=== PATIENT | female | born 1960 ===

== ENCOUNTER 2023-01-17 11:35 | Outpatient (OUT) | payer OTHER, SELFPAY ==
--- NOTE | 2023-01-17 15:07 | CONS_ITS ---
CONSULTATION DATE: ??01/17/2023 TO:? < > CHIEF COMPLAINT:? Includes pain occurring bilaterally in her lower back. HISTORY:? She describes it as 5-7/10 pain, sharp in character with deep aching component, increased with activities such as standing, walking and performing transitioning maneuvers. ?Patient feels most comfortable in the semi-recumbent position.? She denies any change in bowel and bladder habits or new sensorimotor changes in the lower extremities. EXAM:? Her examination is notable for patient having no clinical radiculopathy or myelopathy involving the lower extremities.? She did have severe pain with lumbar axial loading maneuvers and point tenderness overlying the L4-5 and L5-S1 interspace, with associated myofascial spasm of the lumbar paravertebral muscles occurring bilaterally. IMPRESSION:? Our impression is patient has chronic pain secondary to lumbago, secondary to unclear etiology.? She did have dysesthesia and hyperesthesia overlying the distribution of the superior gluteal nerve occurring bilaterally.? RECOMMENDATIONS:? At this point, I recommend no further intervention for this matter at this time.? I have asked her to discontinue [place] and Flexeril.? Will trial her on Baclofen 5 mg pills, 1-2 t.i.d. as tolerated, and we have ordered a lumbosacral MRI, and we will review her findings at her next visit in approximately one month?s time or sooner if needed.? As part of providing excellent, safe, comprehensive care, the following was completed at our patient's visit: 1. A medication reconciliation and review to ensure accurate knowledge of current/active medications, including asking our patients to inform us about any uyfu-jdi-tkrkimn medications or herbal remedies/nutritional supplements/alternative remedies. 2. A review to specifically ensure our patients have had annual screening for: elevated body mass index (BMI, see intake chart for exact total), tobacco use, screening for depression, and screening for unhealthy alcohol use.? When screening is concerning, patients are provided with education and the specific recommendation to discuss the concerning health issue and treatment options with their primary care provider. KALYN
== END 2023-01-17 11:36 | disposition home or self-care (01) ==
PROVIDERS: Visit Provider Anesthesiology Pain Medicine
DX: M54.50 Low back pain, unspecified (principal); G89.29 Other chronic pain
CPT/HCPCS: 94761; G0463

== ENCOUNTER 2023-03-27 11:35 | Outpatient (OUT) | payer OTHER, SELFPAY ==
--- NOTE | 2023-03-27 11:58 | PM.CN ---
Consult Note: HPI Data of Consult Patient: known to practice within the last 3 years Requesting Physician: Maira Park NP Primary Care Provider: Non-Staff Physician, Family Provider: JACEY Consult Narrative Reason for consult: low back pain and right thigh/buttock pain Narrative: Liset miller pleasant 63 year old female presents for follow up on chronic low back pain. Patient here today as MRI of lumbar spine was denied by insurance due to no recent PT for low back pain. cc:: CC: Maira Park NP Review of Systems ROS Status of ROS 10 or more systems reviewed and unremarkable except as noted in history and below Musculoskeletal Reports: back pain Meds Home Medications and Allergies Home Medications Medication Instructions Recorded Confirmed Type acetaminophen 325 mg tablet 650 mg PO Q6H PRN pain 01/18/23 01/18/23 History (Tylenol) albuterol 90 mcg/actuation aerosol 90 mcg inhalation .every 6 hours 01/18/23 01/18/23 History inhaler shortness of breath/wheezing aspirin 81 mg capsule 81 mg PO DAILY 01/18/23 01/18/23 History baclofen 5 mg tablet 5 mg PO TID 01/18/23 01/18/23 History bupropion HCl 150 mg 24 hr tablet, 150 mg PO DAILY 01/18/23 01/18/23 History extended release buspirone 15 mg tablet 15 mg PO BID 01/18/23 01/18/23 History calcium carbonate 500 mg calcium 500 mg PO DAILY 01/18/23 01/18/23 History (1,250 mg) tablet clonazepam 1 mg tablet 1 mg PO BID 01/18/23 01/18/23 History clotrimazole 1 % topical cream 1 applic topical BID 01/18/23 01/18/23 History gabapentin 300 mg capsule 900 mg PO TID 01/18/23 01/18/23 History lisinopril 10 1 tab PO DAILY 01/18/23 01/18/23 History mg-hydrochlorothiazide 12.5 mg tablet meloxicam 15 mg tablet 15 mg PO DAILY 01/18/23 01/18/23 History pantoprazole 40 mg tablet,delayed 40 mg PO BID 01/18/23 01/18/23 History release Allergies Allergy/AdvReac Type Severity Reaction Status Date / Time morphine Allergy Unknown Verified 01/18/23 07:51 Exam Constitutional Documenting provider has reviewed patient's vital signs: yes Common normals: no apparent distress, oriented x3, healthy appearing, alert and well nourished General appearance: cooperative HENMT Common normals: normocephalic, hearing grossly normal bilaterally and moist oral mucous membranes Head and scalp: normocephalic Eye Common normals: PERRL Pupil: PERRL Neck & C-Spine Common normals: full ROM General: normal visual inspection Chest Common normals: inspection of chest normal Respiratory Common normals: normal respiratory effort, no retractions and no use of accessory muscles Back & Pelvis Thoracic spine/upper back: normal to inspection and thoracic ROM normal Lumbar spine/lower back: ROM limited, pain with ROM and straight leg raise negative bilaterally Extremity Common normals: normal to inspection and full ROM Neuro Common normals: oriented x3, CN's II-XII intact bilaterally, moves all extremities, no focal motor deficits, no sensory deficits noted and deep tendon reflexes 2+ bilaterally Sensorium/orientation: alert Motor exam: strength 5/5 throughout and no movement abnormalities noted Psych Common normals: mental status grossly normal, thought process normal, cooperative, affect normal, speech normal and activity/motor behavior normal Speech: normal speech Thought process: normal thought process Results Additional Findings Additional findings: I have checked an [facility] report on this patient today and there are no aberrancies noted in the prescribing history.?? A drug screen was completed and reviewed within the last year, and if there has not been a drug screen completed we ordered one today to monitor higher risk, state monitored pain medication use. As part of providing excellent, safe, comprehensive care, the following was completed at our patient's visit: 1. A medication reconciliation and review to ensure accurate knowledge of current/active medications, including asking our patients to inform us about any oypl-nxe-dwzmexf medications or herbal remedies/nutritional supplements/alternative remedies. 2. A review to specifically ensure our patients have had annual screening for: elevated body mass index (BMI), tobacco use, screening for depression, and screening for unhealthy alcohol use. When screening is concerning, patients are provided with education and the specific recommendation to discuss the concerning health issue and treatment options with their primary care provider. Assessment and Plan Assessment and Plan (1) Hypertension: Assessment and Plan: Blood pressure is elevated today. No signs or symptoms of ID/CVA including chest pain, SOB, left sided acute neck, arm, or jaw pain (separate from chronic pain complaint), diaphoresis, facial drooping, new acute neuro changes in both upper and lower extremities (other than those mentioned in the note above). Recommend follow up with PCP for further evaluation and treatment.? (2) Lumbalgia: Plan PT for low back pain MRI after completion of PT continue medications as ordered f/u 6 weeks
== END 2023-03-27 11:36 | disposition home or self-care (01) ==
LOC: PM 11:36
PROVIDERS: Visit Provider Nurse Practitioner
DX: M54.50 Low back pain, unspecified (principal); I10 Essential (primary) hypertension
CPT/HCPCS: G0463

== ENCOUNTER 2023-06-11 10:42 | Outpatient (OUT) | payer OTHER, SELFPAY ==
--- NOTE | 2023-06-11 10:47 | MR_ITS ---
[address] [address] Patient Name: TIFFANY MCKEON MRN: [id number] date: 1960 Sex: F Assigned Patient Location: MRI Current Patient Location: MRI Accession/Order Number: [id number] Exam Date: 06/11/2023 10:57 Report Date: 06/11/2023 13:53 At the request of: RADHA LINDSEY Procedure: MR lumbar spine wo con MRI LUMBAR SPINE WITHOUT CONTRAST: 06/11/2023 10:57 AM EST History:Low Back Pain Comparison: Outside study 12/18/2021 . Sequences per routine unenhanced protocol. STUDY QUALITY: Good NUMBERING SCHEME: The lowest lumbar type vertebra is labeled L5 OSSEOUS: No marrow edema pattern or compression deformity. Focus of stippled signal alteration T11 vertebral body is partially hyperintense on IRT2. It measures 8 mm and is unchanged. SPINAL CANAL SIZE: Developmentally is greater than average in size LOWER THORACIC LEVELS: No central stenosis. T12-L1: Moderate disc degeneration is unchanged. No HNP or central stenosis. L1-2: No HNP or central stenosis. L2-3: Minimal disc bulge. No HNP or central stenosis. L3-4: Minimal disc bulge. No HNP or central stenosis. L4-5: Mild disc bulge. Posterior ligaments are not hypertrophied. Moderate facet DJD with some overgrowth. Sac is mildly trefoiled but no central stenosis is evident. L4 foramina are slightly narrowed by disc bulge. L5-S1: No HNP or central stenosis. Neither S1 root sleeve is effaced and displaced. Mild facet overgrowths. SPINAL CORD: No evidence of myelomalacia. No syrinx. CONAL TIP: At L1-L2. EXTRASPINAL SOFT TISSUES: No acute findings. OTHER: None MR/MR lumbar spine wo con IMPRESSION: 1. Developmentally the lumbar spinal canal is greater than average in size. 2. No HNP or acquired central stenosis. 3. Area of signal alteration T11 vertebral body is unchanged. Lack of interval change favors benignity. It may simply represent a small hemangioma Electronically authenticated by: POONAM GUILLEN Date: 06/11/2023 13:53
== END 2023-06-11 10:43 | disposition home or self-care (01) ==
LOC: MRI 10:42
PROVIDERS: Visit Provider Anesthesiology Pain Medicine
DX: M54.50 Low back pain, unspecified (principal)
CPT/HCPCS: 72148

== ENCOUNTER 2023-06-19 08:25 | Outpatient (OUT) | payer OTHER, SELFPAY ==
--- NOTE | 2023-06-19 08:57 | P.CN_ITS ---
Consult Note: HPI Data of Consult Patient: known to practice within the last 3 years Requesting Physician: Maira Park NP Primary Care Provider: Non-Staff Physician, Family Provider: JACEY Consult Narrative Reason for consult: f/u Narrative: Liset miller pleasant 63 year old female presents for evaluation and management of chronic back pain. Today rating pain 8/10 in low back pain, throbbing, worse with activity. Completed PT without benefit, MRI obtained and reviewed today. cc:: CC: Maira Park NP Review of Systems ROS Status of ROS 10 or more systems reviewed and unremarkable except as noted in history and below Musculoskeletal Reports: back pain Meds Home Medications and Allergies Home Medications Medication Instructions Recorded Confirmed Type acetaminophen 325 mg tablet 650 mg PO Q6H PRN pain 01/18/23 01/18/23 History (Tylenol) albuterol 90 mcg/actuation aerosol 90 mcg inhalation .every 6 hours 01/18/23 01/18/23 History inhaler shortness of breath/wheezing aspirin 81 mg capsule 81 mg PO DAILY 01/18/23 01/18/23 History baclofen 5 mg tablet 5 mg PO TID 01/18/23 01/18/23 History bupropion HCl 150 mg 24 hr tablet, 150 mg PO DAILY 01/18/23 01/18/23 History extended release buspirone 15 mg tablet 15 mg PO BID 01/18/23 01/18/23 History calcium carbonate 500 mg calcium 500 mg PO DAILY 01/18/23 01/18/23 History (1,250 mg) tablet clonazepam 1 mg tablet 1 mg PO BID 01/18/23 01/18/23 History clotrimazole 1 % topical cream 1 applic topical BID 01/18/23 01/18/23 History gabapentin 300 mg capsule 900 mg PO TID 01/18/23 01/18/23 History lisinopril 10 1 tab PO DAILY 01/18/23 01/18/23 History mg-hydrochlorothiazide 12.5 mg tablet meloxicam 15 mg tablet 15 mg PO DAILY 01/18/23 01/18/23 History pantoprazole 40 mg tablet,delayed 40 mg PO BID 01/18/23 01/18/23 History release Allergies Allergy/AdvReac Type Severity Reaction Status Date / Time morphine Allergy Unknown Verified 01/18/23 07:51 Exam Constitutional Documenting provider has reviewed patient's vital signs: yes Common normals: no apparent distress, oriented x3, healthy appearing, alert and well nourished General appearance: cooperative HENMT Common normals: normocephalic, hearing grossly normal bilaterally and moist oral mucous membranes Head and scalp: normocephalic Eye Common normals: PERRL Pupil: PERRL Neck & C-Spine Common normals: full ROM General: normal visual inspection Chest Common normals: inspection of chest normal Respiratory Common normals: normal respiratory effort, no retractions and no use of accessory muscles Back & Pelvis Thoracic spine/upper back: normal to inspection and thoracic ROM normal Lumbar spine/lower back: ROM limited, pain with ROM and straight leg raise negative bilaterally Other: radiculapthy and weakness to right leg Extremity Common normals: normal to inspection and full ROM Neuro Common normals: oriented x3, CN's II-XII intact bilaterally, moves all extremities, no focal motor deficits, no sensory deficits noted and deep tendon reflexes 2+ bilaterally Sensorium/orientation: alert Motor exam: strength 5/5 throughout and no movement abnormalities noted Psych Common normals: mental status grossly normal, thought process normal, cooperative, affect normal, speech normal and activity/motor behavior normal Speech: normal speech Thought process: normal thought process Assessment and Plan Assessment and Plan (1) Lumbar degenerative disc disease: Assessment and Plan: The patient has had over 3 months of moderate to severe low back pain with functional impairment and inadequate response to conservative care including NSAIDS (unless there are contraindication such as concurrent blood thinners), multiple oral or topical pain medications, and home exercise program/physical therapy.? Patient has completed >6 weeks of guided home exercise program and/or formal ph ysical therapy program without relief of their symptoms.? I have reviewed the imaging of the lumbar spine and no red flags were identified.? The Oswestry Disability Index was completed, and the patient scored a 48%.? The patient noted the following:?? moderate to severe pain, pain with ADLs, pain with lifting, walking, standing, impacting sleep We discussed the risks and benefits of the procedure with the patient, and we are NOT planning on using sedation as outlined in the guidelines from Medicare unless there is a documented reason that sedation would be strongly recommended.???The procedure will be completed with fluoroscopic guidance.? (2) Lumbalgia: (3) Lumbar radiculopathy: Plan stop mobic, start diclofenac 100mg BID with food L4-[address] Jenkins continue other medications continue HEP f/u 2 weeks after SUZANNA
== END 2023-06-19 08:26 | disposition home or self-care (01) ==
LOC: PM 08:26
PROVIDERS: Visit Provider Nurse Practitioner
DX: M51.36 Other intervertebral disc degeneration, lumbar region (principal); M54.50 Low back pain, unspecified; M54.16 Radiculopathy, lumbar region
CPT/HCPCS: G0463

== ENCOUNTER 2023-07-18 07:44 | Day surgery (SDC) | payer OTHER, SELFPAY ==
[2023-07-18 08:00] VITALS: BP 134/95; PULSE 82; RESP 16; TEMP 36.1; O2SAT 98
[2023-07-18 08:52] VITALS: BP 150/72; PULSE 65; RESP 18; O2SAT 94
[2023-07-18 08:54] VITALS: BP 142/75; PULSE 57; RESP 18; O2SAT 94
[2023-07-18] MEDS: 0.9 % SODIUM CHLORIDE 10 ML SYRINGE - SALINE FLUSH 2 ML INJ (08:58)
[2023-07-18] MEDS: BUPIVACAINE HCL 0.25% PF 25 MG/10 ML VIAL 2 ML INJ (08:59)
[2023-07-18] MEDS: LIDOCAINE HCL 2% PF 100 MG/5 ML VIAL 3 ML INJ (08:59)
[2023-07-18] MEDS: IOHEXOL 240 MG/ML - 10 ML VIAL 18 MG INJ (08:59)
[2023-07-18] MEDS: METHYLPREDNISOLONE ACETATE 80 MG/ML VIAL INJ (08:59)
--- NOTE | 2023-07-18 09:12 | P.ON_ITS ---
Date of procedure: 07/18/23 Pre-op diagnosis: lumbar radiculopathy Post-op diagnosis: same as pre-op Procedure: Lumbar 4-5 Epidural Steroid Injection Under fluoroscopic guidance Immediate complications none Solution used for injection: Marcaine 0.25% 2mL, 2cc Normal saline, Depo-Medrol 80mg Omnipaque 3 mL Anesthesia local 2% lidocaine up to 4ml Timeout process compliant After informed consent obtained. Patient brought to the procedure room placed in the prone position. Skin overlying the area was prepped and draped in a sterile fashion using betadine. 25 gauge needle used to raise a skin wheel with local anesthetic over the target area identified under fluoroscopy. A 17 gauge Touhy needle Was inserted over the anesthetized area and directed towards the inter- space under fluoroscopic guidance. Epidural space was identified with loss of resistance technique to air. Needle Tip placement confirmed with injection of contrast solution. Steroid solution was then injected. Anesthesia: Local Surgeon: Matt Jenkins Condition: stable
--- OUTSIDE RECORDS SUMMARY | 2023-07-18 10:30 | XMS_ITS | CCD ---
Author Name Unknown Address [address] [facility] [address] [place] [address] Organization [facility] Care Team Providers Care Neonatal Intensive Care Nurse Name Role Phone DeaBerhane carpenter Primary Care Provider Case Paul Primary Care Provider DeaBerhane carpenter Primary Care Provider [phone] DeaBerhane carpenter Primary Care Provider Deats TEST BORER - PHP PROGRAMMERBerhane Primary Care Provider Deats TEST BORER - PHP PROGRAMMERBerhane Primary Care Provider Saud TEST BORER - PHP PROGRAMMER, Jazmín White Primary Care Provid er Saud TEST BORER - PHP PROGRAMMER, Jazmín L Primary Care Provid er Saud TEST BORER - PHP PROGRAMMER, Jazmín L Primary Care Provid er MISC, DR ERICKSON Primary Care Unavailable GONZALEZ ., DR JUNIOR Good Attending Unavailable GONZALEZ ., DR JUNIOR Good Admitting Unavailable MISC, DR ERICKSON Consulting Unavailable GONZALEZ ., DR JUNIOR Good Consulting Unavailable SHARP, CAMRYN Consulting Unavailable GEMBUS, MATIAS Consulting Unavailable MISC, DR ERICKSON Primary Care Unavailable GONZALEZ ., DR JUNIOR Good Attending Unavailable GONZALEZ ., DR JUNIOR Good Admitting Unavailable MISC, DR ERICKSON Consulting Unavailable PERRY .GARY Consulting Unavailable PERRY .GARY Consulting Unavailable MISC, DR ERICKSON Primary Care Unavailable GONZALEZ ., DR JUNIOR Good Attending Unavailable GONZALEZ ., DR JUNIOR Good Admitting Unavailable MISC, DR ERICKSON Consulting Unavailable MISC, DR ERICKSON Primary Care Unavailable GONZALEZ ., DR JUNIOR Good Attending Unavailable GONZALEZ ., DR JUNIOR Good Admitting Unavailable GONZALEZ ., DR JUNIOR Good Consulting Unavailable MISC, DR ERICKSON Consulting Unavailable MISC, DR ERICKSON Primary Care Unavailable GONZALEZ ., DR JUNIOR Good Attending Unavailable GONZALEZ ., DR JUNIOR Good Admitting Unavailable GONZALEZ ., DR JUNIOR Good Consulting Unavailable PERRY ., GARY Consulting Unavailable PERRY ., GARY Consulting Unavailable MISC, DR ERICKSON Primary Care Unavailable GONZALEZ ., DR JUNIOR Good Attending Unavailable GONZALEZ ., DR JUNIOR Good Admitting Unavailable LAKSHMIPATHY ., NARENDRANATH Attending Annabel vailable MISC, DR DOCTOR Mcclain Unavailable MISC, DR ERICKSON Primary Care Unavailable LAKSHMIPATHY ., NARENDRANATH Admitting Annabel vailable LAKSHMIPATHY ., NARLIBERTYATH Consulting Annabel vailable PERRY ., GARY Consulting Unavailable GONZALEZ ., DR JUNIOR Good Attending Unavailable MISC, DR ERICKSON Primary Care Unavailable GONZALEZ ., DR JUNIOR Good Admitting Unavailable MISC, DR DOCTOR Mcclain Unavailable GONZALEZ ., DR JUNIOR Good Attending Unavailable GONZALEZ ., DR JUNIOR Good Admitting Unavailable MISC, DR ERICKSON Primary Care Unavailable GONZALEZ ., DR JUNIOR Good Consulting Unavailable HIGHLANDER, ESTUARDO Tobin Attending Unavailable ZIEBER, DR MARIO Cotton Consulting Unavailable HIGHLANDER, ESTUARDO Tobin Admitting Unavailable HIGHLANDER, ESTUARDO Tobin Consulting Unavailable PARADISE, BROOKE Consulting Unavailable PARADISE, BROOKE Attending Unavailable PARADISE, BROOKE Admitting Unavailable MISC, DR ERICKSON Primary Care Unavailable BROOKLYNN CAMPBELL Consulting Unavailable MISC, DR ERICKSON Primary Care Unavailable GONZALEZ ., DR JUNIOR Good Attending Unavailable GONZALEZ ., DR JUNIOR Good Admitting Unavailable MISC, DR DOCTOR Mcclain Unavailable GONZALEZ ., DR JUNIOR Good Consulting Unavailable GONZALEZ ., DR JUNIOR Good Attending Unavailable GONZALEZ ., DR JUNIOR Good Admitting Unavailable MISC, DR ERICKSON Primary Care Unavailable MISC, DR DOCTOR Mcclain Unavailable PERRY ., GARY Consulting Unavailable Saud TEST BORER-PHP PROGRAMMER, [facility] Primary Care Unava ilable Saud TEST BORER-PHP PROGRAMMER, Jazmín L Consulting Unava ilable Bogdan DPM, Ariel Morillo Attending Unavailab le Saud TEST BORER-PHP PROGRAMMER, [facility] Primary Care Unava ilable Bogdan DPM, Ariel Morillo Attending Unavailab le Saud TEST BORER-PHP PROGRAMMER, [facility] Primary Care Unava ilable Bogdan DPM, Ariel Morillo Attending Unavailab le Saud TEST BORER-PHP PROGRAMMER, [facility] Primary Care Unava ilable Bogdan DPM, Ariel Morillo Attending Unavailab le Bogdan DPM, Ariel Morillo Attending Unavailab le Saud TEST BORER-PHP PROGRAMMER, Jazmín White Primary Care Unava ilable Saud TEST BORER-PHP PROGRAMMER, Jazmín White Primary Care Unava ilable Bogdan MCCARTHYM, Ariel Morillo Referring Unavailab Josh QUEZADA, Adriana Attending Unavailable Saud TEST BORER-PHP PROGRAMMER, Jazmín White Primary Care Unava ilable Bogdan DPM, Ariel Morillo Attending Unavailab le Saud TEST BORER-PHP PROGRAMMER, Jazmín White Primary Care Unava ilable Bogdan DPM, Ariel Morillo Attending Unavailab le Saud TEST BORER - PHP PROGRAMMER, Jazmín White Primary Care Provid er SAUD, JAZMÍN White Primary Care Unavailable DAT RUDOLPH Admitting Unavailable DAT RUDOLPH Attending Unavailable DAVI DUKE Referring Unavailable REJI, LUCINA Consulting Unavaila ble SAUD, JAZMÍN L Referring Unavailable SAUD, JAZMÍN L Primary Care Unavailable SAUD, JAZMÍN L Referring Unavailable SAUD, JAZMÍN L Primary Care Unavailable SOPHIA MULLIGAN Referring Unavailable SAUD, JAZMÍN L Primary Care Unavailable SAUD, JAZMÍN L Referring Unavailable SAUD, JAZMÍN L Primary Care Unavailable SAUD, JAZMÍN L Referring Unavailable SAUD, JAZMÍN L Primary Care Unavailable SAUD, JAZMÍN L Referring Unavailable SAUD, JAZMÍN L Primary Care Unavailable SAUD, JAZMÍN L Referring Unavailable SAUD, JAZMÍN L Primary Care Unavailable SAUD, JAZMÍN L Referring Unavailable SAUD, JAZMÍN L Primary Care Unavailable SAUD, JAZMÍN L Referring Unavailable SAUD, JAZMÍN L Primary Care Unavailable SAUD, JAZMÍN L Referring Unavailable SAUD, JAZMÍN L Primary Care Unavailable SAUD, JAZMÍN L Referring Unavailable SAUD, JAZMÍN L Primary Care Unavailable SAUD, JAZMÍN L Referring Unavailable SAUD, JAZMÍN L Primary Care Unavailable SAUD, JAZMÍN L Referring Unavailable SAUD, JAZMÍN L Primary Care Unavailable SAUD, JAZMÍN L Referring Unavailable SAUD, JAZMÍN L Primary Care Unavailable SAUD, JAZMÍN L Referring Unavailable SAUD, JAZMÍN L Primary Care Unavailable SAUD, JAZMÍN L Referring Unavailable SAUD, JAZMÍN L Primary Care Unavailable SAUD, JAZMÍN L Referring Unavailable SAUD, JAZMÍN L Primary Care Unavailable SAUD, JAZMÍN L Referring Unavailable SAUD, JAZMÍN L Primary Care Unavailable SAUD, JAZMÍN L Referring Unavailable SAUD, JAZMÍN L Primary Care Unavailable SAUD, JAZMÍN L Referring Unavailable SAUD, JAZMÍN L Primary Care Unavailable SAUD, JAZMÍN L Referring Unavailable SAUD, JAZMÍN L Primary Care Unavailable SAUD, JAZMÍN L Referring Unavailable SUAD, JAZMÍN L Primary Care Unavailable MULLIGAN, SOPHIA S Referring Unavailable SAUD, JAZMÍN L Primary Care Unavailable SAUD, JAZMÍN L Referring Unavailable SAUD, JAZMÍN L Primary Care Unavailable EVITA LEON R Referring Unavailable SAUD, JAZMÍN L Primary Care Unavailable SAUD, JAZMÍN L Referring Unavailable SAUD, JAZMÍN L Primary Care Unavailable SAUD, JAZMÍN L Referring Unavailable SAUD, JAZMÍN L Primary Care Unavailable SAUD, JAZMÍN L Referring Unavailable SAUD, JAZMÍN L Primary Care Unavailable SAUD, JAZMÍN L Referring Unavailable SAUD, JAZMÍN L Primary Care Unavailable SAUD, JAZMÍN L Referring Unavailable SAUD, JAZMÍN L Primary Care Unavailable SAUD, JAZMÍN L Referring Unavailable SAUD, JAZMÍN L Primary Care Unavailable SAUD, JAZMÍN L Referring Unavailable SAUD, JAZMÍN L Primary Care Unavailable SAUD, JAZMÍN L Referring Unavailable SAUD, JAZMÍN L Primary Care Unavailable SAUD, JAZMÍN L Referring Unavailable SAUD, JAZMÍN L Primary Care Unavailable SAUD, JAZMÍN L Referring Unavailable SAUD, JAZMÍN L Primary Care Unavailable SAUD, JAZMÍN L Referring Unavailable SAUD, JAZMÍN L Primary Care Unavailable SAUD, JAZMÍN L Referring Unavailable SAUD, JAZMÍN L Primary Care Unavailable SAUD, JAZMÍN L Referring Unavailable SAUD, JAZMÍN L Primary Care Unavailable SAUD, JAZMÍN L Referring Unavailable SAUD, JAZMÍN L Primary Care Unavailable SAUD, JAZMÍN L Referring Unavailable SAUD, JAZMÍN L Primary Care Unavailable SAUD, JAZMÍN L Referring Unavailable SAUD, JAZMÍN L Primary Care Unavailable SAUD, JAZMÍN L Referring Unavailable SAUD, JAZMÍN L Primary Care Unavailable SAUD, JAZMÍN L Referring Unavailable SAUD, JAZMÍN L Primary Care Unavailable SAUD, JAZMÍN L Referring Unavailable SAUD, JAZMÍN L Primary Care Unavailable SAUD, JAZMÍN L Referring Unavailable SAUD, JAZMÍN L Primary Care Unavailable SERA, BRIANDA N Admitting Unavailable SERA, BRIANDA N Attending Unavailable SAUD, JAZMÍN L Primary Care Unavailable SAUD, JAZMÍN L Primary Care Unavailable CRISMARU, DAVI Attending Unavailable SAUD, JAZMÍN L Referring Unavailable SAUD, JAZMÍN L Primary Care Unavailable SAUD, JAZMÍN L Primary Care Unavailable SAUD, JAZMÍN L Referring Unavailable SAUD, JAZMÍN L Primary Care Unavailable SAUD, JAZMÍN L Referring Unavailable SAUD, JAZMÍN L Primary Care Unavailable Allergies Allergy Classification Reported Allergen(s) Allergy Type Date of Onset Reaction(s) Facility NSAIDs (6 sources) Ibuprofen Drug Allergy 3 Other (See Comments) [facility] Opioid Agonists (6 sources) Morphine Drug Allergy 2 [facility] (20 sources) Ibuprofen; Translations: [ibuprofen] Drug Allergy 3 Other (See Comments) [place] (20 sources) Morphine; Translations: [morphine] Drug Allergy 2 [place], [place] (1 source) Morphine Drug Allergy [facility] Repository Medications Current Medications Medication Drug Class(es) Dates Sig (Normalized) Sig (Original) Acetaminophen (20 sources) Start: 09-12-2022 acetaminophen (TYLENOL) tablet 650 mg Start: 08-19-2020 acetaminophen (TYLENOL) tablet 650 mg Start: 08-20-2019 take 2 tablets by mo uth every eight hours as needed for pain acetaminophen (TYLENOL) 325 MG tablet Take 2 tablets by mouth every 8 hours as needed for Pain 30 tablet 0 08/20/2019 Active Start: 08-20-2019 acetaminophen (TYLENOL) tablet 1,000 mg take 2 tablets by mo uth every six hours as needed for pain acetaminophen (TYLENOL) 325 MG tablet Take 2 tablets by mouth every 6 hours as needed for Pain 0 Active acetaminophen 325 mg / HYDROcodone bitartrate 5 mg oral tablet (12 sources) Opioid Agonist Start: 11-21-2021 End: 11-26-2021 take 1 tablet by mouth every six hours as needed for pain HYDROcodone-acetaminophen (NORCO) 5-325 MG per tablet Indications: Chronic bilateral low back pain, unspecified whether sciatica present Take 1 tablet by mouth every 6 hours as needed for Pain for up to 5 days. Take lowest dose possible to manage pain 18 tablet 0 11/21/2021 11/26/2021 Active Start: 08-19-2020 End: 08-19-2020 HYDROcodone-acetaminophen (N ORCO) 5-325 MG per tablet 1 tablet [id number] 200 actuat albuterol 0.09 mg/actuat metered dose inhaler (20 sources) beta2-Adrenergic Agonist Start: 09-12-2022 albuterol sulfate HFA (PROVENTIL;VENTOLIN;PROAIR) 108 (90 Base) MCG/ACT inhaler 2 puff Start: 11-30-2021 take 2 puff(s) by in halation every six hours as needed for wheezing albuterol sulfate HFA (PROVENTIL HFA) 108 (90 Base) MCG/ACT inhaler Inhale 2 puffs into the lungs every 6 hours as needed for Wheezing 1 each 5 11/30/2021 Active Start: 09-07-2021 take 2 puff(s) by in halation every six hours as needed for wheezing albuterol sulfate HFA (PROVENTIL HFA) 108 (90 Base) MCG/ACT inhaler Inhale 2 puffs into the lungs every 6 hours as needed for Wheezing 1 each 5 09/07/2021 Active Start: 02-01-2021 take 2 puff(s) by in halation every six hours as needed for wheezing albuterol sulfate HFA (PROVENTIL HFA) 108 (90 Base) MCG/ACT inhaler Inhale 2 puffs into the lungs every 6 hours as needed for Wheezing 1 Inhaler 3 02/01/2021 Active Start: 04-09-2019 take 2 puff(s) by in halation every six hours as needed for wheezing albuterol sulfate HFA (PROVENTIL HFA) 108 (90 Base) MCG/ACT inhaler Inhale 2 puffs into the lungs every 6 hours as needed for Wheezing 1 Inhaler 3 04/09/2019 Active Start: 04-09-2019 take 2 puff(s) by in halation every six hours as needed for wheezing albuterol sulfate HFA (PROVENTIL HFA) 108 (90 Base) MCG/ACT inhaler Inhale 2 puffs into the lungs every 6 hours as needed for Wheezing 1 Inhaler 3 04/09/2019 Active Start: 01-28-2017 take 2 puff(s) by in halation every six hours as needed for wheezing albuterol sulfate HFA (PROVENTIL HFA) 108 (90 Base) MCG/ACT inhaler Inhale 2 puffs into the lungs every 6 hours as needed for Wheezing 1 Inhaler 3 01/28/2017 Active alginic acid 200 mg / calcium carbonate 80 mg / magnesium trisilicate 20 mg / sodium bicarbonate 70 mg oral tablet (8 sources) take 1 tablet by mouth once daily calcium carbonate (TUMS) 500 MG chewable tablet Take 1 tablet by mouth daily 0 Active ALPRAZolam 0.5 mg oral tablet (4 sources) Benzodiazepine Start: 09-10-19 23 End: 11-10-19 23 take 1 tablet by mouth three times daily as needed for anxiety ALPRAZolam (XANAX) 0.5 MG tablet Indications: Anxiety and depression Take 1 tablet by mouth 3 times daily as needed for Anxiety for up to 60 days. Max Daily Amount: 1.5 mg 60 tablet 0 09/10/2022 11/09/2022 Active aspirin 81 mg chewable tablet (20 sources) Platelet Aggregation Inhibitor, Nonsteroidal Anti-inflammatory Drug take 1 tablet by mouth once daily aspirin 81 MG chewable tablet Take 1 tablet by mouth daily 0 Active atorvastatin 20 mg oral tablet (20 sources) HMG-CoA Reductase Inhibitor Start: 10-09-19 take 1 tablet by mouth once daily atorvastatin (LIPITOR) 20 MG tablet Indications: Dyslipidemia Take 1 tablet by mouth daily 90 tablet 1 10/08/2022 Active Start: 06-07-2022 take 1 tablet by marj th once daily atorvastatin (LIPITOR) 20 MG tablet Indications: Dyslipidemia Take 1 tablet by mouth daily 90 tablet 1 06/07/2022 Active Start: 11-30-2021 take 1 tablet by marj th once daily atorvastatin (LIPITOR) 20 MG tablet Take 1 tablet by mouth daily 30 tablet 5 11/30/2021 Active Start: 09-07-2021 take 1 tablet by marj th once daily atorvastatin (LIPITOR) 20 MG tablet Take 1 tablet by mouth daily 30 tablet 5 09/07/2021 Active Start: 02-01-2021 take 1 tablet by marj th once daily atorvastatin (LIPITOR) 20 MG tablet Take 1 tablet by mouth daily 30 tablet 5 02/01/2021 Active Start: 10-21-2020 take 1 tablet by marj th once daily atorvastatin (LIPITOR) 20 MG tablet Take 1 tablet by mouth daily 30 tablet 5 10/21/2020 Active Start: 10-19-2019 End: 04-05-2020 take 1 tablet by mouth once daily atorvastatin (LIPITOR) 10 MG tablet Take 1 tablet by mouth daily 90 tablet 1 10/19/2019 04/05/2020 Discontinued (Therapy completed) B-Complex, Folic Acid, TABS (3 sources) Start: 10-04-2022 B-Complex, Fol ic Acid, TABS baclofen 5 mg oral tablet (10 sources) gamma-Aminobutyric Acid-ergic Agonist Start: 01-18-2023 Baclofen (LIORESAL) 5 MG tablet betamethasone 0.5 mg/ml / clotrimazole 10 mg/ml topical cream (20 sources) Azole Antifungal, Corticosteroid Start: 02-26-2022 clotrimazole-betame thasone (LOTRISONE) 1-0.05 % cream APPLY TO AFFECTED AREAS 2 TIMES A DAY NEEDED 45 g 0 02/26/2022 Active Start: 09-07-2021 clotrimazole-b etamethasone (LOTRISONE) 1-0.05 % cream Apply topically 2 times daily if needed 45 g 0 09/07/2021 Active 24 hr buPROPion hydrochloride 450 mg extended release oral tablet (20 sources) Aminoketone Start: 10-08-2022 End: 05-08-2023 take 1 tablet by mouth once daily in the morning buPROPion HCl ER, XL, 450 MG TB24 Indications: Anxiety and depression Take 450 mg by mouth every morning 90 tablet 0 02/07/2023 05/08/2023 Active Start: 06-07-2022 take 1 tablet by marj th once daily in the morning buPROPion (WELLBUTRIN XL) 300 MG extended release tablet Indications: Anxiety and depression Take 1 tablet by mouth every morning 30 tablet 3 06/07/2022 Active Start: 11-30-2021 take 1 tablet by marj th once daily in the morning buPROPion (WELLBUTRIN XL) 150 MG extended release tablet Indications: Anxiety and depression Take 1 tablet by mouth every morning 90 tablet 1 11/30/2021 Active Start: 09-07-2021 take 1 tablet by marj th once daily in the morning buPROPion (WELLBUTRIN XL) 150 MG extended release tablet Indications: Anxiety and depression Take 1 tablet by mouth every morning 90 tablet 1 09/07/2021 Active Start: 02-01-2021 take 1 tablet by marj th once daily in the morning buPROPion (WELLBUTRIN XL) 150 MG extended release tablet Indications: Anxiety and depression Take 1 tablet by mouth every morning 90 tablet 1 02/01/2021 Active Start: 08-04-2020 take 1 tablet by marj th once daily in the morning buPROPion (WELLBUTRIN XL) 150 MG extended release tablet Indications: Anxiety and depression Take 1 tablet by mouth every morning 90 tablet 1 08/04/2020 Active Start: 10-13-2019 take 1 tablet by marj th once daily in the morning buPROPion (WELLBUTRIN XL) 150 MG extended release tablet Indications: Anxiety and depression Take 1 tablet by mouth every morning 90 tablet 1 10/13/2019 Active Start: 01-06-2019 take 1 tablet by marj th once daily in the morning buPROPion (WELLBUTRIN XL) 150 MG extended release tablet Indications: Dysthymia Take 1 tablet by mouth every morning 90 tablet 0 01/06/2019 Active busPIRone hydrochloride 15 mg oral tablet (20 sources) Start: 10-08-2022 take 1 tablet by mouth twice daily busPIRone (BUSPAR) 15 MG tablet Indications: Anxiety and depression Take 15 mg by mouth 2 times daily 180 tablet 3 10/08/2022 Active Start: 06-07-2022 take 1 tablet by marj th twice daily busPIRone (BUSPAR) 15 MG tablet Indications: Anxiety and depression Take 15 mg by mouth 2 times daily 180 tablet 3 06/07/2022 Active Start: 11-30-2021 take 1 tablet by marj th twice daily busPIRone (BUSPAR) 15 MG tablet Indications: Anxiety and depression Take 15 mg by mouth 2 times daily 180 tablet 3 11/30/2021 Active Start: 09-07-2021 take 1 tablet by marj th twice daily busPIRone (BUSPAR) 15 MG tablet Indications: Anxiety and depression Take 15 mg by mouth 2 times daily 180 tablet 3 09/07/2021 Active Start: 02-01-2021 take 1 tablet by marj th twice daily busPIRone (BUSPAR) 15 MG tablet Indications: Anxiety and depression Take 15 mg by mouth 2 times daily 180 tablet 3 02/01/2021 Active Start: 08-04-2020 take 1 tablet by marj th twice daily busPIRone (BUSPAR) 15 MG tablet Indications: Anxiety and depression Take 15 mg by mouth 2 times daily 180 tablet 3 08/04/2020 Active Start: 10-13-2019 take 1 tablet by marj th twice daily busPIRone (BUSPAR) 15 MG tablet Indications: Anxiety and depression Take 15 mg by mouth 2 times daily 180 tablet 3 10/13/2019 Active Start: 09-17-2018 take 1 tablet by marj th twice daily busPIRone (BUSPAR) 15 MG tablet Indications: Dysthymia Take 15 mg by mouth 2 times daily 180 tablet 3 09/17/2018 Active calcium carbonate 500 mg chewable tablet (20 sources) take 1 tablet by mouth once daily calcium carbonate (TUMS) 500 MG chewable tablet Take 1 tablet by mouth daily 0 Active calcium chloride 0.0014 meq/ml / potassium chloride 0.004 meq/ml / sodium chloride 0.103 meq/ml / sodium lactate 0.028 meq/ml injectable solution (2 sources) Start: 08-19-2020 lactated ringers infusion Start: 04-19-2020 lactated ringe rs infusion clonazePAM 1 mg oral tablet (9 sources) Benzodiazepine Start: 04-04-2023 End: 07-03-2023 take 1 tablet by mouth three times daily as needed for anxiety clonazePAM (KLONOPIN) 1 MG tablet Indications: Anxiety and depression Take 1 tablet by mouth 3 times daily as needed for Anxiety for up to 90 days. Max Daily Amount: 3 mg 60 tablet 0 04/04/2023 07/03/2023 Active Start: 02-07-2023 End: 03-09-2023 take 1 tablet by mouth once daily at bedtime clonazePAM (KLONOPIN) 1 MG tablet Indications: Anxiety and depression Take 1 tablet by mouth in the morning and at bedtime for 30 days. Max Daily Amount: 2 mg 60 tablet 0 02/07/2023 03/09/2023 Active Start: 01-01-2023 End: 01-31-2023 take 1 tablet by mouth once daily at bedtime clonazePAM (KLONOPIN) 1 MG tablet Indications: Anxiety and depression Take 1 tablet by mouth in the morning and at bedtime for 30 days. Max Daily Amount: 2 mg 60 tablet 0 01/01/2023 01/31/2023 Active Start: 10-08-2022 End: 11-07-2022 take 1 tablet by mouth once daily at bedtime clonazePAM (KLONOPIN) 1 MG tablet Take 1 tablet by mouth in the morning and at bedtime for 30 days. Max Daily Amount: 2 mg 60 tablet 0 10/08/2022 11/07/2022 Active clotrimazole 10 mg/ml topical cream (2 sources) Azole Antifungal Start: 03-03-2020 End: 03-10-2020 clotrimazole (LOTRIMIN AF) 1 % cream Apply topically 2 times daily. 113 g 1 03/03/2020 03/10/2020 Active cyclobenzaprine hydrochloride 5 mg oral tablet (2 sources) Muscle Relaxant Start: 08-20-2019 End: 08-30-2019 take 1 tablet by mouth twice daily as needed for muscle spasms cyclobenzaprine (FLEXERIL) 5 MG tablet Take 1 tablet by mouth 2 times daily as needed for Muscle spasms 20 tablet 0 08/20/2019 08/30/2019 Active Start: 08-20-2019 End: 08-20-2019 cyclobenzaprine (FLEXERIL) t ablet 10 mg docosahexaenoic acid 120 mg / eicosapentaenoic acid 180 mg oral capsule (3 sources) Start: 10-04-2022 Eagle-3 Fatty Acids (FISH OIL) 1000 MG capsule DULoxetine 60 mg delayed release oral capsule (20 sources) Serotonin and Norepinephrine Reuptake Inhibitor Start: 11-30-2021 take 1 capsule by mouth once daily DULoxetine (CYMBALTA) 60 MG extended release capsule Indications: Anxiety and depression Take 1 capsule by mouth daily 90 capsule 1 11/30/2021 Active Start: 09-07-2021 take 1 capsule by mo ut once daily DULoxetine (CYMBALTA) 60 MG extended release capsule Indications: Anxiety and depression Take 1 capsule by mouth daily 90 capsule 1 09/07/2021 Active Start: 02-01-2021 take 1 capsule by mo ut once daily DULoxetine (CYMBALTA) 60 MG extended release capsule Indications: Anxiety and depression Take 1 capsule by mouth daily 90 capsule 1 02/01/2021 Active Start: 02-01-2021 End: 02-16-2021 take 1 capsule by mouth once daily DULoxetine (CYMBALTA) 30 MG extended release capsule Take 1 capsule by mouth daily 90 capsule 1 02/01/2021 02/16/2021 Discontinued (LIST CLEANUP) Start: 08-04-2020 take 1 capsule by mo uth once daily DULoxetine (CYMBALTA) 60 MG extended release capsule Indications: Anxiety and depression Take 1 capsule by mouth daily 90 capsule 1 08/04/2020 Active Start: 10-13-2019 take 1 capsule by mo uth once daily DULoxetine (CYMBALTA) 60 MG extended release capsule Indications: Anxiety and depression Take 1 capsule by mouth daily 90 capsule 1 10/13/2019 Active Start: 04-09-2019 take 1 capsule by mo uth once daily DULoxetine (CYMBALTA) 60 MG extended release capsule Indications: Anxiety and depression Take 1 capsule by mouth daily 90 capsule 1 04/09/2019 Active Start: 01-06-2019 take 1 capsule by [facility] once daily DULoxetine (CYMBALTA) 30 MG extended release capsule Indications: Primary osteoarthritis of both knees , Dysthymia Take 1 capsule by mouth daily 90 capsule 0 01/06/2019 Active 0.4 ml enoxaparin sodium 100 mg/ml prefilled syringe (1 source) Low Molecular Weight Heparin Start: 09-12-2022 enoxaparin (LOVENOX) injection 40 mg fluconazole 200 mg oral tablet (4 sources) Azole Antifungal Start: 01-21-2019 take 1 tablet by mouth every week fluconazole (DIFLUCAN) 200 MG tablet Indications: Tinea corporis Take 1 tablet by mouth once a week 4 tablet 0 01/21/2019 Active fluticasone propionate 0.05 mg/actuat metered dose nasal spray (12 sources) Corticosteroid Start: 11-08-2022 take 2 spray(s) nasal route once daily fluticasone (FLONASE) 50 MCG/ACT nasal spray Indications: Upper respiratory tract infection, unspecified type 2 sprays by Each Nostril route daily 48 g 1 11/08/2022 Active furosemide 20 mg oral tablet (5 sources) Loop Diuretic Start: 02-07-2023 End: 02-22-2023 take 1 tablet by mouth once daily as needed furosemide (LASIX) 20 MG tablet Indications: Bilateral swelling of feet and ankles Take 1 tablet by mouth daily as needed (swelling) 15 tablet 0 02/07/2023 Active gabapentin 600 mg oral tablet (20 sources) Anti-epileptic Agent Start: 04-10-2023 End: 07-09-2023 take 1 tablet by mouth three times daily gabapentin (NEURONTIN) 600 MG tablet Indications: Anxiety and depression TAKE 1 & 1/2 TABLETS BY MOUTH THREE TIMES DAILY FOR 30 DAYS 135 tablet 0 04/10/2023 07/09/2023 Active Start: 10-08-2022 End: 12-07-2022 take 1.5 tablets by mouth three times daily gabapentin (NEURONTIN) 600 MG tablet Indications: Anxiety and depression Take 1.5 tablets by mouth 3 times daily for 60 days. 270 tablet 0 10/08/2022 12/07/2022 Active Start: 08-03-2022 gabapentin (NE URONTIN) 600 MG tablet Indications: Anxiety and depression TAKE 1 AND 1/2 TABLETS BY MOUTH 3 TIMES DAILY FOR 30 DAYS 135 tablet 0 08/03/2022 Active Start: 02-26-2022 End: 05-27-2022 gabapentin (NEURONTIN) 600 M G tablet TAKE 1 AND 1/2 TABLETS BY MOUTH 3 TIMES DAILY FOR 30 DAYS 135 tablet 0 02/26/2022 05/27/2022 Active Start: 11-30-2021 End: 12-30-2021 take 1.5 tablets by mouth three times daily gabapentin (NEURONTIN) 600 MG tablet Take 1.5 tablets by mouth 3 times daily for 30 days. 135 tablet 0 11/30/2021 Active Start: 09-07-2021 take 1.5 tablets by mouth three times daily gabapentin (NEURONTIN) 600 MG tablet Take 1.5 tablets by mouth 3 times daily for 30 days. 135 tablet 0 09/07/2021 Active Start: 02-01-2021 End: 05-02-2021 take 1 tablet by mouth three times daily gabapentin (NEURONTIN) 600 MG tablet Take 1 tablet by mouth 3 times daily for 90 days. 90 tablet 2 02/01/2021 05/02/2021 Active Start: 08-04-2020 End: 11-02-2020 take 1 tablet by mouth three times daily gabapentin (NEURONTIN) 600 MG tablet Take 1 tablet by mouth 3 times daily for 90 days. 90 tablet 2 08/04/2020 11/02/2020 Active Start: 02-15-2020 End: 05-15-2020 take 1 tablet by mouth three times daily gabapentin (NEURONTIN) 600 MG tablet Indications: Left sided sciatica Take 1 tablet by mouth 3 times daily for 90 days. 90 tablet 2 02/15/2020 Active Start: 01-21-2020 End: 02-20-2020 gabapentin (NEURONTIN) 300 M G capsule Indications: Left sided sciatica Take 1 capsule by mouth 3 times daily for 30 days. Intended supply: 30 days 90 capsule 0 01/21/2020 02/20/2020 Active hydroCHLOROthiazide 12.5 mg / lisinopril 10 mg oral tablet (20 sources) Thiazide Diuretic, Angiotensin Converting Enzyme Inhibitor Start: 10-08-2022 take 1 tablet by mouth once daily lisinopril-hydroCHLOROthiazide (PRINZIDE;ZESTORETIC) 10-12.5 MG per tablet Indications: Essential hypertension Take 1 tablet by mouth daily 90 tablet 0 10/08/2022 Active Start: 06-04-2022 take 1 tablet by marj th once daily lisinopril-hydroCHLOROthiazide (PRINZIDE;ZESTORETIC) 10-12.5 MG per tablet Indications: Essential hypertension TAKE 1 TABLET BY MOUTH DAILY 90 tablet 0 06/04/2022 Active Start: 11-30-2021 take 1 tablet by marj th once daily lisinopril-hydroCHLOROthiazide (PRINZIDE;ZESTORETIC) 10-12.5 MG per tablet Indications: Essential hypertension Take 1 tablet by mouth daily 90 tablet 1 11/30/2021 Active Start: 09-07-2021 take 1 tablet by marj th once daily lisinopril-hydroCHLOROthiazide (PRINZIDE;ZESTORETIC) 10-12.5 MG per tablet Indications: Essential hypertension Take 1 tablet by mouth daily 90 tablet 1 09/07/2021 Active Start: 02-01-2021 take 1 tablet by marj th once daily lisinopril-hydroCHLOROthiazide (PRINZIDE;ZESTORETIC) 10-12.5 MG per tablet Indications: Essential hypertension Take 1 tablet by mouth daily 90 tablet 1 02/01/2021 Active Start: 08-04-2020 take 1 tablet by marj th once daily lisinopril-hydroCHLOROthiazide (PRINZIDE;ZESTORETIC) 10-12.5 MG per tablet Indications: Essential hypertension Take 1 tablet by mouth daily 90 tablet 1 08/04/2020 Active Start: 10-13-2019 take 1 tablet by marj th once daily lisinopril-hydroCHLOROthiazide (PRINZIDE;ZESTORETIC) 10-12.5 MG per tablet Indications: Essential hypertension Take 1 tablet by mouth daily 90 tablet 1 10/13/2019 Active Start: 04-24-2019 take 1 tablet by marj th once daily lisinopril-hydrochlorothiazide (PRINZIDE;ZESTORETIC) 10-12.5 MG per tablet Indications: Essential hypertension Take 1 tablet by mouth daily 90 tablet 0 04/24/2019 Active Start: 09-17-2018 take 1 tablet by marj th once daily lisinopril-hydrochlorothiazide (PRINZIDE;ZESTORETIC) 10-12.5 MG per tablet Indications: Essential hypertension Take 1 tablet by mouth daily 90 tablet 3 09/17/2018 Active hydrOXYzine pamoate 50 mg oral capsule (18 sources) Antihistamine Start: 02-07-2023 take 1 capsule by mouth three times daily as needed for anxiety hydrOXYzine pamoate (VISTARIL) 50 MG capsule Indications: Anxiety and depression Take 1 capsule by mouth 3 times daily as needed for Anxiety 30 capsule 0 02/07/2023 Active Start: 08-03-2022 take 1 capsule by mo [facility] three times daily as needed for anxiety hydrOXYzine pamoate (VISTARIL) 50 MG capsule Indications: Anxiety and depression TAKE 1 CAPSULE BY MOUTH 3 TIMES DAILY NEEDED FOR ANXIETY 30 capsule 0 08/03/2022 Active 100 ml levETIRAcetam 5 mg/ml injection (1 source) Start: 09-12-2022 levETIRAcetam (KEPPRA) 500 mg/100 mL IVPB lidocaine hydrochloride 20 mg/ml mucous membrane topical solution (2 sources) Antiarrhythmic, Amide Local Anesthetic Start: 04-28-2020 lidocaine viscous hcl (XYLOCAINE) 2 % SOLN solution Indications: Sore throat Take 15 mLs by mouth as needed for Irritation 100 mL 0 04/28/2020 Active magnesium oxide 400 mg oral tablet (3 sources) Start: 10-04-2022 magnesium oxide (MAG-OX) 400 (240 Mg) MG tablet meloxicam 15 mg oral tablet (20 sources) Nonsteroidal Anti-inflammatory Drug Start: 11-30-2021 End: 01-29-2022 take 0.5 tablet by mouth once daily meloxicam (MOBIC) 15 MG tablet Take 0.5 tablets by mouth daily 30 tablet 3 11/30/2021 Active Start: 03-21-2021 meloxicam (MOB IC) 15 MG tablet Start: 02-01-2021 End: 02-02-2021 take 1 tablet by mouth once daily meloxicam (MOBIC) 15 MG tablet Take 1 tablet by mouth daily 30 tablet 1 02/01/2021 02/02/2021 Discontinued (Therapy completed) Start: 08-04-2020 take 1 tablet by marj once daily meloxicam (MOBIC) 15 MG tablet Take 1 tablet by mouth daily 30 tablet 1 08/04/2020 Active take 1 tablet by marj th once daily meloxicam (MOBIC) 15 MG tablet Take 15 mg by mouth daily 0 Active naproxen 500 mg oral tablet (20 sources) Nonsteroidal Anti-inflammatory Drug Start: 09-07-2021 take 1 tablet by mouth twice daily at mealtime naproxen (NAPROSYN) 500 MG tablet Take 1 tablet by mouth 2 times daily (with meals) 180 tablet 1 09/07/2021 Active nystatin 333558 unt/ml oral suspension (2 sources) Polyene Antifungal Start: 10-20-2022 End: 10-30-2022 take 5 mL by mouth four times daily nystatin (MYCOSTATIN) 098964 UNIT/ML suspension Take 5 mLs by mouth 4 times daily for 10 days Retain in mouth as long as possible 200 mL 0 10/20/2022 10/20/2022 Discontinued (LIST CLEANUP) omeprazole 20 mg delayed release oral capsule (20 sources) Proton Pump Inhibitor Start: 04-12-2023 take 1 capsule by mouth once daily before breakfast omeprazole (PRILOSEC) 20 MG delayed release capsule Take 1 capsule by mouth every morning (before breakfast) 30 capsule 3 04/12/2023 Active Start: 02-01-2021 take 1 capsule by mo [facility] twice daily omeprazole (PRILOSEC) 40 MG delayed release capsule Indications: Gastroesophageal reflux disease, unspecified whether esophagitis present Take 1 capsule by mouth 2 times daily 180 capsule 3 02/01/2021 Active Start: 08-04-2020 take 1 capsule by mo [facility] twice daily omeprazole (PRILOSEC) 40 MG delayed release capsule Indications: Gastroesophageal reflux disease, unspecified whether esophagitis present Take 1 capsule by mouth 2 times daily 180 capsule 3 08/04/2020 Active Start: 04-28-2020 take 1 capsule by mo [facility] twice daily omeprazole (PRILOSEC) 40 MG delayed release capsule Indications: Gastroesophageal reflux disease, unspecified whether esophagitis present Take 1 capsule by mouth 2 times daily 180 capsule 3 04/28/2020 Active Start: 01-21-2020 take 1 capsule by mo [facility] once daily before breakfast omeprazole (PRILOSEC) 40 MG delayed release capsule Indications: Gastroesophageal reflux disease, esophagitis presence not specified Take 1 capsule by mouth every morning (before breakfast) 30 capsule 5 01/21/2020 Active Start: 10-13-2019 take 1 capsule by mo [facility] once daily before breakfast omeprazole (PRILOSEC) 40 MG delayed release capsule Indications: Gastroesophageal reflux disease, esophagitis presence not specified Take 1 capsule by mouth every morning (before breakfast) 30 capsule 2 10/13/2019 Active Start: 09-17-2018 take 1 capsule by mo [facility] once daily omeprazole (PRILOSEC) 20 MG delayed release capsule Indications: Gastroesophageal reflux disease, esophagitis presence not specified Take 1 capsule by mouth daily 90 capsule 3 09/17/2018 Active ondansetron (ZOFRAN-ODT) disintegrating tablet 4 mg (1 source) Start: 09-12-2022 ondansetron (ZOFRAN-ODT) disintegrating tablet 4 mg pantoprazole 40 mg delayed release oral tablet (20 sources) Proton Pump Inhibitor Start: 02-07-2023 take 1 tablet by mouth twice daily before mealtime pantoprazole (PROTONIX) 40 MG tablet Indications: Gastroesophageal reflux disease, unspecified whether esophagitis present Take 1 tablet by mouth 2 times daily (before meals) 180 tablet 1 02/07/2023 Active Start: 10-08-2022 take 1 tablet by marj th twice daily before mealtime pantoprazole (PROTONIX) 40 MG tablet Indications: Gastroesophageal reflux disease, unspecified whether esophagitis present Take 1 tablet by mouth 2 times daily (before meals) 180 tablet 1 10/08/2022 Active Start: 06-07-2022 take 1 tablet by marj th twice daily before mealtime pantoprazole (PROTONIX) 40 MG tablet Indications: Gastroesophageal reflux disease, unspecified whether esophagitis present Take 1 tablet by mouth 2 times daily (before meals) 180 tablet 1 06/07/2022 Active Start: 11-30-2021 take 1 tablet by marj th twice daily before mealtime pantoprazole (PROTONIX) 40 MG tablet Take 1 tablet by mouth 2 times daily (before meals) 180 tablet 1 11/30/2021 Active Start: 09-07-2021 take 1 tablet by marj th twice daily before mealtime pantoprazole (PROTONIX) 40 MG tablet Take 1 tablet by mouth 2 times daily (before meals) 180 tablet 1 09/07/2021 Active polyethylene glycol 3350 00652 mg powder for oral solution (1 source) Osmotic Laxative Start: 09-12-2022 polyethylene glycol (GLYCOLAX) packet 17 g predniSONE 20 mg oral tablet (14 sources) Start: 02-12-2023 take 1 tablet by mouth once daily predniSONE (DELTASONE) 20 MG tablet Indications: Dermatitis 60 mg. Day 1-3 take 3 tablets daily by mouth. 40 mg. Day 4-5 take 2 tablets daily by mouth. 20 mg. Day 6-7 take 1 tablet daily by mouth. 15 tablet 0 02/12/2023 Active Start: 11-09-2021 predniSONE (DE LTASONE) 10 MG tablet Day 1-4: Take 6 tablets once a day. Day 5-6: Take 5 tablets once a day.Day 7-8: Take 4 tablets once a day.Day 9-10: Take 3 tablets once a day.Day 11-12: Take 2 tablets once a day.Day 13-14: Take 1 tablet once a day. 54 tablet 0 11/09/2021 Active Start: 10-19-2020 End: 10-26-2020 take 1 tablet by mouth twice daily predniSONE (DELTASONE) 20 MG tablet Take 1 tablet by mouth 2 times daily for 7 days 14 tablet 0 10/19/2020 10/26/2020 Active take 2 tablets by mo [facility] once daily predniSONE (DELTASONE) 20 MG tablet Take 2 tablets by mouth daily 0 Active promethazine hydrochloride 25 mg oral tablet (2 sources) Phenothiazine Start: 12-03-2019 End: 12-10-2019 take 1 tablet by mouth every eight hours as needed for nausea promethazine (PHENERGAN) 25 MG tablet Take 1 tablet by mouth every 8 hours as needed for Nausea 12 tablet 0 12/03/2019 12/10/2019 Active sertraline 50 mg oral tablet (17 sources) Serotonin Reuptake Inhibitor Start: 10-08-2022 End: 05-08-2023 take 1 tablet by mouth once daily sertraline (ZOLOFT) 50 MG tablet Indications: Anxiety and depression Take 1 tablet by mouth daily 90 tablet 0 02/07/2023 05/08/2023 Active Start: 09-10-2022 End: 10-10-2022 take 1 tablet by mouth once daily sertraline (ZOLOFT) 25 MG tablet Indications: Anxiety and depression Take 1 tablet by mouth daily 30 tablet 0 09/10/2022 10/10/2022 Active 5 ml sodium chloride 9 mg/ml injection (4 sources) Start: 09-12-2022 0.9 % sodium c hloride infusion Start: 09-12-2022 sodium chlorid e flush 0.9 % injection 5-40 mL Start: 08-19-2020 End: 08-19-2020 500 mL (6.2 mL/kg), Intraven ous, at 250 mL/hr, Administer over 2 Hours, ONCE PRN, Nausea, Starting Sat08/19/20 at 0710, For 1 dose, PACU only Tens Unit MISC (20 sources) Start: 08-22-2015 Tens Unit MISC Indications: Right-sided low back pain with right-sided sciatica Use as directed 1 each 0 08/22/2015 Active terbinafine hydrochloride 10 mg/ml topical cream (20 sources) Allylamine Antifungal Start: 08-03-2022 terbinafine (ATHLETE S FOOT, TERBINAFINE,) 1 % cream APPLY TO AFFECTED AREAS 2 TIMES A DAY FOR 1 WEEK 15 g 0 08/03/2022 Active Start: 04-10-2021 terbinafine (L AMISIL) 1 % cream Apply topically 2 times daily for one week. 24 g 0 04/10/2021 Active Start: 04-09-2019 terbinafine (L AMISIL) 1 % cream Indications: Tinea corporis Apply topically 2 times daily. 1 Tube 0 04/09/2019 Active take 1 tablet by marj th once daily terbinafine (LAMISIL) 250 MG tablet Take 250 mg by mouth daily 0 Active 10 actuat tiotropium 0.0025 mg/actuat inhalation spray (19 sources) Anticholinergic Start: 09-12-2022 tiotropium (SP IRIVA RESPIMAT) 2.5 MCG/ACT inhaler 2 puff Start: 07-09-2022 take 1 capsule by in halation once daily tiotropium (SPIRIVA HANDIHALER) 18 MCG inhalation capsule Indications: COPD with exacerbation (HCC) Inhale 1 capsule into the lungs daily 90 capsule 1 07/09/2022 Active triamcinolone acetonide 0.25 mg/ml topical cream (20 sources) Corticosteroid Start: 03-29-2022 triamcinolone (KENALOG) 0.025 % cream Indications: Dermatitis Apply Topically twice a day 15 g 1 03/29/2022 Active Start: 01-04-2020 triamcinolone (KENALOG) 0.1 % cream Indications: Psoriasis Apply topically 2 times daily. 1 Tube 0 01/04/2020 Active Start: 10-13-2019 triamcinolone (KENALOG) 0.1 % cream Indications: Psoriasis Apply topically 2 times daily. 1 Tube 0 10/13/2019 Active Start: 01-06-2019 triamcinolone (KENALOG) 0.1 % cream Indications: Intrinsic atopic dermatitis Apply topically 2 times daily. 1 Tube 0 01/06/2019 Active varenicline 0.5 mg oral tablet (20 sources) Partial Cholinergic Nicotinic Agonist Start: 11-30-2021 take 2 tablets by mouth twice daily varenicline (CHANTIX) 0.5 MG tablet Indications: Smoking trying to quit Take 1-2 tablets by mouth See Admin Instructions 0.5mg DAILY for 3 days followed by 0.5mg TWICE DAILY for 4 days followed by 1mg TWICE DAILY 57 tablet 0 11/30/2021 Active Start: 04-28-2020 End: 07-20-2020 take 1 tablet by mouth once, then take 2 tablets by mouth varenicline (CHANTIX STARTING MONTH ) 0.5 MG X 11 & 1 MG X 42 tablet Indications: Cigarette nicotine dependence without complication Take by mouth. 1 box 0 04/28/2020 07/20/2020 Discontinued (Therapy completed) Completed/Discontinued Medications Medication Drug Class(es) Dates Sig (Normalized) Sig (Original) ceFAZolin 2000 mg injection (1 source) Cephalosporin Antibacterial Start: 08-19-2020 End: 08-19-2020 ceFAZolin (ANCEF) 2000 mg in dextrose 3 % 50 mL IVPB (duplex) dimenhyDRINATE 50 mg oral tablet (1 source) Start: 08-19-2020 End: 08-19-2020 dimenhyDRINATE (DRAMAMINE) tablet 50 mg Start: 08-19-2020 End: 08-19-2020 dimenhyDRINATE (DRAMAMINE) t ablet 50 mg etodolac 500 mg oral tablet (1 source) Nonsteroidal Anti-inflammatory Drug End: 10-19-2020 take 1 tablet by mouth twice daily etodolac (LODINE) 500 MG tablet Take 500 mg by mouth 2 times daily 0 10/19/2020 Discontinued 2 ml fentaNYL 0.05 mg/ml injection (3 sources) Opioid Agonist Start: 10-19-2020 End: 10-19-2020 fentaNYL (SUBLIMAZE) injection 50 mcg Start: 08-19-2020 25 mcg, Intrav enous, EVERY 5 MIN PRN, Pain Moderate (4-6), Starting Sat08/19/20 at 0710, For 4 doses Phase I - Secondary therapy to be used after all initial moderate pain medication doses have been administered. PACU only Start: 08-19-2020 50 mcg, Intrav enous, EVERY 5 MIN PRN, Pain Severe (7-10), Starting Sat08/19/20 at 0710, For 4 doses Phase I - Initial therapy for severe pain. PACU only gadoteridol (PROHANCE) injection 15 mL (1 source) Start: 02-15-2021 End: 02-15-2021 gadoteridol (PROHANCE) injection 15 mL gadoteridol (PROHANCE) injection 16 mL (1 source) Start: 09-10-2022 End: 09-10-2022 gadoteridol (PROHANCE) injection 16 mL levETIRAcetam (KEPPRA) 1,500 mg in sodium chloride 0.9 % 100 mL IVPB (1 source) Start: 09-11-2022 End: 09-11-2022 1,500 mg, IntraVENous, ONCE, 1 dose, On Sat09/11/22 at 2115 1 ml LORazepam 2 mg/ml injection (3 sources) Benzodiazepine Start: 09-12-2022 End: 09-12-2022 LORazepam (ATIVAN) injection 0.5 mg Start: 09-11-2022 End: 09-11-2022 LORazepam (ATIVAN) injection 1 mg 100 ml magnesium sulfate 10 mg/ml injection (1 source) Start: 09-12-2022 End: 09-12-2022 magnesium sulfate 1000 mg in dextrose 5% 100 mL IVPB magnesium sulfate 0.0277 meq/ml / potassium sulfate 0.0374 meq/ml / sodium sulfate 0.257 meq/ml oral solution (5 sources) Start: 02-02-2020 End: 04-19-2020 Na Sulfate-K Sulfate-Mg Sulf (SUPREP BOWEL PREP KIT) 17.5-3.13-1.6 GM/177ML SOLN Take as directed 2 Bottle 0 02/02/2020 04/19/2020 Discontinued (Stop Taking at Discharge) 2 ml ondansetron 2 mg/ml injection (2 sources) Serotonin-3 Receptor Antagonist Start: 09-11-2022 End: 09-11-2022 ondansetron (ZOFRAN) injection 4 mg Start: 08-19-2020 End: 08-19-2020 4 mg, Intravenous, ONCE PRN, Nausea, Starting 08/19/20 at 0710, For 1 dose Initial antiemetic therapy. PACU only Problems Active Problems Problem Classification Problem Date Documented Date Episodic/Chronic Abdominal pain (20 sources) Right lower quadrant pain; Translations: [Right lower quadrant pain] Onset: 03-04-2012 Resolved: 10-13-2019 03-04-2012 Episodic Alcohol-related disorders (20 sources) H/O: alcoholism; Translations: [Alcohol dependence, in remission] Onset: 03-03-2012 09-11-2012 Chronic Anal and rectal conditions (20 sources) Rectal polyp; Translations: [Rectal polyp] 04-19-2020 Episodic Anxiety disorders (20 sources) Mixed anxiety and depressive disorder; Translations: [Anxiety] Onset: 04-15-2019 04-15-2019 Chronic Cataract (20 sources) Posterior subcapsular polar senile cataract; Translations: [Nuclear sclerotic cataract] Onset: 02-01-2016 Resolved: 02-27-2016 02-27-2016 Chronic Conditions associated with dizziness or vertigo (2 sources) Dizziness; Translations: [Dizziness and giddiness] Episodic Developmental disorders (19 sources) Stuttering; 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] Onset: 09-10-2022 Chronic Diseases of mouth; excluding dental (1 source) Dribbling from mouth; Translations: [Disturbances of salivary secretion] Episodic Disorders of lipid metabolism (20 sources) Dyslipidemia; Translations: [Hyperlipidemia, unspecified] Onset: 10-13-2019 10-13-2019 Chronic Esophageal disorders (20 sources) Gastroesophageal reflux disease; Translations: [Castanon's esophagus] Onset: 03-03-2012 10-21-2018 Chronic Essential hypertension (20 sources) Hypertensive disorder; Translations: [Essential hypertension] Onset: 04-15-2019 04-15-2019 Chronic Immunizations and screening for infectious disease (2 sources) Contact with and (suspected) exposure to other viral communicable diseases; Translations: [Suspected COVID-19 virus infection] Episodic Intestinal infection (1 source) Viral gastroenteritis; Translations: [Viral gastroenteritis] Episodic Joint disorders and dislocations; trauma-related (1 source) Other internal derangements of left knee; Translations: [Other internal derangements of left knee] Onset: 01-28-2023 Chronic Mood disorders (1 source) Mood disorders; Translations: [Depression, unspecified] Onset: 04-15-2019 Osteoarthritis (2 sources) Osteoarthritis of right knee joint; Translations: [Primary osteoarthritis of right knee] Onset: 10-19-2020 10-19-2020 Other connective tissue disease (1 source) Other muscle spasm; Translations: [OTHER MUSCLE SPASM] Onset: 10-09-2022 Episodic Other inflammatory condition of skin (20 sources) Psoriasis; Translations: [Psoriasis, unspecified] Onset: 03-03-2012 03-03-2012 Chronic Other nervous system disorders (2 sources) Aphasia; Translations: [Aphasia] Chronic Other nervous system disorders (1 source) Other chronic pain; Translations: [OTHER CHRONIC PAIN] Onset: 04-26-2022 Chronic Other nervous system disorders (20 sources) Dysphasia; Translations: [Dysphasia] 10-21-2018 Episodic Other non-traumatic joint disorders (20 sources) Bilateral arthritis of knees; Translations: [Bilateral primary osteoarthritis of knee] Onset: 04-15-2019 04-15-2019 Chronic Other non-traumatic joint disorders (17 sources) Bilateral arthritis of knees; Translations: [Arthritis of both knees] Onset: 04-15-2019 04-15-2019 Other nutritional; endocrine; and metabolic disorders (20 sources) Body mass index 30+ - obesity; Translations: [Obesity, unspecified] Onset: 09-17-2018 09-17-2018 Chronic Other screening for suspected conditions (not mental disorders or infectious disease) (20 sources) Patient encounter status; Translations: [Encounter for screening, unspecified] Onset: 04-18-2012 Resolved: 11-20-2018 04-23-2018 Episodic Other upper respiratory disease (20 sources) Rhinitis; Translations: [Acute rhinitis] Onset: 04-18-2012 09-11-2012 Chronic Residual codes; unclassified (20 sources) Tobacco user; Translations: [Tobacco abuse] Onset: 03-03-2012 01-12-2017 Chronic Residual codes; unclassified (1 source) Hypersomnia; Translations: [Hypersomnia] Episodic Residual codes; unclassified (1 source) Pain; Translations: [Pain] Episodic Substance-related disorders (1 source) Nicotine dependence, unspecified, uncomplicated; Translations: [Nicotine dependence, unspecified, uncomplicated] Onset: 05-23-2023 Chronic Unclassified (1 source) LOW BACK PAIN, UNSPECIFIED; Translations: [LOW BACK PAIN, UNSPECIFIED] Onset: 04-26-2022 Past or Other Problems Problem Classification Problem Date Documented Da te Episodic/Chronic Administrative/social admission (20 sources) Counseling procedure with explicit context; Translations: [Tobacco abuse counseling] Onset: 03-03-2012 Resolved: 10-13-2019 09-11-2012 Episodic Alcohol-related disorders (20 sources) H/O: alcoholism; Translations: [History of alcoholism] Onset: 03-03-2012 09-11-2012 Episodic Chronic obstructive pulmonary disease and bronchiectasis (20 sources) Bronchitis; Translations: [Bronchitis, not specified as acute or chronic] Onset: 04-18-2012 04-18-2012 Episodic Epilepsy; convulsions (20 sources) Partial seizure; Translations: [Unspecified convulsions] Onset: 09-11-2022 Episodic Mycoses (2 sources) Candidiasis of mouth; Translations: [Candidal stomatitis] Onset: 10-20-2022 Episodic Other and unspecified benign neoplasm (20 sources) History of polyp of colon; Translations: [Personal history of colonic polyps] Onset: 12-11-2012 04-15-2020 Episodic Other and unspecified benign neoplasm (4 sources) Benign neoplasm of other specified sites; Translations: [BENIGN NEOPLASM OF OTHER SPEC SITES] Onset: 03-12-2022 Episodic Other connective tissue disease (1 source) Muscle wasting and atrophy, not elsewhere classified, unspecified site; Translations: [MUSCLE WASTING ATROPHY NEC UNS SITE] Onset: 04-11-2022 Episodic Other connective tissue disease (4 sources) Pain in right foot; Translations: [PAIN IN RIGHT FOOT] Onset: 10-26-2021 Episodic Other connective tissue disease (1 source) Pain in left foot; Translations: [PAIN IN LEFT FOOT] Onset: 11-01-2021 Episodic Other connective tissue disease (3 sources) Pain in right hand; Translations: [Pain in right hand] Onset: 01-03-2023 Episodic Other connective tissue disease (3 sources) Pain in left hand; Translations: [Pain in left hand] Onset: 01-03-2023 Episodic Other gastrointestinal disorders (20 sources) Dysphagia; Translations: [Dysphagia, unspecified] Onset: 03-03-2012 03-04-2012 Episodic Other gastrointestinal disorders (20 sources) Constipation; Translations: [Constipation, unspecified] Onset: 03-04-2012 Resolved: 10-13-2019 09-11-2012 Episodic Other gastrointestinal disorders (1 source) Dysphagia, unspecified; Translations: [Dysphagia, unspecified] Onset: 02-17-2023 Episodic Other injuries and conditions due to external causes (1 source) Injury of groin Episodic Other nervous system disorders (20 sources) Slurred speech; Translations: [Slurred speech] Onset: 01-12-2017 01-12-2017 Episodic Other nervous system disorders (16 sources) Tremor; Translations: [Tremor, unspecified] Onset: 09-12-2022 Episodic Other nutritional; endocrine; and metabolic disorders (20 sources) Obesity; Translations: [Obesity, unspecified] Onset: 04-15-2019 Resolved: 10-13-2019 10-13-2019 Chronic Other upper respiratory infections (20 sources) Rhinitis; Translations: [Acute nasopharyngitis [common cold]] Onset: 04-18-2012 09-11-2012 Episodic Residual codes; unclassified (20 sources) Tobacco user; Translations: [Tobacco use] Onset: 03-03-2012 01-12-2017 Episodic Spondylosis; intervertebral disc disorders; other back problems (20 sources) Lumbosacral spondylosis without myelopathy; Translations: [Lumbar spondylosis] Onset: 10-11-2015 Resolved: 10-13-2019 10-11-2015 Chronic Spondylosis; intervertebral disc disorders; other back problems (20 sources) Chronic low back pain; Translations: [Low back pain] Onset: 04-15-2019 04-15-2019 Episodic Unclassified (20 sources) Patient encounter status; Translations: [Screening for colorectal cancer] Onset: 04-18-2012 Resolved: 11-20-2018 11-20-2018 Results Test Name Value Interpretation Reference Range Facility CT LUNG SCREENING (INITIAL/A NNUAL)on 05-24-2023 CT LUNG SCREENING (INITIAL/ANNUAL) EXAMINATION: LOW DOSE SCREENING CT OF THE CHEST WITHOUT CONTRAST 05/23/2023 3:53 pm TECHNIQUE: Low dose lung cancer screening CT of the chest was performed without the administration of intravenous contrast. Multiplanar reformatted images are provided for review. Automated exposure control, iterative reconstruction, and/or weight based adjustment of the mA/kV was utilized to reduce the radiation dose to as low as reasonably achievable. Dyzkr-lm-djhx: 32 cm Dose Length Product: 87.07 mGy CTDlvol: 2.93 mGy COMPARISON: PA and lateral chest from 08/15/2017 HISTORY: Screening. History: ORDERING SYSTEM PROVIDED HISTORY: Encounter for screening for malignant neoplasm of lung in current smoker with 30 pack year history or greater TECHNOLOGIST PROVIDED HISTORY: Age: 63 y.o. Smoking History: Social History Tobacco Use Smoking status: Every Day Packs/day: 0.50 Years: 3.00 Additional pack years: 0.00 Total pack years: 1.50 Types: Cigarettes Smokeless tobacco: Never Vaping Use Vaping Use: Never used Alcohol use: Yes Alcohol/week: 0.0 standard drinks of alcohol Types: 6 - 8 Cans of beer per week Comment: a 6 pack a week Drug use: No Pack years: 1.[address] lung screen: No previous lung cancer screening exam Is there documentation of shared decision making?->Yes Does the patient show any signs or symptoms of lung cancer?->No Is this the first (baseline) CT or an annual exam?->Baseline Is this a low dose CT or a routine CT?->Low Dose CT Smoking Status?->Every Day Smoking packs per day?->0.5 Years smoking?->46 FINDINGS: Mediastinum: Atherosclerotic calcification of the aorta and branch vasculature. Atrophic thyroid gland. Coronary artery disease. Small amount of anterior pericardial fluid. No periaortic or mediastinal hemorrhage. No axillary, mediastinal, or hilar lymphadenopathy. No pleural effusions. Lungs/Pleura: Trachea and proximal central airways appear patent. Mild dependent atelectasis and respiratory motion. Mild emphysema. No pneumothorax. No suspicious pulmonary nodule or mass. Upper Abdomen: Oekymyon-ti-zdzvs hiatal hernia. Atherosclerotic calcification of the upper abdominal aorta and branch vasculature. Prior cholecystectomy. Soft Tissues/Bones: Mild diffuse degenerative changes throughout the spine. IMPRESSION: 1. Mild dependent atelectasis and respiratory motion. Mild emphysema. No suspicious pulmonary nodule or mass. 2. Atherosclerotic calcification of the aorta and branch vasculature. Coronary artery disease. 3. Small amount of anterior pericardial fluid. 4. Atrophic thyroid gland. 5. Nbilhjgo-ll-tblgk hiatal hernia. 6. Prior cholecystectomy. LUNG RADS: Lung-RADS 1 - Negative (v2022) Management: 12 month screening LDCT RECOMMENDATIONS: If you would like to register your patient with the [facility] Lung Nodule/Lung Cancer Screening Program, please contact the Nurse Navigator at [phone]). Interpreted by: Abdiel Craft MD Signed by: Abdiel Craft MD 05/24/23 Final result Normal [facility] US PELVIS COMPLETEon 023 US PELVIS COMPLETE EXAMINATION: PELVIC ULTRASOUND 04/11/2023 TECHNIQUE: Transabdominal pelvic ultrasound was performed. COMPARISON: None HISTORY: ORDERING SYSTEM PROVIDED HISTORY: Right sided abdominal pain TECHNOLOGIST PROVIDED HISTORY: This procedure can be scheduled via [employer]. Access your [employer] account by visiting [employer]. FINDINGS: Measurements: The uterus and ovaries are surgically absent. Ultrasound Findings: No abnormal masses or abnormal fluid collections in the imaged pelvis and bilateral adnexa. IMPRESSION: 1. Uterus and ovaries are surgically absent. 2. No abnormalities in the imaged pelvis and bilateral adnexa. Interpreted by: Sergey Gonzalez DO Signed by: Sergey Gonzalez DO 04/12/23 Final result Normal [facility] 1. Uterus and ovarie s are surgically absent. 2. No abnormalities in the imaged pelvis and bilateral adnexa. [facility] EXAMINATION: PELVIC ULTRASOUND 04/11/2023 TECHNIQUE: Transabdominal pelvic ultrasound was performed. COMPARISON: None HISTORY: ORDERING SYSTEM PROVIDED HISTORY: Right sided abdominal pain TECHNOLOGIST PROVIDED HISTORY: This procedure can be scheduled via [employer]Me. Access your NCLChart account by visiting [employer]. FINDINGS: Measurements: The uterus and ovaries are surgically absent. Ultrasound Findings: No abnormal masses or abnormal fluid collections in the imaged pelvis and bilateral adnexa. [facility] Sergey Gonzalez DO - 04/12/2023 EXAMINATION: PELVIC ULTRASOUND 04/11/2023 TECHNIQUE: Transabdominal pelvic ultrasound was performed. COMPARISON: None HISTORY: ORDERING SYSTEM PROVIDED HISTORY: Right sided abdominal pain TECHNOLOGIST PROVIDED HISTORY: This procedure can be scheduled via [employer]. Access your [employer] account by visiting [employer]. FINDINGS: Measurements: The uterus and ovaries are surgically absent. Ultrasound Findings: No abnormal masses or abnormal fluid collections in the imaged pelvis and bilateral adnexa. IMPRESSION: 1. Uterus and ovaries are surgically absent. 2. No abnormalities in the imaged pelvis and bilateral adnexa. [facility] US PELVIS COMPLETEOrdered By : Sergey Gonzalez on 04-12-2023 [facility] Work Phone: US PELVIS COMPLETEon 023 Radiology Study observation (narrative) [facility] Surgical Pathology Reporton 04-09-2023 Surgical Pathology Report (NOTE) Path Number: [id number] -- Diagnosis -- A. STOMACH, BIOPSY: -MINIMAL TO MILD CHRONIC INACTIVE GASTRITIS -BY SAMANTHA STAINING, HELICOBACTER PYLORI MICROORGANISMS ARE NOT IDENTIFIED B. 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 MID ESOPHAGUS, BIOPSY: -SQUAMOUS EPITHELIUM WITH NO PATHOLOGIC DIAGNOSIS Ye García D.O. Electronically Signed Out /04/12/2023 Clinical Information Pre-op Diagnosis: DYSPHAGIA, UNSPECIFIED TYPE Operative Findings: GASTRIC ANTRUM BIOPSIES; GE JUNCTION BIOPSIES; MID ESOPHAGUS BIOPSIES Operation Performed: EGD WITH BIOPSIES, EGD DILATION BALLOON tm Source of Specimen A: GASTRIC ANTRUM BIOPSY B: GE JUNCTION BX C: MID ESOPHAGEAL BX Gross Description A. TIFFANY GONZALEZ, GASTRIC ANTRUM BIOPSIES Received in formalin are two isaacs-white tissue fragments each 0.1 cm and are 0.2 x 0.1 x 0.1 cm in aggregate. Entirely 1cs. B. TIFFANY GONZALEZ, GE JUNCTION BIOPSIES Received in formalin are five isaacs-white tissue fragments from 0.1 to 0.4 cm and are 0.5 x 0.4 x 0.1 cm in aggregate. Entirely 1cs. C. TIFFANY GONZALEZ, MID ESOPHAGUS BIOPSIES Received in formalin are three isaacs-white tissue fragments from 0.1 to 0.4 cm and are 0.6 x 0.1 x 0.1 cm in aggregate. Entirely 1cs. byron tm LJF/tb1:04/10/2023 Microscopic Description A-C. Microscopic examination performed. Processing Lab: [facility] [address] [place] [address] Interpretation Performed at [facility] [address] [place] [address] SURGICAL PATHOLOGY CONSULTATION Patient Name: TIFFANY GONZALEZ [facility] Rec: [id number] [facility] ANATOMIC PATHOLOGY [address] [facility]. [place], [place] [address] Normal [facility] FL MODIFIED BARIUM SWALLOW W VIDEOon 02-04-2023 [place] MODIFIED BARIUM SWALLOW W VIDEO EXAMINATION: MODIFIED BARIUM SWALLOW WAS PERFORMED IN CONJUNCTION WITH [facility]ECH PATHOLOGY SERVICES TECHNIQUE: Under fluoroscopic evaluation cineradiography/video radiography recordings were performed in conjunction with the speech-language pathologist (MEDICAL STAFF SERVICES MANAGER). Various liquid, solid and/or semi-solid barium preparations were used to assess swallowing function. FLUOROSCOPY DOSE AND TYPE: Radiation Exposure Index: Kerma mGy, 4.26 COMPARISON: None HISTORY: ORDERING SYSTEM PROVIDED HISTORY: Dysphagia, unspecified type FINDINGS: Oral phase of swallowing was grossly within normal limits. No evidence of laryngeal penetration or aspiration. IMPRESSION: Swallowing mechanism grossly within normal limits without evidence of aspiration. Please see separate speech pathology report for full discussion of findings and recommendations. Interpreted by: Yusuf Joseph DO Signed by: Yusuf Joseph DO 02/04/23 Final result Normal [facility] MRI KNEE LEFT WO CONTRASTon 01-30-2023 MRI KNEE LEFT WO CONTRAST EXAMINATION: MRI OF THE LEFT KNEE WITHOUT CONTRAST, 01/28/2023 1:49 pm TECHNIQUE: Multiplanar multisequence MRI of the left knee was performed without the administration of intravenous contrast. COMPARISON: Left knee plain radiographs from 09/06/2011 HISTORY: ORDERING SYSTEM PROVIDED HISTORY: Other internal derangements of left knee 63-year-old female with possible left knee internal derangement FINDINGS: MENISCI: Degeneration of both the medial and lateral menisci. No medial or lateral meniscus tear. CRUCIATE LIGAMENTS: Anterior and posterior cruciate ligaments appear intact. EXTENSOR MECHANISM: Distal quadriceps tendon, patellar tendon, and patellar retinacula appear intact. LATERAL COLLATERAL LIGAMENT COMPLEX: Iliotibial band, lateral collateral ligament, and biceps femoris appear intact. Moderate tendinosis of the proximal popliteus tendon. MEDIAL COLLATERAL LIGAMENT COMPLEX: Medial collateral ligament complex appears intact. KNEE JOINT: Small joint effusion. Hpeo-wv-ukdobvhx tricompartmental osteophyte spurring. Osseous alignment is normal. No acute fracture or dislocation. Grade 2 lateral compartment chondromalacia with partial and full-thickness fissuring on image 18, series 4. Grade 2-3 medial compartment chondromalacia. Grade 3-4 patellofemoral chondromalacia with underlying subcortical cystic and subchondral reactive marrow changes. BONE MARROW: Red marrow reconversion. SOFT TISSUES: Tiny Arana's cyst. Visualized popliteal neurovascular bundle grossly unremarkable. Mild edema in the subcutaneous fat about the knee. IMPRESSION: 1. Degeneration of both the medial and lateral menisci. No medial or lateral meniscus tear. No acute ligamentous injury. 2. Small joint effusion. 3. Ukel-no-fampsjpx tricompartmental osteoarthrosis. 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 Izsl-pk-nqlfhtua medial compartment chondromalacia. Mild lateral compartment chondromalacia with partial and full-thickness fissuring. 4. Tiny Arana's cyst. 5. Moderate tendinosis of the proximal popliteus tendon. Interpreted by: Abdiel Craft MD Signed by: Abdiel Craft MD 01/30/23 Final result Normal [facility] XR HAND LEFT (2 VIEWS)on XR HAND LEFT (2 VIEWS) EXAMINATION: TWO XRAY VIEWS OF THE RIGHT HAND; TWO XRAY VIEWS OF THE LEFT HAND 01/03/2023 1:58 pm COMPARISON: None. HISTORY: ORDERING SYSTEM PROVIDED HISTORY: Pain in both hands TECHNOLOGIST PROVIDED HISTORY: hand pain and swelling 8-year-old female with bilateral hand pain and swelling FINDINGS: Right hand: Osseous alignment is normal. Mild degenerative changes/impingement of the distal radioulnar joint. Remaining joint spaces relatively well maintained. No marginal erosions are identified. No acute fracture or gross dislocation is seen. No focal soft tissue swelling is evident. Left hand: Osseous alignment is normal. Joint spaces well maintained. No marginal erosions are identified. No acute fracture or gross dislocation is seen. No focal soft tissue swelling is evident. IMPRESSION: Right hand: 1. Mild degenerative change/impingement of the distal radioulnar joint. 2. No acute osseous abnormality. Left hand: No acute osseous abnormality. Interpreted by: Abdiel Craft MD Signed by: Abdiel Craft MD 01/07/23 Final result Normal [facility] XR HAND RIGHT (2 VIEWS)on XR HAND RIGHT (2 VIEWS) EXAMINATION: TWO XRAY VIEWS OF THE RIGHT HAND; TWO XRAY VIEWS OF THE LEFT HAND 01/03/2023 1:58 pm COMPARISON: None. HISTORY: ORDERING SYSTEM PROVIDED HISTORY: Pain in both hands TECHNOLOGIST PROVIDED HISTORY: hand pain and swelling 8-year-old female with bilateral hand pain and swelling FINDINGS: Right hand: Osseous alignment is normal. Mild degenerative changes/impingement of the distal radioulnar joint. Remaining joint spaces relatively well maintained. No marginal erosions are identified. No acute fracture or gross dislocation is seen. No focal soft tissue swelling is evident. Left hand: Osseous alignment is normal. Joint spaces well maintained. No marginal erosions are identified. No acute fracture or gross dislocation is seen. No focal soft tissue swelling is evident. IMPRESSION: Right hand: 1. Mild degenerative change/impingement of the distal radioulnar joint. 2. No acute osseous abnormality. Left hand: No acute osseous abnormality. Interpreted by: Abdiel Craft MD Signed by: Abdiel Craft MD 01/07/23 Final result Normal [facility] RA Screenon 01-04-2023 RA Screen <10 Normal <14 [facility] Comment on above: Performed By: #### S ED, CMPF, CRP, CDP #### [facility] [address] [place] [address] Doctor Osteopathic: Waldo Bruce MD #### RA #### [address] [address] Doctor Osteopathic: Robert Lopez MD C-Reactive Proteinon 023 CRP [Mass/Vol] 6.1 mg/L High 0.0-5.0 [facility] Comment on above: Performed By: #### S ED, CMPF, CRP, CDP #### [facility] [address] [place] [address] Doctor Osteopathic: Waldo Bruce MD #### RA #### [address] [address] Doctor Osteopathic: Robert Lopez MD CBC with Diffon 01-03-2023 Abs. Basophil 0.04 k/uL Normal 0.00-0.20 [facility] Comment on above: Performed By: #### S ED, CMPF, CRP, CDP #### [facility] [address] [place], [place] [id number] Doctor Osteopathic: Waldo Bruce MD #### RA #### [address] [id number] Doctor Osteopathic: Robert Lopez MD Abs.Imm.Granulocyte <0.03 Normal 0.00-0.30 [facility] Comment on above: Performed By: #### S ED, CMPF, CRP, CDP #### [facility] [address] [place] [address] [place] [phone] Doctor Osteopathic: Waldo Bruce MD #### RA #### [address] [address] Doctor Osteopathic: Robert Lopez MD Abs.Neutrophil (Seg) 2.69 k/uL Normal 1.50-8.10 [facility] Comment on above: Performed By: #### S ED, CMPF, CRP, CDP #### [facility] [address] [place] [address] [place] [phone] Doctor Osteopathic: Waldo Bruce MD #### RA #### [address] [address] Doctor Osteopathic: Robert Lopez MD Basophils/100 WBC (Bld) 1 % Normal 0-2 M [facility] Comment on above: Performed By: #### S ED, CMPF, CRP, CDP #### [facility] [address] [place] [address] [place], [place] [phone] Doctor Osteopathic: Waldo Bruce MD #### RA #### [address] [address] Doctor Osteopathic: Robert Lopez MD Eosinophils (Bld) [#/Vol] 0.41 10*3/uL Normal 0.00-0.44 [facility] Comment on above: Performed By: #### S ED, CMPF, CRP, CDP #### [facility] [address] [place], [place] [id number] Doctor Osteopathic: Waldo Bruce MD #### RA #### [address] [id number] Doctor Osteopathic: Robert Lopez MD Eosinophils/100 WBC (Bld) 8 % High 1-4 [facility] Comment on above: Performed By: #### S ED, CMPF, CRP, CDP #### [facility] [address] [place] [address] Dr. [place], [place] [phone] Doctor Osteopathic: Waldo Bruce MD #### RA #### [address] [address] Doctor Osteopathic: Robert Lopez MD Erythrocyte distribution width (RBC) [Ratio] 12.5 % Normal 11.8-14.4 [facility] Comment on above: Performed By: #### S ED, CMPF, CRP, CDP #### [facility] [address] [place] [address] Dr. [place], [place] [id number] Doctor Osteopathic: Waldo Bruce MD #### RA #### [address] [address] Doctor Osteopathic: Robert Lopez MD Hematocrit (Bld) [Volume fraction] 41.6 % Normal 36.3-47.1 [facility] Comment on above: Performed By: #### S ED, CMPF, CRP, CDP #### [facility] [address] [place] [address] Dr[address] [place], [place] [phone] Doctor Osteopathic: Waldo Bruce MD #### RA #### [address] [address] Doctor Osteopathic: Robert Lopez MD Hemoglobin (Bld) [Mass/Vol] 14.0 g/dL Normal 11.9-15.1 [facility] Comment on above: Performed By: #### S ED, CMPF, CRP, CDP #### [facility] [address] [place], [place] [phone] Doctor Osteopathic: Waldo Bruce MD #### RA #### [address] [address] Doctor Osteopathic: Robert Lopez MD Immature granulocytes/100 WBC (Bld) 0 % Normal 0 [facility] Comment on above: Performed By: #### S ED, CMPF, CRP, CDP #### [facility] [address] [place], [place] [id number] Doctor Osteopathic: Waldo Bruce MD #### RA #### [address] [address] Doctor Osteopathic: Robert Lopez MD Lymphocytes (Bld) [#/Vol] 1.89 10*3/uL Normal 1.10-3.70 [facility] Comment on above: Performed By: #### S ED, CMPF, CRP, CDP #### [facility] [address] [place], [place] [phone] Doctor Osteopathic: Waldo Bruce MD #### RA #### [address] [address] Doctor Osteopathic: Robert Lopez MD Lymphocytes/100 WBC (Bld) 34 % Normal 24-43 [facility] Comment on above: Performed By: #### S ED, CMPF, CRP, CDP #### [facility] [address] [place], [place] [id number] Doctor Osteopathic: Waldo Bruce MD #### RA #### [address] [address] Doctor Osteopathic: Robert Lopez MD MCH (RBC) [Entitic mass] 32.5 pg Normal 25.2-33.5 [facility] Comment on above: Performed By: #### S ED, CMPF, CRP, CDP #### [facility] [address] [place] [address] Dr. [place], [place] [phone] Doctor Osteopathic: Waldo Bruce MD #### RA #### [address] [id number] Doctor Osteopathic: Robert Lopez MD MCHC (RBC) [Mass/Vol] 33.7 g/dL Normal 28.4-34.8 [facility] Comment on above: Performed By: #### S ED, CMPF, CRP, CDP #### [address] [place] [phone] Doctor Osteopathic: Waldo Bruce MD #### RA #### [place] [address] Doctor Osteopathic: Robert Lopez MD MCV (RBC) [Entitic vol] 96.5 fL Normal 82.6-102.9 M [facility] Comment on above: Performed By: #### S ED, CMPF, CRP, CDP #### [address] [place] [phone] Doctor Osteopathic: Waldo Bruce MD #### RA #### [place] [address] Doctor Osteopathic: Robert Lopez MD Monocytes (Bld) [#/Vol] 0.45 10*3/uL Normal 0.10-1.20 [facility] Comment on above: Performed By: #### S ED, CMPF, CRP, CDP #### [facility] [address] [place] [address] Dr[place] [phone] Doctor Osteopathic: Waldo Bruce MD #### RA #### [address] [place] [address] Doctor Osteopathic: Robert Lopez MD Monocytes/100 WBC (Bld) 8 % Normal 3-12 M [facility] Comment on above: Performed By: #### S ED, CMPF, CRP, CDP #### [facility] [address] [place], [place] [phone] Doctor Osteopathic: Waldo Bruce MD #### RA #### [address] [address] Doctor Osteopathic: Robert Lopez MD Neutrophil (Seg) 49 % Normal 36-65 [facility] Comment on above: Performed By: #### S ED, CMPF, CRP, CDP #### [address] [place], [place] [phone] Doctor Osteopathic: Waldo Bruce MD #### RA #### [address] [address] Doctor Osteopathic: Robert Lopez MD NRBC Automated 0.0 per 100 WBC Normal 0.0 [facility] Comment on above: Performed By: #### S ED, CMPF, CRP, CDP #### [address] [place], [place] [phone] Doctor Osteopathic: Waldo Bruce MD #### RA #### [address] [address] Doctor Osteopathic: Robert Lopez MD Platelet mean volume (Bld) [Entitic vol] 9.9 fL Normal 8.1-13.5 [facility] Comment on above: Performed By: #### S ED, CMPF, CRP, CDP #### [address] [place], [place] [id number] Doctor Osteopathic: Waldo Bruce MD #### RA #### [address] [address] Doctor Osteopathic: Robert Lopez MD Platelets (Bld) [#/Vol] 229 10*3/uL Normal 138-453 [facility] Comment on above: Performed By: #### S ED, CMPF, CRP, CDP #### [facility] [address] [place] [address] Dr. [place], [place] [phone] Doctor Osteopathic: Waldo Bruce MD #### RA #### [address] [id number] Doctor Osteopathic: Robert Lopez MD RBC (Bld) [#/Vol] 4.31 10*6/uL Normal 3.95-5.11 [facility] Comment on above: Performed By: #### S ED, CMPF, CRP, CDP #### [facility] [address] [place] [address] Dr[place] [phone] Doctor Osteopathic: Waldo Bruce MD #### RA #### [place] [address] Doctor Osteopathic: Robert Lopez MD WBC (Bld) [#/Vol] 5.5 10*3/uL Normal 3.5-11.3 [facility] Comment on above: Performed By: #### S ED, CMPF, CRP, CDP #### [facility] [address] [place] [address] Dr[place] [phone] Doctor Osteopathic: Waldo Bruce MD #### RA #### [address] [address] Doctor Osteopathic: Robert Lopez MD Comp Metabol,Fastingon 01-03 Albumin [Mass/Vol] 4.2 g/dL Normal 3.5-5.2 [facility] Comment on above: Performed By: #### S ED, CMPF, CRP, CDP #### [facility] [address] [place] [address] Dr[place] [phone] Doctor Osteopathic: Waldo Bruce MD #### RA #### [address] [address] Doctor Osteopathic: Robert Lopez MD Albumin/Glob Ratio 1.7 Normal 1.0-2.5 [facility] Comment on above: Performed By: #### S ED, CMPF, CRP, CDP #### [facility] [address] [place] [address] Dr. [place], [place] [id number] Doctor Osteopathic: Waldo Bruce MD #### RA #### [address] [address] Doctor Osteopathic: Robert Lopez MD Alkaline Phos 88 U/L Normal 35-104 [facility] Comment on above: Performed By: #### S ED, CMPF, CRP, CDP #### [facility] [address] [place] [address] [place], [place] [phone] Doctor Osteopathic: Waldo Bruce MD #### RA #### [address] [address] Doctor Osteopathic: Robert Lopez MD ALT [Catalytic activity/Vol] 13 U/L Normal 5-33 [facility] Comment on above: Performed By: #### S ED, CMPF, CRP, CDP #### [address] [place], [place] [phone] Doctor Osteopathic: Waldo Bruce MD #### RA #### [address] [address] Doctor Osteopathic: Robert Lopez MD Anion gap [Moles/Vol] 9 mmol/L Normal 9-17 [facility] Comment on above: Performed By: #### S ED, CMPF, CRP, CDP #### [address] [place], [place] [id number] Doctor Osteopathic: Waldo Bruce MD #### RA #### [address] [address] Doctor Osteopathic: Robert Lopez MD AST [Catalytic activity/Vol] 20 U/L Normal <32 [facility] Comment on above: Performed By: #### S ED, CMPF, CRP, CDP #### [facility] [address] [place], [place] 1737883 Doctor Osteopathic: Waldo Bruce MD #### RA #### [address] [address] Doctor Osteopathic: Robert Lopez MD Bilirubin [Mass/Vol] 0.8 mg/dL Normal 0.3-1.2 [facility] Comment on above: Performed By: #### S ED, CMPF, CRP, CDP #### [facility] [address] [place] [address] Dr[address] [place], [place] 1397583 Doctor Osteopathic: Waldo Bruce MD #### RA #### [address] [address] Doctor Osteopathic: Robert Lopez MD BUN/CRE Ratio 17 Normal 9-20 [facility] Comment on above: Performed By: #### S ED, CMPF, CRP, CDP #### [facility] [address] [place] [address] [place], [place] [id number] Doctor Osteopathic: Waldo Bruce MD #### RA #### [address] [address] Doctor Osteopathic: Robert Lopez MD Calcium [Mass/Vol] 9.1 mg/dL Normal 8.6-10.4 [facility] Comment on above: Performed By: #### S ED, CMPF, CRP, CDP #### [facility] [address] [place] [address] Dr[place], [place] [id number] Doctor Osteopathic: Waldo Bruce MD #### RA #### [address] [address] Doctor Osteopathic: Robert Lopez MD Chloride [Moles/Vol] 108 mmol/L High 98-107 [facility] Comment on above: Performed By: #### S ED, CMPF, CRP, CDP #### [facility] [address] [place] [address] Doctor Osteopathic: Waldo Bruce MD #### RA #### [id number] [place], [place] 0689108 Doctor Osteopathic: Roebrt Lopez MD CO2 [Moles/Vol] 26 mmol/L Normal 20-31 [facility] Comment on above: Performed By: #### S ED, CMPF, CRP, CDP #### [facility] [address] [place] [address] Doctor Osteopathic: Waldo Bruce MD #### RA #### [address] [id number] Doctor Osteopathic: Robert Lopez MD Creatinine [Mass/Vol] 0.76 mg/dL Normal 0.50-0.90 [facility] Comment on above: Performed By: #### S ED, CMPF, CRP, CDP #### [facility] [address] [place] [address] Doctor Osteopathic: Waldo Bruce MD #### RA #### [address] [id number] Doctor Osteopathic: Robert Lopez MD GFR/1.73 sq M.predicted among non-blacks MDRD (S/P/Bld) [Vol rate/Area] mL/min/{1.73_m2} Normal >60 [facility] Comment on above: Result Comment: These results are not intended for use in patients <18 years of age. eGFR results are calculated without a race factor using the 2020 CKD-EPI equation. Careful clinical correlation is recommended, particularly when comparing to results calculated using previous equations. The CKD-EPI equation is less accurate in patients with extremes of muscle mass, extra-renal metabolism of creatine, excessive creatine ingestion, or following therapy that affects renal tubular secretion. Performed By: #### S ED, CMPF, CRP, CDP #### [facility] [address] [place], [place] 5073883 Doctor Osteopathic: Waldo Bruce MD #### RA #### [address] [address] Doctor Osteopathic: Robert Lopez MD Glucose [Mass/Vol] 104 mg/dL High 70-99 [facility] Comment on above: Performed By: #### S ED, CMPF, CRP, CDP #### [facility] [address] [place], [place] 5578683 Doctor Osteopathic: Waldo Bruce MD #### RA #### [address] [address] Doctor Osteopathic: Robert Lopez MD Potassium [Moles/Vol] 4.9 mmol/L Normal 3.7-5.3 [facility] Comment on above: Performed By: #### S ED, CMPF, CRP, CDP #### [facility] [address] [place], [place] 5290683 Doctor Osteopathic: Waldo Bruce MD #### RA #### [address] [address] Doctor Osteopathic: Robert Lopez MD Protein [Mass/Vol] 6.7 g/dL Normal 6.4-8.3 [facility] Comment on above: Performed By: #### S ED, CMPF, CRP, CDP #### [facility] [address] [place] [address] Doctor Osteopathic: Waldo Bruce MD #### RA #### [address] [address] Doctor Osteopathic: Robert Lopez MD Sodium [Moles/Vol] 143 mmol/L Normal 135-144 [facility] Comment on above: Performed By: #### S ED, CMPF, CRP, CDP #### [facility] [address] [place], [place] 8980883 Doctor Osteopathic: Waldo Bruce MD #### RA #### [address] [id number] Doctor Osteopathic: Robert Lopez MD Urea nitrogen [Mass/Vol] 13 mg/dL Normal 8-23 [facility] Comment on above: Performed By: #### S ED, CMPF, CRP, CDP #### [facility] [address] [place], [place] 2701083 Doctor Osteopathic: Waldo Bruce MD #### RA #### [address] [id number] Doctor Osteopathic: Robert Lopez MD Sedimentation Rateon 023 Sedimentation Rate 4 mm/Hr Normal 0-30 [facility] Comment on above: Performed By: #### S ED, CMPF, CRP, CDP #### [facility] [address] [place], [place] 6787283 Doctor Osteopathic: Waldo Bruce MD #### RA #### [address] [id number] Doctor Osteopathic: Robert Lopez MD ELECTROENCEPHALOGRAMon 09-[address] [id number] ELECTROENCEPHALOGRAM REPORT PATIENT NAME: TIFFANY GONZALEZ : 1960 MED REC NO: [id number] ROOM: 0140 ACCOUNT NO: [id number] ADMIT DATE: 09/12/2022 PROVIDER: Dat Rudolph MD DATE OF EE09/12/2022 REASON FOR STUDY: This is a 62-year-old lady who presented with tremor, rule out seizures. MEDICATIONS: Include Zoloft, Xanax, Neurontin, Vistaril, Protonix, Lipitor, Wellbutrin, BuSpar. EEG FINDINGS: This is an 18-channel EEG with one EKG channel recording performed on a patient described to be awake, drowsy and asleep. The patient shows normal waking rhythms. Background activity consists of well-regulated 11 Hz activity in the 40 to 60 microvolt range, more prominent in the posterior head area showing good reactivity to eye opening and closing. Over the anterior head regions, there are 15 to 20 Hz activity in 20 to 30 microvolt range. With drowsiness and sleep, the patient shows further intrusion of slower frequencies in a theta and delta band accompanied by vertex wave activity and sleep spindles. There is one isolated left frontal sharp wave over F7. No seizure activity is seen in this recording. Hyperventilation is not performed. Photic stimulation shows no change of the record. IMPRESSION: This EEG shows normal waking rhythms for an awake and sleepy patient. There is one isolated left frontal sharp wave over F7 of unclear significance, but may potentially be seen with underlying epileptiform disturbance. Clinical correlation is warranted. DAT RUDOLPH MD [id number] Doc#: [id number] CC: Normal [facility] Urinalysis w/ Microon 2022 Bacteria 2+ Abnormal NONE [facility] Comment on above: Performed By: #### U AMIC ####[facility] [place] [address] Lab Director: Waldo Bruce MD Bilirubin, SemiQt,Ur Negative Normal NEG [facility] Comment on above: Performed By: #### U AMIC ####[facility] [place] [address] lab Director: Waldo Bruce MD Blood, Urine Negative Normal NEG [facility] Comment on above: Performed By: #### U AMIC ####[facility] [place] [address] Lab Director: Waldo Bruce MD Clarity (U) Clear Normal CLEAR [facility] Comment on above: Performed By: #### U AMIC ####[address] [place] [address] Lab Director: Waldo Bruce MD Color (U) Yellow Normal YEL [facility] Comment on above: Performed By: #### U AMIC ####[address] [place] [address] Lab Director: Waldo Bruce MD Epithelial cells LM Ql (Urine sed) 2 TO 5 Normal 0-25 [facility] Comment on above: Performed By: #### U AMIC ####[address] [place] [address] Lab Director: Waldo Bruce MD Glucose Ql (U) Negative Normal NEG [facility] Comment on above: Performed By: #### U AMIC ####[address] [place] [address] Lab Director: Waldo Bruce MD Ketones Ql (U) Negative Normal NEG [facility] Comment on above: Performed By: #### U AMIC ####[address] [place] [address] Lab Director: Waldo Bruce MD Leukocyte esterase Test strip Ql (U) Negative Normal NEG [facility] Comment on above: Performed By: #### U AMIC ####[address] [place] [address] Lab Director: Waldo Bruce MD Mucus Strands TRACE Abnormal NONE [facility] Comment on above: Performed By: #### U AMIC ####[address] [place] [address] Lab Director: Waldo Bruce MD Nitrite,Ur Negative Normal NEG [facility] Comment on above: Performed By: #### U AMIC ####[address] , [place] 6704883 Lab Director: Waldo Bruce MD PH,Ur 6.0 Normal 5.0-9.0 [facility] Comment on above: Performed By: #### U AMIC ####[address] , [place] 2014383 lab Director: Waldo Bruce MD Protein Ql (U) Negative Normal NEG [facility] Comment on above: Performed By: #### U AMIC ####[address] [place] [address] lab Director: Waldo Bruce MD Spec. [place],Ur 1.020 Normal 1.010-1.020 [facility] Comment on above: Performed By: #### U AMIC ####[address] [place] [address] Lab Director: Waldo Bruce MD Urine RBC's 0 TO 2 Normal 0-2 [facility] Comment on above: Performed By: #### U AMIC ####[address] [place] [address] lab Director: Waldo Bruce MD Urine WBC's 0 TO 2 Normal 0-5 [facility] Comment on above: Performed By: #### U AMIC ####[address] , [place] [address])[id number] Director: Waldo Bruce MD Urobilinogen,Ur Normal Normal NORM [facility] Comment on above: Performed By: #### U AMIC ####[address] [place] [address] Lab Director: Waldo Bruce MD CBC with Auto Differentialon 09-11-2022 Absolute Eos # 0.43 [facility] Absolute Immature Granulocyte 0.03 [facility] Absolute Lymph # 3.88 High [facility] Absolute [place] # 0.61 [facility] Basophils (Bld) [#/Vol] 0.07 10*3/uL [facility] Basophils/100 WBC (Bld) 1 % 0 - 2 % [facility] Eosinophils/100 WBC (Bld) 4 % 1 - 4 % [facility] Hematocrit (Bld) [Volume fraction] 43.0 % 36.3 - 47.1 % [facility] Hemoglobin (Bld) [Mass/Vol] 14.9 g/dL 11.9 - 15.1 g/dL [facility] Immature granulocytes/100 WBC (Bld) 0 % 0 [facility] Interpretation and review of laboratory results Abnormal [facility] Lymphocytes/100 WBC (Bld) 40 % 24 - 43 % [facility] MCH (RBC) [Entitic mass] 33.8 pg High 25. 2 - 33.5 pg [facility] MCHC (RBC) [Mass/Vol] 34.7 g/dL 28.4 - 34.8 g/dL [facility] MCV (RBC) [Entitic vol] 97.5 fL 82.6 - 102.9 fL [facility] Monocytes/100 WBC (Bld) 6 % 3 - 12 % [facility] NRBC Automated 0.0 0.0 per 100 WBC [facility] Platelet distribution width (Bld) [Ratio] 11.7 % Low 11.8 - 14.4 % [facility] Platelet mean volume (Bld) [Entitic vol] 10.2 fL 8.1 - 13.5 fL [facility] Platelets (Bld) [#/Vol] 253 10*3/uL [facility] RBC (Bld) [#/Vol] 4.41 10*6/uL 3.95 - 5.1 1 m/uL [facility] Segmented neutrophils/100 WBC (Bld) 49 % 36 - 65 % [facility] Segs Absolute 4.78 [facility] WBC (Bld) [#/Vol] 9.8 10*3/uL [facility] CBC with Diffon 09-11-2022 Abs. Basophil 0.07 k/uL Normal 0.00-0.20 [facility] Comment on above: Performed By: #### AARTI Marie, CP #### [facility] [address] [place] [address] Dr. [place], [place] [address] Doctor Osteopathic: Waldo Bruce MD Abs.Imm.Granulocyte 0.03 k/uL Normal 0.00-0.30 [facility] Comment on above: Performed By: #### AARTI Marie, CP #### [address] [place] [address] Doctor Osteopathic: Waldo Bruce MD Abs.Neutrophil (Seg) 4.78 k/uL Normal 1.50-8.10 [facility] Comment on above: Performed By: #### AARTI Marie, CP #### [address] [place] [address] Doctor Osteopathic: Waldo Bruce MD Basophils/100 WBC (Bld) 1 % Normal 0-2 [facility] Comment on above: Performed By: #### AARTI Marie, CP #### [address] [place] [address] Doctor Osteopathic: Waldo Bruce MD Eosinophils (Bld) [#/Vol] 0.43 10*3/uL Normal 0.00-0.44 [facility] Comment on above: Performed By: #### AARTI Marie, CP #### [address] [place], [place] [address] Doctor Osteopathic: Waldo Bruce MD Eosinophils/100 WBC (Bld) 4 % Normal 1-4 [facility] Comment on above: Performed By: #### AARTI Marie, CP #### [address] [place] [address] Doctor Osteopathic: Waldo Bruce MD Erythrocyte distribution width (RBC) [Ratio] 11.7 % Low 11.8-14.4 [facility] Comment on above: Performed By: #### AARTI Marie, CP #### [facility] [address] [place], [place] [id number] Doctor Osteopathic: Waldo Bruce MD Hematocrit (Bld) [Volume fraction] 43.0 % Normal 36.3-47.1 [facility] Comment on above: Performed By: #### AARTI Marie, CP #### [address] [place], [place] 9252583 Doctor Osteopathic: Waldo Bruce MD Hemoglobin (Bld) [Mass/Vol] 14.9 g/dL Normal 11.9-15.1 [facility] Comment on above: Performed By: #### AARTI Marie, CP #### [address] [place], [place] [phone] Doctor Osteopathic: Waldo Bruce MD Immature granulocytes/100 WBC (Bld) 0 % Normal 0 [facility] Comment on above: Performed By: #### AARTI Marie, CP #### [address] [place], [place] 7357083 Doctor Osteopathic: Waldo Bruce MD Lymphocytes (Bld) [#/Vol] 3.88 10*3/uL High 1.10-3.70 [facility] Comment on above: Performed By: #### AARTI Marie, CP #### [address] [place], [place] 5346883 Doctor Osteopathic: Waldo Bruce MD Lymphocytes/100 WBC (Bld) 40 % Normal 24-43 [facility] Comment on above: Performed By: #### AARTI Marie, CP #### [address] [place], [place] 7700083 Doctor Osteopathic: Waldo Bruce MD MCH (RBC) [Entitic mass] 33.8 pg High 25.2-33.5 [facility] Comment on above: Performed By: #### AARTI Marie, CP #### [address] [place], [place] 7773183 Doctor Osteopathic: Waldo Bruce MD MCHC (RBC) [Mass/Vol] 34.7 g/dL Normal 28.4-34.8 [facility] Comment on above: Performed By: #### M Joshua, CDP, CP #### [address] [place], [facility]83 Doctor Osteopathic: Waldo Bruce MD MCV (RBC) [Entitic vol] 97.5 fL Normal 82.6-102.9 [facility] Comment on above: Performed By: #### AARTI Marie, CP #### [address] [place], [facility]83 Doctor Osteopathic: Waldo Bruce MD Monocytes (Bld) [#/Vol] 0.61 10*3/uL Normal 0.10-1.20 [facility] Comment on above: Performed By: #### AARTI Marie, CP #### [address] [place], [facility]83 Doctor Osteopathic: Waldo Bruce MD Monocytes/100 WBC (Bld) 6 % Normal 3-12 [facility] Comment on above: Performed By: #### AARTI Marie, CP #### [address] [place], [facility]83 Doctor Osteopathic: Waldo Bruce MD Neutrophil (Seg) 49 % Normal 36-65 [facility] Comment on above: Performed By: #### AARTI Marie, CP #### [address] [place], [place] 5552983 Doctor Osteopathic: Waldo Bruce MD NRBC Automated 0.0 per 100 WBC Normal 0.0 [facility] Comment on above: Performed By: #### Neeru Lewis, CDP, CP #### [address] [place], [facility]83 Doctor Osteopathic: Waldo Bruce MD Platelet mean volume (Bld) [Entitic vol] 10.2 fL Normal 8.1-13.5 [facility] Comment on above: Performed By: #### AARTI Marie, CP #### [facility] [address] [place], [place] [id number] Doctor Osteopathic: Waldo Bruce MD Platelets (Bld) [#/Vol] 253 10*3/uL Normal 138-453 [facility] Comment on above: Performed By: #### AARTI Marie, CP #### [facility] [address] [place] [address] Doctor Osteopathic: Waldo Bruce MD RBC (Bld) [#/Vol] 4.41 10*6/uL Normal 3.95-5.11 [facility] Comment on above: Performed By: #### AARTI Marie, CP #### [facility] [address] [place], [place] 0742883 Doctor Osteopathic: Waldo Bruce MD WBC (Bld) [#/Vol] 9.8 10*3/uL Normal 3.5-11.3 [facility] Comment on above: Performed By: #### AARTI Marie, CP #### [address] [place], [place] [phone] Doctor Osteopathic: Waldo Bruce MD CT HEAD WO CONTRASTon 2022 CT HEAD WO CONTRAST EXAMINATION: CT OF THE HEAD WITHOUT CONTRAST 09/11/2022 9:38 pm TECHNIQUE: CT of the head was performed without the administration of intravenous contrast. Automated exposure control, iterative reconstruction, and/or weight based adjustment of the mA/kV was utilized to reduce the radiation dose to as low as reasonably achievable. COMPARISON: MR brain from September 10, 2022. CT head January 11, 2017. HISTORY: ORDERING SYSTEM PROVIDED HISTORY: shaking of the rue TECHNOLOGIST PROVIDED HISTORY: shaking of the rue Decision Support Exception - unselect if not a suspected or confirmed emergency medical condition->Emergency Medical Condition ([place]) FINDINGS: BRAIN/VENTRICLES: There is no acute intracranial hemorrhage, mass effect or midline shift. No abnormal extra-axial fluid collection. The barnes-white differentiation is maintained without evidence of an acute infarct. There is prominence of the ventricles and sulci due to global parenchymal volume loss. There are nonspecific areas of hypoattenuation within the periventricular and subcortical white matter, which likely represent chronic microvascular ischemic change. Prominent bilateral choroid plexus nodularity which appears fatty centrally and peripherally calcified. This appears unchanged. ORBITS: The visualized portion of the orbits demonstrate no acute abnormality. SINUSES: The visualized paranasal sinuses and mastoid air cells demonstrate no acute abnormality. SOFT TISSUES/SKULL: No acute abnormality of the visualized skull or soft tissues. IMPRESSION: No acute intracranial abnormality. 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 Interpreted by: Manish Mathews MD Signed by: Manish Mathews MD 09/11/22 Final result Normal [facility] CT Head WO Contraston 2022 No acute intracrania l abnormality. 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 [facility] RIS CONSOLIDATED EXAMINATION: CT OF THE HEAD WITHOUT CONTRAST 09/11/2022 9:38 pm TECHNIQUE: CT of the head was performed without the administration of intravenous contrast. Automated exposure control, iterative reconstruction, and/or weight based adjustment of the mA/kV was utilized to reduce the radiation dose to as low as reasonably achievable. COMPARISON: MR brain from September 10, 2022. CT head January 11, 2017. HISTORY: ORDERING SYSTEM PROVIDED HISTORY: shaking of the rue TECHNOLOGIST PROVIDED HISTORY: shaking of the rue Decision Support Exception - unselect if not a suspected or confirmed emergency medical condition->Emergency Medical Condition ([place]) FINDINGS: BRAIN/VENTRICLES: There is no acute intracranial hemorrhage, mass effect or midline shift. No abnormal extra-axial fluid collection. The barnes-white differentiation is maintained without evidence of an acute infarct. There is prominence of the ventricles and sulci due to global parenchymal volume loss. There are nonspecific areas of hypoattenuation within the periventricular and subcortical white matter, which likely represent chronic microvascular ischemic change. Prominent bilateral choroid plexus nodularity which appears fatty centrally and peripherally calcified. This appears unchanged. ORBITS: The visualized portion of the orbits demonstrate no acute abnormality. SINUSES: The visualized paranasal sinuses and mastoid air cells demonstrate no acute abnormality. SOFT TISSUES/SKULL: No acute abnormality of the visualized skull or soft tissues. [facility] Manish Kraft MD - 09/11/2022 EXAMINATION: CT OF THE HEAD WITHOUT CONTRAST 09/11/2022 9:38 pm TECHNIQUE: CT of the head was performed without the administration of intravenous contrast. Automated exposure control, iterative reconstruction, and/or weight based adjustment of the mA/kV was utilized to reduce the radiation dose to as low as reasonably achievable. COMPARISON: MR brain from September 10, 2022. CT head January 11, 2017. HISTORY: ORDERING SYSTEM PROVIDED HISTORY: shaking of the rue TECHNOLOGIST PROVIDED HISTORY: shaking of the rue Decision Support Exception - unselect if not a suspected or confirmed emergency medical condition->Emergency Medical Condition ([place]) FINDINGS: BRAIN/VENTRICLES: There is no acute intracranial hemorrhage, mass effect or midline shift. No abnormal extra-axial fluid collection. The barnes-white differentiation is maintained without evidence of an acute infarct. There is prominence of the ventricles and sulci due to global parenchymal volume loss. There are nonspecific areas of hypoattenuation within the periventricular and subcortical white matter, which likely represent chronic microvascular ischemic change. Prominent bilateral choroid plexus nodularity which appears fatty centrally and peripherally calcified. This appears unchanged. ORBITS: The visualized portion of the orbits demonstrate no acute abnormality. SINUSES: The visualized paranasal sinuses and mastoid air cells demonstrate no acute abnormality. SOFT TISSUES/SKULL: No acute abnormality of the visualized skull or soft tissues. IMPRESSION: No acute intracranial abnormality. 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 [employer] Phone: Radiology Study observation (narrative) [facility] [email or web address] Phone: CT Head WO ContrastOrdered B y: Manish Mathews on 09-11-2022 [facility] [employer] Phone: Comp Metabolic Profon 2022 Albumin [Mass/Vol] 4.1 g/dL Normal 3.5-5.2 [facility] Comment on above: Performed By: #### M G, CDP, CP ####[facility] , [place] 950[address]83 Lab Director: Waldo Bruce MD Albumin/Glob Ratio 1.4 Normal 1.0-2.5 [facility] Comment on above: Performed By: #### AARTI Marie, CP ####[address] , [place] [id number] lab Director: Waldo Bruce MD Alkaline Phos 107 U/L High 35-104 [facility] Comment on above: Performed By: #### AARTI Marie, CP ####[address] [place] [address] lab Director: Waldo Bruce MD ALT [Catalytic activity/Vol] 16 U/L Normal 5-33 [facility] Comment on above: Performed By: #### AARTI Marie, CP ####[address] , [place] [id number] Lab Director: Waldo Bruce MD Anion gap [Moles/Vol] 12 mmol/L Normal 9-17 [facility] Comment on above: Performed By: #### AARTI Marie, CP ####[address] , [place] [id number] Lab Director: Waldo Bruce MD AST [Catalytic activity/Vol] 15 U/L Normal <32 [facility] [facility] Comment on above: Performed By: #### AARIT Marie, CP ####[address] , [place] [id number] Lab Director: Waldo Bruce MD Bilirubin [Mass/Vol] 0.4 mg/dL Normal 0.3-1.2 [facility] Comment on above: Performed By: #### AARTI Marie, CP ####[address] , [place] [id number] Lab Director: Waldo Bruce MD BUN/CRE Ratio 20 Normal 9-20 [facility] Comment on above: Performed By: #### AARTI Marie, CP ####[address] , [place] [id number] Lab Director: Waldo Bruce MD Calcium [Mass/Vol] 9.6 mg/dL Normal 8.6-10.4 [facility] Comment on above: Performed By: #### M AARTI Lewis, CP ####[address] [place] [address] Lab Director: Waldo Bruce MD Chloride [Moles/Vol] 103 mmol/L Normal 98-107 [facility] Comment on above: Performed By: #### M AARTI Lewis, CP ####[address] , [place] [id number] Lab Director: Waldo Bruce MD CO2 [Moles/Vol] 26 mmol/L Normal 20-31 [facility] Comment on above: Performed By: #### AARTI Marie, CP ####[address] , [place] [id number] Lab Director: Waldo Bruce MD Creatinine [Mass/Vol] 0.87 mg/dL Normal 0.50-0.90 [facility] Comment on above: Performed By: #### AARTI Marie, CP ####[address] , [place] [id number] Lab Director: Waldo Bruce MD GFR/1.73 sq M.predicted among non-blacks MDRD (S/P/Bld) [Vol rate/Area] mL/min/{1.73_m2} Normal >60 [facility] Comment on above: Result Comment: These results are not intended for use in patients <18 years of age. eGFR results are calculated without a race factor using the 2020 CKD-EPI equation. Careful clinical correlation is recommended, particularly when comparing to results calculated using previous equations. The CKD-EPI equation is less accurate in patients with extremes of muscle mass, extra-renal metabolism of creatine, excessive creatine ingestion, or following therapy that affects renal tubular secretion. Performed By: #### AARTI Marie, CP ####[address] , [place] [id number] Lab Director: Waldo Bruce MD Glucose [Mass/Vol] 118 mg/dL High 70-99 [facility] Comment on above: Performed By: #### M Joshua, CDP, CP ####[address] [place] [address] Lab Director: Waldo Bruce MD Potassium [Moles/Vol] 3.9 mmol/L Normal 3.7-5.3 [facility] Comment on above: Performed By: #### AARTI Marie, CP ####[address] , [place] [id number] Lab Director: Waldo Bruce MD Protein [Mass/Vol] 7.0 g/dL Normal 6.4-8.3 [facility] Comment on above: Performed By: #### Neeru Lweis, AARTI, CP ####[address] [place] [address] Lab Director: Waldo Bruce MD Sodium [Moles/Vol] 141 mmol/L Normal 135-144 [facility] Comment on above: Performed By: #### AARTI Marie, CP ####[address] [place] [address] Lab Director: Waldo Bruce MD Urea nitrogen [Mass/Vol] 17 mg/dL Normal 8-23 [facility] Comment on above: Performed By: #### M Joshua, AARTI, CP ####[address] , [place] [id number] Lab Director: Waldo Bruce MD Comprehensive Metabolic Pane [facility] 09-11-2022 Albumin [Mass/Vol] 4.1 g/dL 3.5 - 5.2 g/dL [facility] Albumin/Globulin [Mass ratio] 1.4 {ratio} 1.0 - 2.5 [facility] ALP [Catalytic activity/Vol] 107 U/L High 35 - 104 U/L [facility] ALT [Catalytic activity/Vol] 16 U/L 5 - 33 U/L [facility] Anion gap [Moles/Vol] 12 mmol/L 9 - 17 mmol/L [facility] AST [Catalytic activity/Vol] 15 U/L NINF - 32 U/L [facility] Bilirubin [Mass/Vol] 0.4 mg/dL 0.3 - 1 .2 mg/dL [facility] Calcium [Mass/Vol] 9.6 mg/dL 8.6 - 10. 4 mg/dL [facility] Chloride [Moles/Vol] 103 mmol/L 98 - 10 7 mmol/L [facility] CO2 [Moles/Vol] 26 mmol/L 20 - 31 mmol/L [facility] Creatinine [Mass/Vol] 0.87 mg/dL 0.50 - 0.90 mg/dL [facility] GFR/1.73 sq M.predicted MDRD (S/P/Bld) [Vol rate/Area] - PINF [facility] Comment on above: These results are not intended for use in patients <18 years of age. eGFR results are calculated without a race factor using the 2020 CKD-EPI equation. Careful clinical correlation is recommended, particularly when comparing to results calculated using previous equations. The CKD-EPI equation is less accurate in patients with extremes of muscle mass, extra-renal metabolism of creatine, excessive creatine ingestion, or following therapy that affects renal tubular secretion. Glucose [Mass/Vol] 118 mg/dL High 70 - 99 mg/dL [facility] Interpretation and review of laboratory results Abnormal [facility] Potassium [Moles/Vol] 3.9 mmol/L 3.7 - 5.3 mmol/L [facility] Protein [Mass/Vol] 7.0 g/dL 6.4 - 8.3 g/dL [facility] Sodium [Moles/Vol] 141 mmol/L 135 - 144 mmol/L [facility] Urea nitrogen [Mass/Vol] 17 mg/dL 8 - 23 mg/dL [facility] Urea nitrogen/Creatinine (Bld) [Mass ratio] 20 9 - 20 [facility] Glucose, Whole Bloodon 09-11 Glucose [Mass/Vol] 124 mg/dL High 74 - 100 mg/dL [facility] Interpretation and review of laboratory results Abnormal [facility] Magnesiumon 09-11-2022 Magnesium [Mass/Vol] 1.8 mg/dL Normal 1.6-2.6 [facility] Comment on above: Performed By: #### M G, CDP, CP ####[facility] [place] [address] Lab Director: Waldo Bruce MD Magnesium [Mass/Vol] 1.8 mg/dL 1.6 - 2 .6 mg/dL [facility] No Panel Informationon 09-11 [facility] POCT GlucoseOrdered By: Angela Morgan on 09-11-2022 Glucose [Mass/Vol] 124 mg/dL [facility] Interpretation and review of laboratory results Normal [facility] QC OK? yes [facility] TSHon 09-11-2022 TSH Qn 2.92 m[IU]/L [facility] Thyroid Stim. Horm.on 2022 Thyroid Stim. Horm. 2.92 uIU/mL Normal 0.30-5.00 [facility] Comment on above: Performed By: #### T SH ####[facility] [place] [address] lab Director: Waldo Bruce MD Urinalysis with Microscopico n 09-11-2022 Bacteria, UA 2+ Abnormal None [facility] Bilirubin Urine Negative NEGATIVE [facility] Color, UA Yellow Yellow [facility] Epithelial Cells UA 2 TO 5 [facility] S [facility] Glucose Auto test strip (U) [Mass/Vol] Negative NEGATIVE [facility] Interpretation and review of laboratory results Abnormal [facility] Ketones (U) [Mass/Vol] Negative NEGATIVE [facility] Leukocyte esterase Auto test strip Ql (U) Negative NEGATIVE [facility] Mucus, UA TRACE Abnormal None [facility] Nitrite Auto test strip Ql (U) Negative NEGATIVE [facility] Protein (U) [Mass/Vol] 6.0 mg/dL 5.0 - 9.0 [facility] Protein (U) [Mass/Vol] Negative NEGATIVE [facility] RBC clumps Auto (Urine sed) [#/Area] 0 TO 2 [facility] Specific [place], UA 1.020 1.010 - 1.020 [facility] Turbidity UA Clear Clear [facility] Urine Hgb Negative NEGATIVE [facility] Urobilinogen, Urine Normal Normal [facility] WBC, UA 0 TO 2 [facility] BUN & Creatinineon 3 Creatinine [Mass/Vol] 0.66 mg/dL 0.50 - 0.90 mg/dL [facility] GFR/1.73 sq M.predicted MDRD (S/P/Bld) [Vol rate/Area] - PINF [facility] Comment on above: These results are not intended for use in patients <18 years of age. eGFR results are calculated without a race factor using the 2020 CKD-EPI equation. Careful clinical correlation is recommended, particularly when comparing to results calculated using previous equations. The CKD-EPI equation is less accurate in patients with extremes of muscle mass, extra-renal metabolism of creatine, excessive creatine ingestion, or following therapy that affects renal tubular secretion. Urea nitrogen [Mass/Vol] 9 mg/dL 8 - 23 mg/dL [facility] BUN + Creatinineon 3 Creatinine [Mass/Vol] 0.66 mg/dL Normal 0.50-0.90 [facility] Comment on above: Performed By: #### B [facility] #### [facility] [address] [place] [address] Doctor Osteopathic: Waldo Bruce MD GFR/1.73 sq M.predicted among non-blacks MDRD (S/P/Bld) [Vol rate/Area] mL/min/{1.73_m2} Normal >60 [facility] Comment on above: Result Comment: These results are not intended for use in patients <18 years of age. eGFR results are calculated without a race factor using the 2020 CKD-EPI equation. Careful clinical correlation is recommended, particularly when comparing to results calculated using previous equations. The CKD-EPI equation is less accurate in patients with extremes of muscle mass, extra-renal metabolism of creatine, excessive creatine ingestion, or following therapy that affects renal tubular secretion. Performed By: #### B [facility] #### [facility] [address] [place], [place] [id number] Doctor Osteopathic: Waldo Bruce MD Urea nitrogen [Mass/Vol] 9 mg/dL Normal 8-23 [facility] Comment on above: Performed By: #### B [facility] #### [facility] [address] [place] [id number] Doctor Osteopathic: Waldo Bruce MD MRI BRAIN W WO CONTRASTon MRI BRAIN W WO CONTRAST EXAMINATION: MRI OF THE BRAIN WITHOUT AND WITH CONTRAST, 09/10/2022 11:40 am TECHNIQUE: Multiplanar multisequence MRI of the head/brain was performed without and with the administration of intravenous contrast. COMPARISON: 02/15/2021 HISTORY: ORDERING SYSTEM PROVIDED HISTORY: Anxiety and depression TECHNOLOGIST PROVIDED HISTORY: STAT Creatinine as needed: Yes New onset stuttering, past history of TIA's. FINDINGS: INTRACRANIAL STRUCTURES/VENTRICLES : There are no areas of restricted diffusion identified to suggest an acute infarct. There is no acute intracranial hemorrhage. No mass effect or midline shift is present. Mild to moderate ventriculomegaly is unchanged. There is no abnormal extra-axial fluid collection. There are multiple foci of abnormal increased T2/FLAIR signal intensity within the periventricular and deep white matter, unchanged. There is no abnormal enhancement. There is no sellar or suprasellar mass present. The proximal portions of the [place] demonstrate normal flow voids. ORBITS: Limited evaluation of the orbits is unremarkable. SINUSES: The paranasal sinuses and mastoid air cells are clear. BONES/SOFT TISSUES: Bone marrow signal intensity is normal. IMPRESSION: 1. Stable appearance of the brain without acute intracranial process identified. 2. Mild chronic small vessel ischemic changes. Interpreted by: Jevon Benitez MD Signed by: Jevon Benitez MD 09/10/22 Final result Normal [facility] 1. Stable appearance of the brain without acute intracranial process identified. 2. Mild chronic small vessel ischemic changes. [facility] EXAMINATION: MRI OF THE BRAIN WITHOUT AND WITH CONTRAST, 09/10/2022 11:40 am TECHNIQUE: Multiplanar multisequence MRI of the head/brain was performed without and with the administration of intravenous contrast. COMPARISON: 02/15/2021 HISTORY: ORDERING SYSTEM PROVIDED HISTORY: Anxiety and depression TECHNOLOGIST PROVIDED HISTORY: STAT Creatinine as needed: Yes New onset stuttering, past history of TIA's. FINDINGS: INTRACRANIAL STRUCTURES/VENTRICLES : There are no areas of restricted diffusion identified to suggest an acute infarct. There is no acute intracranial hemorrhage. No mass effect or midline shift is present. Mild to moderate ventriculomegaly is unchanged. There is no abnormal extra-axial fluid collection. There are multiple foci of abnormal increased T2/FLAIR signal intensity within the periventricular and deep white matter, unchanged. There is no abnormal enhancement. There is no sellar or suprasellar mass present. The proximal portions of the [place] demonstrate normal flow voids. ORBITS: Limited evaluation of the orbits is unremarkable. SINUSES: The paranasal sinuses and mastoid air cells are clear. BONES/SOFT TISSUES: Bone marrow signal intensity is normal. [facility] Jevon Benitez MD - 09/10/2022 EXAMINATION: MRI OF THE BRAIN WITHOUT AND WITH CONTRAST, 09/10/2022 11:40 am TECHNIQUE: Multiplanar multisequence MRI of the head/brain was performed without and with the administration of intravenous contrast. COMPARISON: 02/15/2021 HISTORY: ORDERING SYSTEM PROVIDED HISTORY: Anxiety and depression TECHNOLOGIST PROVIDED HISTORY: STAT Creatinine as needed: Yes New onset stuttering, past history of TIA's. FINDINGS: INTRACRANIAL STRUCTURES/VENTRICLES : There are no areas of restricted diffusion identified to suggest an acute infarct. There is no acute intracranial hemorrhage. No mass effect or midline shift is present. Mild to moderate ventriculomegaly is unchanged. There is no abnormal extra-axial fluid collection. There are multiple foci of abnormal increased T2/FLAIR signal intensity within the periventricular and deep white matter, unchanged. There is no abnormal enhancement. There is no sellar or suprasellar mass present. The proximal portions of the [place] demonstrate normal flow voids. ORBITS: Limited evaluation of the orbits is unremarkable. SINUSES: The paranasal sinuses and mastoid air cells are clear. BONES/SOFT TISSUES: Bone marrow signal intensity is normal. IMPRESSION: 1. Stable appearance of the brain without acute intracranial process identified. 2. Mild chronic small vessel ischemic changes. [facility] Phone: Radiology Study observation (narrative) CHARU MARKS [employer] Phone: MRI BRAIN W WO CONTRASTOrder ed By: Jevon Benitez on 09-10-2022 [facility]U [facility] Phone: Podiatry Office/Clinic Noteo n 05-31-2022 Podiatry Office/Clinic Note Chief Complaint F/U left tarsal tunnel injection History of Present Illness Patient presents for follow-up of left foot plantar fascial fibromatosis/tarsal tunnel/contracture left Achilles. Also has a history of lumbar radiculopathy, since last visit her left foot pain is unchanged. She still gets pain in the arch and the bottom of her left heel. She is also having ablations done on her back. She has not noticed much of a difference in pain for her back or her lower extremities since having this done yet. Presents for tarsal tunnel injection today. No other complaints at this time. Denies new claudication or cramping type symptoms. Denies calf pain. Review of Systems Constitutional Head Nose Mouth Throat Cardio/Respiratory Hematologic Chills: No Headache: No Shortness of Breath: No History of DVT: No Fever: No Sore Throat: No Chest Pain: No History of Claudication: No Ear Pain: No Palpitation: No History of Aneurysm: No History of Gangrene: No Genitourinary Musculoskeletal Psychiatric Vascular Burning: No Muscle Weakness: No Anxiety: Yes Blood Disorder: No Pain: No Joint Pain: No Depression: Yes Numbness: No Gastrointestinal Dermatology Rheumatologic Problems: No Rash: No History of Rheumatic Arthritis: No Pain: No Pruritus: No History of Gout: No History of Lupus: No Physical Exam Vitals & Measurements HR: 62 (Peripheral) BP: 145/94 HT: 155 cm WT: 83.3 kg WT: 83.3 kg (Dosing) BMI: 34.67 Orthopedic: Bony foot structure appears grossly planus with decreased medial longitudinal arch noted on weightbearing and nonweightbearing Decreased left ankle joint range of motion, patient gets to neutral but not past, this improves with knee flexion. No pain with range of motion of the left ankle. Extrinsic and intrinsic musculature of the foot are grossly normal with strengths of 5/5 all movers of the foot and ankle. Minimal pain to passive or active range of motion bilateral and free of overt joint crepitation. Negative pain to palpation of the plantar aspect of MPJ's. Pain to palpation of the cicatrix at the left plantar arch with palpable scar tissue. No pain to palpation along the posterior tibial tendon and no pain with resisted inversion on the left. Dermatologic: Skin is within normal limits Negative for overt rashes or irregular pigmented lesions. Skin turgor normal. Well-healed cicatrix with palpable fibroma/scar tissue/soft tissue mass at the left plantar medial arch; no fluctuance no crepitus. No erythema noted Neurologic: Gross and epicritic sensation intact bilateral. Protective sensation intact as measured with [place] Radha monofilament. Gross motor intact bilateral. Negative Tinel's of the left common peroneal nerve, left superficial peroneal nerve, left sural nerve, left deep peroneal nerve. Positive Tinel's of the left tibial nerve at the tarsal tunnel. Also positive Tinel overlying the cicatrix at the left plantar medial arch Vascular: Pedal Pulses palpable at Dorsalis Pedis and weakly palpable posterior Tibial Bilateral. Capillary fill time approximately 3 seconds bilateral at toes when leg elevated. Negative for significant edema in either lower extremity Skin temp warm to cool proximal to distal bilateral. Additional Vitals BP Position/Location: Sitting, Right arm Assessment/Plan 1. Tarsal tunnel syndrome 2. Lumbar radiculopathy 3. Plantar fascial fibromatosis 4. Tobacco use 5. Contracture of left Achilles tendon -Evaluation and management discussion was extensive with time spent with patient dedicated to discussion of pathogenesis and treatment options for patient's plantar fascial symptoms including doing nothing, orthotics, stretching, injection therapy, NSAIDS, RICE, immobilization, and surgical options such as repeat removal of plantar fibroma, plantar fasciotomy, complete versus partial plantar fasciectomy, gastrocnemius recession, or Achilles Tendon lengthening. Also discussed that her symptoms at this time are more consistent with potential tarsal tunnel syndrome given her positive Tinel sign and reproduction of symptoms with the positive Tinel sign. I discussed conservative versus surgical treatment for her tarsal tunnel symptoms as well. Discussed potential surgical release of the tarsal tunnel syndrome as well. Potential gastrocnemius recession. Prior EMG, noted findings of lumbar radiculopathy and no findings of tarsal tunnel or peripheral neuropathy. Discussed this with patient. Prior MRI with thickening of the plantar fascia at the medial arch. No space-occupying lesion noted within the tarsal tunnel. Discussed she could have findings consistent with double crush. I recommended a diagnostic injection of the left tarsal tunnel to determine if she receives any pain relief from this. Patient amenable to injection today. The risks, benefits, and alternatives of the planned injection/aspiration procedure were discussed with the (more content not included)... Normal [facility] US Lower Extr. Non-Vasc. [place] ited Lefton 05-31-2022 US Lower Extr. Non-Vasc. Limited Left EXAM: Limited Diagnostic Musculoskeletal Ultrasound [with Ultrasound-Guided Injection of left tibial nerve at tarsal tunnel] CLINICAL HISTORY: Patient with chronic left foot pain and plantar fascial fibromatosis, presenting with clinical signs and symptoms of tarsal tunnel syndrome. Patient wishes to undergo diagnostic injection for tarsal tunnel. TECHNIQUE: Musculoskeletal Ultrasound with [employer] unit with [12 MHz][C1-5] transducer FINDINGS: No thickening noted of the tibial nerve or its branches. Medial and lateral plantar nerves noted to branch within the tarsal tunnel. IMPRESSION: Tarsal tunnel syndrome left PROCEDURE: The tarsal tunnel was identified and the position of the transducer was marked on the skin. [Color Doppler was used to identify the location of any vasculature to ensure that no blood vessels were in the pathway of the needle. ] The area of the injection and the transducer were both prepared sterilely. The transducer was then placed at the marked spot on the skin and the tibial nerve was again localized with the ultrasound. The tibial nerve was identified in the transverse plane and the medial and lateral plantar nerve branches were also identified within the tarsal tunnel. Medial malleolus, posterior tibial tendon, posterior tibial artery were also identified in a transverse plane under ultrasound guidance. The tibial nerve was then identified in the longitudinal plane just posterior to the posterior tibial artery. Again the tibial nerve was visualized and identified proximal to its branching in the tarsal tunnel and 5 mL of 0.5% Marcaine plain were injected into the tibial nerve at the tarsal tunnel. The patient tolerated the procedure without difficulty. Patient return to clinic in 1 to 2 weeks for reevaluation and to discuss results of injection. Final Signed by: Ariel Mcfadden DPM Signed (Electronic Signature): 05/31/2022 8:22 am Transcribed DT/TM: 05/31/2022 8:22 (If Report Is Signed, Electronically Signed in Other Vendor System) Normal [facility] Podiatry Office/Clinic Noteo n 05-08-2022 Podiatry Office/Clinic Note Chief Complaint F/U left foot plant. fasci./tarsal tunnel. Review ABIs History of Present Illness Patient presents for follow-up of left foot plantar fascial fibromatosis/tarsal tunnel. She also presents for follow-up of vascular arterial segmental studies and EMG. Since last visit her pain is unchanged. She still gets pain in the arch and the bottom of her left heel. She is also having ablations done on her back. She has not noticed much of a difference in pain for her back or her lower extremities since having this done yet. No other complaints at this time. Denies new claudication or cramping type symptoms. Denies calf pain. Review of Systems Constitutional Head Nose Mouth Throat Cardio/Respiratory Hematologic Chills: No Headache: No Shortness of Breath: No History of DVT: No Fever: No Sore Throat: No Chest Pain: No History of Claudication: No Ear Pain: No Palpitation: No History of Aneurysm: No History of Gangrene: No Genitourinary Musculoskeletal Psychiatric Vascular Burning: No Muscle Weakness: No Anxiety: Yes Blood Disorder: No Pain: No Joint Pain: No Depression: Yes Numbness: No Gastrointestinal Dermatology Rheumatologic Problems: No Rash: No History of Rheumatic Arthritis: No Pain: No Pruritus: No History of Gout: No History of Lupus: No Physical Exam Vitals & Measurements HR: 105 (Peripheral) BP: 132/86 HT: 154.94 cm WT: 81.4 kg WT: 81.4 kg (Dosing) BMI: 33.91 Orthopedic: Bony foot structure appears grossly planus with decreased medial longitudinal arch noted on weightbearing and nonweightbearing Decreased left ankle joint range of motion, patient gets to neutral but not past, this improves with knee flexion. No pain with range of motion of the left ankle. Extrinsic and intrinsic musculature of the foot are grossly normal with strengths of 5/5 all movers of the foot and ankle. Minimal pain to passive or active range of motion bilateral and free of overt joint crepitation. Negative pain to palpation of the plantar aspect of MPJ's. Pain to palpation of the cicatrix at the left plantar arch with palpable scar tissue. No pain to palpation along the posterior tibial tendon and no pain with resisted inversion on the left. Dermatologic: Skin is within normal limits Negative for overt rashes or irregular pigmented lesions. Skin turgor normal. Well-healed cicatrix with palpable fibroma/scar tissue/soft tissue mass at the left plantar medial arch; no fluctuance no crepitus. No erythema noted Neurologic: Gross and epicritic sensation intact bilateral. Protective sensation intact as measured with [place] Radha monofilament. Gross motor intact bilateral. Negative Tinel's of the left common peroneal nerve, left superficial peroneal nerve, left sural nerve, left deep peroneal nerve. Positive Tinel's of the left tibial nerve at the tarsal tunnel. Vascular: Pedal Pulses palpable at Dorsalis Pedis and weakly palpable posterior Tibial Bilateral. Capillary fill time approximately 3 seconds bilateral at toes when leg elevated. Negative for significant edema in either lower extremity Skin temp warm to cool proximal to distal bilateral. Additional Vitals BP Position/Location: Sitting, Right arm Assessment/Plan 1. Tarsal tunnel syndrome, left lower limb 2. Lumbar radiculopathy 3. Plantar fibromatosis 4. Contracture of left Achilles tendon 5. Tobacco use -Evaluation and management discussion was extensive with time spent with patient dedicated to discussion of pathogenesis and treatment options for patient's plantar fascial symptoms including doing nothing, orthotics, stretching, injection therapy, NSAIDS, RICE, immobilization, and surgical options such as repeat removal of plantar fibroma, plantar fasciotomy, complete versus partial plantar fasciectomy, gastrocnemius recession, or Achilles Tendon lengthening. Also discussed that her symptoms at this time are more consistent with potential tarsal tunnel syndrome given her positive Tinel sign and reproduction of symptoms with the positive Tinel sign. I discussed conservative versus surgical treatment for her tarsal tunnel symptoms as well. Discussed potential surgical release of the tarsal tunnel syndrome as well. I reviewed EMG, noted findings of lumbar radiculopathy and no findings of tarsal tunnel or peripheral neuropathy. Discussed this with patient. Discussed she could have findings consistent with double crush. I recommended a diagnostic injection of the left tarsal tunnel to determine if she receives any pain relief from this. -Injection deferred today, patient interested in injection but has another appointment scheduled and like to reschedule an ultrasound-guided injection at a different date Continues stretching, range of motion exercises, orthotic use, NSAID, rest/ice/compression/ elevation, therapy Encouraged good shoe gear Lace up ASO ankle brace dispensed and encouraged on use. Reviewed vascula (more content not included)... [facility] VL Arterial Segmental Lower Bilateralon 05-02-2022 VL Arterial Segmental Lower Bilateral Preliminary Technologist Report A bilateral lower extremity segmental study was performed. Three cuff method was performed. Please see the information listed below. [employer] Se[employer] Associate: Liliane Angeles RVT _ Radiologist Report SEGMENTAL PRESSURES STUDY: CLINICAL INFORMATION: Peripheral artery occlusive disease. Claudication and rest pain.. COMPARISON: . Bilateralbrachial pressures were performed along with segmental pressures of both lower extremities. Brachial Pressures: Left 98 mmHg Right 102 mmHg LEFT: Thigh = 1.09 Calf = 1.16 Posterior Tibial NEO = 1.25 Dorsalis Pedis NEO = 1.25 Toe Brachial Index = 0.87 RIGHT: Thigh = 1.20 Calf = 1.21 Posterior Tibial NEO = 1.25 Dorsalis Pedis NEO = 1.21 Toe Brachial Index = 0.96 There are triphasic waveforms bilaterally. There is no dampening of waveforms. PVRs tracings are satisfactory. There is no significant pressure gradient. IMPRESSION: No evidence of peripheral artery occlusive disease or small vessel disease. Final Signed by: Brenden Mckinney MD Signed (Electronic Signature): 05.02.2022 2:08 pm Transcribed by: Liliane Angeles Transcribed DT/TM: 05.02.2022 1:40 (If Report is Signed, Electronically Signed in Other Vendor System) [facility] Podiatry Office/Clinic Noteo n 04-10-2022 Podiatry Office/Clinic Note Chief Complaint NKI, two surgeries, left arch foot pain. XR TODAY History of Present Illness Patient presents today complaining of painful left arch which is aching and throbbing in nature and sometimes stinging and burning in recent months. Patient relates that this is most troublesome in shoe gear wear and when ambulating and weightbearing although sometimes without shoe gear as well. Patient denies overt trauma to the area that they can remember. She relates that she has been diagnosed with a plantar fibroma. She has undergone 2 surgeries for removal of plantar fibroma. She has had about 6 previous corticosteroid injections with no relief in the pain. Patient relates that they have tried [id number] pain relievers, padding, and modification of shoe gear as well as modification of activity levels to no avail. She states that her pain since her most recent surgery is different. She feels numbness tingling burning and a sharp stabbing pain on the bottom of her arch which radiates to her ankle. She presents with an MRI disc from a previous ankle MRI. She was referred here from Dr. Shaffer at the [facility] in [place]. She also sees pain management and has chronic low back pain. Review of Systems Constitutional Head Nose Mouth Throat Cardio/Respiratory Hematologic Chills: No Headache: No Shortness of Breath: No History of DVT: No Fever: No Sore Throat: No Chest Pain: No History of Claudication: No Ear Pain: No Palpitation: No History of Aneurysm: No History of Gangrene: No Genitourinary Musculoskeletal Psychiatric Vascular Burning: No Muscle Weakness: Yes Anxiety: Yes Blood Disorder: No Pain: No Joint Pain: Yes Depression: Yes Numbness: No Gastrointestinal Dermatology Rheumatologic Problems: Yes Rash: No History of Rheumatic Arthritis: Yes Pain: No Pruritus: No History of Gout: No History of Lupus: No Physical Exam Vitals & Measurements HR: 66 (Peripheral) BP: 144/85 HT: 155 cm WT: 82.1 kg WT: 82.1 kg (Dosing) BMI: 34.17 Orthopedic: Bony foot structure appears grossly planus with decreased medial longitudinal arch noted on weightbearing and nonweightbearing Extrinsic and intrinsic musculature of the foot are grossly normal with strengths of 5/5 all movers of the foot and ankle. Minimal pain to passive or active range of motion bilateral and free of overt joint crepitation. Negative pain to palpation of the plantar aspect of MPJ's. Pain to palpation of the cicatrix at the left plantar arch with palpable scar tissue. No pain to palpation along the posterior tibial tendon and no pain with resisted inversion on the left. Dermatologic: Skin is within normal limits Negative for overt rashes or irregular pigmented lesions. Skin turgor normal. Well-healed cicatrix with palpable fibroma/scar tissue/soft tissue mass at the left plantar medial arch; no fluctuance no crepitus. No erythema noted Neurologic: Gross and epicritic sensation intact bilateral. Protective sensation intact as measured with [place] Radha monofilament. Gross motor intact bilateral. Negative Tinel's of the left common peroneal nerve, left superficial peroneal nerve, left sural nerve, left deep peroneal nerve. Positive Tinel's of the left tibial nerve at the tarsal tunnel. Vascular: Pedal Pulses palpable at Dorsalis Pedis and weakly palpable posterior Tibial Bilateral. Capillary fill time approximately 3 seconds bilateral at toes when leg elevated. Negative for significant edema in either lower extremity Skin temp warm to cool proximal to distal bilateral. Additional Vitals No qualifying data available. Assessment/Plan 1. Plantar fascial fibromatosis of left foot Ordered: DME, Other (Specify in eRx Note), See Instructions, # 1, EA, 8 Months 2. Tarsal tunnel syndrome, left lower limb Ordered: DME, Other (Specify in eRx Note), See Instructions, # 1, EA, 8 Months 3. Lumbar radiculopathy Ordered: DME, Other (Specify in eRx Note), See Instructions, # 1, EA, 8 Months 4. Weak pulse 5. Tobacco use -Evaluation and management discussion was extensive with time spent with patient dedicated to discussion of pathogenesis and treatment options for patient's plantar fascial symptoms including doing nothing, orthotics, stretching, injection therapy, NSAIDS, RICE, immobilization, and surgical options such as repeat removal of plantar fibroma, plantar fasciotomy, complete versus partial plantar fasciectomy, gastrocnemius recession, or Achilles Tendon lengthening. Also discussed that her symptoms at this time are more consistent with potential tarsal tunnel syndrome given her positive Tinel sign and reproduction of symptoms with the positive Tinel sign. I discussed conservative versus surgical treatment for her tarsal tunnel symptoms as well. Discussed potential surgical release of the tarsal tunnel syndrome as well. -Injection deferred today -Radiographs 3 views left foot, ca (more content not included)... [facility] Provider Letteron 04-10-2022 Provider Letter JOHN Otto [address] [place] [address] Re: Tiffany Gonzalez Date of Visit: 04/10/2022 Dear Jazmín LOPEZ, [facility] [address], [place], [phone] Fax: [phone] Date: 04/10/2022 12:34:35 Dear Thank you for referring Tiffany Gonzalez who was seen on 04/04/2022 16:00:00. Please see attached note for further details and please call with any questions or concerns. _ Thank you, Ariel Mcfadden DPM Let me know if you have any questions or concerns. Sincerely, JODY Suresh Providers: The following document(s) were included in the letter: April 10, 2022 11:18:15 EDT - (04/10/2022) Office Visit Note [facility] XR Ankle 3 Views Lefton 03-29 XR Ankle 3 Views Left 3 weightbearing vi ews left ankle demonstrate: Spurring of the plantar and posterior calcaneus noted. Decreased calcaneal clinician angle noted. No acute fractures or dislocations noted. Ankle mortise is well aligned and maintained with no increase in medial clear space. No increase in tib-fib clear space. No soft tissue calcifications noted. No increase in soft tissue volume, density, or edema noted. No foreign bodies noted. Final Signed by: Ariel Mcfadden DPM Signed (Electronic Signature): 04/10/2022 12:26 pm Transcribed DT/TM: 04/10/2022 12:26 (If Report Is Signed, Electronically Signed in Other Vendor System) [facility] XR Foot 3 Views Lefton 04-10 XR Foot 3 Views Left 3 weightbearing vie ws left foot and calcaneal axial view demonstrate: Shortened fourth metatarsal and shortened proximal phalanx of the fourth digit noted. Consistent with brachymetatarsia and brachiphalangia. Decreased calcaneal clinician angle noted. No acute fracture dislocations noted. Contracture lesser digits noted. Dorsiflexion contracture of the fourth metatarsophalangeal joint noted. No soft tissue calcifications noted. No increase in soft tissue volume, density, or edema noted. No foreign bodies noted. Spurring in the plantar and posterior calcaneus noted. No varus or valgus deformity noted on calcaneal axial view. Final Signed by: Ariel Mcfadden DPM Signed (Electronic Signature): 04/10/2022 12:25 pm Transcribed DT/TM: 04/10/2022 12:25 (If Report Is Signed, Electronically Signed in Other Vendor System) [facility] MRI ANKLE LT WO CONon 2021 MRI ANKLE LT WO CON HISTORY: Chronic jon n in the plantar aspect of the left ankle. MRI ANKLE LT WO CON: 03/12/2022 9:45 AM EDT COMPARISON: Radiographs left foot 10/26/2021. TECHNIQUE: Multiplanar, multisequence MRI images of the ankle were obtained without contrast. FINDINGS: A few images are slightly degraded by motion artifact. LIGAMENTS: The anterior talofibular ligament is not visualized. The calcaneofibular ligament, posterior talofibular ligament, and distal tibiofibular ligaments appear within normal limits. The deltoid ligament complex appears within normal limits. TENDONS: There appears to be mild increased signal intensity within the substance of the inframalleolar portion of the peroneus brevis tendon as seen on the axial proton density fat-saturated sequence suggestive of probable mild focal tendinopathy in this region. The other tendons of the ankle appear within normal limits. There is an enthesophyte at the insertion of the Achilles tendon on the calcaneus. No tenosynovitis is seen. SINUS TARSI AND TARSAL TUNNEL: No space-occupying mass is seen in the tarsal tunnel or the sinus tarsi. BONES AND JOINTS: The bone marrow signal intensity is age appropriate. No unstable osteochondral defect of the tibiotalar joint is identified. There are mild degenerative changes of the first and second tarsometatarsal joints. PLANTAR FASCIA: There is a plantar calcaneal enthesophyte. There is mild thickening and low signal intensity of the proximal portion of the central band of the plantar fascia in this region compatible with the sequela of remote plantar fasciitis. At the edge of the vodqq-sx-pean there appears to be moderate fusiform thickening and intermediate signal intensity involving the central band of the plantar fascia at the level of the first tarsometatarsal joint. This spans approximately 2 cm in AP dimension. SOFT TISSUES: No significant soft tissue swelling is seen. IMPRESSION: 1. At the edge of the [id number] there appears to be moderate fusiform thickening and intermediate signal intensity involving the central band of the plantar fascia at the level of the first tarsometatarsal joint. Differential diagnostic considerations for this appearance primarily include a plantar fibroma or the sequela of plantar fasciitis in this region. If clinically indicated an MRI of the midfoot/forefoot without and with contrast focused on this region could be obtained for a more definitive evaluation of this finding. 2. There is evidence of the sequela of remote mild plantar fasciitis of the proximal portion of the central band of the plantar fascia with a plantar calcaneal enthesophyte. 3. Remote grade 3 sprain of the anterior talofibular ligament. 4. Probable mild focal tendinopathy of the inframalleolar portion of the peroneus brevis brevis tendon. 5. 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 Electronically authenticated by: BROOKLYNN CAMPBELL Date: 2022-03-13 12:07 [facility] Lipid Panelon 02-26-2022 Cholesterol [Mass/Vol] 177 mg/dL NINF - 200 mg/dL [facility] Comment on above: Cholesterol Guidelines: <200 Desirable 200-240 Borderline >240 Undesirable Cholesterol in HDL [Mass/Vol] 50 mg/dL 40 - PINF mg/dL [facility] Comment on above: HDL Guidelines: <40 Undesirable 40-59 Borderline >59 Desirable Cholesterol in LDL [Mass/Vol] 113 mg/dL 0 - 130 mg/dL [facility] Comment on above: LDL Guidelines: <100 Desirable 100-129 Near to/above Desirable 130-159 Borderline >159 Undesirable Direct (measured) LDL and calculated LDL are not interchangeable tests. Cholesterol.total/Choles terol in HDL [Mass ratio] 3.5 {ratio} NINF - 5 [facility] Triglyceride [Mass/Vol] 68 mg/dL NINF - 150 mg/dL [facility] Comment on above: Triglyceride Guidelines: <150 Desirable 150-199 Borderline 200-499 High >499 Very high Based on AHA Guidelines for fasting triglyceride, April 2012. [facility] Basic Metabolic PanelOrdered By: Berhane Braden on 02-15-2021 Anion gap [Moles/Vol] 12 mmol/L 9 - 17 mmol/L [employer] Phone: Calcium [Mass/Vol] 8.7 mg/dL 8.6 - 10. 4 mg/dL [employer] Phone: Chloride [Moles/Vol] 107 mmol/L 98 - 10 7 mmol/L [employer] Phone: CO2 [Moles/Vol] 22 mmol/L 20 - 31 mmol/L [employer] Phone: Creatinine [Mass/Vol] 0.57 mg/dL 0.50 - 0.90 mg/dL [employer] Phone: GFR >60 >60 mL/min [employer] Phone: GFR Non- >60 >60 mL/min [employer] Phone: Glucose [Mass/Vol] 100 mg/dL High 70 - 99 mg/dL [employer] Phone: Interpretation and review of laboratory results Abnormal [employer] Phone: Potassium [Moles/Vol] 3.7 mmol/L 3.7 - 5.3 mmol/L [employer] Phone: Sodium [Moles/Vol] 141 mmol/L 135 - 144 mmol/L [employer] Phone: Urea nitrogen (BldV) [Mass/Vol] 15 mg/dL 6 - 20 mg/dL [employer] Phone: Urea nitrogen/Creatinine (Bld) [Mass ratio] 26 High [employer] Phone: [employer] Phone: Laboratory - Chemistry and C hemistry - challengeOrdered By: Berhane Braden on 02-15-2021 GFR/1.73 sq M.predicted MDRD (S/P/Bld) [Vol rate/Area] [employer] Phone: Comment on above: Average GFR for 50-5 9 years old: 93 mL/min/1.73sq m Chronic Kidney Disease: <60 mL/min/1.73sq m Kidney failure: <15 mL/min/1.73sq m eGFR calculated using average adult body mass. Additional eGFR calculator available at: http://www.Dataium/multiple_crcl_2012.htm Stage 1: Some kidney damage normal GFR Stage 2: Mild kidney damage GFR 60-89 Stage 3: Moderate kidney damage GFR 30-59 Stage 4: Severe kidney damage GFR 15-29 Stage 5: Severe kidney damage GFR <15 ESRD - chronic treatment by dialysis or transplant MRI BRAIN W WO CONTRASTOrder ed By: Berhane Braden on 02-15-2021 No acute disease. 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 Chronic involutional changes. [employer] Phone: EXAMINATION: MRI OF THE BRAIN WITHOUT AND WITH CONTRAST 02/15/2021 11:31 am TECHNIQUE: Multiplanar multisequence MRI of the head/brain was performed without and with the administration of intravenous contrast. COMPARISON: MR brain January 11, 2017 HISTORY: ORDERING SYSTEM PROVIDED HISTORY: Aphasia FINDINGS: INTRACRANIAL STRUCTURES/VENTRICLES : There is no acute infarct. No mass effect or midline shift. No evidence of an acute intracranial hemorrhage. The ventricles and sulci are prominent in size and configuration. The sellar/suprasellar regions appear unremarkable. The normal signal voids within the major intracranial vessels appear maintained. No abnormal focus of enhancement is seen within the brain. Prominent bilateral masses of the choroid plexus in the atria bilaterally measuring up to 14 mm on the left. Moderate nonspecific white matter disease bilaterally. ORBITS: The visualized portion of the orbits demonstrate no acute abnormality. SINUSES: The visualized paranasal sinuses and mastoid air cells are well aerated. BONES/SOFT TISSUES: The bone marrow signal intensity appears normal. The soft tissues demonstrate no acute abnormality. 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 [employer] Phone: Alexei, [facility] Incoming Radiant Results From [facility] - 02/15/2021 4:30 PM EDT EXAMINATION: MRI OF THE BRAIN WITHOUT AND WITH CONTRAST 02/15/2021 11:31 am TECHNIQUE: Multiplanar multisequence MRI of the head/brain was performed without and with the administration of intravenous contrast. COMPARISON: MR brain January 11, 2017 HISTORY: ORDERING SYSTEM PROVIDED HISTORY: Aphasia FINDINGS: INTRACRANIAL STRUCTURES/VENTRICLES : There is no acute infarct. No mass effect or midline shift. No evidence of an acute intracranial hemorrhage. The ventricles and sulci are prominent in size and configuration. The sellar/suprasellar regions appear unremarkable. The normal signal voids within the major intracranial vessels appear maintained. No abnormal focus of enhancement is seen within the brain. Prominent bilateral masses of the choroid plexus in the atria bilaterally measuring up to 14 mm on the left. Moderate nonspecific white matter disease bilaterally. ORBITS: The visualized portion of the orbits demonstrate no acute abnormality. SINUSES: The visualized paranasal sinuses and mastoid air cells are well aerated. BONES/SOFT TISSUES: The bone marrow signal intensity appears normal. The soft tissues demonstrate no acute abnormality. 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 IMPRESSION: No acute disease. 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 Chronic involutional changes. [employer] Phone: [employer] Phone: SPECIMEN REJECTIONOrdered By : Berhane Braden on 02-15-2021 - NOT REPORTED [employer] Phone: Ordered Test BMP [employer] Phone: Reason for Rejection Unable to perform testing: Specimen hemolyzed. [employer] Phone: Specimen source Nom (Unsp spec) .BLOOD [employer] Phone: [employer] Phone: COVID-19Ordered By: Pepito alonso on 02-03-2021 SARS-CoV-2 (COVID-19) RNA WILLARD+probe Ql (Unsp spec) [employer] Phone: SARS-CoV-2 (COVID-19) RNA WILLARD+probe Ql (Unsp spec) Not detected Not Detected [employer] Phone: Comment on above: The specimen is NEGATIVE for SARS-CoV-2, the novel coronavirus associated with COVID-19. A negative result does not rule out COVID-19. Evan SARS-CoV-2 for use on the Evan [employer] is a real-time RT-PCR test intended for the qualitative detection of nucleic acids from SARS-CoV-2 in clinician-collected nasal, nasopharyngeal, and oropharyngeal swab specimens from individuals who meet COVID-19 clinical and/or epidemiological criteria. Evan SARS-CoV-2 is for use only under Emergency Use Authorization (EUA) in laboratories certified under Clinical Laboratory Improvement Amendments of 1988 (CLIA), 42 U.S.C. 263a, that meet requirements to perform high or moderate complexity tests. An individual without symptoms of COVID-19 and who is not shedding SARS-CoV-2 virus would expect to have a negative (not detected) result in this assay. Fact sheet for Healthcare Providers: https://www.fda.gov/media/186557/download Fact sheet for Patients: https://www.fda.gov/media/332030/download METHODOLOGY: RT-PCR Source .NASOPHARYNGEAL SWAB [employer] Phone: [employer] Phone: EKG 12 LeadOrdered By: Jeffrey Segovia on 02-03-2021 Atrial Rate 63 BPM [employer] Phone: P [place] 36 degrees [employer] Phone: P-R Interval 154 ms [employer] Phone: Q-T Interval 418 ms [employer] Phone: QRS Duration 94 ms [employer] Phone: QTc Calculation (Bazett) 427 ms [employer] Phone: R [place] 42 degrees [employer] Phone: T [place] 28 degrees [employer] Phone: Ventricular Rate 63 BPM [employer] Work Phone: Normal sinus rhythm Normal ECG When compared with ECG of 20-JUL-2020 12:08, No significant change was found Confirmed by MARIO ROD ([id number]) on 02/03/2021 12:23:18 AM [employer] Phone: Alexei, pn Incoming Ekg Results From [employer] [place] - 02/03/2021 12:23 AM EDT Normal sinus rhythm Normal ECG When compared with ECG of 20-JUL-2020 12:08, No significant change was found Confirmed by MARIO ROD ([id number]) on 02/03/2021 12:23:18 AM [employer] Phone: [employer] Phone: ALTOrdered By: Berhane diaz 01-30-2021 ALT [Catalytic activity/Vol] 20 U/L 5 - 33 U/L [employer] Phone: ASTOrdered By: Berhane diaz 01-30-2021 AST [Catalytic activity/Vol] 19 U/L <32 [employer] Phone: Lipid PanelOrdered By: Berhane Braden on 01-30-2021 Cholesterol [Mass/Vol] 175 mg/dL <200 [facility] Phone: Comment on above: Cholesterol Guidelines: <200 Desirable 200-240 Borderline >240 Undesirable Cholesterol in HDL [Mass/Vol] 51 mg/dL >40 [employer] Phone: Comment on above: HDL Guidelines: <40 Undesirable 40-59 Borderline >59 Desirable Cholesterol in LDL [Mass/Vol] 107 mg/dL 0 - 130 mg/dL [employer] Phone: Comment on above: LDL Guidelines: <100 Desirable 100-129 Near to/above Desirable 130-159 Borderline >159 Undesirable Direct (measured) LDL and calculated LDL are not interchangeable tests. Cholesterol in VLDL [Mass/Vol] NOT REPORTED 1 - 30 mg/dL [employer] Phone: Cholesterol.total/Choles terol in HDL [Mass ratio] 3.4 {ratio} <5 [employer] Phone: Triglyceride [Mass/Vol] 83 mg/dL <150 M [employer] Phone: Comment on above: Triglyceride Guidelines: <150 Desirable 150-199 Borderline 200-499 High >499 Very high Based on AHA Guidelines for fasting triglyceride, April 2012. [employer] Phone: No Panel InformationOrdered By: Berhane Braden on 01-30-2021 [employer] Phone: Basic Metabolic PanelOrdered By: Berhane Braden on 12-20-2020 Anion gap [Moles/Vol] 10 mmol/L 9 - 17 mmol/L [employer] Phone: Calcium [Mass/Vol] 9.0 mg/dL 8.6 - 10. 4 mg/dL [employer] Phone: Chloride [Moles/Vol] 109 mmol/L High 98 - 10 7 mmol/L [employer] Phone: CO2 [Moles/Vol] 24 mmol/L 20 - 31 mmol/L [employer] Phone: Creatinine [Mass/Vol] 0.55 mg/dL 0.50 - 0.90 mg/dL [employer] Phone: GFR >60 >60 mL/min [employer] Phone: GFR Non- >60 >60 mL/min [employer] Work Phone: Glucose [Mass/Vol] 85 mg/dL 70 - 99 mg/dL [employer] Work Phone: Interpretation and review of laboratory results Abnormal [facility] Phone: Potassium [Moles/Vol] 3.9 mmol/L 3.7 - 5.3 mmol/L [facility] Work Phone: Sodium [Moles/Vol] 143 mmol/L 135 - 144 mmol/L [employer] Phone: Urea nitrogen (BldV) [Mass/Vol] 15 mg/dL 6 - 20 mg/dL [employer] Phone: Urea nitrogen/Creatinine (Bld) [Mass ratio] 27 High [facility] Work Phone: [employer] Work Phone: CBC Auto DifferentialOrdered By: Berhane Braden on 12-20-2020 [employer] # 0.33 [employer] [facility] Work Phone: [employer] Immature Granulocyte 0.03 [facility] Work Phone: [employer] Lymph # 2.42 [employer] Work Phone: [employer] [place] # 0.58 [facility] [employer] [facility] Work Phone: Basophils (Bld) [#/Vol] 0.05 10*3/uL [employer] Work Phone: Basophils/100 WBC (Bld) 1 % 0 - 2 % M [facility] hospitalDoCircuits Work Phone: Differential Type NOT REPORTED [facility] Global Phone: Eosinophils/100 WBC (Bld) 4 % 1 - 4 % [facility] Work Phone: Hematocrit (Bld) [Volume fraction] 41.0 % 36.3 - 47.1 % [employer] Phone: Hemoglobin.gastrointesti nal spec 1 Ql (Stl) 13.6 g/dL 11.9 - 15.1 g/dL [employer] Phone: Immature granulocytes/100 WBC (Bld) 0 % 0 [employer] Phone: Lymphocytes/100 WBC (Bld) 30 % 24 - 43 % [employer] Phone: MCH (RBC) [Entitic mass] 31.6 pg 25. 2 - 33.5 pg [employer] Phone: MCHC (RBC) [Mass/Vol] 33.2 g/dL 28.4 - 34.8 g/dL [employer] Phone: MCV (RBC) [Entitic vol] 95.3 fL 82.6 - 102.9 fL [employer] Phone: Monocytes/100 WBC (Bld) 7 % 3 - 12 % M [employer] Phone: NRBC Automated 0.0 0.0 per 100 WBC [employer] Phone: Platelet distribution width (Bld) [Ratio] 12.1 % 11.8 - 14.4 % [employer] Phone: Platelet Estimate NOT REPORTED [employer] Phone: Platelet mean volume (Bld) [Entitic vol] 9.8 fL 8.1 - 13.5 fL [employer] Phone: Platelets (Bld) [#/Vol] 213 10*3/uL [employer] Phone: RBC (Bld) [#/Vol] 4.30 10*6/uL 3.95 - 5.1 1 m/uL [employer] Phone: RBC (Bld) [#/Vol] NOT REPORTED [employer] Phone: Segmented neutrophils/100 WBC (Bld) 58 % 36 - 65 % [employer] Phone: Segs Absolute 4.54 [employer] Work Phone: WBC (Bld) [#/Vol] 8.0 10*3/uL [employer] Phone: WBC (Bld) [#/Vol] NOT REPORTED [employer] Phone: [employer] Phone: Laboratory - Chemistry and C hemistry - challengeOrdered By: Berhane Braden on 12-20-2020 GFR/1.73 sq M.predicted MDRD (S/P/Bld) [Vol rate/Area] [employer] Phone: Comment on above: Average GFR for 50-5 9 years old: 93 mL/min/1.73sq m Chronic Kidney Disease: <60 mL/min/1.73sq m Kidney failure: <15 mL/min/1.73sq m eGFR calculated using average adult body mass. Additional eGFR calculator available at: http://www.Dataium/multiple_crcl_2012.htm Stage 1: Some kidney damage normal GFR Stage 2: Mild kidney damage GFR 60-89 Stage 3: Moderate kidney damage GFR 30-59 Stage 4: Severe kidney damage GFR 15-29 Stage 5: Severe kidney damage GFR <15 ESRD - chronic treatment by dialysis or transplant TSH With Reflex [id number] B y: Berhane Braden on 12-20-2020 TSH Qn 2.48 m[IU]/L [employer] Phone: [employer] Phone: XR KNEE RIGHT (3 VIEWS)on No fracture or dislocation. No joint effusion. Interval progression tricompartmental degenerative changes, especially patellofemoral joint space. [employer] Phone: EXAMINATION: THREE XRAY VIEWS OF THE RIGHT KNEE 10/19/2020 8:11 am COMPARISON: Three-view study of the right knee from 12/03/2010 HISTORY: ORDERING SYSTEM PROVIDED HISTORY: Pain TECHNOLOGIST PROVIDED HISTORY: Pain Status post fall. FINDINGS: No fracture. No dislocation. No sizable joint effusion. Interval progression degenerative changes, especially patellofemoral joint space with greater narrowing and articular surface sclerosis and spurring. Mild degenerative changes knee joints, with increased marginal spurring medially. No destructive or blastic lesion. No soft tissue calcifications. Borderline osteopenia. [employer] Phone: Alexei, [facility] Incoming Radiant Results From [facility] - 10/19/2020 8:20 AM EDT EXAMINATION: THREE XRAY VIEWS OF THE RIGHT KNEE 10/19/2020 8:11 am COMPARISON: Three-view study of the right knee from 12/03/2010 HISTORY: ORDERING SYSTEM PROVIDED HISTORY: Pain TECHNOLOGIST PROVIDED HISTORY: Pain Status post fall. FINDINGS: No fracture. No dislocation. No sizable joint effusion. Interval progression degenerative changes, especially patellofemoral joint space with greater narrowing and articular surface sclerosis and spurring. Mild degenerative changes knee joints, with increased marginal spurring medially. No destructive or blastic lesion. No soft tissue calcifications. Borderline osteopenia. IMPRESSION: No fracture or dislocation. No joint effusion. Interval progression tricompartmental degenerative changes, especially patellofemoral joint space. [employer] Phone: COVID-19on 07-21-2020 Interpretation and review of laboratory results Abnormal [place] SARS-CoV-2 DETECTED Abnormal Not Detected [facility] [place] Comment on above: The specimen is POSITIVE for SARS-Cov-2, the novel coronavirus associated with COVID-19. This test has been authorized by the FDA under an Emergency Use Authorization (EUA) for use by authorized laboratories. DegreedX SARS-CoV-2 Reagents for [employer] are designed to detect the virus that causes COVID-19 in patients with signs and symptoms of infection who are suspected of COVID-19. An individual without symptoms of COVID-19 and who is not shedding SARS-CoV-2 virus would expect to have a negative (not detected) result in this assay. Fact sheet for Healthcare Providers: https://www.fda.gov/media/490171/download Fact sheet for Patients: https://www.fda.gov/media/761141/download METHODOLOGY: RT-PCR Results reported to the appropriate Health Department SARS-CoV-2 [place], [place] SARS-CoV-2, Rapid [place], [place] Source .NASOPHARYNGEAL SWAB [place], [place] Basic Metabolic Panel (BMP)o n 07-20-2020 Anion gap [Moles/Vol] 9 mmol/L 9 - 17 mmol/L [place] Bun/Cre Ratio 24 High [place] Calcium [Mass/Vol] 9.6 mg/dL 8.6 - 10. 4 mg/dL [place] Chloride [Moles/Vol] 104 mmol/L 98 - 10 7 mmol/L [place] CO2 [Moles/Vol] 28 mmol/L 20 - 31 mmol/L [place] Creatinine [Mass/Vol] 0.67 mg/dL 0.5 - 0.9 mg/dL [place] GFR >60 >60 mL/min [place] GFR Non- >60 >60 mL/min [place] Glucose [Mass/Vol] 90 mg/dL 70 - 99 mg/dL [place] Interpretation and review of laboratory results Abnormal [place] Potassium [Moles/Vol] 4.4 mmol/L 3.7 - 5.3 mmol/L [place] Sodium [Moles/Vol] 141 mmol/L 135 - 144 mmol/L [place] Urea nitrogen [Mass/Vol] 16 mg/dL 6 - 20 mg/dL [place] CBCon 07-20-2020 Erythrocyte distribution width (RBC) [Ratio] 12.3 % 11.8 - 14.4 % [place] Hematocrit (Bld) [Volume fraction] 43.6 % 36.3 - 47.1 % [place] Hemoglobin (Bld) [Mass/Vol] 13.9 g/dL 11.9 - 15.1 g/dL [place] MCH (RBC) [Entitic mass] 31.0 pg 25. 2 - 33.5 pg [place] MCHC (RBC) [Mass/Vol] 31.9 g/dL 28.4 - 34.8 g/dL [place] MCV (RBC) [Entitic vol] 97.3 fL 82.6 - 102.9 fL [place] Platelet mean volume (Bld) [Entitic vol] 9.7 fL 8.1 - 13.5 fL [place] Platelets (Bld) [#/Vol] 200 10*3/uL [place] RBC (Bld) [#/Vol] 4.48 10*6/uL 3.95 - 5.1 1 m/uL [place] WBC (Bld) [#/Vol] 7.6 10*3/uL [place] WBC (Bld) [#/Vol] 0.0 10*3/uL 0.0 per 10 0 WBC [place], [place] EKG 12 Leadon 07-20-2020 Atrial Rate 70 BPM [place], [place] P [place] 15 degrees [place], [place] P-R Interval 142 ms [place] Q-T Interval 412 ms [place] QRS Duration 88 ms [place] QTc Calculation (Bazett) 444 ms [place], [place] R [place] 38 degrees [place], [place] T [place] 24 degrees [place] Ventricular Rate 70 BPM [place] Alexei, [facility] Incoming Ekg Results From [employer] [place] - 07/20/2020 5:31 PM EST Normal sinus rhythm Normal ECG When compared with ECG of 11-JAN-2017 07:53, No significant change was found Confirmed by Marlyn Weinstein MD ([id number]) on 07/20/2020 5:31:20 PM [place] Normal sinus rhythm Normal ECG When compared with ECG of 11-JAN-2017 07:53, No significant change was found Confirmed by Marlyn Weinstein MD ([id number]) on 07/20/2020 5:31:20 PM [place] Metabolic Panelon 07-20-2020 GFR/1.73 sq M predicted among non-blacks MDRD (S/P/Bld) [Vol rate/Area] [place], [place] Comment on above: Stage 1: Some kidney damage normal GFR Stage 2: Mild kidney damage GFR 60-89 Stage 3: Moderate kidney damage GFR 30-59 Stage 4: Severe kidney damage GFR 15-29 Stage 5: Severe kidney damage GFR <15 ESRD - chronic treatment by dialysis or transplant Average GFR for 50-5 9 years old: 93 mL/min/1.73sq m Chronic Kidney Disease: <60 mL/min/1.73sq m Kidney failure: <15 mL/min/1.73sq m eGFR calculated using average adult body mass. Additional eGFR calculator available at: http://www.Dataium/multiple_crcl_2012.htm Colonoscopyon 04-19-2020 No dictation [facility] 04-19-2020 No dictation [place] COVID-19 Ambulatoryon 2019 SARS-CoV-2, WILLARD Not Detected Not Detected [place], [place] Comment on above: (NOTE) This nucleic acid amplification test was developed and its performance characteristics determined by [employer]. Nucleic acid amplification tests include PCR and TMA. This test has not been FDA cleared or approved. This test has been authorized by FDA under an Emergency Use Authorization (EUA). This test is only authorized for the duration of time the declaration that circumstances exist justifying the authorization of the emergency use of in vitro diagnostic tests for detection of SARS-CoV-2 virus and/or diagnosis of COVID-19 infection under section 564(b)(1) of the Act, 21 U.S.C. 360bbb-3(b) (1), unless the authorization is terminated or revoked sooner. When diagnostic testing is negative, the possibility of a false negative result should be considered in the context of a patient's recent exposures and the presence of clinical signs and symptoms consistent with COVID-19. An individual without symptoms of COVID- 19 and who is not shedding SARS-CoV-2 virus would expect to have a negative (not detected) result in this assay. Performed At: [facility] [address] [facility], [place] [id number] Remy Cabrera MD Ph:[phone] XR FOOT LEFT (MIN 3 VIEWS)on 03-03-2020 1. Foreshortening of the 4th metatarsal which could be congenital or related to sequela of remote trauma. 2. Degenerative changes as detailed above. Mild plantar calcaneal spur. 3. No acute fracture or dislocation. [place] EXAMINATION: THREE XRAY VIEWS OF THE LEFT FOOT 03/03/2020 11:39 am COMPARISON: None. HISTORY: ORDERING SYSTEM PROVIDED HISTORY: Pain 60-year-old female with left foot pain FINDINGS: Foreshortening of the 4th metatarsal which could be congenital or related to sequela of remote trauma. Bipartite tibial hallux sesamoid. Mild degenerative changes of the midfoot. Mild plantar calcaneal spur. Mild distal Achilles enthesopathy. No tibiotalar joint effusion. Boehler's angle is maintained. No marginal erosions. No acute fracture or dislocation. [place] Alexei, pn Incoming Radiant Results From [facility] - 03/03/2020 12:13 PM EDT EXAMINATION: THREE XRAY VIEWS OF THE LEFT FOOT 03/03/2020 11:39 am COMPARISON: None. HISTORY: ORDERING SYSTEM PROVIDED HISTORY: Pain 60-year-old female with left foot pain FINDINGS: Foreshortening of the 4th metatarsal which could be congenital or related to sequela of remote trauma. Bipartite tibial hallux sesamoid. Mild degenerative changes of the midfoot. Mild plantar calcaneal spur. Mild distal Achilles enthesopathy. No tibiotalar joint effusion. Boehler's angle is maintained. No marginal erosions. No acute fracture or dislocation. IMPRESSION: 1. Foreshortening of the 4th metatarsal which could be congenital or related to sequela of remote trauma. 2. Degenerative changes as detailed above. Mild plantar calcaneal spur. 3. No acute fracture or dislocation. [place] CBC Auto Differentialon 05-0 Basophils (Bld) [#/Vol] 0.05 10*3/uL [place] Basophils/100 WBC (Bld) 1 % 0 - 2 % [place] Differential Type NOT REPORTED [place] Eosinophils (Bld) [#/Vol] 0.28 10*3/uL [place] Eosinophils/100 WBC (Bld) 4 % 1 - 4 % [place] Erythrocyte distribution width (RBC) [Ratio] 12.1 % 11.8 - 14.4 % [place] Hematocrit (Bld) [Volume fraction] 40.6 % 36.3 - 47.1 % [place] Hemoglobin (Bld) [Mass/Vol] 13.3 g/dL 11.9 - 15.1 g/dL [place] Immature granulocytes (Bld) [#/Vol] 0 % 0 [place] Immature granulocytes (Bld) [#/Vol] 10*3/uL [place] Lymphocytes (Bld) [#/Vol] 2.68 10*3/uL [place] Lymphocytes/100 WBC (Bld) 40 % 24 - 43 % [place] MCH (RBC) [Entitic mass] 31.6 pg 25. 2 - 33.5 pg [place] MCHC (RBC) [Mass/Vol] 32.8 g/dL 28.4 - 34.8 g/dL [place] MCV (RBC) [Entitic vol] 96.4 fL 82.6 - 102.9 fL [place] Monocytes (Bld) [#/Vol] 0.44 10*3/uL [place] Monocytes/100 WBC (Bld) 7 % 3 - 12 % [place] Platelet mean volume (Bld) [Entitic vol] 10.3 fL 8.1 - 13.5 fL [place] Platelets (Bld) [#/Vol] NOT REPORTED [place] Platelets (Bld) [#/Vol] 224 10*3/uL [place] RBC (Bld) [#/Vol] 4.21 10*6/uL 3.95 - 5.1 1 m/uL [place] RBC morphology finding Nom (Bld) NOT REPORTED [place] Segmented neutrophils/100 WBC (Bld) 48 % 36 - 65 % [place] Segs Absolute 3.25 [place] WBC (Bld) [#/Vol] 0.0 10*3/uL 0.0 per 10 0 WBC [place] WBC (Bld) [#/Vol] 6.7 10*3/uL [place] WBC Morphology NOT REPORTED [place] CBC Auto Differentialon 09-27 Basophils (Bld) [#/Vol] 0.06 10*3/uL [place] Basophils/100 WBC (Bld) 1 % 0 - 2 % [place] Differential Type NOT REPORTED [place] Eosinophils (Bld) [#/Vol] 0.51 10*3/uL [place] Eosinophils/100 WBC (Bld) 5 % High 1 - 4 % [place] Erythrocyte distribution width (RBC) [Ratio] 11.9 % 11.8 - 14.4 % [place] Hematocrit (Bld) [Volume fraction] 44.7 % 36.3 - 47.1 % [place] Hemoglobin (Bld) [Mass/Vol] 15.0 g/dL 11.9 - 15.1 g/dL [place] Interpretation and review of laboratory results Abnormal [place] Lymphocytes (Bld) [#/Vol] 3.30 10*3/uL [place] Lymphocytes/100 WBC (Bld) 35 % 24 - 43 % [place] MCH (RBC) [Entitic mass] 32.5 pg 25. 2 - 33.5 pg [place] MCHC (RBC) [Mass/Vol] 33.6 g/dL 28.4 - 34.8 g/dL [place] MCV (RBC) [Entitic vol] 97.0 fL 82.6 - 102.9 fL [place] Monocytes (Bld) [#/Vol] 0.71 10*3/uL [place] Monocytes/100 WBC (Bld) 8 % 3 - 12 % [place] Platelet mean volume (Bld) [Entitic vol] 10.9 fL 8.1 - 13.5 fL [place] Platelets (Bld) [#/Vol] 222 10*3/uL [place] Platelets (Bld) [#/Vol] NOT REPORTED [place] RBC (Bld) [#/Vol] 4.61 10*6/uL 3.95 - 5.1 1 m/uL [place] RBC morphology finding Nom (Bld) NOT REPORTED [place] Segmented neutrophils/100 WBC (Bld) 60 % 36 - 65 % [place] Segs Absolute 4.77 [place] WBC (Bld) [#/Vol] 9.4 10*3/uL [place] WBC (Bld) [#/Vol] 0.0 10*3/uL 0.0 per 10 0 WBC [place] WBC Morphology NOT REPORTED [place] Otheron 10-19-2019 Immature granulocytes (Bld) [#/Vol] NOT REPORTED [place] Maria D 10-16-2019 ALT [Catalytic activity/Vol] 19 U/L 5 - 33 U/L [place] Trina 10-16-2019 AST [Catalytic activity/Vol] 18 U/L <32 [place] Basic Metabolic Panelon 09-27 Anion gap [Moles/Vol] 13 mmol/L 9 - 17 mmol/L [place] Bun/Cre Ratio 31 [place] Calcium [Mass/Vol] 9.1 mg/dL 8.6 - 10. 4 mg/dL [place] Chloride [Moles/Vol] 100 mmol/L 98 - 10 7 mmol/L [place] CO2 [Moles/Vol] 26 mmol/L 20 - 31 mmol/L [place] Creatinine [Mass/Vol] 0.67 mg/dL 0.5 - 0.9 mg/dL [place] GFR >60 >60 mL/min [place] GFR Non- >60 >60 mL/min [place] Glucose [Mass/Vol] 93 mg/dL 70 - 99 mg/dL [place] Potassium [Moles/Vol] 4.1 mmol/L 3.7 - 5.3 mmol/L [place] Sodium [Moles/Vol] 139 mmol/L 135 - 144 mmol/L [place] Urea nitrogen [Mass/Vol] 21 mg/dL High 6 - 20 mg/dL [place] Lipid Panelon 10-16-2019 Cholesterol [Mass/Vol] 214 mg/dL High <200 Me [place], [place] Comment on above: Cholesterol Guidelines: <200 Desirable 200-240 Borderline >240 Undesirable Cholesterol in HDL [Mass/Vol] 49 mg/dL >40 [place] Comment on above: HDL Guidelines: <40 Undesirable 40-59 Borderline >59 Desirable Cholesterol in LDL [Mass/Vol] 145 mg/dL High 0 - 130 mg/dL [place] Comment on above: LDL Guidelines: <100 Desirable 100-129 Near to/above Desirable 130-159 Borderline >159 Undesirable Direct (measured) LDL and calculated LDL are not interchangeable tests. Cholesterol in VLDL [Mass/Vol] NOT REPORTED 1 - 30 mg/dL [place] Cholesterol.total/Choles terol in HDL [Mass ratio] 4.4 {ratio} <5 [place] Triglyceride [Mass/Vol] 101 mg/dL <150 [place] Comment on above: Triglyceride Guidelines: <150 Desirable 150-199 Borderline 200-499 High >499 Very high Based on AHA Guidelines for fasting triglyceride, April 2012. Metabolic Panelon 10-16-2019 GFR/1.73 sq M predicted among non-blacks MDRD (S/P/Bld) [Vol rate/Area] [place], [place] Comment on above: Average GFR for 50-5 9 years old: 93 mL/min/1.73sq m Chronic Kidney Disease: <60 mL/min/1.73sq m Kidney failure: <15 mL/min/1.73sq m eGFR calculated using average adult body mass. Additional eGFR calculator available at: http://www.Dataium/multiple_crcl_2012.htm Stage 1: Some kidney damage normal GFR Stage 2: Mild kidney damage GFR 60-89 Stage 3: Moderate kidney damage GFR 30-59 Stage 4: Severe kidney damage GFR 15-29 Stage 5: Severe kidney damage GFR <15 ESRD - chronic treatment by dialysis or transplant Otheron 10-16-2019 Interpretation and review of laboratory results Abnormal [employer]- [place], [place] Microscopic UrinalysisOrdere d By: Geoff Rios on 08-20-2019 - [employer] Work Phone: Amorphous, UA 2+ Abnormal None [facility] Work Phone: Bacteria, UA TRACE Abnormal None [employer] Work Phone: Casts UA NOT REPORTED /LPF [employer] Work Phone: Crystals UA NOT REPORTED None /HPF [facility] Work Phone: Epithelial Cells UA 5 TO 10 [employer] Work Phone: Interpretation and review of laboratory results Abnormal [employer] Work Phone: Mucus, UA NOT REPORTED None [employer] Work Phone: Other Observations UA NOT REPORTED NOT REQ. [facility] Work Phone: RBC, UA 0 TO 2 [employer] Work Phone: Renal Epithelial, Urine NOT REPORTED 0 /HPF [employer] Work Phone: Trichomonas, UA NOT REPORTED None [employer] Work Phone: WBC, UA None [employer] Work Phone: Yeast, UA NOT REPORTED None [employer] Work Phone: Urinalysis Reflex to Culture Ordered By: Geoff Rios on 08-20-2019 Bilirubin Urine Negative NEGATIVE [employer] Work Phone: Color, UA YELLOW YELLOW [employer] Work Phone: Glucose, Ur Negative NEGATIVE [employer] Work Phone: Interpretation and review of laboratory results Abnormal [employer] Work Phone: Ketones Ql (U) Negative NEGATIVE [employer] Work Phone: Leukocyte esterase Test strip Ql (U) Negative NEGATIVE [facility] Work Phone: Nitrite, Urine Negative NEGATIVE [facility] Work Phone: pH, UA 8.0 [facility] Work Phone: Protein, UA Negative NEGATIVE [facility] Work Phone: Specific [place], UA 1.015 [facility] [employer] Work Phone: Turbidity UA CLOUDY Abnormal CLEAR [facility] Work Phone: Urinalysis Comments NOT REPORTED [facility] [employer] Work Phone: Urine Hgb TRACE Abnormal NEGATIVE [facility] Work Phone: Urobilinogen, Urine Normal Normal [facility] Work Phone: Vital Signs Date Time Vital Sign Value Performing Clinician Anetai litkareem 10-20-2022 10:36-0400 Body temperature 98.4 [degF] [employer] Work Phone: [facility] [employer] 10-20-2022 10:36-0400 Diastolic blood pressure 65 mm[Hg] [employer] Work Phone: [facility] [employer] 10-20-2022 10:36-0400 Heart rate 70 /min [employer] Work Phone: [facility] 10-20-2022 10:36-0400 Respiratory rate 18 /min [employer] Work Phone: [facility] 10-20-2022 10:36-0400 SaO2% (BldA) [Mass fraction] 95 % [employer] Work Phone: [facility] 10-20-2022 10:36-0400 Systolic blood pressure 124 mm[Hg] [employer] Work Phone: [facility] [employer] 09-12-2022 17:00-0500 Heart rate 86 /min Dat Rudolph MD Work Phone: [facility] [employer] 09-12-2022 17:00-0500 SaO2% (BldA) [Mass fraction] 98 % Dat Rudolph MD Work Phone: [facility] [employer] 09-12-2022 15:50-0500 Body temperature 98.6 [degF] Dat Rudolph MD Work Phone: [facility] [employer] 09-12-2022 15:50-0500 Diastolic blood pressure 66 mm[Hg] Dat Rudolph MD Work Phone: [facility] [employer] 09-12-2022 15:50-0500 Systolic blood pressure 122 mm[Hg] Dat Rudolph MD Work Phone: [facility] [employer] 09-12-2022 12:00-0500 Respiratory rate 25 /min Dat Rudolph MD Work Phone: [facility] [employer] 09-12-2022 03:45-0500 Body height 154.9 cm Dat Rudolph MD Work Phone: [facility] [employer] 09-12-2022 03:45-0500 Body mass index (BMI) [Ratio] 35.49 kg/m2 Dat Rudolph MD Work Phone: [facility] [employer] 09-12-2022 03:45-0500 Body weight 85.2 kg Dat Rudolph MD Work Phone: [facility] [employer] 09-12-2022 00:58-0500 Diastolic blood pressure 41 mm[Hg] Davi Duke MD Work Phone: [facility] [employer] 09-12-2022 00:58-0500 Heart rate 91 /min Davi Duke MD Work Phone: [facility] [employer] 09-12-2022 00:58-0500 Respiratory rate 11 /min Davi Duke MD Work Phone: [facility] [employer] 09-12-2022 00:58-0500 SaO2% (BldA) [Mass fraction] 92 % Davi Duke MD Work Phone: [facility] [employer] 09-12-2022 00:58-0500 Systolic blood pressure 95 mm[Hg] Davi Duke MD Work Phone: [facility] [employer] 02-02-2021 09:04-0400 Body height 154.9 cm Jeffrey Consolo DPM Work Phone: [employer] Work Phone: 02-02-2021 09:04-0400 Body mass index (BMI) [Ratio] 33.44 kg/m2 Jeffrey Consolo DPM Work Phone: [employer] Work Phone: 02-02-2021 09:04-0400 Body temperature 97.7 [degF] Jeffrey Consolo DPM Work Phone: [employer] Work Phone: 02-02-2021 09:04-0400 Body weight 80.29 kg Jeffrey Consolo DPM Work Phone: [employer] Work Phone: 02-02-2021 09:04-0400 Diastolic blood pressure 84 mm[Hg] Jeffrey Consolo DPM Work Phone: [employer] Work Phone: 02-02-2021 09:04-0400 Heart rate 76 /min Jeffrey Consolo DPM Work Phone: [employer] Work Phone: 02-02-2021 09:04-0400 Respiratory rate 20 /min Jeffrey Consolo DPM Work Phone: [employer] Work Phone: 02-02-2021 09:04-0400 SaO2% (BldA) [Mass fraction] 96 % Jeffrey Segovia DPM Work Phone: [employer] Work Phone: 02-02-2021 09:04-0400 Systolic blood pressure 138 mm[Hg] Jeffrey Segovia DPM Work Phone: [employer] Work Phone: 10-19-2020 09:00-0400 BP Diastolic 91 mm[Hg] [employer] Work Phone: 10-19-2020 09:00-0400 BP Systolic 153 mm[Hg] [employer] Work Phone: 10-19-2020 07:38-0400 BMI (Body Mass Index) 2.83 kg/m2 [employer] Work Phone: 10-19-2020 07:38-0400 Body Temperature 97.7 [degF] [employer] Work Phone: 10-19-2020 07:38-0400 Body weight 6.8 kg [employer] Work Phone: 10-19-2020 07:38-0400 Height 154.9 cm [employer] Work Phone: 10-19-2020 07:38-0400 Pulse (Heart Rate) 74 /min Burt [employer] [facility] Work Phone: 10-19-2020 07:38-0400 Pulse Oximetry 99 % [employer] Work Phone: 10-19-2020 07:38-0400 Respiratory Rate 16 /min [facility] Work Phone: 08-19-2020 08:15-0500 BP Diastolic 89 mm[Hg] Jeffrey Champagne[facility]Only- [place] , [place] 08-19-2020 08:15-0500 BP Systolic 151 mm[Hg] Jeffrey Agosto [facility] [place] , [place] 08-19-2020 08:15-0500 Pulse (Heart Rate) 68 /min Jeffrey Agosto [facility], [place] 08-19-2020 08:15-0500 Pulse Oximetry 97 % Jeffrey Agosto [facility] , [place] 08-19-2020 08:15-0500 Respiratory Rate 18 /min Jeffrey Agosto [facility] [place], [place] 08-19-2020 08:02-0500 Body Temperature 97.2 [degF] [facility] [place] 08-19-2020 06:32-0500 BMI (Body Mass Index) 33.63 kg/m2 Jeffrey Agosto [facility] [place] 08-19-2020 06:32-0500 Body weight 80.74 kg Jeffrey Agosto [facility] , [place] 08-19-2020 06:32-0500 Height 154.9 cm Jeffrey Agosto [facility] , [place] 07-20-2020 10:43-0500 BMI (Body Mass Index) 33.39 kg/m2 Jeffrey Agosto [facility] [place] 07-20-2020 10:43-0500 Body Temperature 97.11 [degF] Jeffrey Agosto [facility] 07-20-2020 10:43-0500 Body weight 80.15 kg Jeffrey Agosto [facility] , [place] 07-20-2020 10:43-0500 BP Diastolic 94 mm[Hg] Jeffrey Agosto [facility] [place] 07-20-2020 10:43-0500 BP Systolic 136 mm[Hg] Jeffrey Agosto [facility] [place] , [place] 07-20-2020 10:43-0500 Height 154.9 cm Jeffrey Agosto [facility] , [place] 07-20-2020 10:43-0500 Pulse (Heart Rate) 85 /min Jeffrey Agosto [facility] [place] 07-20-2020 10:43-0500 Pulse Oximetry 97 % Jeffrey Agosto [facility] , [place] 07-20-2020 10:43-0500 Respiratory Rate 20 /min Jeffrey Consolo [facility] [place] 04-19-2020 10:08-0400 Body Temperature 97.59 [degF] Mario Santiago [facility] [place] 04-19-2020 10:08-0400 BP Diastolic 88 mm[Hg] Mario [facility] , [place] 04-19-2020 10:08-0400 BP Systolic 120 mm[Hg] Mario [facility] , [place] 04-19-2020 10:08-0400 Pulse (Heart Rate) 68 /min Mario [facility], [place] 04-19-2020 10:08-0400 Pulse Oximetry 98 % [facility] , [place] 04-19-2020 10:08-0400 Respiratory Rate 16 /min Mario [facility], [place] 04-19-2020 08:07-0400 BMI (Body Mass Index) 33.07 kg/m2 Mariobeck Santiago [facility], [place] 04-19-2020 08:07-0400 Body weight 79.38 kg Mario [facility] , [place] 04-19-2020 08:07-0400 Height 154.9 cm Mario [facility] , [place] 08-20-2019 03:16-0500 Body temperature 98.49 [degF] Geoff Rios MD Work Phone: [employer] Work Phone: 08-20-2019 03:16-0500 Diastolic blood pressure 90 mm[Hg] Goeff Rios MD Work Phone: [facility] Work Phone: 08-20-2019 03:16-0500 Heart rate 81 /min Geoff Rios MD Work Phone: [facility] Work Phone: 08-20-2019 03:16-0500 Respiratory rate 16 /min Geoff Rios MD Work Phone: [facility] [facility] Work Phone: 08-20-2019 03:16-0500 SaO2% (BldA) [Mass fraction] 96 % Geoff Rios MD Work Phone: [employer] Work Phone: 08-20-2019 03:16-0500 Systolic blood pressure 124 mm[Hg] Geoff Rios MD Work Phone: [employer] Work Phone: Encounters Encounter Date Encounter Type Care Provider Facility Start: 05-23-2023 End: 05-26-2023 ambulatory JAZMÍN L SAUD [facility] Start: 05-20-2023 End: 05-21-2023 ambulatory JAZMÍN L SAUD [facility] Start: 05-14-2023 End: 05-15-2023 ambulatory [facility]N L SAUD [facility] Start: 05-09-2023 End: 05-10-2023 ambulatory JAZMÍN L SAUD [facility] Start: 05-02-2023 End: 05-03-2023 ambulatory JAZMÍN L SAUD [facility] Start: 04-30-2023 End: 05-01-2023 ambulatory [facility]N L SAUD [facility] Start: 04-23-2023 End: 04-24-2023 ambulatory JAZMÍN L SAUD [facility] Start: 04-19-2023 End: 04-20-2023 ambulatory JAZMÍN L SAUD [facility] Start: 04-18-2023 End: 04-18-2023 Subsequent hospital visit by physician Juanita SINGER [facility] Occupational Therapy Start: 04-15-2023 End: 04-16-2023 ambulatory JAZMÍN L SAUD [facility] Start: 04-15-2023 End: 04-15-2023 Subsequent hospital visit by physician Rylie Kendrick PTA [facility] Physical Therapy Comment on above: Arrived Start: 04-11-2023 End: 04-14-2023 ambulatory JAZMÍN L SAUD [facility] Start: 04-11-2023 End: 04-11-2023 ambulatory JAZMÍN L SAUD [facility] Start: 04-11-2023 End: 04-13-2023 Subsequent hospital visit by physician [facility] Ultrasound Room [facility] Ultrasound Comment on above: Right sided abdomina l pain Start: 04-11-2023 End: 04-11-2023 Subsequent hospital visit by physician Sally Barrera PTA [facility] Physical Therapy Comment on above: Arrived Start: 04-09-2023 End: 04-09-2023 ambulatory [facility] Start: 04-09-2023 Encounter for other preprocedural examination WINFIELD [facility] Start: 04-04-2023 End: 04-05-2023 ambulatory [facility] Start: 04-02-2023 ambulatory JAZMÍN Agosto [facility] Start: 03-28-2023 End: 03-28-2023 Subsequent hospital visit by physician Rylie Kendrick PTA [facility] Physical Therapy Start: 03-26-2023 End: 03-27-2023 ambulatory [facility] Start: 03-26-2023 End: 03-26-2023 Subsequent hospital visit by physician Anisha BECERRA/Cindy [facility] Occupational Therapy Comment on above: Arrived Start: 03-21-2023 End: 03-22-2023 ambulatory [facility] Start: 03-21-2023 End: 03-21-2023 Subsequent hospital visit by physician Juanita SINGER [facility] Occupational Therapy Comment on above: Arrived Start: 03-19-2023 End: 03-20-2023 ambulatory [facility] Start: 02-28-2023 End: 02-28-2023 Subsequent hospital visit by physician Rylie Kendrick PTA [facility] Physical Therapy Start: 02-26-2023 ambulatory JAZMÍN Agosto [facility] Start: 02-21-2023 End: 02-21-2023 Subsequent hospital visit by physician Juanita SINGER [facility] Occupational Therapy Start: 02-18-2023 End: 02-19-2023 ambulatory [facility] Start: 02-14-2023 End: 02-15-2023 ambulatory [facility] Start: 02-12-2023 End: 02-13-2023 ambulatory [facility] Start: 02-12-2023 End: 02-12-2023 Subsequent hospital visit by physician Anisha Vidal OTR/Cindy [facility] Occupational Therapy Comment on above: Arrived Start: 02-05-2023 End: 02-06-2023 ambulatory JAZMÍN [facility]osto [facility] Start: 02-05-2023 End: 02-05-2023 Subsequent hospital visit by physician Anisha Vidal OTR/Cindy [facility] Occupational Therapy Comment on above: Arrived Start: 02-04-2023 End: 02-07-2023 ambulatory EVITA [facility] Start: 02-01-2023 End: 02-02-2023 ambulatory JAZMÍN [facility]osto [facility] Start: 01-31-2023 End: 02-01-2023 ambulatory JAZMÍN [facility] Start: 01-30-2023 End: 01-31-2023 ambulatory JAZMÍN [facility] Start: 01-28-2023 End: 01-29-2023 ambulatory JAZMÍN [facility] Start: 01-28-2023 End: 01-31-2023 ambulatory SOPHIA [facility] Start: 01-22-2023 End: 01-23-2023 ambulatory [facility] Start: 01-22-2023 End: 01-22-2023 Subsequent hospital visit by physician Anisha Vidal OTR/Cindy PAUL Occupational Therapy Comment on above: Arrived Start: 01-16-2023 End: 01-17-2023 ambulatory [facility] Start: 01-14-2023 End: 01-15-2023 ambulatory SOPHIA [facility] Start: 01-10-2023 End: 01-11-2023 ambulatory Jazmín Castañeda TEST BORER-PHP PROGRAMMER Facility:[facility] Start: 01-03-2023 End: 01-06-2023 ambulatory [facility] Start: 10-20-2022 End: 10-20-2022 Emergency department patient visit JAZMÍN Agosto [facility] Start: 10-20-2022 End: 10-20-2022 Emergency department patient visit Jazmín Castañeda APRN - PHP PROGRAMMER Work Phone: [facility] ED Comment on above: Thrush (Primary Dx) Start: 10-09-2022 End: 10-10-2022 ambulatory RADHA LINDSEY . Facility:[facility] Start: 10-04-2022 End: 10-05-2022 ambulatory GARY PERRY . Facility:[facility] Start: 09-12-2022 End: 09-12-2022 Evaluation and management of inpatient [facility] Start: 09-12-2022 End: 09-12-2022 Evaluation and management of inpatient Dat Rudolph MD Work Phone: [facility] Start: 09-11-2022 End: 09-12-2022 Emergency department patient visit [facility] Start: 09-11-2022 End: 09-12-2022 Emergency department patient visit Davi Duke MD Work Phone: [facility] ED Comment on above: Partial seizure (HCC ) (Primary Dx); Convulsions, unspecified convulsion type (HCC) Start: 09-10-2022 End: 09-13-2022 ambulatory [facility] Start: 09-10-2022 End: 09-12-2022 Subsequent hospital visit by physician [facility] Scanner [facility] Laboratory Comment on above: Stuttering Anxiety and depressi on; Stuttering Start: 09-06-2022 End: 09-06-2022 Subsequent hospital visit by physician Tianna CALLAHAN [facility] Speech Therapy Start: 07-05-2022 End: 07-06-[address] DOCTOR ZAMORANO Facility:[facility] Start: 06-19-2022 End: 06-19-[address] DOCTOR ZAMORANO Facility:[facility] Start: 06-12-2022 End: 06-13-2022 ambulatory Jazmín LOPEZ Facility:[facility] Start: 05-31-2022 End: 06-01-2022 ambulatory Jazmín Castañeda APRN-CHRISTIAN Facility:[facility] Start: 05-24-2022 End: 05-25-[address] DOCTOR ZAMORANO Facility:[facility] Start: 05-08-2022 End: 05-09-2022 ambulatory Jazmín Castañeda APRN-CHRISTIAN Facility:[facility] Start: 05-02-2022 End: 05-03-2022 ambulatory Jazmín Castañeda APRN-CHRISTIAN Facility:[facility] Start: 04-24-2022 End: 04-24-[address] DOCTOR ZAMORANO Facility:[facility] Start: 04-20-2022 End: 04-20-2022 Subsequent hospital visit by physician Beverly Covprice Screening Schedule [facility] Covid Screening Comment on above: Arrived Start: 04-10-2022 End: 04-11-2022 ambulatory Jazmín Castañeda APRN-CHRISTIAN Facility:[facility] Start: 04-05-2022 End: 04-06-2022 ambulatory GARY PERRY . Facility:[facility] Start: 03-20-2022 End: 03-20-[address] DOCTOR ZAMORANO Facility:[facility] Start: 03-12-2022 End: 03-13-2022 ambulatory BROOKE GHOTRA Facility:[facility]1 Start: 03-08-2022 End: 03-08-2022 Subsequent hospital visit by physician Estuardo Diamond PT [facility] Physical Therapy Comment on above: Arrived Start: 03-05-2022 End: 03-05-2022 Subsequent hospital visit by physician Shania Wyatt PTA [facility] Physical Therapy Start: 03-02-2022 End: 03-02-2022 Subsequent hospital visit by physician Estuardo Diamond PT [facility] Physical Therapy Comment on above: Arrived Start: 03-01-2022 End: 03-02-[address] JUNIOR GONZALEZ . Facility:[facility] Start: 02-26-2022 End: 02-26-2022 Subsequent hospital visit by physician Shania Wyatt PTA [facility] Physical Therapy Start: 02-26-2022 End: 02-26-2022 Subsequent hospital visit by physician Jazmín Dawkins CNP Work Phone: [facility] Laboratory Start: 02-22-2022 End: 02-22-2022 Subsequent hospital visit by physician Estuardo Diamond PT [facility] Physical Therapy Comment on above: Arrived Start: 02-19-2022 End: 02-19-2022 Subsequent hospital visit by physician Shania Kozel 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 [facility] Physical Therapy Comment on above: Arrived Start: 02-15-2022 End: 02-15-2022 Subsequent hospital visit by physician Estuardo Diamond PT [facility] Physical Therapy Comment on above: Arrived Start: 02-13-2022 End: 02-13-[address] DOCTOR ZAMORANO Facility:[facility]1 Start: 02-12-2022 End: 02-12-2022 Subsequent hospital visit by physician Shania Wyatt 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 [facility] Comment on above: Arrived Start: 02-08-2022 End: 02-08-2022 Subsequent hospital visit by physician Estuardo Diamond [facility] Physical Therapy Comment on above: Arrived Start: 02-05-2022 End: 02-05-2022 Subsequent hospital visit by physician Shania Wyatt 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 [facility] Physical Therapy Comment on above: Arrived Start: 02-02-2022 End: 02-02-2022 Subsequent hospital visit by physician Nataliia Tan [facility] Physical Therapy Comment on above: Arrived Start: 01-24-2022 End: 01-24-2022 Subsequent hospital visit by physician Nataliia Tan [facility] Physical Therapy Comment on above: Arrived Start: 01-19-2022 End: 01-19-2022 Subsequent hospital visit by physician Sally Barrera 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 [facility] Physical Therapy Comment on above: Arrived Start: 01-16-2022 End: 01-16-2022 Subsequent hospital visit by physician Shania Wyatt 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 [facility] Physical Therapy Comment on above: Arrived Start: 01-12-2022 End: 01-12-2022 Subsequent hospital visit by physician Shania Wyatt 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 [facility] Physical Therapy Comment on above: Arrived Start: 01-08-2022 End: 01-08-2022 Subsequent hospital visit by physician Nataliia Tan [facility] Physical Therapy Comment on above: Arrived Start: 12-28-2021 End: 12-28-2021 Subsequent hospital visit by physician Estuardo Diamond [facility] Physical Therapy Comment on above: Arrived Start: 12-26-2021 End: 12-26-2021 Subsequent hospital visit by physician Juan Magallon 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 [facility] Physical Therapy Comment on above: Arrived Start: 12-21-2021 End: 12-22-2021 ambulatory GARY PERRY . Facility:[facility] Start: 12-18-2021 End: 12-18-2021 Subsequent hospital visit by physician Shania Wyatt PTA [facility] Physical Therapy Comment on above: Arrived Start: 12-11-2021 End: 12-11-2021 Subsequent hospital visit by physician Shania Wyatt PTA [facility] Physical Therapy Comment on above: Arrived Start: 12-08-2021 End: 12-08-2021 Subsequent hospital visit by physician Shania Wyatt PTA [facility] Physical Therapy Comment on above: Arrived Start: 12-04-2021 End: 12-04-2021 Subsequent hospital visit by physician Shania Wyatt PTA [facility] Physical Therapy Comment on above: Arrived Start: 11-30-2021 End: 11-30-2021 Subsequent hospital visit by physician Queenie Giron PT [facility] Physical Therapy Comment on above: Arrived Start: 11-23-2021 End: 11-23-2021 Subsequent hospital visit by physician Queenie Giron PT [facility] Physical Therapy Comment on above: Arrived Start: 11-21-2021 End: 11-21-2021 Subsequent hospital visit by physician Queenie Giron PT [facility] Physical Therapy Comment on above: Arrived Start: 11-17-2021 End: 11-17-2021 Subsequent hospital visit by physician Queenie Giron PT [facility] Physical Therapy Start: 11-06-2021 End: 11-06-2021 Subsequent hospital visit by physician Queenie Giron PT [facility] Physical Therapy Comment on above: Arrived Start: 10-26-2021 End: 10-27-2021 ambulatory [facility] Facility: Start: 02-15-2021 End: 02-17-2021 Subsequent hospital visit by physician [facility] Mri Scanner [facility] Laboratory Comment on above: Essential hypertensi on Aphasia; Dizziness; Drooling Start: 02-02-2021 End: 02-06-2021 Patient encounter status [facility] Schedule [facility] PRE ADMIT Start: 02-02-2021 End: 02-06-2021 Subsequent hospital visit by physician [facility] Covid19 Pat Screening Schedule [facility] PRE ADMIT Comment on above: Preop testing (Prima ry Dx) Start: 01-30-2021 End: 01-30-2021 Subsequent hospital visit by physician Berhane Braden TEST BORER - PHP PROGRAMMER Work Phone: [facility] Laboratory Start: 12-20-2020 End: 12-20-2020 Subsequent hospital visit by physician Berhane Braden TEST BORER - PHP PROGRAMMER Work Phone: [facility] Laboratory Comment on above: Aphasia; Dizziness Start: 10-19-2020 End: 10-19-2020 [facility] Comment on above: Primary osteoarthrit is of right knee (Primary Dx) Start: 08-19-2020 End: 08-19-2020 Subsequent hospital visit by physician Jeffrey Segovia Work Phone: [facility] OR Start: 07-21-2020 End: 07-25-2020 Subsequent hospital visit by physician Harmony Herrera Pat Screening Schedule [facility] PRE ADMIT Comment on above: Preoperative testing Start: 07-20-2020 End: 07-24-2020 Subsequent hospital visit by physician Jeffrey Segovia Work Phone: [facility] PRE ADMIT Start: 04-19-2020 End: 04-19-2020 Subsequent hospital visit by physician Mario Santiago Work Phone: [facility] OR Start: 04-12-2020 End: 04-16-2020 Subsequent hospital visit by physician Harmony Herrera Pat Screening Schedule [facility] PRE ADMIT Comment on above: Preop testing Start: 03-03-2020 End: 03-05-2020 Subsequent hospital visit by physician Harmony Pinto Dr Room 2 [facility] Radiology Comment on above: Pain Start: 02-12-2020 End: 02-12-2020 Subsequent hospital visit by physician Case Paul [facility] Covid Screening Start: 01-04-2020 End: 01-04-2020 Subsequent hospital visit by physician Berhane Braden [facility] Laboratory Comment on above: Suspected COVID-19 v irus infection Start: 01-04-2020 End: 01-04-2020 Subsequent [facility] Comment on above: Suspected COVID-19 v irus infection Start: 12-03-2019 End: 12-03-2019 Subsequent hospital [facility] Braden [facility] Start: 12-03-2019 End: 12-03-2019 Subsequent hospital visit by physician Berhane Braden [facility] Comment on above: Viral gastroenteriti s Start: 10-19-2019 End: 10-19-2019 Subsequent hospital visit by physician Berhane PAUL Laboratory Comment on above: Class 1 obesity with body mass index (BMI) of 32.0 to 32.9 in adult, unspecified obesity type, unspecified whether serious comorbidity present Start: 10-16-2019 End: 10-16-2019 Subsequent hospital visit by physician Berhane Braden [facility] Laboratory Comment on above: Dyslipidemia; Hypersomnia; Essential hypertension; Class 1 obesity with body mass index (BMI) of 32.0 to 32.9 in adult, unspecified obesity type, unspecified whether serious comorbidity present Start: 08-20-2019 End: 08-20-2019 Emergency department patient visit Geoff Rios MD Work Phone: [facility] ED Comment on above: Sprain of groin, ini tial encounter (Primary Dx) Start: 04-17-2019 End: 04-17-2019 Subsequent hospital visit by physician Juan Magallon [facility] Physical Therapy Comment on above: Arrived Start: 04-16-2019 End: 04-16-2019 Subsequent hospital visit by physician Marc Hodges [facility] Physical Therapy Comment on above: Arrived Start: 04-09-2019 End: 04-09-2019 Subsequent hospital visit by physician Nicholas Bonilla [facility] Physical Therapy Comment on above: Arrived Start: 04-07-2019 End: 04-07-2019 Subsequent hospital visit by physician Juan Magallon [facility] Physical Therapy Comment on above: Arrived Start: 04-03-2019 End: 04-03-2019 Subsequent hospital visit by physician Andra Caballero [facility] Physical Therapy Comment on above: Arrived Start: 04-02-2019 End: 04-02-2019 Subsequent hospital visit by physician Waleska Jacobo [facility] Physical Therapy Start: 04-01-2019 End: 04-01-2019 Subsequent hospital visit by physician Nicholas Bonilla [facility] Physical Therapy Comment on above: Arrived Procedures Date Procedure Procedure Detail Performing Clinician Start: 04-11-2023 Us pelvic nonobstetric real-time image complete Jazmín Castañeda TEST BORER - PHP PROGRAMMER Work Phone: Start: 09-12-2022 EEG REPORT Dat Rudolph MD Work Phone: Start: 09-12-2022 EEG AWAKE AND ASLEEP PORTABLE Tracie whittington MD Work Phone: Start: 09-11-2022 Urnls dip stick/tablet reagent auto microscopy Davi Duke MD Work Phone: Start: 09-11-2022 Gluc bld gluc mntr dev cleared fda spec home use Davi Duke MD Work Phone: Start: 09-11-2022 Ct head/brain w/o contrast material Cipr ab Duke MD Work Phone: Start: 09-11-2022 GLUCOSE, WHOLE BLOOD Davi Duke MD Work Phone: Start: 09-11-2022 Comprehensive metabolic panel Davi garcia MD Work Phone: Start: 09-11-2022 Ecg routine ecg w/least 12 lds w/i&r Davi Duke MD Work Phone: Start: 09-10-2022 Mri brain brain stem w/o w/contrast material Jazmín Castañeda TEST BORER [employer] Work Phone: Start: 09-10-2022 Assay of urea nitrogen quantitative Peter White Saud TEST BORER - PHP PROGRAMMER Work Phone: Start: 02-26-2022 Lipid panel Jazmín Castañeda TEST BORER [employer] PHP PROGRAMMER Work Phone: Start: 02-15-2021 Mri brain brain stem w/o w/contrast material Berhane Braden TEST BORER [employer] Work Phone: Start: 02-15-2021 Basic metabolic panel calcium total Ruel Braden TEST BORER - [facility] Work Phone: Start: 02-15-2021 SPECIMEN REJECTION Berhane Braden TEST BORER - PHP PROGRAMMER Work Phone: Start: 02-02-2021 COVID-19 Pepito Zhang MD Work Phone: Start: 02-02-2021 Ecg routine ecg w/least 12 lds i&r only Jeffrey Segovia DPM Work Phone: Start: 01-30-2021 Lipid panel Berhane Neeru Braden TEST BORER - [employer] Work Phone: Start: 01-30-2021 Transferase aspartate amino ast sgot Berhane Braden TEST BORER - [employer] Work Phone: Start: 12-20-2020 End: 12-20-2020 Basic metabolic panel calcium total Ruel Braden TEST BORER - PHP PROGRAMMER Work Phone: Start: 10-19-2020 Radiologic examination knee 3 views Geremias ael L Regan Start: 07-21-2020 COVID-19 Cirilorigo Zhang Work Phone: Start: 07-20-2020 Ecg routine ecg w/least 12 lds i&r only Jeffrey Terry Consolo Work Phone: Start: 07-20-2020 EKG REPORT Hpf Scanning Start: 07-20-2020 Basic metabolic panel calcium total Jeffrey Stewart Consolo Work Phone: Start: 07-20-2020 Blood count complete automated Jeffrey W Co nsolo Work Phone: Start: 04-19-2020 Esophagogastroduodenoscopy Mario Ritter er Work Phone: Start: 04-19-2020 Colonoscopy study Mario Santiago Work Phone: Start: 04-19-2020 Colonoscopy Queenie Giron PT Start: 04-12-2020 COVID-19 AMBULATORY Bobbi Antonio Start: 03-03-2020 Radex foot complete minimum 3 views Jeffrey Stewart Consolo Work Phone: Start: 12-03-2019 Blood count complete auto&auto difrntl wbc Berhane Siddiqi Sampson Work Phone: Start: 10-19-2019 Blood count complete auto&auto difrntl wbc Berhane Neeru Braden Work Phone: Start: 10-16-2019 Basic metabolic panel calcium total Ruel Siddiqi Sampson Work Phone: Start: 10-16-2019 Lipid panel Berhane Siddiqi Sampson Work Phone: Start: 10-16-2019 Transferase alanine amino alt sgpt Berhane Braden Work Phone: Start: 10-16-2019 Transferase aspartate amino ast sgot Berhane Neeru Braden Work Phone: Start: 08-20-2019 Urinalysis microscopic only Geoff lewis MD Work Phone: Start: 08-20-2019 Urnls dip stick/tablet rgnt auto w/o microscopy Geoff Rios MD Work Phone: Plan of Treatment Date Care Activity Detail Author Start: 04-19-2030 Screening for malignant neoplasm of colon Colon cancer screen colonoscopy [place], [place] Start: 10-22-2028 Screening for malignant neoplasm of colon Colon cancer screen colonoscopy [place], [place] Start: 2027 Pneumococcal 0-64 years Vaccine (2 of 2 - PPSV23) Pneumococcal 0-64 years Vaccine (2 of 2 - PPSV23) [facility] Start: 2027 Pneumococcal 0-64 years Vaccine (2 of 2) Pneumococcal 0-64 years Vaccine (2 of 2) [facility] Start: 01-03-2026 Diabetes screen Diabetes screen [facility] [employer] Start: 04-19-2025 Screening for malignant neoplasm of colon [facility] [employer] Start: 10-15-2024 Lipid panel Lipid screen [place], [place] Start: 10-15-2024 Lipid screen Lipid screen [place], [place] Start: 04-04-2024 Depression Monitoring Depression Monitoring [facility] [employer] Start: 04-04-2024 DTaP/Tdap/Td vaccine (1 - Tdap) DTaP/Tdap/Td vaccine (1 - Tdap) [facility] [employer] Comment on above: Postponed from 1981 (Patient Refus ed) Start: 04-04-2024 Hepatitis C screening Hepatitis C screen [facility] [employer] Comment on above: Postponed from 01/10/1980 (Patient Refus ed) Start: 04-04-2024 HIV screening HIV screen [facility] [employer] Comment on above: Postponed from 1977 (Patient Refus ed) Start: 02-13-2024 Depression Monitoring [facility] Start: 02-08-2024 Depression Monitoring Depression Monitoring [facility] Start: 01-02-2024 Depression Monitoring Depression Monitoring [facility] Start: 10-31-2023 Screening for malignant neoplasm of breast Breast cancer screen [facility] Start: 10-09-2023 Diabetes screen Diabetes screen [facility] Comment on above: Postponed from 1997 (Not Indicated ) Start: 09-17-2023 Lipid screen Lipid screen [facility] [place], [place] Start: 09-10-2023 Depression Monitoring Depression Monitoring [facility] Start: 07-09-2023 Depression Monitoring Depression Monitoring [facility] Start: 06-07-2023 COVID-19 Vaccine (#1) COVID-19 Vaccine (#1) [facility] [employer] Comment on above: Postponed from 1962 (Patient Refus ed) Start: 06-07-2023 Influenza vaccination [facility] Comment on above: Postponed from 02/26/2022 (Patient Refus ed) Postponed from 02/26 (Patient Refused) Start: 05-13-2023 End: 05-13-2023 Patient encounter procedure [facility] Comment on above: 3 month Start: 04-25-2023 End: 04-25-2023 Patient encounter procedure 04/25/2023 11:15 AM EDT [facility]ment [facility] [address] [id number] Rylie Kendrick PTA Pool [facility] Comment on above: Pool Side Start: 04-25-2023 End: 04-25-2023 Patient encounter procedure [facility] Comment on above: Pool Side Start: 04-23-2023 End: 04-23-2023 Patient encounter procedure [facility] Comment on above: Pool Side Start: 04-18-2023 End: 04-18-2023 Patient encounter procedure [facility] Comment on above: Pool Side Start: 04-15-2023 End: 04-15-2023 Patient encounter procedure [facility] Start: 04-11-2023 End: 04-11-2023 Patient encounter procedure 04/11/2023 Appointment Physical Therapy Rylie Kendrick [facility] Start: 04-09-2023 End: 04-09-2023 Patient encounter procedure 04/09/2023 Appointment Physical Therapy Rylie Kendrick PTA [facility] Start: 04-09-2023 End: 04-09-2023 Admission to same day surgery center 04/09/2023 Surgery IP Unit Brianda Godfrey MD [address] [place] [id number] EGD ESOPHAGOGASTRODUODENOSCOPY-WI TH BIOPSIES [facility] Comment on above: EGD ESOPHAGOGASTRODUODENOSCOPY-WITH BIOP SIES Start: 04-09-2023 End: 04-09-2023 Esophagogastroduodenoscopy transoral diagnostic EGD ESOPHAGOGASTRODUODENOSCOPY Dysphagia, unspecified type 04/09/2023 1:35 PM EDT [facility] Start: 04-09-2023 Subsequent hospital visit by physician [facility] OR Comment on above: Preop testing (Primary Dx) Start: 04-04-2023 End: 04-04-2023 Patient encounter procedure 04/04/2023 Office Visit Primary Care Jazmín Castañeda, [place] - PHP PROGRAMMER [address] [place] [address] [facility] Start: 04-04-2023 End: 04-04-2023 Patient encounter procedure [facility] Occupational Therapy Start: 04-03-2023 End: 04-03-2023 Patient encounter procedure 04/03/2023 Appointment Occupational Therapy Juanita Mancilla OTA [facility] Start: 04-02-2023 End: 04-02-2023 Patient encounter procedure [facility] Physica l Therapy Start: 04-02-2023 Subsequent hospital visit by physician 04/02/2023 Hospital Encounter Physical Therapy Rylie Kendrick PTA [facility] Start: 03-29-2023 Depression Monitoring Depression Monitoring [facility] Start: 03-28-2023 End: 03-28-2023 Patient encounter procedure [facility] Occupational Therapy Start: 03-07-2023 Depression Monitoring Depression Monitoring [facility] Start: 03-07-2023 DTaP/Tdap/Td vaccine (1 - Tdap) DTaP/Tdap/Td vaccine (1 - Tdap) [facility] Comment on above: Postponed from 1981 (Patient Refus ed) Start: 03-07-2023 Hepatitis C screening Hepatitis C screen [facility] Comment on above: Postponed from 01/10/1980 (Patient Refus ed) Start: 03-07-2023 HIV screening HIV screen [facility] [facility] Comment on above: Postponed from 1977 (Patient Refus ed) Start: 03-07-2023 Shingles vaccine (1 of 2) Shingles vaccine (1 of 2) [facility] Comment on above: Postponed from 01/10/2012 (Patient Refus ed) Start: 03-04-2023 End: 03-04-2023 Patient encounter procedure 03/04/2023 Office Visit Gastroenterology Evita Leon, TEST BORER - PHP PROGRAMMER [address] [facility] [address] [place] [address] [facility] GI Part [facility] Start: 02-28-2023 End: 02-28-2023 Patient encounter procedure [facility] Occupational Therapy Start: 02-26-2023 Influenza vaccination Flu vaccine (#1) [facility] Start: 02-26-2023 Lipid panel Lipids [facility] Start: 02-26-2023 End: 02-26-2023 Patient encounter procedure [facility] Occupational Therapy Start: 02-21-2023 End: 02-21-2023 Patient encounter procedure [facility] NEUROLOGY Part [facility] Start: 02-19-2023 End: 02-19-2023 Patient encounter procedure [facility] Start: 02-14-2023 End: 02-14-2023 Patient encounter procedure [facility] Start: 02-12-2023 End: 02-12-2023 Patient encounter procedure [facility] Start: 02-11-2023 End: 02-11-2023 Patient encounter procedure 02/11/2023 Office Visit Neurology Dale Samayoa MD 27 [facility] [address] [place] [address] [facility] NEUROLOGY [facility] Start: 02-07-2023 Subsequent hospital visit by physician 02/07/2023 Hospital Encounter Physical Therapy Rylie Kendrick PTA [facility] Physical Therapy Start: 02-07-2023 End: 02-07-2023 Patient encounter procedure [facility] Start: 02-05-2023 End: 02-05-2023 Patient encounter procedure [facility] Occupational Therapy Start: 02-04-2023 End: 02-04-2023 Patient encounter procedure 02/04/2023 Appointment Radiology Radiologist, [facility] Start: 01-31-2023 End: 01-31-2023 Patient encounter procedure [facility] Physica l Therapy Start: 01-30-2023 End: 01-30-2023 Patient encounter procedure 01/30/2023 Appointment Occupational Therapy Anisha Vidal OTR/L [facility] Occupational Therapy Start: 01-28-2023 End: 01-28-2023 Patient encounter procedure [facility] MRI Start: 01-24-2023 End: 01-24-2023 Patient encounter procedure [facility] Occupational Therapy Start: 12-27-2022 End: 12-27-2022 Patient encounter procedure 12/27/2022 Office Visit Neurology Dale Samayoa MD [address] [facility] [address] [place] [id number] [facility] NEUROLOGY [facility] Start: 12-18-2022 End: 12-18-2022 Patient encounter procedure 12/18/2022 Office Visit Gastroenterology Brianda Godfrey MD [address] [place] [address] [place] [address] [facility] GI [facility] Start: 11-30-2022 Depression Monitoring Depression Monitoring [facility] Start: 11-09-2022 Depression Monitoring Depression Monitoring [facility] Start: 11-09-2022 Pneumococcal 0-64 years Vaccine (2 - PCV) Pneumococcal 0-64 years Vaccine (2 - PCV) [facility] Comment on above: Postponed from 01/20/2021 (Patient Refus ed) Start: 11-08-2022 End: 11-08-2022 Patient encounter procedure 11/08/2022 Office Visit Primary Care Jazmín Castañeda TEST BORER - PHP PROGRAMMER [address] [place] [address] [facility] Start: 11-08-2022 End: 11-08-2022 Patient encounter procedure 11/08/2022 Office Visit Neurology Dale Samayoa MD [address] [facility] [address] [place] [address] [facility] NEUROLOGY [facility] Start: 10-30-2022 Creatinine measurement [facility] Start: 10-30-2022 Potassium [Moles/volume] in Serum or Plasma Potassium [facility] Start: 10-30-2022 Potassium monitoring Potassium monitoring [facility] Start: 10-08-2022 End: 10-08-2022 Patient encounter procedure 10/08/2022 Office Visit Primary Care Jazmín Castañeda, TEST BORER - PHP PROGRAMMER [address] [place] [address] [facility] Start: 10-01-2022 End: 10-01-2022 Patient encounter procedure 10/01/2022 Office Visit Gastroenterology Brianda Godfrey MD [address] [place] [address] [facility] Start: 09-17-2022 Subsequent hospital visit by physician 09/17/2022 Hospital Encounter Lab [facility] Start: 09-13-2022 End: 09-13-2022 Patient encounter procedure 09/13/2022 Office Visit Neurology Dale Samayoa MD [address] [place] [address] [facility] NEUROLOGY Part [facility] Start: 09-10-2022 End: 09-10-2022 Patient encounter procedure 09/10/2022 Office Visit Primary Care Jazmín Castañeda, TEST BORER - PHP PROGRAMMER [address] [place] [facility] [address] [facility] Start: 09-07-2022 Depression Monitoring Depression Monitoring [facility] Start: 06-07-2022 End: 06-07-2022 Patient encounter procedure 06/07/2022 Office Visit Primary Care Jazmín Castañeda TEST BORER - PHP PROGRAMMER [address] [place] [facility] [place] [address] [facility] Start: 05-11-2022 COVID-19 Vaccine (#1) COVID-19 Vaccine (#1) [facility] Comment on above: Postponed from 1962 (Patient Refus ed) Start: 05-11-2022 COVID-19 Vaccine (1) COVID-19 Vaccine (1) [facility] Comment on above: Postponed from 1967 (Patient Refus ed) Start: 03-29-2022 Influenza vaccination [facility] Start: 03-15-2022 End: 03-15-2022 Patient encounter procedure 03/15/2022 Appointment Physical Therapy Estuardo Diamond, PT [facility] Start: 03-14-2022 End: 03-14-2022 Patient encounter procedure 03/14/2022 Appointment Physical Therapy Shania Wyatt, ATA [facility] Start: 03-12-2022 End: 03-12-2022 Patient encounter procedure 03/12/2022 Appointment Physical Therapy Shania Wyatt PTA [facility] Start: 03-08-2022 End: 03-08-2022 Patient encounter procedure 03/08/2022 Appointment Physical Therapy Estuardo Diamond, PT [facility] Start: 03-07-2022 End: 03-07-2022 Patient encounter procedure 03/07/2022 Office Visit Primary Care Jazmín Castañeda, TEST BORER - PHP PROGRAMMER [address] [place] [facility] [place] [address] [facility] Start: 03-05-2022 End: 03-05-2022 Patient encounter procedure 03/05/2022 Appointment Physical Therapy Shania Wyatt PTA [facility] Start: 03-05-2022 End: 03-05-2022 Patient encounter procedure 03/05/2022 Office Visit Primary Care Jazmín Castañeda, TEST BORER - PHP PROGRAMMER [address] [place] [address] [facility] Start: 03-02-2022 End: 03-02-2022 Patient encounter procedure 03/02/2022 Appointment Physical Therapy Estuardo Diamond PT [facility] Start: 02-26-2022 End: 02-26-2022 Patient encounter procedure 02/26/2022 Appointment Physical Therapy Shania Wyatt PTA [facility] Start: 02-22-2022 End: 02-22-2022 Patient encounter procedure [facility] Start: 02-19-2022 End: 02-19-2022 Patient encounter procedure 02/19/2022 Appointment Physical Therapy Shania Wyatt PTA [facility] Start: 02-15-2022 Creatinine measurement Creatinine monitoring [facility] Phone: Start: 02-15-2022 Potassium monitoring Potassium monitoring [facility] Phone: Start: 02-15-2022 End: 02-15-2022 Patient encounter procedure 02/15/2022 Appointment Physical Therapy Estuardo Diamond PT [facility] Start: 02-12-2022 End: 02-12-2022 Patient encounter procedure 02/12/2022 Appointment Physical Therapy Shania Wyatt PTA [facility] Start: 02-08-2022 End: 02-08-2022 Patient encounter procedure 02/08/2022 Appointment Physical Therapy Estuardo Diamond PT [facility] Start: 02-05-2022 End: 02-05-2022 Patient encounter procedure 02/05/2022 Appointment Physical Therapy Shania Wyatt PTA [facility] Start: 02-02-2022 End: 02-02-2022 Patient encounter procedure 02/02/2022 Appointment Physical Therapy Nataliia Tan, PT [facility] Physical Therapy Start: 02-01-2022 DTaP/Tdap/Td vaccine (1 - Tdap) DTaP/Tdap/Td vaccine (1 - Tdap) [facility] Comment on above: Postponed from 1981 (Patient Refus ed) Start: 02-01-2022 Hepatitis C screening Hepatitis C screen [facility] Comment on above: Postponed from 1962 (Patient Refus ed) Postponed from 01/09 (Patient Refused) Start: 02-01-2022 HIV screening HIV screen [facility] Comment on above: Postponed from 1977 (Patient Refus ed) Start: 02-01-2022 Screening for malignant neoplasm of cervix Cervical cancer screen [facility] Work Phone: Comment on above: Postponed from 09/04/2014 (Patient Refus ed) Start: 02-01-2022 Shingles Vaccine (1 of 2) Shingles Vaccine (1 of 2) [facility] Comment on above: Postponed from 01/10/2012 (Unavailable) Start: 01-31-2022 End: 01-31-2022 Patient encounter procedure 01/31/2022 Appointment Physical Therapy Shania Wyatt PTA [facility] Physical Therapy Start: 01-30-2022 Lipid panel [facility] Start: 01-24-2022 End: 01-24-2022 Patient encounter procedure 01/24/2022 Appointment Physical Therapy Nataliia Tan, SYDNEE [facility] Physical Therapy Start: 01-22-2022 End: 01-22-2022 Patient encounter procedure 01/22/2022 Appointment Physical Therapy Shania Wyatt PTA [facility] Start: 01-19-2022 End: 01-19-2022 Patient encounter procedure [facility] Physica l Therapy Start: 01-16-2022 End: 01-16-2022 Patient encounter procedure 01/16/2022 Appointment Physical Therapy Estuardo Diamond, PT [facility] Physical Therapy Start: 01-12-2022 End: 01-12-2022 Patient encounter procedure 01/12/2022 Appointment Physical Therapy Shania Wyatt PTA [facility] Physical Therapy Start: 01-08-2022 End: 01-08-2022 Patient encounter procedure 01/08/2022 Appointment Physical Therapy Nataliia Tan, PT [facility] Physical Therapy Start: 01-05-2022 End: 01-05-2022 Patient encounter procedure 01/05/2022 Appointment Physical Therapy Shania Wyatt, ATA [facility] Physical Therapy Start: 01-02-2022 End: 01-02-2022 Patient encounter procedure 01/02/2022 Appointment Physical Therapy Nataliia Tan, PT [facility] Physical Therapy Start: 12-28-2021 End: 12-28-2021 Patient encounter procedure 12/28/2021 Appointment Physical Therapy Estuardo Diamond, PT [facility] Physical Therapy Start: 12-26-2021 End: 12-26-2021 Patient encounter procedure 12/26/2021 Appointment Physical Therapy Juan Magallon PTA [facility] Physical Therapy Start: 12-22-2021 End: 12-22-2021 Patient encounter procedure 12/22/2021 Appointment Physical Therapy Shania Wyatt PTA [facility] Physical Therapy Start: 12-21-2021 End: 12-21-2021 Patient encounter procedure [facility] Physica l Therapy Start: 12-20-2021 Creatinine measurement Creatinine monitoring [facility] Phone: Start: 12-20-2021 Lipid panel Lipid screen [facility] Phone: Start: 12-20-2021 Potassium monitoring Potassium monitoring [facility] Phone: Start: 12-19-2021 End: 12-19-2021 Patient encounter procedure 12/19/2021 Appointment Physical Therapy Estuardo Diamond, PT [facility] Physical Therapy Start: 12-18-2021 End: 12-18-2021 Patient encounter procedure 12/18/2021 Appointment Physical Therapy Shania Wyatt PTA [facility] Physical Therapy Start: 12-15-2021 End: 12-15-2021 Patient encounter procedure [facility] Start: 12-14-2021 End: 12-14-2021 Patient encounter procedure 12/14/2021 Appointment Physical Therapy Estuardo Diamond, PT [facility] Physical Therapy Start: 12-12-2021 End: 12-12-2021 Patient encounter procedure [facility] Physica l Therapy Start: 12-12-2021 End: 12-12-2021 Patient encounter procedure 12/12/2021 Appointment Physical Therapy Juan Magallon, ATA [facility] Start: 12-11-2021 End: 12-11-2021 Patient encounter procedure 12/11/2021 Appointment Physical Therapy Shania Wyatt 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 [facility] Start: 12-08-2021 End: 12-08-2021 Patient encounter procedure [facility] Start: 12-07-2021 End: 12-07-2021 Patient encounter procedure 12/07/2021 Appointment Physical Therapy Queenie Giron, PT [facility] Start: 12-05-2021 End: 12-05-2021 Patient encounter procedure 12/05/2021 Appointment Physical Therapy Juan Magallon PTA [facility] Start: 12-01-2021 End: 12-01-2021 Patient encounter procedure 12/01/2021 Appointment Physical Therapy Queenie Giron, PT [facility] Start: 11-30-2021 End: 11-30-2021 Patient encounter procedure [facility] Physica l Therapy Start: 11-30-2021 Subsequent hospital visit by physician 11/30/2021 Hospital Encounter Physical Therapy Queenie Giron, PT [facility] Start: 11-28-2021 End: 11-28-2021 Patient encounter procedure 11/28/2021 Appointment Physical Therapy Queenie Giron PT [facility] Start: 11-23-2021 End: 11-23-2021 Patient encounter procedure 11/23/2021 Appointment Physical Therapy Queenie Giron PT [facility] Start: 11-21-2021 End: 11-21-2021 Patient encounter procedure 11/21/2021 Appointment Physical Therapy Queenie Giron, PT [facility] Start: 11-17-2021 End: 11-17-2021 Patient encounter procedure 11/17/2021 Appointment Physical Therapy Queenie Giron, PT [facility] Start: 11-14-2021 End: 11-14-2021 Patient encounter procedure 11/14/2021 Appointment Physical Therapy Juan Magallon PTA [facility] Start: 11-10-2021 End: 11-10-2021 Patient encounter procedure 11/10/2021 Appointment Physical Therapy Juan Magallon, ATA [facility] Start: 10-21-2021 COVID-19 Vaccine (1) COVID-19 Vaccine (1) [facility] Phone: Comment on above: Postponed from 1974 (Patient Refus ed) Start: 08-21-2021 End: 08-21-2021 Patient encounter procedure 08/21/2021 Office Visit Neurology Dale Samayoa MD [address] [facility] [address] [place] [address] [facility] NEUROLOG[facility] Start: 08-04-2021 Influenza vaccination [place], [place] Comment on above: Postponed from 03/29/2020 (Patient Refus ed) Postponed from 03/29 (Patient Refused) Start: 07-20-2021 Creatinine measurement Creatinine monitoring [place], [place] Start: 07-20-2021 Potassium monitoring Potassium monitoring [place] Start: 03-29-2021 Influenza vaccination Flu vaccine (#1) [facility] Phone: Start: 03-07-2021 End: 03-07-2021 Evaluation and management of inpatient 03/07/2021 Office Visit Primary Care Deats, Berhane Siddiqi, TEST BORER - PHP PROGRAMMER [address] [place] [address] [facility]In Care Start: 02-16-2021 End: 02-16-2021 Patient encounter procedure 02/16/2021 Office Visit Neurology Dale Samayoa MD [address] [place] [address] [facility]OLOG[facility] Start: 02-15-2021 End: 02-15-2021 Patient encounter procedure 02/15/2021 Appointment Radiology [facility] MRI Start: 02-09-2021 End: 02-09-2021 Admission to same day surgery center 02/09/2021 Surgery IP Unit Jeffrey Segovia, DPM [address] [place] [address] [phone] FOOT LESION BIOPSY EXCISION FIBROMA [facility] Comment on above: FOOT LESION BIOPSY EXCISION FIBROMA Start: 02-09-2021 Subsequent hospital visit by physician 02/09/2021 Hospital Encounter IP Unit Jeffrey Segovia, DPM [address] [place] [address] [phone] [facility] Start: 02-02-2021 End: 02-02-2021 Patient encounter procedure 02/02/2021 Appointment Pre-Admission Testing [facility] PRE ADMIT Start: 02-01-2021 End: 02-01-2021 Office Visit 02/01/2021 Office Visit Primary Care Deats, Berhane Siddiqi, TEST BORER - PHP PROGRAMMER [address] [place] [address] [phone] [facility] Start: 01-23-2021 Breast cancer screen Breast cancer screen [place], [place] Start: 01-23-2021 Screening for malignant neoplasm of breast Breast cancer screen [place] Start: 01-20-2021 Pneumococcal 0-64 years Vaccine (2 - PCV) Pneumococcal 0-64 years Vaccine (2 - PCV) [facility] Start: 01-11-2021 DTaP/Tdap/Td vaccine (1 - Tdap) DTaP/Tdap/Td vaccine (1 - Tdap) [place] Comment on above: Postponed from 1981 (Patient Refus ed) Start: 01-11-2021 Hepatitis C screening Hepatitis C screen [place] Comment on above: Postponed from 1962 (Patient Refus ed) Start: 01-11-2021 HIV screening HIV screen [place] Comment on above: Postponed from 1977 (Patient Refus ed) Start: 01-11-2021 Screening for malignant neoplasm of cervix Cervical cancer screen [place] Comment on above: Postponed from 09/04/2014 (Patient Refus ed) Start: 01-11-2021 Shingles Vaccine (1 of 2) Shingles Vaccine (1 of 2) [facility] Comment on above: Postponed from 01/10/2012 (Patient Refus ed) Start: 10-15-2020 Creatinine [facility] Start: 10-15-2020 Creatinine monitoring [facility] Start: 10-15-2020 Lipid panel [facility] screen [facility] Start: 10-15-2020 Potassium monitoring [facility]assium monitoring [facility] Start: 08-04-2020 End: 08-04-2020 Office Visit 08/04/2020 Office Visit Primary Care Berhane Braden, TEST BORER - PHP PROGRAMMER [address] [place] [address] [phone] [facility] Start: 07-28-2020 End: 07-28-2020 Hospital Encounter [facility] Comment on above: FOOT LESION BIOPSY EXCISION-SOFT TISSUE MASS Start: 07-26-2020 End: 07-26-2020 Office Visit 07/26/2020 Office Visit Primary Care Berhane Braden, TEST BORER - PHP PROGRAMMER [address] [place] [address] [phone] [facility] [facility] Start: 04-19-2020 End: 04-19-2020 Hospital Encounter [facility] Comment on above: COLORECTAL CANCER SCREENING, HIGH RISK Start: 03-29-2020 [facility] Start: 03-11-2020 End: 03-11-2020 Office Visit 03/11/2020 Office Visit Primary Care Case Paul, TEST BORER - PHP PROGRAMMER [address] [place] [address] [phone] [facility] Start: 02-15-2020 End: 02-15-2020 Office Visit 02/15/2020 Office Visit Primary Care Case Paul TEST BORER - PHP PROGRAMMER [address] [place] [address] [phone] [facility] Start: 02-02-2020 End: 02-02-2020 Office Visit 02/02/2020 Office Visit Gastroenterology Mario Santiago MD [address] [place] [address] [phone] [facility] Start: 01-26-2020 End: 01-26-2020 Office Visit 01/26/2020 Office Visit Gastroenterology Mario Santiago MD [address] [place] [address] [phone] [facility] Start: 01-21-2020 End: 01-21-2020 Office Visit 01/21/2020 Office Visit Primary Care Case Paul, TEST BORER - PHP PROGRAMMER [address] [place] [address] [phone] [facility] Start: 01-13-2020 End: 01-13-2020 Office Visit [facility] Start: 01-08-2020 Pneumococcal 0-64 years Vaccine (1 of 1 - PPSV23) Pneumococcal 0-64 years Vaccine (1 of 1 - PPSV23) [place], [place] Comment on above: Postponed from 01/10/1968 (Patient Refus ed) Start: 10-27-2019 End: 10-27-2019 Nurse Only 10/27/2019 Nurse Only Primar y Care Case Paul, TEST BORER - PHP PROGRAMMER [address] [place] [address] [phone] [facility] Start: 10-23-2019 Colon cancer screen colonoscopy Colon cancer screen colonoscopy [facility] [place] Start: 10-23-2019 Screening for malignant neoplasm of colon Colon cancer screen colonoscopy [facility] Start: 10-08-2019 End: 10-08-2019 Office Visit 10/08/2019 Office Visit Primary Care Berhane Braden, TEST BORER - PHP PROGRAMMER [address] [place] [address] [phone] [facility] Start: 09-17-2019 Cervical cancer screen Cervical cancer screen [place], [place] Comment on above: Postponed from 09/04/2014 (Patient Refus ed) Start: 09-17-2019 Creatinine monitoring Creatinine monitoring [place], [place] Start: 09-17-2019 DTaP/Tdap/Td vaccine (1 - Tdap) DTaP/Tdap/Td vaccine (1 - Tdap) [place] Comment on above: Postponed from 1981 (Patient Refus ed) Postponed from 01/09 (Patient Refused) Start: 09-17-2019 Hepatitis C screen Hepatitis C screen [place] Comment on above: Postponed from 1962 (Patient Refus ed) Start: 09-17-2019 HIV screen HIV screen [place] Comment on above: Postponed from 1977 (Patient Refus ed) Start: 09-17-2019 Potassium monitoring Potassium monitoring [place] Start: 09-17-2019 Shingles Vaccine (1 of 2) Shingles Vaccine (1 of 2) [place], [place] Comment on above: Postponed from 01/10/2012 (Patient Refus ed) Start: 05-17-2019 Influenza vaccination Flu vaccine (#1) [place] Comment on above: Postponed from 03/29/2019 (Unavailable) Start: 04-24-2019 End: 04-24-2019 Nurse Only 04/24/2019 Nurse Only Primar Care Deats, Berhane Siddiqi, TEST BORER - PHP PROGRAMMER [address] [place] [address] [phone] [facility] Start: 04-22-2019 End: 04-22-2019 Appointment 04/22/2019 Appointment Physical Therapy [facility] Start: 04-17-2019 End: 04-17-2019 Appointment 04/17/2019 Appointment Physical Therapy Juan Magallon PTA [facility] Start: 04-16-2019 End: 04-16-2019 Appointment 04/16/2019 Appointment Physical Therapy Nicholas Bon[facility] Start: 04-14-2019 End: 04-14-2019 Appointment 04/14/2019 Appointment Physical Therapy Juan Magallon PTA [facility] Physical Therapy Start: 04-10-2019 End: 04-10-2019 Appointment [facility] Physical Therapy Start: 04-09-2019 End: 04-09-2019 Office Visit [facility] Start: 04-07-2019 End: 04-07-2019 Appointment 04/07/2019 Appointment Physical Therapy Juan Magallon PTA [facility] Physical Therapy Start: 04-03-2019 Hospital Encounter 04/03/2019 Hospital [facility] Physical Therapy Andra Caballero PTA [facility] Physical Therapy Start: 04-02-2019 End: 04-02-2019 Appointment 04/02/2019 Appointment Physical Therapy Waleska Jacobo [facility] Physical Therapy Start: 03-29-2019 Influenza vaccination Flu [facility] (#1) [facility] Phone: Start: 09-04-2014 Cervical cancer screen Cervical cancer screen [place], [place] Start: 09-04-2014 Screening for malignant neoplasm of cervix Cervical cancer screen [place] Start: 01-10-2012 Shingles Vaccine (1 of 2) Shingles Vaccine (1 of 2) [facility] [employer] Start: 2007 Screening for malignant neoplasm of colon [facility] Start: 1997 Diabetes screen Diabetes screen [facility] [employer] Start: 1981 DTaP/Tdap/Td vaccine (1 - Tdap) DTaP/Tdap/Td vaccine (1 - Tdap) [facility] [employer] Start: 01-10-1980 Hepatitis C screening [facility]atitis C screen [facility] Start: 1978 COVID-19 Vaccine (1) COVID-19 Vaccine (1) [employer] Phone: Start: 1977 HIV screen HIV screen [facility] [employer] [place], [place] Start: 1977 HIV screening HIV screen [facility] [employer] Start: 1967 COVID-19 Vaccine (1) COVID-19 Vaccine (1) [employer] Start: 1962 Hepatitis C screen Hepatitis C screen [place], [place] Start: 1962 Hepatitis C screening Hepatitis C screen [place] End: 10-16-2019 Baseline Diagnostic Sleep Study Baseline Diagnostic Sleep Study Sleep Center Routine Hypersomnia 1 Occurrences starting 10/16/2019 until 10/16/2019 [place] Comment on above: 1 Occurrences starting 10/16/2019 until 10/16/2019 End: 09-13-2022 Basic Metabolic Panel w/ Reflex to MG Basic Metabolic Panel w/ Reflex to MG Lab Routine Tomorrow AM for 1 Occurrences starting 09/13/2022 until 09/13/2022 [employer] Phone: Comment on above: Tomorrow AM for 1 Occurrences starting 0 09/13/2022 until 09/13/2022 End: 09-13-2022 CBC W Auto Differential panel - Blood CBC with Auto Differential Lab Routine Tomorrow AM for 1 Occurrences starting 09/13/2022 until 09/13/2022 [employer] Phone: Comment on above: Tomorrow AM for 1 Occurrences starting 0 09/13/2022 until 09/13/2022 End: 04-20-2022 COVID-19 [employer] Phone: Comment on above: Once for 1 Occurrences starting 04/20/20 until 04/20/2022 End: 12-03-2019 COVID-19 Ambulatory COVID-19 Ambulatory Lab Routine Viral gastroenteritis 1 Occurrences starting 12/03/2019 until 12/03/2019 [place] Comment on above: 1 Occurrences starting 12/03/2019 until 12/03/2019 COVID-19 Ambulatory [place], [place] End: 01-05-2020 COVID-19 Ambulatory COVID-19 Ambulatory Lab Routine Suspected Covid-19 Virus Infection 1 Occurrences starting 01/05/2020 until 01/05/2020 [place] Comment on above: 1 Occurrences starting 01/05/2020 until 01/05/2020 End: 02-12-2020 Covid-19 Ambulatory Covid-19 Ambulatory Lab Routine Once for 1 Occurrences starting 02/12/2020 until 02/12/2020 [place] Comment on above: Once for 1 Occurrences starting 02/12/20 20 until 02/12/2020 EEG REPORT EEG REPORT Neuro logy 09/12/2022 5:58 PM EST [employer] Work Phone: EKG 12 Lead EKG 12 Lead ECG STAT 09/11/2022 7:53 PM EST [facility] Work Phone: End: 09-12-2022 Initiate RT Protocol Initiate RT Protocol Respiratory Care Routine Continuous until discontinued starting 09/12/2022 [facility] [employer] Phone: Comment on above: Continuous until discontinued starting 0 09/12/2022 Oxygen therapy [[facility] Data Set] Initiate Oxygen Therapy Protocol Respiratory Care Routine Daily until discontinued starting 08/19/2020 [facility] [place] Comment on above: Daily until discontinued starting 2020 Oxygen therapy [[facility] Data Set] Initiate Oxygen Therapy Protocol Respiratory Care Routine As Needed until discontinued starting 09/12/2022 [facility] [employer] Phone: Comment on above: As Needed until discontinued starting Phase I & II - metered glucose P hase I & II - metered glucose Point of Care Testing Routine As Needed until discontinued starting 08/19/2020 [facility] Comment on above: As Needed until discontinued starting Surgical Pathology [facility] [place] Comment on above: Release Upon Ordering for 1 Occurrences starting 04/19/2020 Release Upon Orderin g for 1 Occurrences starting 08/19/2020 Immunizations Immunization Date Immunization Notes Care Provider Toya lorenz 10-08-2022 zoster recombinant adjuvanted vaccine (SHINGRIX) 50 MCG/0.5ML SUSR injection Jazmín Castañeda TEST BORER - PHP PROGRAMMER Work Phone: [facility] [employer] Work Phone: 01-21-2020 pneumococcal polysaccharide vaccine, 23 valent Case [facility] Payers Date Payer Category Payer Unknown 2019 Unknown GENERIC [employer] xxxxxxxxx 2019-Present [address] [place] [address] xxxxxxxxx [id number]. [id number] 2019 Unknown GENERIC [employer] WC xxxxxxxx 2019-Present [address] [place] [address] xxxxxxxx [id number]. [id number] 2016 Private Health Insurance A[employer] A ETNA xxxxxxxxxx 2016-Present [phone] [address] [place] [address] xxxxxxxxxx [id number]. [id number] 2016 Private Health Insurance [employer] A ETNA [id number] 2016-Present [phone] [address] [place] [address] [id number] 1.2.840.593758.1.13.239.2. 7.3.392798.315 2016 Private Health Insurance [id number] 1.2.840.938021.1.13.239.2. 7.3.221598.315 1962 Unknown [id number] 2.16.840.1.952222.3.579.2. 593 1962 Unknown [id number] 2.16.840.1.824257.3.579.2. 593 1962 Unknown [id number] 2.16.840.1.375467.3.579.2. 593 1962 Unknown [id number] 2.16.840.1.121714.3.579.2. 593 1962 Unknown [id number] 2.16.840.1.764620.3.579.2. 593 1962 Unknown [id number] 2.16.840.1.872002.3.579.2. 593 1962 Unknown [id number] 2.16.840.1.511003.3.579.2. 593 1962 Unknown [id number] 2.16.840.1.100390.3.579.2. 593 1962 Unknown [id number] 2.16.840.1.269569.3.579.2. 593 1962 Unknown [id number] 2.16.840.1.564799.3.579.2. 593 1962 Unknown [id number] 2.16.840.1.179454.3.579.2. 593 1962 Unknown [id number] 2.16.840.1.591149.3.579.2. 593 1962 Unknown [id number] 2.16.840.1.566103.3.579.2. 593 1962 Unknown [id number] 2.16.840.1.732901.3.579.2. 196 1962 Unknown [id number] 2.16.840.1.532038.3.579.2. 196 1962 Unknown [id number] 2.16.840.1.226230.3.579.2. 196 1962 Unknown [id number] 2.16.840.1.746526.3.579.2. 196 1962 Unknown [id number] 2.16.840.1.511720.3.579.2. 196 1962 Unknown [id number] 2.16.840.1.326010.3.579.2. 196 1962 Unknown [id number] 2.16.840.1.468603.3.579.2. 196 1962 Unknown [id number] 2.16.840.1.112783.3.579.2. 196 1962 Unknown [id number] 2.16.840.1.379594.3.579.2. 175 1962 Unknown [id number] 2.16.840.1.072094.3.579.2. 173 1962 Unknown [id number] 2.16.840.1.094199.3.579.2. 1962 Unknown [id number] 2.16.840.1.584210.3.579.2. 1962 Unknown [id number] 2.16.840.1.192043.3.579.2. 173 1962 Unknown [id number] 2.16.840.1.660299.3.579.2. 1962 Unknown [id number] 2.16.840.1.686154.3.579.2. 1962 Unknown [id number] 2.16.840.1.576545.3.579.2. 1962 Unknown [id number] 2.16.840.1.766963.3.579.2. 1962 Unknown [id number] 2.16.840.1.911306.3.579.2. 1962 Unknown [id number] 2.16.840.1.135590.3.579.2. 1962 Unknown [id number] 2.16.840.1.594065.3.579.2. 1962 Unknown [id number] 2.16.840.1.117761.3.579.2. 1962 Unknown [id number] 2.16.840.1.253966.3.579.2. 1962 Unknown [id number] 2.16.840.1.869496.3.579.2. 1962 Unknown [id number] 2.16.840.1.042733.3.579.2. 1962 Unknown [id number] 2.16.840.1.013728.3.579.2. 1962 Unknown [id number] 2.16.840.1.444052.3.579.2. 173 1962 Unknown [id number] 2.16.840.1.985625.3.579.2. 1962 Unknown [id number] 2.16.840.1.881009.3.579.2. 1962 Unknown [id number] 2.16.840.1.678978.3.579.2. 1962 Unknown [id number] 2.16.840.1.428376.3.579.2. 1962 Unknown [id number] 2.16.840.1.608329.3.579.2. 1962 Unknown [id number] 2.16.840.1.267758.3.579.2. 1962 Unknown [id number] 2.16.840.1.090867.3.579.2. 1962 Unknown [id number] 2.16.840.1.288773.3.579.2. 1962 Unknown [id number] 2.16.840.1.829399.3.579.2. 1962 Unknown [id number] 2.16.840.1.853351.3.579.2. 1962 Unknown [id number] 2.16.840.1.450168.3.579.2. 1962 Unknown [id number] 2.16.840.1.987980.3.579.2. 1962 Unknown [id number] 2.16.840.1.483701.3.579.2. 1962 Unknown [id number] 2.16.840.1.513823.3.579.2. 1962 Unknown [id number] 2.16.840.1.682309.3.579.2. 173 1962 Unknown [id number] 2.16.840.1.155169.3.579.2. 173 1962 Unknown [id number] 2.16.840.1.586649.3.579.2. 1962 Unknown [id number] 2.16.840.1.391128.3.579.2. 173 1962 Unknown [id number] 2.16.840.1.504195.3.579.2. 1962 Unknown [id number] 2.16.840.1.993977.3.579.2. 173 1962 Unknown [id number] 2.16.840.1.332093.3.579.2. 1962 Unknown [id number] 2.16.840.1.429541.3.579.2. 1962 Unknown [id number] 2.16.840.1.111415.3.579.2. 1962 Unknown [id number] 2.16.840.1.336152.3.579.2. 1962 Unknown [id number] 2.16.840.1.361044.3.579.2. 1962 Unknown [id number] 2.16.840.1.798801.3.579.2. 173 1962 Unknown [id number] 2.16.840.1.967010.3.579.2. 1962 Unknown [id number] 2.16.840.1.810957.3.579.2. 1962 Unknown [id number] 2.16.840.1.579132.3.579.2. 1962 Unknown [id number] 2.16.840.1.682777.3.579.2. 1962 Unknown [id number] 2.16.840.1.500833.3.579.2. 173 1962 Unknown [id number] 2.16.840.1.427794.3.579.2. 173 1962 Unknown [id number] 2.16.840.1.387744.3.579.2. 173 1962 Unknown [id number] 2.16.840.1.434817.3.579.2. 173 1959 Unknown [id number] 1.2.840.329153.1.13.239.2. 7.3.835818.315 Social History Date Type Detail Facility Start: 01-21-2019 End: 02-22-2022 Tobacco smoking status MNIS Current every day smoker [facility] History of tobacco use Cigarette Smoker [place] Start: 01-21-2019 End: 09-10-2022 Cigarettes smoked current (pack per day) - Reported [employer] [facility] [employer] Start: 01-21-2019 End: 09-10-2022 [facility] Start: 03-03-2012 Alcohol Comment a 6 pack a week [place], [place] Start: 1960 Sex Assigned At Not on file [place] Start: 12-03-2019 End: 04-15-2023 Alcohol intake Current drinker of alcohol (finding) [place], [place] Exposure to SARS-CoV -2 (event) Unable to assess [place] Start: 02-12-2020 End: 02-22-2022 Tobacco use and exposure Never used [facility] Start: 02-12-2022 End: 10-20-2022 Exposure to SARS-CoV-2 (event) Not sure [place] Start: 12-20-2020 End: 09-10-2022 History SDOH Financial 5 [employer] Work Phone: Start: 12-20-2020 End: 09-10-2022 History SDOH Food Worry 1 [employer] Phone: Start: 09-10-2022 History SDOH Transpo rt Non-Med 2 [facility] Work Phone: How often to you hav e a drink containing alcohol? Never [facility] Average Number of Drinks Not on file [facility] (I/We) worried jaz er (my/our) food would run out before (I/we) got money to buy more. Never true [facility] At any time in the p ast 12 months, were you homeless or living in [facility] [including now]? No [facility] Goals Date Patient Goal Desired Activity /State Personal health goal Clinical Notes 02-02-2021 to 04-18-2023 Juanita Mancilla DISTRIBUTION ENGINEER - 04/18/2023 12:00 PM Rudy Kendrick, ATA - 04/15/2023 3:00 PM EDTSally Barrera, 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 - 04/11/2023 1:30 PM Rudy Kendrick, 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 - 03/28/2023 2:15 PM EDTDischarge Instructions Note Date & Type Note Facility 04-18-2023 History of Presen t illness Narrative Occupational Therapy [facility] Inpatient/Observation/Outpatien t Rehabilitation Date: 04/18/2023 Patient Name: Tiffany Gonzalez [] Inpatient Acute/Observation [x] Outpatient : 1960 [] Pt no showed for scheduled appointment [] Pt refused/declined therapy at this time due to: [x] Pt cancelled due to: [] No Reason Given [] Sick/ill [x] Other: Pt is taking care of her father and something came up. LUCRECIA Davis Date: 04/18/2023 documented in this encounter [facility] 04-15-2023 History of Presen t illness Narrative [facility] Outpatient Physical Therapy Daily Note Patient: Tiffany Gonzalez : 1960 CSN #: [id number] Referring Physician: Jazmín Castañeda, [place]* Date: 04/15/2023 Diagnosis: M17.12 - Primary Localized OA of L knee, M54.50 Lumbago Treatment Diagnosis: L Knee Pain Onset Date: 01/08/23 PT Insurance Information: [facility] Total # of Visits Approved: 20 Per Physician Order Total # of Visits to Date: 11 No Show: 4 Canceled Appointment: 3 05/03/23 Plan of Care/Recert Due Pre-Treatment Pain: 8/10 Subjective: pt reports 8/10 LBP and L knee pain prior to treatment. pt reports the back of her knee's are bothering her most today. Exercises: Exercise 1: HEP: Tandem Stance, Sit-Stands, Knee RoM Stretching Exercise 9: aq: offloaded envoirnment to reduce compressive forces Exercise 10: aq: shallow walking 3 laps; retro walking 3 laps; lateral 3 laps Exercise 11: aq: heel raises, HS curls x15 ea, resisted hip abd and marches x 15 Exercise 12: aq: shallow squats x15, lunges x15 Exercise 13: aq: semi deep step ups fwd/lat x15 and step down x 15--just step ups this date Exercise 14: aq: shallow TKE x15 Exercise 15: aq: seated LAQ x15, STS x 10, bike seated 2 minutes fwd and bwd--just bike 3 minutes fwd this date Exercise 16: aq: Shallow lunge walk x 2 laps, march walk 2 laps Exercise 17: aq: HS stretch 30 x 3 B LE Exercise 18: aq: Shallow hip circles CW and CCW x 10 each Exercise 19: aq: rows/ext PTB x 10 each, lateral step out with BTB x10 each Exercise 20: aq: Shallow 90/90 with green handbells x 10 each Assessment Assessment: MMT B LE hip flexion and quads 4/5. hip add, hip abd and HS 4-/5. Continued to progress aquatics in offloaded enviornment as tolerated. pt reporting fatigue following tx, and an increase in pain to 9/10. Will continue to progress as tolerated. Activity Tolerance Activity Tolerance: Patient tolerated treatment well Patient Education Patient Education: Exercise progression rationale and technique. Pt verbalized/demonstrated good understanding: [x] Yes [] No, pt required further clarification. Post Treatment Pain: 9/10 Plan Plan Frequency: 2x/week Plan weeks: 6 weeks Goals (Total # of Visits to Date: 11) Short Term Goals Time Frame for Short Term Goals: 3 weeks Short Term Goal 1: Pt to initiate HEP -MET Short Term Goal 2: Pt to not exceed 8/10 pain to improve functional capacity for ADLs -not met Short Term Goal 3: Pt to initiate aquatic therapy session with no adverse response or signficant increase in symptoms. -MET Senior Care Goals Time Frame for Rail Operator Goals : 6 weeks Rail Operator Goal 1: Pt to be comfortable and confident with HEP and aquatic therapy Senior Care Goal 2: Pt to not exceed 4/10 pain to improve functional capacity for ADLs. Rail Operator Goal 3: Pt to demonstrate 0-115 degrees AROM of L knee to normalize gait and stair navigation Rail Operator Goal 4: Pt to demonstrate >/= 4/5 BLE strength to improve dynamic stability and safety of gait and community ambulation. Minutes Tracking: Time In: 1456 Time Out: 1538 Minutes: 42 Timed Code Treatment Minutes: 41 Minutes Rylie Kendrick, 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 [id number] Date: 04/15/2023 documented in this encounter [facility] 04-11-2023 History of Presen t illness Narrative [facility] Outpatient Physical Therapy Daily Note Patient: Tiffany Gonzalez : 1960 CSN #: [id number] Referring Physician: Jazmín Castañeda, [place]* Date: 04/11/2023 Diagnosis: M17.12 - Primary Localized OA of L knee, M54.50 Lumbago Treatment Diagnosis: L Knee Pain Onset Date: 01/08/23 PT Insurance Information: [facility] Total # of Visits Approved: 20 Per Physician Order Total # of Visits to Date: 10 No Show: 4 Canceled Appointment: 3 05/03/23 Plan of Care/Recert Due Pre-Treatment Pain: 7-9 Subjective: Pt reports 9/10 LBP and 7/10 L knee pain. Pt states she is doing ok other than the pain. Exercises: Exercise 9: aq: offloaded envoirnment to reduce compressive forces Exercise 10: aq: shallow walking 3 laps; retro walking 3 laps; lateral 3 laps Exercise 11: aq: heel raises, HS curls x15 ea, resisted hip abd and marches x 15 Exercise 12: aq: shallow squats x15, lunges x15 Exercise 13: aq: semi deep step ups fwd/lat x15 and step down x 15 Exercise 14: aq: shallow TKE x15 Exercise 15: aq: seated LAQ x15, STS x 10, bike seated 2 minutes fwd and bwd Exercise 16: aq: Shallow lunge walk x 2 laps, march walk 2 laps Exercise 17: aq: HS stretch 30 x 3 B LE Exercise 18: aq: Shallow hip circles CW and CCW x 10 each Exercise 19: aq: rows/ext PTB x 10 each, lateral step out with BTB x10 each Assessment Assessment: Pt continues to have moderate pain in L knee and LB. Pt reports average 8-9/10 LBP and 6-7/10 L knee pain over the past week. Progressed ther ex with lateral step outs with BTB, good tolerance. Progress as pt tolerates. Activity Tolerance Activity Tolerance: Patient tolerated treatment well Patient Education Patient Education: HEP Pt verbalized/demonstrated good understanding: [x] Yes [] No, pt required further clarification. Post Treatment Pain: 8-9/10 Plan Plan Frequency: 2x/week Plan weeks: 6 weeks Goals (Total # of Visits to Date: 10) Short Term Goals Time Frame for Short Term Goals: 3 weeks Short Term Goal 1: Pt to initiate HEP -MET Short Term Goal 2: Pt to not exceed 8/10 pain to improve functional capacity for ADLs -not met Short Term Goal 3: Pt to initiate aquatic therapy session with no adverse response or signficant increase in symptoms. -MET Senior Care Goals Time Frame for Senior Care Goals : 6 weeks Rail Operator Goal 1: Pt to be comfortable and confident with HEP and aquatic therapy Senior Care Goal 2: Pt to not exceed 4/10 pain to improve functional capacity for ADLs. Senior Care Goal 3: Pt to demonstrate 0-115 degrees AROM of L knee to normalize gait and stair navigation Rail Operator Goal 4: Pt to demonstrate >/= 4/5 BLE strength to improve dynamic stability and safety of gait and community ambulation. Minutes Tracking: Time In: 1312 Time Out: 1400 Minutes: 48 Sally Barrera, 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 Date: 04/11/2023 documented in this encounter [facility] 03-28-2023 History of Presen t illness Narrative [facility] Inpatient/Observation/Outpatien t Rehabilitation Date: 03/28/2023 Patient Name: Tiffany Gonzalez [] Inpatient Acute/Observation [x] Outpatient : 1960 [x] Pt no showed for scheduled appointment Patient no showed for both PT and PT appointments. MADRIGAL attempted to reach patient by phone to remind patient of next scheduled appointments, no answer. Voicemail left. Therapist/Cleaner Signs will attempt to see this patient, at our earliest opportunity. Rylie Kendrick, 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 [id number] Date: 03/28/2023 documented in this encounter [facility] 03-26-2023 History of Presen t illness Narrative [facility] Outpatient Occupational Therapy DAILY TREATMENT NOTE Date: 03/26/2023 Patient s Name: Tiffany Gonzalez Date of : 1960 (63 y.o.) Gender: female [facility] #: [id number] Medical Diagnosis: B hand pain - M79.641, M79.642 Referring Physician: Jazmín Castañeda APRN* INSURANCE OT Insurance Information: Kathi Total # of Visits to Date: 12 PAIN []No [x]Yes Location: R palm Pain Rating (0-10 pain scale): 5/10 Pain Description: SUBJECTIVE Patient states that she hasn't gotten a splint yet, but looking into it. Flow Sheet Exercise / Manual treatment Weight/ Level Reps/Time Comments Free weights SAROJ wrist x 3 planes to increase strength, initiated as HEP Putty B account strategist and pinches, initiated as HEP Flexbar Senath x20 Twist and bends to improve strength Power web Red x20 MP flexion and extension to improve strength Duckbill Yellow ball x20 Duckbill to improve intrinsic strength Brachial Plexus glides X3 each UE for improvement with numbness/tingling. Joint mobilizations distractions x x B wrist and digits for pain management PROM x x B wrist/digits gentle stretch Instrument assist massage x x R palm, thenar eminence to reduce pain Modality Flow Sheet: START STOP Tx Modality 15 minutes Electrical Stim: BUE IFC sweep at max tolerance for intensity along median nerve to reduce pain/numbness. Patient tolerated well c skin intact pre and post treatment. With HP for comfort. NO! Pt does not tolerate! Ultrasound: __x1.2 W/cm2 x __8_ mins Duty factor: _x_100% __50% __20% __10% Head size: MHz: __1mHz __2 mHz _x_3mHz Location: SAROJ thumbs to reduce pain and swelling. Pt tolerated well with skin intact pre and post. 10 minutes Hot Pack: 10 minutes R hand for pain. Combined with paraffin. Patient tolerated well c skin intact pre and post treatment. 10 minutes Paraffin:10 minutes R hand for pain. Combined with HP. Patient tolerated well c skin intact pre and post treatment. Cold Pack: Dry Needling: ___ needle to superficial radial, deep radial and lataeral antebrachial cutaneous at homeostatic neuro- trigger points to... ___No manipulation/static ___Basic Manipulation ___Pistoning Manipulation ___Needle Rotation ___Tenting UPDATED GOALS Time Frame for Senior Care Goals : 6 weeks Rail Operator Goal 1: Patient to state <40% impairment throughout I/ADL, as measured by the DASH. Continue []Met [x]Partially met []Not met Rail Operator Goal 2: Patient to state pain, numbness and tingling <4/10 at the worst BUE to improve overall independence and QOL. Continue 10/10 with overuse []Met [x]Partially met []Not met Rail Operator Goal 3: Patient ot improve B cv/cvn cv tsc system operator >40# to improve hand strength for I/ADL. Continue 30# []Met [x]Partially met []Not met Time Frame for Short Term Goals: 4 weeks Short Term Goal 1: Patient to be educated on HEP to improve strength, decrease tremors and decrease pain/numbness/tingling. Met. Continue as patient progresses. [x]Met []Partially met []Not met Short Term Goal 2: Patient to be educated on proper splinting for positioning to reduce s/s of median and ulnar nerve compression at wrist. Patient educated on wrist cock up with good understanding. Patient stated that she hasn't gotten one yet, but is still looking into it. [x]Met []Partially met []Not met ADDITIONAL COMMENTS EDUCATION New Education provided to patient/family/caregiver: [x]Yes: []No (Continued review of prior education) If yes Education Provided: further education on wrist cock up Method of Education: [x]Discussion []Demonstration [] Written []Other Evaluation of Patient s Response to Education: [x]Patient and or caregiver verbalized understanding []Patient and or Caregiver Demonstrated without assistance []Patient and or Caregiver Demonstrated with assistance []Needs additional instruction to demonstrate understanding of education ASSESSMENT Patient tolerated today s treatment session: [x] Good [] Fair [] Poor Limitations/difficulties with treatment session due to: []Pain []Fatigue []Other medical complications []Other Goal Assessment: [] No Change [x]Improved HEP Patient is to be completing/ issued the following handouts/exercises since SOC: HEP Weight/ Level Reps/Time Comments Brachial Plexus Glides x 2x/day 5x each B UE to reduce numbness/tingling and pain. Tendon glides x 2x/day, 10 reps each, hold each for 3 seconds B hands to reduct pain and cramping Cane exercises x 2x/day 10x each with 3-5 second hold ROM /stretching program putty x x Yellow putty pinches and account strategist 1-2 min 2-3xs daily to increase strength wrist HEP x x X 3 planes with 1-2# weight 10-20 reps 1-2xs daily Nerve glides - median and ulnar x X2/day, 10x each Minutes Tracking: Time In: 1215 Time Out: 1300 Minutes: 45 Timed Code Treatment Minutes: 42 Minutes PLAN [x]Continue with current plan of care []Medical Hold []I Hold per patient request [] Change Treatment plan: [] Insurance hold __ Other Electronically signed by CARLITOS Armas, [facility] 03/26/2023 2:39 PM documented in this encounter [facility] 02-28-2023 History of Presen t illness Narrative [facility] Inpatient/Observation/Outpatien t Rehabilitation Date: 02/28/2023 Patient Name: Tiffany Gonzalez [] Inpatient Acute/Observation [x] Outpatient : 1960 [x] Pt no showed for scheduled appointment 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 attempted to contact patient by phone, no answer. Voicemail left for patient to call our office to schedule further PT and OT appointments. OT department updated. Therapist/Cleaner Signs will attempt to see this patient, at our earliest opportunity. Rylie Kendrick, 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 [id number] Date: 02/28/2023 documented in this encounter [facility] 02-12-2023 History of Presen t illness Narrative [facility] Outpatient Occupational Therapy DAILY TREATMENT NOTE Date: 02/12/2023 Patient s Name: Tiffany Gonzalez Date of : 1960 (63 y.o.) Gender: female [facility] #: [id number] Medical Diagnosis: B hand pain - M79.641, M79.642 Referring Physician: Jazmín Castañeda APRN* INSURANCE OT Insurance Information: Kath[employer] Total # of Visits to Date: 7 PAIN []No [x]Yes Location: R hand Pain Rating (0-10 pain scale): 7/10 Pain Description: SUBJECTIVE Patient reports no pain L hand, 7/10 right Flow Sheet Exercise / Manual treatment Weight/ Level Reps/Time Comments Free weights Shoulder shrugs, rolls and retraction to improve shoulder strength Elbow flexion/extension Putty B account strategist to improve strength Flexbar Senath x20 Twist and bends to improve strength Power web Red x20 MP flexion and extension to improve strength Duckbill Yellow egg x20 Duckbill to improve intrinsic strength Brachial Plexus glides X3 each UE for improvement with numbness/tingling. Joint distractions x x B wrist and digits for pain management Modality Flow Sheet: START STOP Tx Modality 10 minutes Electrical Stim: IFC sweepat max tolerance for intensity along thenar eminence and volar forearm for pain. Patient tolerated well c skin intact pre and post treatment. Ultrasound: __x1.2 W/cm2 x __8_ mins Duty factor: _x_100% __50% __20% __10% Head size: MHz: __1mHz __2 mHz _x_3mHz Location: SAROJ thumbs to reduce pain and swelling. Pt tolerated well with skin intact pre and post. 10 minutes Hot Pack: 10 minutes R hand for pain. Combined with paraffin. Patient tolerated well c skin intact pre and post treatment. 10 minutes Paraffin:10 minutes R hand for pain. Combined with HP. Patient tolerated well c skin intact pre and post treatment. Cold Pack: Dry Needling: ___ needle to superficial radial, deep radial and lataeral antebrachial cutaneous at homeostatic neuro- trigger points to... ___No manipulation/static ___Basic Manipulation ___Pistoning Manipulation ___Needle Rotation ___Tenting GOALS Time Frame for Rail Operator Goals : 6 weeks Rail Operator Goal 1: Patient to state <40% impairment throughout I/ADL, as measured by the DASH. Continue []Met [x]Partially met []Not met Rail Operator Goal 2: Patient to state pain, numbness and tingling <4/10 at the worst BUE to improve overall independence and QOL. Continue Occasional L hand pain, rated 9/10 at the worst, lasts approximately just a few minutes. Describes as sharp and shooting from volar thumb mm to elbow. Off and on R hand pain, reports most pain c overuse. Reports thumb to wrist pain as well as cramping. []Met [x]Partially met []Not met Rail Operator Goal 3: Patient to improve general UE strength to 4 to 4+/5 to improve strength for I/ADL. Met Shoulder flexors: 4/5 Grossly elsewhere throughout 4+/5. [x]Met []Partially met []Not met Rail Operator Goal 4: Patient ot improve B cv/cvn cv tsc system operator >40# to improve hand strength for I/ADL. Continue []Met [x]Partially met []Not met Time Frame for Short Term Goals: 4 weeks Short Term Goal 1: Patient to be educated on HEP to improve strength, decrease tremors and decrease pain/numbness/tingling. Met. Continue as patient progresses. [x]Met []Partially met []Not met Short Term Goal 2: Patient to improev B cv/cvn cv tsc system operator >35# to improve hand strength for ADL. Met Bilaterally at 35# [x]Met []Partially met []Not met Short Term Goal 3: Patient to be educated on proper body mechanics, joint protection and energy conservation techniques to decrease pain and improve independence throughout I/ADL. Met. [x]Met []Partially met []Not met ADDITIONAL COMMENTS EDUCATION New Education provided to patient/family/caregiver: [x]Yes: []No (Continued review of prior education) If yes Education Provided: use of dishwand during dishes vs. Use of wash rag. Method of Education: [x]Discussion []Demonstration [] Written []Other Evaluation of Patient s Response to Education: [x]Patient and or caregiver verbalized understanding []Patient and or Caregiver Demonstrated without assistance []Patient and or Caregiver Demonstrated with assistance []Needs additional instruction to demonstrate understanding of education ASSESSMENT Patient tolerated today s treatment session: [x] Good [] Fair [] Poor Limitations/difficulties with treatment session due to: []Pain []Fatigue []Other medical complications []Other Goal Assessment: [] No Change [x]Improved HEP Patient is to be completing/ issued the following handouts/exercises since SOC: HEP Weight/ Level Reps/Time Comments Brachial Plexus Glides x 2x/day 5x each B UE to reduce numbness/tingling and pain. Tendon glides x 2x/day, 10 reps each, hold each for 3 seconds B hands to reduct pain and cramping Cane exercises x 2x/day 10x each with 3-5 second hold ROM /stretching program Minutes Tracking: Time In: 929 Time Out: 1015 Minutes: 45 Timed Code Treatment Minutes: 43 Minutes PLAN [x]Continue with current plan of care []Medical Hold []I Hold per patient request [] Change Treatment plan: [] Insurance hold __ Other Electronically signed by CARLITOS Armas, T 02/12/2023 2:06 PM documented in this encounter [facility] 02-05-2023 History of Presen t illness Narrative [facility] Outpatient Occupational Therapy DAILY TREATMENT NOTE Date: 02/05/2023 Patient s Name: Tiffany Gonzalez Date of : 1960 (63 y.o.) Gender: female [facility] #: [id number] Medical Diagnosis: B hand pain - M79.641, M79.642 Referring Physician: Jazmín Castañeda, [place]* INSURANCE OT Insurance Information: Kathi Total # of Visits to Date: 6 PAIN []No [x]Yes Location: B hands, R > L Pain Rating (0-10 pain scale): 03/07 Pain Description: SUBJECTIVE Patient reported 09/07 post treatment Flow Sheet Exercise / Manual treatment Weight/ Level Reps/Time Comments Free weights Shoulder shrugs, rolls and retraction to improve shoulder strength Elbow flexion/extension Putty B account strategist to improve strength Flexbar Senath x20 Twist and bends to improve strength Power web Red x20 MP flexion and extension to improve strength Duckbill Yellow egg x20 Duckbill to improve intrinsic strength Brachial Plexus glides X3 each UE for improvement with numbness/tingling. Joint distractions x x B wrist and digits for pain management Modality Flow Sheet: START STOP Tx Modality 10 minutes Electrical Stim: pre mod x 1 channel at max tolerance for intensity along thenar eminence and volar forearm for pain. Patient tolerated well c skin intact pre and post treatment. Ultrasound: __x1.2 W/cm2 x __8_ mins Duty factor: _x_100% __50% __20% __10% Head size: MHz: __1mHz __2 mHz _x_3mHz Location: SAROJ thumbs to reduce pain and swelling. Pt tolerated well with skin intact pre and post. 10 minutes Hot Pack: 10 minutes B hand for pain s/p tx. Combined with paraffin. Patient tolerated well c skin intact pre and post treatment. 10 minutes Paraffin:10 minutes B hand for pain s/p tx. Combined with HP. Patient tolerated well c skin intact pre and post treatment. Cold Pack: Dry Needling: ___ needle to superficial radial, deep radial and lataeral antebrachial cutaneous at homeostatic neuro- trigger points to... ___No manipulation/static ___Basic Manipulation ___Pistoning Manipulation ___Needle Rotation ___Tenting GOALS Time Frame for Rail Operator Goals : 6 weeks Senior Care Goal 1: Patient to state <40% impairment throughout I/ADL, as measured by the DASH. Continue []Met [x]Partially met []Not met Rail Operator Goal 2: Patient to state pain, numbness and tingling <4/10 at the worst BUE to improve overall independence and QOL. Continue []Met [x]Partially met []Not met Senior Care Goal 3: Patient to improve general UE strength to 4 to 4+/5 to improve strength for I/ADL. Continue []Met [x]Partially met []Not met Senior Care Goal 4: Patient ot improve B cv/cvn cv tsc system operator >40# to improve hand strength for I/ADL. Continue []Met [x]Partially met []Not met Time Frame for Short Term Goals: 4 weeks Short Term Goal 1: Patient to be educated on HEP to improve strength, decrease tremors and decrease pain/numbness/tingling. Met. Continue as patient progresses. Patient cont to state tingling in R digits 2-4. [x]Met []Partially met []Not met Short Term Goal 2: Patient to improev B cv/cvn cv tsc system operator >35# to improve hand strength for ADL. Continue L: -Met []Met [x]Partially met []Not met Short Term Goal 3: Patient to be educated on proper body mechanics, joint protection and energy conservation techniques to decrease pain and improve independence throughout I/ADL. Met. [x]Met []Partially met []Not met ADDITIONAL COMMENTS EDUCATION New Education provided to patient/family/caregiver: []Yes: [x]No (Continued review of prior education) If yes Education Provided: Method of Education: [x]Discussion []Demonstration [] Written []Other Evaluation of Patient s Response to Education: [x]Patient and or caregiver verbalized understanding []Patient and or Caregiver Demonstrated without assistance []Patient and or Caregiver Demonstrated with assistance []Needs additional instruction to demonstrate understanding of education ASSESSMENT Patient tolerated today s treatment session: [x] Good [] Fair [] Poor Limitations/difficulties with treatment session due to: []Pain []Fatigue []Other medical complications []Other Goal Assessment: [] No Change [x]Improved HEP Patient is to be completing/ issued the following handouts/exercises since SOC: HEP Weight/ Level Reps/Time Comments Brachial Plexus Glides x 2x/day 5x each B UE to reduce numbness/tingling and pain. Tendon glides x 2x/day, 10 reps each, hold each for 3 seconds B hands to reduct pain and cramping Cane exercises x 2x/day 10x each with 3-5 second hold ROM /stretching program Minutes Tracking: Time In: 0850 Time Out: 0935 Minutes: 45 Timed Code Treatment Minutes: 43 Minutes PLAN [x]Continue with current plan of care []Medical Hold []I Hold per patient request [] Change Treatment plan: [] Insurance hold __ Other Electronically signed by CARLITOS Armas, [facility] 02/05/2023 9:41 AM documented in this encounter [facility] 01-22-2023 History of Presen t illness Narrative [facility] Outpatient Occupational Therapy DAILY TREATMENT NOTE Date: 01/22/2023 Patient s Name: Tiffany Gonzalez Date of : 1960 (63 y.o.) Gender: female [facility] #: [id number] Medical Diagnosis: B hand pain - M79.641, M79.642 Referring Physician: Jazmín Castañeda APRN* INSURANCE OT Insurance Information: [place] Total # of Visits to Date: 3 PAIN []No [x]Yes Location: B UE Pain Rating (0-10 pain scale): 2/10 Pain Description: SUBJECTIVE Patient reports that she was very sore last sat/Saturday. Patient with decreased tremors this date, none notes. Flow Sheet Exercise / Manual treatment Weight/ Level Reps/Time Comments Free weights 3# x15 Shoulder shrugs, rolls and retraction to improve shoulder strength Putty B account strategist to improve strength Flexbar Senath x20 Twist and bends to improve strength Power web Red x20 MP flexion and extension to improve strength Pulleys x X2' each Flexion and abduction for improvement with mm contraction and nn gliding Brachial Plexus glides x X5 X5 each UE for improvement with numbness/tingling. Modality Flow Sheet: START STOP Tx Modality 10 minutes Electrical Stim: [place] Recip mode, R wrist/digit flexors and extensors to for tremors. 10/10 cycle time with 2 second ramp at max tolerance for intensity. Patient tolerated well c skin intact pre and post treatment. Ultrasound: ___ W/cm2 x ___ mins Duty factor: __100% __50% __20% __10% Head size: MHz: __1mHz __2 mHz __3mHz Location: 10 minutes Hot Pack: 10 minutes L hand for pain s/p tx. Combined with paraffin. Patient tolerated well c skin intact pre and post treatment. 10 minutes Paraffin:10 minutes L hand for pain s/p tx. Combined with HP. Patient tolerated well c skin intact pre and post treatment. Cold Pack: Dry Needling: ___ needle to superficial radial, deep radial and lataeral antebrachial cutaneous at homeostatic neuro- trigger points to... ___No manipulation/static ___Basic Manipulation ___Pistoning Manipulation ___Needle Rotation ___Tenting GOALS Time Frame for Senior Care Goals : 6 weeks Senior Care Goal 1: Patient to state <40% impairment throughout I/ADL, as measured by the DASH. Continue []Met [x]Partially met []Not met Rail Operator Goal 2: Patient to state pain, numbness and tingling <4/10 at the worst BUE to improve overall independence and QOL. Continue []Met [x]Partially met []Not met Rail Operator Goal 3: Patient to improve general UE strength to 4 to 4+/5 to improve strength for I/ADL. Continue []Met [x]Partially met []Not met Senior Care Goal 4: Patient ot improve B cv/cvn cv tsc system operator >40# to improve hand strength for I/ADL. Continue []Met [x]Partially met []Not met Time Frame for Short Term Goals: 4 weeks Short Term Goal 1: Patient to be educated on HEP to improve strength, decrease tremors and decrease pain/numbness/tingling. Continue []Met [x]Partially met []Not met Short Term Goal 2: Patient to improev B cv/cvn cv tsc system operator >35# to improve hand strength for ADL. Continue R: 27 L: 40 -Met []Met [x]Partially met []Not met Short Term Goal 3: Patient to be educated on proper body mechanics, joint protection and energy conservation techniques to decrease pain and improve independence throughout I/ADL. Met. [x]Met []Partially met []Not met ADDITIONAL COMMENTS EDUCATION New Education provided to patient/family/caregiver: []Yes: [x]No (Continued review of prior education) If yes Education Provided: Method of Education: [x]Discussion []Demonstration [] Written []Other Evaluation of Patient s Response to Education: [x]Patient and or caregiver verbalized understanding []Patient and or Caregiver Demonstrated without assistance []Patient and or Caregiver Demonstrated with assistance []Needs additional instruction to demonstrate understanding of education ASSESSMENT Patient tolerated today s treatment session: [x] Good [] Fair [] Poor Limitations/difficulties with treatment session due to: []Pain []Fatigue []Other medical complications []Other Goal Assessment: [] No Change [x]Improved Therapists observations or comments: 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 Tendon glides x 2x/day, 10 reps each, hold each for 3 seconds B hands to reduct pain and cramping Cane exercises x 2x/day 10x each with 3-5 second hold ROM /stretching program Minutes Tracking: Time In: 1300 Time Out: 1345 Minutes: 45 Timed Code Treatment Minutes: 43 Minutes PLAN [x]Continue with current plan of care []Medical Hold []I Hold per patient request [] Change Treatment plan: [] Insurance hold __ Other Electronically signed by CARLITOS Armas, T 01/22/2023 2:24 PM documented in this encounter [facility] 10-09-2022 Note CONSULTATION PROCEDURE DATE: 10/09/2022 Procedure was done in the office. PROCEDURE: Bilateral lumbar iliocostalis muscle injection at the L4 level. PREOPERATIVE DIAGNOSIS: Pain secondary to lumbar spondylosis, lumbar degenerative disc disease and myofascial spasm. POSTOPERATIVE DIAGNOSIS: Pain secondary to lumbar spondylosis, lumbar degenerative disc disease and myofascial spasm. SOLUTION USED FOR INJECTION: 4 mL of 0.25% Marcaine, 4 mL of 2% lidocaine and 20 mg of Kenalog; 3 mL was used for injection at each side. IMMEDIATE COMPLICATIONS: None. PROCEDURE: After informed consent was obtained. The patient placed in the prone position. Skin overlying the area was prepped with alcohol. A 25 gauge, 1 1/2 needle was inserted into the substance of the left lumbar iliocostalis muscle at the L4 level on the left side. The needle tip was advanced until there was a twitch response. No indication of intravascular or intraneural needle tip placement, 1 mL of solution was injected, and no indication of injection after test dose. A total of 2.5 mL of solution were injected at this time. This was repeated in a similar fashion on the contralateral side. Post-op, the needle was removed. Patient reports reduction of pain symptoms. [facility] 10-04-2022 Note CONSULTATION CONSULTATION DATE: 10/04/2022 HISTORY OF PRESENT ILLNESS: This is a 62-year-old female who returns to the clinic for a three month follow up for chronic lower back pain. She was last seen on 07/05/2022 which, at that time, she received bilateral lumbar trigger point injections that gave her approximately six weeks of relief of 80%. Today, she is complaining of increasing lower back pain, described as a pressure and a stabbing pain. She rates it 9/10 with activity. At rest, it will decrease to 7/10. She was recently hospitalized two weeks ago for a workup for a stroke, which her workup was negative for. They did an EEG to rule out seizures which was negative. She was diagnosed with high anxiety by her PCP and Neurology and placed on Klonopin 0.5 b.i.d. and BuSpar 100 mg daily. She was taken off of the [place] 5/325 daily since she started on the benzos. She does take Mobic 15 mg daily and gabapentin 900 mg t.i.d., as well as Flexeril 10 mg q.h.s. to help with her pain. Standing, walking, housework and any physical activity aggravates her pain. She does ambulate with a cane. Denies any trips or falls. She does have patchy hypoesthesia to her right leg to the level of the knee. Patient's REVIEW OF SYSTEMS / PAST MEDICAL HISTORY / ALLERGIES and IMAGES have been reviewed and noted on the chart. PHYSICAL EXAM: VITAL SIGNS: Blood pressure 134/78, heart rate is 72. Temperature is 97.3. She is 5'1 and weighs 83.7. kg. GENERAL IMPRESSION: Pleasant, appropriate, in no acute distress. FOCUSED EXAM - BACK: Range of motion is functional in lateral rotation and flexion/extension. Paravertebral muscles are spasmodic with triggers identified bilateral erector spinae muscles. Compression of these muscles reproduces the patient's pain symptomatology. Zulema's point non-tender bilaterally. Negative FABERs and compression test. MUSCULOSKELETAL: Motor is 4/5 bilaterally. Patient walks with a slow, antalgic gait with the assistance of a cane. Muscle atrophy noted to bilateral quadriceps and hamstring. NEUROLOGICALLY: Patient does have right upper extremity tremors and is stuttering today. Patient is cognitively intact. Bilateral patellar and Achilles reflexes are blunted. DIAGNOSIS: Spinal axial lower back pain, lumbar degenerative disc disease, lumbar spondylosis and lumbar erector spinae spasms. PLAN: We will preauthorize for bilateral lumbar trigger injections. She is to continue with the heat application as well as stretches, which were demonstrated for her. Patient agrees to this and will be brought back to the clinic for the injections upon authorization. [facility] 09-12-2022 History of Presen t illness Narrative 0800: pt assessed see documentation flow sheet. 1400: pt having severe tremors lasted about 2 minutes, given 1mg PRN ativan and tremors resolved immediately. Pt was a&ox4 after incident following commands and vitals stable. Complaining of 6/10 head ache from back of head. Resident made aware, mag ordered for headache and continue to monitor. 1730: pt to be discharged, resident double checked with attending regarding earlier incident and states that they don't believe its a true seizure because never went into post ictal phase. Pt will follow up with neurology outpatient tomorrow. 1800: D/C instructions reviewed with pt and family. 1825: pt discharged. EEG completed SAMPSON KENT PPatient Assessment complete. Seizures ([facility]) [R56.9] . Vitals: 09/12/22 0345 BP: 120/87 Pulse: 77 Resp: 22 Temp: 99.9 F (37.7 C) SpO2: 98% . Patients home meds are Prior to Admission medications Medication Sig Start Date End Date Taking? Authorizing Provider sertraline (ZOLOFT) 25 MG tablet Take 1 tablet by mouth daily 09/10/22 10/10/22 AZ Zhong CNP ALPRAZolam (XANAX) 0.5 MG tablet Take 1 tablet by mouth 3 times daily as needed for Anxiety for up to 60 days. Max Daily Amount: 1.5 mg 09/10/22 11/09/22 AZ Zhong CNP gabapentin (NEURONTIN) 600 MG tablet TAKE 1 AND 1/2 TABLETS BY MOUTH 3 TIMES DAILY FOR 30 DAYS 08/03/22 09/10/22 AZ Laws CNP hydrOXYzine pamoate (VISTARIL) 50 MG capsule TAKE 1 CAPSULE BY MOUTH 3 TIMES DAILY NEEDED FOR ANXIETY 08/03/22 AZ Laws CNP terbinafine (ATHLETES FOOT, TERBINAFINE,) 1 % cream APPLY TO AFFECTED AREAS 2 TIMES A DAY FOR 1 WEEK 08/03/22 AZ Laws CNP tiotropium (SPIRIVA HANDIHALER) 18 MCG inhalation capsule Inhale 1 capsule into the lungs daily 07/09/22 AZ Zhong CNP pantoprazole (PROTONIX) 40 MG tablet Take 1 tablet by mouth 2 times daily (before meals) 06/07/22 AZ Zhong CNP atorvastatin (LIPITOR) 20 MG tablet Take 1 tablet by mouth daily 06/07/22 AZ Zhong CNP buPROPion (WELLBUTRIN XL) 300 MG extended release tablet Take 1 tablet by mouth every morning 06/07/22 AZ Zhong CNP busPIRone (BUSPAR) 15 MG tablet Take 15 mg by mouth 2 times daily 06/07/22 AZ Zhong CNP lisinopril-hydroCHLOROthiazide (PRINZIDE;ZESTORETIC) 10-12.5 MG per tablet TAKE 1 TABLET BY MOUTH DAILY 06/04/22 AZ Zhong CNP triamcinolone (KENALOG) 0.025 % cream Apply Topically twice a day 03/29/22 AZ Zhong CNP clotrimazole-betamethasone (LOTRISONE) 1-0.05 % cream APPLY TO AFFECTED AREAS 2 TIMES A DAY NEEDED 02/26/22 AZ Zhong CNP albuterol sulfate HFA (PROVENTIL HFA) 108 (90 Base) MCG/ACT inhaler Inhale 2 puffs into the lungs every 6 hours as needed for Wheezing 11/30/21 AZ Zhong CNP naproxen (NAPROSYN) 500 MG tablet Take 1 tablet by mouth 2 times daily (with meals) 09/07/21 AZ Zhong CNP aspirin 81 MG chewable tablet Take 81 mg by mouth daily Historical Provider, etodolac (LODINE) 500 MG tablet Take 500 mg by mouth 2 times daily 10/19/20 Historical Provider, Tens Unit MISC Use as directed 08/22/15 Saman Nicholas DO acetaminophen (TYLENOL) 325 MG tablet Take 650 mg by mouth every 6 hours as needed for Pain Historical Provider, calcium carbonate (TUMS) 500 MG chewable tablet Take 1 tablet by mouth daily Historical Provider, . Assessment : Pt dose not wear home oxygen. She is wearing 2 lpm at this time oxygen saturation of 97%. No home BiPAP or CPAP. Pt. Does use an Albuterol inhaler PRN and Spiriva Daily. We will get this ordered for her. BS sounds are clear and equal. RR 20 Breath Sounds: clear Bronchodilator assessment at level 1 [x] Bronchodilator Assessment BRONCHODILATOR ASSESSMENT SCORE Score 0 1 2 3 4 5 Breath Sounds [x] Patient Baseline [] No Wheeze good aeration [] Faint, scattered wheezing, good aeration [] Expiratory Wheezing and or moderately diminished [] Insp/Exp wheeze and/or very diminished [] Insp/Exp and/ or marked distress Respiratory Rate [x] Patient Baseline [] Less than 20 [] Less than 20 [] 20-25 [] Greater than 25 [] Greater than 25 Peak flow % of Pred or PB [x] NA [] Greater than 90% [] 81-90% [] 71-80% [] Less than or equal to 70% or unable to perform [] Unable due to Respiratory Distress Dyspnea re [x] Patient Baseline [] No SOB [] No SOB [] SOB on exertion [] SOB min activity [] At rest/acute e FEV% Predicted [x] NA [] Above 69% [] Unable [] Above 60-69% [] Unable [] Above 50-59% [] Unable [] Above 35-49% [] Unable [] Less than 35% [] Unable SAMPSON KENT RCP 9:04 AM documented in this encounter [employer] Phone: 09-12-2022 Hospital Discharg e instructions Rosario Cody RN - 09/12/2022 5:51 PM EST Pt instructed to follow up tomorrow with her personal neurologist, spoke with family appointment is already set for 09/13/2022 documented in this encounter [employer] Phone: 07-05-2022 Note CONSULTATION PROCEDURE DATE: 07/05/2022 PREOPERATIVE DIAGNOSIS: Bilateral lumbar paravertebral spasms. POSTOPERATIVE DIAGNOSIS: Bilateral lumbar paravertebral spasms. PROCEDURE: Bilateral lumbar trigger point injections. Subsequent to obtaining informed consent, the patient was placed in an upright standing forward flexion position. A 25 gauge needle with 0.125% Marcaine and 40 mg of Kenalog was dispersed into two locations. Needle was placed to rest inside the trigger zones. Negative heme. Medication was injected in a slow, fan-like pattern bilaterally. Patient tolerated the procedure well with no overt complications. She will be followed up in the office. [facility] 07-05-2022 Note CONSULTATION CONSULTATION DATE: 07/05/2022. HISTORY OF PRESENT ILLNESS: This is a pleasant, 62-year-old female, returning to the clinic, status post lumbar epidural steroid injection completed on 06/19/2022. Patient states she had 90% relief for two days and had increased functionality and endurance with standing, walking and bending. Two days after the procedure, patient bent down deep to reach for a ornelas out of the drawer and felt a sharp pain. Since that time, her pain has been 8/10. Medications include gabapentin 600 mg t.i.d., diclofenac 50 mg b.i.d., [place] 5/325 t.i.d. and Flexeril. Patient does have slight improvement still to her bilateral radicular pain; however, it is still present. She denies any vasomotor weakness. She does use heat on her back, which is beneficial to her. Recently, she had radiofrequency ablations completed in March of this year. Patient's REVIEW OF SYSTEMS / PAST MEDICAL HISTORY / ALLERGIES and IMAGES have been reviewed and they are noted on the chart. PHYSICAL EXAM: VITAL SIGNS: Blood pressure 126/88, heart rate is 79. Temperature is 98.2. She is 5'1 , weighs 189 pounds. GENERAL APPEARANCE: Patient is uncomfortable sitting in the chair, pleasant and cooperative. FOCUSED EXAM - BACK: Range of motion is guarded in lateral rotation and flexion/extension. Trigger points identified upon lower compression bilateral erector spinae with positive jump response. Compression reproduces the patient's pain symptomatology. MUSCULOSKELETAL: Motor is 4/5 bilaterally. Slight muscle weakness noted to bilateral quadriceps and anterior tibialis. NEUROLOGICAL: Patchy hypoesthesia diffusely to bilateral lower extremities to the toes. +1 bilateral patellar and Achilles reflexes. DIAGNOSIS: Lumbar paravertebral spasms and lumbar radiculitis. PLAN: Patient will receive bilateral lumbar trigger point injections in the office today, which she does consent to. She was encouraged to add magnesium to her vitamin regimen as well as continue with heat application. We will see her in three months' time, unless otherwise indicated. Patient agrees with this plan. [facility] 06-13-2022 Note This is a Telephone Appointment *This visit was conducted by Telephone with real time communication and interaction. This was performed due to the current COVID-19 pandemic in order to minimize exposure to both patients and staff. The patient verbally consented to treatment. The patient understands their rights, the HIPAA risks and that they will be charged accordingly for the services rendered. Chief Complaint F/U US. tarsal tunnel injection. History of Present Illness Patient presents for follow-up of left foot plantar fascial fibromatosis/tarsal tunnel/contracture left Achilles. Also has a history of lumbar radiculopathy, since last visit her left foot pain is unchanged. She still gets pain in the arch and the bottom of her left heel. She is also having ablations done on her back. Presents via telephone for results/to discuss pain relief from diagnostic tarsal tunnel injection on the left. Relates injection at last visit provided about 60% pain relief for about a week or so. Pain is now back to its previous levels. Relates that she is having increased knee and back pain at this time. No other complaints at this time. Denies new claudication or cramping type symptoms. Denies calf pain. Review of Systems Constitutional Head Nose Mouth Throat Cardio/Respiratory Hematologic Chills: No Headache: No Shortness of Breath: No History of DVT: No Fever: No Sore Throat: No Chest Pain: No History of Claudication: No Ear Pain: No Palpitation: No History of Aneurysm: No History of Gangrene: No Genitourinary Musculoskeletal Psychiatric Vascular Burning: No Muscle Weakness: No Anxiety: Yes Blood Disorder: No Pain: No Joint Pain: No Depression: Yes Numbness: No Gastrointestinal Dermatology Rheumatologic Problems: No Rash: No History of Rheumatic Arthritis: No Pain: No Pruritus: No History of Gout: No History of Lupus: No Physical Exam Vitals & Measurements HT: 155 cm WT: 83.3 kg WT: 83.3 kg (Dosing) BMI: 34.67 General: No audible acute distress. Normal conversant. Alert and oriented x 4. Attentive and appropriate. Asks appropriate questions. No gross deficits in reasoning memory or intellect. Respiratory: No audible labored breathing. No audible wheezing or stridor noted. Additional Vitals No qualifying data available. Assessment/Plan 1. Contracture of left Achilles tendon 2. Lumbar radiculopathy 3. Plantar fascial fibromatosis 4. Tarsal tunnel syndrome, left lower limb -Evaluation and management discussion was extensive with time spent with patient dedicated to discussion of pathogenesis and treatment options for patient's plantar fascial symptoms including doing nothing, orthotics, stretching, injection therapy, NSAIDS, RICE, immobilization, and surgical options such as repeat removal of plantar fibroma, plantar fasciotomy, complete versus partial plantar fasciectomy, gastrocnemius recession, or Achilles Tendon lengthening. Also discussed that her symptoms at this time are more consistent with potential tarsal tunnel syndrome given her positive Tinel sign and reproduction of symptoms with the positive Tinel sign. I discussed conservative versus surgical treatment for her tarsal tunnel symptoms as well. Discussed potential surgical release of the tarsal tunnel syndrome as well. Potential gastrocnemius recession. Prior EMG, noted findings of lumbar radiculopathy and no findings of tarsal tunnel or peripheral neuropathy. Discussed this with patient. Prior MRI with thickening of the plantar fascia at the medial arch. No space-occupying lesion noted within the tarsal tunnel. Discussed she could have findings consistent with double crush. Patient got 60% pain relief about from left tarsal tunnel injection. Discussed that this could be due to double crush. Discussed also potential pain from scarring of plantar fascial fibroma. Patient is having worsening back pain and knee pain would like to work these up further prior to surgical discussion for her left tarsal tunnel. I feel given the possibility of double crush this is reasonable. Pending her evaluation of her knee and back we will consider surgical intervention including tarsal tunnel release of the left tibial nerve, we will also consider potential peripheral nerve stim trial. Continues stretching, range of motion exercises, orthotic use, NSAID, rest/ice/compression/elevation, therapy Encouraged good shoe gear Continue ASO Prior vascular arterial segmental studies, no signs of peripheral arterial occlusive disease. Discussed with patient. Patient amenable to plan and all questions and concerns answered. Patient would like to call and schedule an appointment once she has finished her knee and back pain work-up and treatment. No radiographs needed at next visit. Time Spent with the Patient Today's visit was performed via telehealth and utilized an audio only connection. Duration of the visit in conversation with the patient: [5] Proble (more content not included)... [facility] 05-24-2022 Note CONSULTATION CONSULTATION DATE: 05/24/2022 This is a 62-year-old female returning to the clinic status post bilateral RFA of L2, L3 and L4, L5, completed on 04/24/2022. At this point the patient states she has received approximately 30% relief. She still has bilateral lower extremity radicular pain. Right leg is worse than the left. The radiating pain goes to her ankles bilaterally. Any physical activity aggravates her pain. She does occasionally use a TENS unit and heat application which decreases her pain. She does ambulate with a cane. Medications she is on are gabapentin 900 mg t.i.d., diclofenac 50 mg b.i.d., [place] 5/325 b.i.d. and Flexeril. The patient is due for a UTOX today. REVIEW OF SYSTEMS, PAST MEDICAL HISTORY, ALLERGIES AND IMAGES: Have been reviewed and noted in the chart. PHYSICAL EXAM: VITAL SIGNS: Blood pressure 139/94, heart rate is 73, temperature is 97.8. Height is 5'1 , weighs 82.8 kg. GENERAL APPEARANCE: Pleasant and appropriate, in no acute distress but uncomfortable sitting in the chair. FOCUSED EXAM: BACK: Range of motion is functional in lateral rotation and flexion-extension. Paravertebral muscles are spasmodic with two trigger points noted to her lower lumbar area. Compression along these areas reproduce the patient's pain pattern. Zulema's point mildly tender to the right with negative Josh's and compression test. MUSCULOSKELETAL: Slight muscle atrophy noted bilateral lower extremity. Anterior tibialis and weakness noted to the right, extensors are intact but slightly weak, right greater than left. The patient uses a cane to ambulate. 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 Blunted patellar and Achilles reflexes. The patient is cognitively intact. DIAGNOSIS: Lumbar degenerative disks disease, lumbar spondylosis, lumbar radiculitis, anterior of L5-S1. PLAN: We will authorize to move forward with a lumbar epidural steroid injection to address this radicular pain. She will also receive lumbar trigger point injections bilaterally in the office which she does consent to. I did discuss the amount of [id number] Tylenols he does take and to decrease that dose by one half. The patient did do 6 weeks of physical therapy between September and November of this year, 2021 with no improvement of pain. The patient agrees to move forward with the plan of care and she will be followed up in the office thereafter. [facility] 05-24-2022 Note CONSULTATION PROCEDURE DATE 05/24/2022 PRE AND POSTOPERATIVE DIAGNOSIS: Bilateral lumbar paravertebral spasms. PROCEDURE: Bilateral paravertebral trigger point injections. Subsequent to obtaining informed consent, the patient was placed in the upright standing forward flexion position. Alcohol prep was used to sterilize the site. 25-gauge needle with 0.125% Marcaine and 40 mg of Kenalog was placed to rest beside each of the trigger zones. Negative heme. Medication was injected in the slow fan-like pattern and the patient tolerated the procedure well. She will be followed up in the clinic following her procedure. [facility] 04-05-2022 Note CONSULTATION CONSULTATION DATE: 04/05/2022 HISTORY OF PRESENT ILLNESS: This is a 62-year-old female returning to the clinic status post #2 bilateral MBB of L2, L3 and L4, L5 completed on 03/20/2022, which afforded her 80% relief for two days. Patient is very happy with the outcome and would like to move forward with the rhizotomy. Today, her pain is 9/10 that she describes as an ache and a screwdriver-like feeling. It is aggravated by standing, walking, transitioning positions, housework and lifting. Occasionally, she will use heat as well as her TENS unit, which gives her review. Current medications include Mobic 15 mg daily, Muen[place] 5/325 daily and gabapentin 600 mg t.i.d. Patient feels like the Mobic is beneficial but is asking for an adjustment or increased dose. She denies any new vasomotor changes, falls or injuries. Patient's REVIEW OF SYSTEMS / PAST MEDICAL HISTORY / ALLERGIES and IMAGES have been reviewed and they are noted on the chart. PHYSICAL EXAM: Blood pressure is 133/90. Heart rate is 70. Temperature is 98. She is 5'1 and weighs 81 kg. GENERAL APPEARANCE: Pleasant, appropriate, no acute distress but is uncomfortable in the room. FOCUSED EXAM - BACK: Range of motion is guarded in lateral rotation and flexion/extension. Reproduction of patient's spinal axial pain noted to direct compression along the posterior elements of the lumbar facets of L2, L3 and L4, L5. Fullness is palpated as well. Zulema's point is non-tender. Negative FABERs and compression test. Paravertebral muscles are non-spasmodic. MUSCULOSKELETAL: Diffuse muscle atrophy noted bilateral upper and lower extremities. Patient ambulates with an antalgic gait steadily, without the use of an assistive device. NEUROLOGICAL: Radicular sensory is intact. Bilateral +2 patellar reflexes. DIAGNOSIS: Lumbar spondylosis, lumbar degenerative disc disease, spinal axial lower back pain and muscle atrophy. PLAN: We will discontinue the Mobic and start her on diclofenac 50 mg b.i.d. She was educated and encouraged to use heat as well as stretches to her lumbar region. Vitamin importance was discussed and she is to add magnesium glycinate 400 mg q.h.s. We will move forward with the rhizotomy starting of the left side, subsequently move to the right of L2, L3 and L4, L5. Patient will receive 50 mg of IM testosterone cypionate at time of the procedure. She will be followed up in the clinic post procedure. [facility] 03-08-2022 History of Presen t illness Narrative [facility] Outpatient Physical Therapy Daily Note Patient: Tiffany Gonzalez : 1960 CSN #: [id number] Referring Physician: Azeb Bass MD Date: 03/08/2022 Treatment Diagnosis: left foot pain, difficulty walking, right knee pain; low back pain Onset Date: 10/26/21 Total # of Visits Approved: 38 Per Physician Order Total # of Visits to Date: 31 No Show: 1 Canceled Appointment: 0 Pre-Treatment Pain: 1/10 Subjective: Patient reports her foot feels pretty good today coming into therapy. She reports 1/10 pain coming into therapy today. Exercises: Exercise 2: Seated Rockerboard x 2 mins Exercise 3: Foot roller x2min Exercise 4: Dimock pickups Exercise 5: Seated gastroc and soleus stretching [id number]/plantar fascia Exercise 7: Slantboard stretch 2x30 seconds Manual: Soft Tissue Mobilizaton: MFD with static cup placement along with great toe extension/ankle DF (actively x10 followed by passive) Assessment Assessment: Continued manual interventions to improve flexibility and decrease scar tissue. She reported increased soreness post tx session. She will complete one more aquatic therapy and will be discharged until after her surgery. Patient was educated on continuing her flexibility exercises independently and continuing aquatic exercise. Activity Tolerance Activity Tolerance: Patient limited by pain Patient Education Patient Education: Continue HEP Pt verbalized/demonstrated good understanding: [x] Yes [] No, pt required further clarification. Post Treatment Pain: /10 Plan Plan Frequency: 2-3 Plan weeks: 6 Goals (Total # of Visits to Date: 31) Short Term Goals Time Frame for Short term goals: 3 weeks Short term goal 1: Pt to be instructed in home program. - met Short term goal 2: Pt to begin gentle stretching of left foot plantar surface to improve tissue quality. - met Short term goal 3: Pt to begin strengthening ex of right LE to improve functional strength. 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 -met termite exterminator helper goal 2: Pt to score no less than 50 on LEFS indicating improved quality of life. - in progress (16) termite exterminator helper goal 3: Pt to perform TUG in less than 11.0 seconds indicating improved gait and stability. termite exterminator helper goal 4: Pt to report pain no greater than 2/10 with prolong standing. 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 termite exterminator helper goal 7: Pt to ascend 6 inch step with right LE with little to no UE assistance indicating good functional strength of right LE. termite exterminator helper goal 8: Pt to achieve 4+/5 strength of left knee to assist with functional mobility and stairs. Minutes Tracking: Time In: 1100 Time Out: 1135 Minutes: 35 Timed Code Treatment Minutes: 33 Minutes Estuardo Diamond PT, DPT Date: 03/08/2022 [facility] 03-[facility]22 History of Presen t illness Narrative [facility] Inpatient/Observation/Outpatien t Rehabilitation Date: 03/05/2022 Patient Name: Tiffany Gonzalez [] Inpatient Acute/Observation [x] Outpatient : 1960 [] Pt no showed for scheduled appointment Phoned pt and left voicemail of next visit. Shania Wyatt, 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 Date: 03/05/2022 documented [facility] this encounter [facility]: 03-02-2022 History of Presen t illness Narrative [facility] Outpatient Physical Therapy Daily Note Patient: Tiffany Gonzalez : 1960 [facility] #: [id number] Referring Physician: Azeb Bass MD Date: 03/02/2022 Diagnosis: Left plantar fibromatosis, M72.2 / Patellofemoral disorder right knee, M22.2x1; Primary OA right knee, M17.11; Low back pain, M54.5 Treatment Diagnosis: left foot pain, difficulty walking, right knee pain; low back pain Onset Date: 10/26/21 PT Insurance Information: [employer] Total # of Visits Approved: 38 Per Physician Order Total # of Visits to Date: 30 No Show: 0 Canceled Appointment: 0 Pre-Treatment Pain: 2/10 Subjective: Pt reports 2/10 L foot pain today. Pt is going to have surgery on her L foot to try and get rid of some of the scar tissue and then resume therapy after surgery. Exercises: Exercise 1: HEP - seated plantar fascia stretch, seated self great toe stretch, standing toe DF stretch; updated with seated gastroc and soleus stretching and seated heel and toe raises Exercise 2: Seated Rockerboard x 2 mins Exercise 3: Foot roller x2min Exercise 4: Dimock pickups Exercise 5: Seated gastroc and soleus stretching [id number]/plantar fascia Manual: Soft Tissue Mobilizaton: MFD with static cup placement along with great toe extension/ankle DF (actively x10 followed by passive) Assessment Assessment: Pt reports she opted for surgery on her L foot to remove scar tissue. She has D/C her boot at this time and reports pain is about the same overall. Dorsiflexion ROM measures 0* on the L and 8* on the R. L knee flexion measured 115* in supine. She reports the doctor wanted her to continue with therapy until surgery. She reports pt tolerated manual soft tissue mobilization to her L foot well today. She only has one spot on the bottom of her L foot that causes her pain and puts it at a 2/10. Pt tolerated MFD cupping while actively flexing and extending her toes. Continued to stretch her L calf and soleus as well as her plantar fascia. Activity Tolerance Activity Tolerance: Patient tolerated treatment well Patient Education Patient Education: Continue HEP Pt verbalized/demonstrated good understanding: [x] Yes [] No, pt required further clarification. Post Treatment Pain: 2/10 Plan Plan Frequency: 2-3 Plan weeks: 6 Goals (Total # of Visits to Date: 30) Short Term Goals Time Frame for Short term goals: 3 weeks Short term goal 1: Pt to be instructed in home program. - met Short term goal 2: Pt to begin gentle stretching of left foot plantar surface to improve tissue quality. - met Short term goal 3: Pt to begin strengthening ex of right LE to improve functional strength. - met Rail Operator Goals Time Frame for halfway goals : 6 weeks halfway goal 1: Pt to report independence and compliance with home program. -met termite exterminator helper goal 2: Pt to score no less than 50 on LEFS indicating improved quality of life. - in progress (16) halfway goal 3: Pt to perform TUG in less than 11.0 seconds indicating improved gait and stability. termite exterminator helper goal 4: Pt to report pain no greater than 2/10 with prolong standing. halfway goal 5: Pt to have little to no tenderness plantar surface of left foot to assist with WB activities. termite exterminator helper goal 6: Pt to achive 115 degrees of left knee flexion to assist with ADL's. -met (120*) halfway goal 7: Pt to ascend 6 inch step with right LE with little to no UE assistance indicating good functional strength of right LE. halfway goal 8: Pt to achieve 4+/5 strength of left knee to assist with functional mobility and stairs. Minutes Tracking: Time In: 1137 Time Out: 1223 Minutes: 46 Timed Code Treatment Minutes: 44 Minutes Treated and documented by FAVIOLA Fishman with direct supervision from Estuardo Diamond PT, DPT Date: 03/02/2022 documented [facility] this encounter [facility] Work Phone: 03-01-2022 Note CONSULTATION CONSULTATION DATE: 03/01/2022 This is a 63-year-old female 62-year-old female who returns to the clinic status post #1 bilateral MBB of L2, L3 and L4, L5 completed on 02/13/2022 that afforded her 100% relief for three to four days. During that time the patient was able to bend, rotation, do housework and lift with significant less pain. Her current medications include gabapentin 900 mg t.i.d., Mobic 50 mg q. day, Buspar 150 mg q. day and calcium. She was on [place] 5/325 q.i.d., p.r.n. by her PCP in the past but does not chronically take that now. She is asking for a refill of the [place] to have on hand when her pain is severely high. She is in a left lower leg and foot boot and is currently in physical therapy for pathology to that foot. She experiences pain not only in her back but in her foot as well. REVIEW OF SYSTEMS, PAST MEDICAL HISTORY, ALLERGIES AND IMAGES: Have been reviewed and noted in the chart. PHYSICAL EXAM: VITAL SIGNS: Blood pressure 160/86, heart rate is 69, temperature is 97.7. Height is 5'1 , weighs 81 kg. GENERAL APPEARANCE: Pleasant and appropriate, no acute distress. FOCUSED EXAM: BACK: Lateral rotation and range of motion is guarded as is flexion/extension. Reproducible spinoaxial pain to direct compression along the lumbar facets that does not radiate below the knees. Fullness is palpated as well, indicative of lumbar spondylosis and ill facet arthropathy of L2, L3 and L4, L5 bilaterally. Paravertebral muscles are non-spasmodic. Zulema's point mildly tender to the left, negative Josh's and compression test. MUSCULOSKELETAL: Motor is intact, 4 out of 5 bilaterally, slight muscle atrophy to the left quadriceps. NEUROLOGICAL: Patchy hypesthesia noted to left lower extremity. Bilateral patellar reflexes are +1. DIAGNOSIS: Lumbar spondylosis, lumbar degenerative disk, spinoaxial lower back pain. PLAN: We will authorize to move forward with #2 bilateral MBB of L2, L3 and L4, L5. Prescription for [place] 5/325 q. day, p.r.n. will be sent. She was encouraged to continue with her Mobic as her anti-inflammatory as well as her multivitamin regimen. She will be followed up in the office post-procedure and the patient agrees to move forward. [facility] 02-26-2022 History of Presen t illness Narrative [facility] Outpatient Physical Therapy Daily Note Patient: Tiffany Gonzalez : 1960 CSN #: [id number] Referring Physician: Azeb Bass MD Date: 02/26/2022 Treatment Diagnosis: left foot pain, difficulty walking, right knee pain; low back pain Onset Date: 10/26/21 Total # of Visits Approved: 30 Per Physician Order Total # of Visits to Date: 29 No Show: 0 Canceled Appointment: 0 Pre-Treatment Pain: /10 Subjective: Pt reports 1/10 pain in R knee today. She states she has been feeling better overall and was able to ride on motorcycle this weekend with some soreness but no increased pain. Pt states she has also started laying on her back with legs propped up on the wall for ~10-20 min multiple days a week which she states is helping as well. Exercises: Exercise 1: HEP - seated plantar fascia stretch, seated self great toe stretch, standing toe DF stretch; updated with seated gastroc and soleus stretching and seated heel and toe raises Exercise 9: Pool: water walking x4 fwd, , lateral, retro Exercise 10: Pool: sink x10 ea in shallow Exercise 12: pool: seated LAQ with jet massage x5 min Exercise 13: Pool stretches at step 4x15 Exercise 14: Pool: FSU/LSU x10 Assessment Assessment: Pt completed functional strengthening in shallow side of pool today without c/o or nonverbal indications of increased pain during tx. She scored a 16 on LEFs today. Pt states she feels her quality of life has worsened in the last few months d/t pain and poor tolerance to functional tasks. Pt was issued an updated HEP which includes hip and knee strengthening to help progress towards her goals. Spent time educating pt with increased activity, within tolerance, at home as well. Pt reports 9/10 R knee pain following tx today. Will continue with aquatics for increased strength/ROM in an unloaded environment. Activity Tolerance Activity Tolerance: Patient tolerated treatment well Patient Education Ex technique, rationale, HEP, increased activity at home Pt verbalized/demonstrated good understanding: [x] Yes [] No, pt required further clarification. Post Treatment Pain: 9/10 in R knee Plan Plan Frequency: 2-3 Plan weeks: 6 Goals (Total # of Visits to Date: 29) Short Term Goals Time Frame for Short term goals: 3 weeks Short term goal 1: Pt to be instructed in home program. - met Short term goal 2: Pt to begin gentle stretching of left foot plantar surface to improve tissue quality. - met Short term goal 3: Pt to begin strengthening ex of right LE to improve functional strength. 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 -met halfway goal 2: Pt to score no less than 50 on LEFS indicating improved quality of life. - in progress (16) termite exterminator helper goal 3: Pt to perform TUG in less than 11.0 seconds indicating improved gait and stability. halfway goal 4: Pt to report pain no greater than 2/10 with prolong standing. 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 halfway goal 6: Pt to achive 115 degrees of left knee flexion to assist with ADL's. -met (120*) halfway goal 7: Pt to ascend 6 inch step with right LE with little to no UE assistance indicating good functional strength of right LE. halfway goal 8: Pt to achieve 4+/5 strength of left knee to assist with functional mobility and stairs. Minutes Tracking: Time In: 1330 Time Out: 1419 Minutes: 49 Timed Code Treatment Minutes: 46 Minutes Shania Wyatt PTA Date: 02/26/2022 documented in this encounter [facility] [email or web address] Phone: 02-22-2022 History of Presen t illness Narrative [facility] Outpatient Physical Therapy Daily Note Patient: Tiffany Gonzalez : 1960 CSN #: [id number] Referring Physician: Azeb Bass MD Date: 02/22/2022 Diagnosis: Left plantar fibromatosis, M72.2 / Patellofemoral disorder right knee, M22.2x1; Primary OA right knee, M17.11; Low back pain, M54.5 Treatment Diagnosis: left foot pain, difficulty walking, right knee pain; low back pain Onset Date: 10/26/21 PT Insurance Information: [employer] Total # of Visits Approved: 30 Per Physician Order Total # of Visits to Date: 28 No Show: 0 Canceled Appointment: 0 Pre-Treatment Pain: 0.5/10 Subjective: Patient reports minimal foot pain coming into therapy. Patient reports foot pain hasn't been too bad. Exercises: Exercise 2: Seated Rockerboard x 2 mins Exercise 3: Foot roller x2min Exercise 4: Dimock pickups Exercise 5: Seated gastroc and soleus stretching [id number]/plantar fascia Manual: Joint Mobilization: L ankle all ranges PROM, gentle tarsal/ metatarsal mobs, gentle distraction. Soft Tissue Mobilizaton: MFD with static cup placement along with great toe extension/ankle DF (actively x10 followed by passive) Modalities: Assessment Assessment: Pt demonstrates improved first ray extension, and decreased scar sensitivity with manual techniques. Continued to focus on scar mobility and heel cord flexibility. Activity Tolerance Activity Tolerance: Patient tolerated treatment well Patient Education Patient Education: Continue HEP Pt verbalized/demonstrated good understanding: [x] Yes [] No, pt required further clarification. Post Treatment Pain: 0.5/10 Plan Plan Frequency: 2-3 Plan weeks: 6 Goals (Total # of Visits to Date: 28) Short Term Goals Time Frame for Short term goals: 3 weeks Short term goal 1: Pt to be instructed in home program. - met Short term goal 2: Pt to begin gentle stretching of left foot plantar surface to improve tissue quality. - met Short term goal 3: Pt to begin strengthening ex of right LE to improve functional strength. - met Rail Operator Goals Time Frame for halfway goals : 6 weeks halfway goal 1: Pt to report independence and compliance with home program. -met termite exterminator helper goal 2: Pt to score no less than 50 on LEFS indicating improved quality of life. termite exterminator helper goal 3: Pt to perform TUG in less than 11.0 seconds indicating improved gait and stability. halfway goal 4: Pt to report pain no greater than 2/10 with prolong standing. 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 termite exterminator helper goal 6: Pt to achive 115 degrees of left knee flexion to assist with ADL's. -met (120*) halfway goal 7: Pt to ascend 6 inch step with right LE with little to no UE assistance indicating good functional strength of right LE. halfway goal 8: Pt to achieve 4+/5 strength of left knee to assist with functional mobility and stairs. Minutes Tracking: Time In: 1100 Time Out: 1140 Minutes: 40 Timed Code Treatment Minutes: 39 Minutes Estuardo Diamond PT, DPT Date: 02/22/2022 documented in this encounter [facility] [email or web address] Work Phone: 02-19-2022 History of Presen t illness Narrative Physical Therapy Daily Treatment Note Date: 02/19/2022 Patient Name: Tiffany Gonzalez : 1960 Referring Physician: Azeb Bass MD PCP: [place] Otto CNP Medical Diagnosis: Plantar fibromatosis [M72.2] Treatment Diagnosis: left foot pain, difficulty walking, right knee pain; low back pain Insurance: Payor: [employer] / Plan: [employer] / Product Type: *No Product type* / - (Medicaid Managed) Subjective: PT Visit Information Onset Date: 10/26/21 Total # of Visits Approved: 30 Total # of Visits to Date: 27 Plan of Care/Certification Expiration Date: 02/22/22 No Show: 0 Canceled Appointment: 0 Subjective Subjective: Pt reports 10/10 pain between shoulder blades, 1/10 foot pain and 4/10 pain in R knee. Treatment Activities: Exercises: Aquatic therapy (CPT 97995) Treatment Reasoning Exercise 1: HEP - seated plantar fascia stretch, seated self great toe stretch, standing toe DF stretch; updated with seated gastroc and soleus stretching and seated heel and toe raises Exercise 9: Pool: water walking x4 fwd, september walk, lateral, retro Exercise 10: Pool: sink x10 ea in shallow Exercise 11: Pool ; sit to stand x15 Exercise 12: pool: seated LAQ with jet massage x5 min Exercise 14: Pool: FSU/LSU x10 in deeper To increase strength/ROM in an unloaded environment. Assessment: Conditions Requiring Skilled Therapeutic Intervention Assessment: Pt was guarded with tx today t/o upper back and required some cuing to reduce guarding with poor carryover. Pt was able to progress functional strengthening in shallow water today. no increased pain reported and pain remained the same at end of tx. Pt educated on increasing activity at home and continue HEP. WIll continue. Treatment Diagnosis: left foot pain, difficulty walking, right knee pain; low back pain Activity Tolerance Activity Tolerance: Patient tolerated treatment well Goals: Short Term Goals Time Frame for Short term goals: 3 weeks Short term goal 1: Pt to be instructed in home program. - met Short term goal 2: Pt to begin gentle stretching of left foot plantar surface to improve tissue quality. - met Short term goal 3: Pt to begin strengthening ex of right LE to improve functional strength. - met Rail Operator Goals Time Frame for termite exterminator helper goals : 6 weeks termite exterminator helper goal 1: Pt to report independence and compliance with home program. -met termite exterminator helper goal 2: Pt to score no less than 50 on LEFS indicating improved quality of life. termite exterminator helper goal 3: Pt to perform TUG in less than 11.0 seconds indicating improved gait and stability. halfway goal 4: Pt to report pain no greater than 2/10 with prolong standing. 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 termite exterminator helper goal 6: Pt to achive 115 degrees of left knee flexion to assist with ADL's. -met (120*) termite exterminator helper goal 7: Pt to ascend 6 inch step with right LE with little to no UE assistance indicating good functional strength of right LE. termite exterminator helper goal 8: Pt to achieve 4+/5 strength of left knee to assist with functional mobility and stairs. Patient Goals Patient goals : make the pain go away , not having another surgery on it Plan: Plan Plan weeks: 6 2-3x /week Therapy Time: Individual Concurrent Group Co-treatment Time In 1115 Time Out 1157 Minutes 42 Shania Wyatt PTA documented in this encounter [facility] [employer] Phone: 02-15-2022 History of Presen t illness Narrative [facility] Outpatient Physical Therapy Daily Note Patient: Tiffany Gonzalez : 1960 CSN #: [id number] Referring Physician: Azeb Bass MD Date: 02/15/2022 Diagnosis: Left plantar fibromatosis, M72.2 / Patellofemoral disorder right knee, M22.2x1; Primary OA right knee, M17.11; Low back pain, M54.5 Treatment Diagnosis: left foot pain, difficulty walking, right knee pain; low back pain Onset Date: 10/26/21 PT Insurance Information: [employer] Total # of Visits Approved: 30 Per Physician Order Total # of Visits to Date: 26 No Show: 0 Canceled Appointment: 0 Pre-Treatment Pain: 0/10 Subjective: Patient was sore after her last aquatic visit. She reports she just had injections in her back and is feeling a little better. Exercises: Exercise 3: Foot roller x2min Exercise 4: Dimock pickups Exercise 5: Seated gastroc and soleus stretching [id number]/plantar fascia Exercise 8: Seated heel/toe raises x15 Manual: Joint Mobilization: L ankle all ranges PROM, gentle tarsal/ metatarsal mobs, gentle distraction. Soft Tissue Mobilizaton: MFD with static cup placement along with great toe extension/ankle DF (actively x10 followed by passive) Assessment Assessment: Patient reports her foot is feeling better and was able to tolerate more pressure with soft tissue massage and MFD. Continued with flexibility exercises without complaints of increased pain. She was educated to continue with her HEP. Activity Tolerance Activity Tolerance: Patient tolerated treatment well Patient Education Patient Education: Updated HEP Pt verbalized/demonstrated good understanding: [x] Yes [] No, pt required further clarification. Post Treatment Pain: 0/10 Plan Plan Frequency: 2-3 Plan weeks: 6 Goals (Total # of Visits to Date: 26) Short Term Goals Time Frame for Short term goals: 3 weeks Short term goal 1: Pt to be instructed in home program. - met Short term goal 2: Pt to begin gentle stretching of left foot plantar surface to improve tissue quality. - met Short term goal 3: Pt to begin strengthening ex of right LE to improve functional strength. 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 -met halfway goal 2: Pt to score no less than 50 on LEFS indicating improved quality of life. termite exterminator helper goal 3: Pt to perform TUG in less than 11.0 seconds indicating improved gait and stability. halfway goal 4: Pt to report pain no greater than 2/10 with prolong standing. 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 termite exterminator helper goal 6: Pt to achive 115 degrees of left knee flexion to assist with ADL's. -met (120*) halfway goal 7: Pt to ascend 6 inch step with right LE with little to no UE assistance indicating good functional strength of right LE. halfway goal 8: Pt to achieve 4+/5 strength of left knee to assist with functional mobility and stairs. Minutes Tracking: Time In: 917 Time Out: 957 Minutes: 40 Timed Code Treatment Minutes: 39 Minutes Estuardo Diamond PT, DPT Date: 02/15/2022 documented in this encounter [facility] [employer] Phone: 02-12-2022 History of Presen t illness Narrative Physical Therapy Daily Treatment Note Date: 02/12/2022 Patient Name: Tiffany Gonzalez : 1960 Referring Physician: Azeb Bass MD PCP: [place] Otto CNP Medical Diagnosis: No admission diagnoses are documented for this encounter. Treatment Diagnosis: left foot pain, difficulty walking, right knee pain; low back pain Insurance: Payor: [facility] / Plan: [facility] / Product Type: *No Product type* / - (Medicaid Managed) Subjective: PT Visit Information Onset Date: 10/26/21 Total # of Visits Approved: 30 Total # of Visits to Date: Plan of Care/Certification Expiration Date: 02/22/22 No Show: 0 Canceled Appointment: 0 Subjective Subjective: Pt reports 6/10 pain in low back and L knee. Pt requesting more PT visits. Treatment Activities: Exercises: Aquatic therapy (CPT 76018) Treatment Reasoning Exercise 1: HEP - seated plantar fascia stretch, seated self great toe stretch, standing toe DF stretch; updated with seated gastroc and soleus stretching and seated heel and toe raises Exercise 9: Pool: water walking x4 fwd, september walk, lateral, retro Exercise 10: Pool: sink x10 ea in shallow Exercise 11: Pool: calf stretch off of step 3x15 ; sit to stand x10 Exercise 12: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 (Total # of Visits to Date: 17) Short Term Goals Time Frame for Short term goals: 3 weeks Short term goal 1: Pt to be instructed in home program. - met Short term goal 2: Pt to begin gentle stretching of left foot plantar surface to improve tissue quality. - met Short term goal 3: Pt to begin strengthening ex of right LE to improve functional strength. - met Rail Operator Goals Time Frame for termite exterminator helper goals : 6 weeks halfway goal 1: Pt to report independence and compliance with home program. halfway goal 2: Pt to score no less than 50 on LEFS indicating improved quality of life. termite exterminator helper goal 3: Pt to perform TUG in less than 11.0 seconds indicating improved gait and stability. termite exterminator helper goal 4: Pt to report pain no greater than 2/10 with prolong standing. 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 halfway goal 6: Pt to achive 115 degrees of left knee flexion to assist with ADL's. -met (120*) halfway goal 7: Pt to ascend 6 inch step with right LE with little to no UE assistance indicating good functional strength of right LE. halfway goal 8: Pt to achieve 4+/5 strength of left knee to assist with functional mobility and stairs. Minutes Tracking: Time In: 914 Time Out: 950 Minutes: 36 Timed Code Treatment Minutes: 34 Minutes Nataliia Tan PT, DPT Date: 01/08/2022 documented in this encounter [facility] [email or web address] Phone: 12-28-2021 History of Presen t illness Narrative [facility] Outpatient Physical Therapy Daily Note Patient: Tiffany Gonzalez : 1960 CSN #: [id number] Referring Physician: No ref. provider found Date: 12/28/2021 Diagnosis: Left plantar fibromatosis, M72.2 / Patellofemoral disorder right knee, M22.2x1; Primary OA right knee, M17.11; Low back pain, M54.5 Treatment Diagnosis: left foot pain, difficulty walking, right knee pain; low back pain Onset Date: 03/31/22 PT Insurance Information: [employer] Total # of Visits Approved: 30 Per Physician Order Total # of Visits to Date: 15 No Show: 0 Canceled Appointment: 0 Pre-Treatment Pain: 8.5-9/10 Subjective: Patient reports 8.5-9/10 R buttock pain and bilateral knee pain coming into therapy today. The patient reports she was sore for a few days following her last land appointment. 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 Exercises: Exercise 3: Foot roller x2min Exercise 4: [place] pickups Exercise 6: bike 6 mins at level 1.5 Manual: Joint Mobilization: L ankle all ranges PROM, gentle tarsal/ metatarsal mobs, gentle distraction. Other: MFD with one cup sliding followed by static 2 cup placement and PROM Assessment Assessment: L ankle AROM PF: 50*, DF: lacking 5 from neutral INV:25*, Eversion 10*. Pt with a new prescription to continue with PT for L plantar fibromatosis. She reports she prefers aquatic exercise for knees and back. Will continue PT 2x/week seeing her 1x on land for manual techniques to decrease scar sensitivity and improve mobility of scar and plantar fascia and the other appointment will be in the aquatic environment to continue to improve overall strength and activity endurance. Tx time limited due to patient having another appointment. Activity Tolerance Activity Tolerance: Patient limited by pain Patient Education Patient Education: Continue HEP. Pt verbalized/demonstrated good understanding: [x] Yes [] No, pt required further clarification. Post Treatment Pain: 8.5/10 Plan Plan Frequency: 2-3 Plan weeks: 6 Goals (Total # of Visits to Date: 15) Short Term Goals Time Frame for Short term goals: 3 weeks Short term goal 1: Pt to be instructed in home program. - met Short term goal 2: Pt to begin gentle stretching of left foot plantar surface to improve tissue quality. - met Short term goal 3: Pt to begin strengthening ex of right LE to improve functional strength. 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 termite exterminator helper goal 2: Pt to score no less than 50 on LEFS indicating improved quality of life. termite exterminator helper goal 3: Pt to perform TUG in less than 11.0 seconds indicating improved gait and stability. termite exterminator helper goal 4: Pt to report pain no greater than 2/10 with prolong standing. 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 termite exterminator helper goal 6: Pt to achive 115 degrees of left knee flexion to assist with ADL's. -met (120*) termite exterminator helper goal 7: Pt to ascend 6 inch step with right LE with little to no UE assistance indicating good functional strength of right LE. termite exterminator helper goal 8: Pt to achieve 4+/5 strength of left knee to assist with functional mobility and stairs. Minutes Tracking: Time In: 832 Time Out: 907 Minutes: 35 Timed Code Treatment Minutes: 33 Minutes Estuardo Diamond PT, DPT Date: 12/28/2021 documented in this encounter [employer] [facility] Phone: 12-26-2021 History of Presen t illness Narrative [facility] Outpatient Physical Therapy Daily Note Patient: Tiffany Gonzalez : 1960 CSN #: [id number] Referring Physician: No ref. provider found Date: 12/26/2021 Treatment Diagnosis: left foot pain, difficulty walking, right knee pain; low back pain Onset Date: 10/26/21 Total # of Visits Approved: 18 Per Physician Order Total # of Visits to Date: 14 No Show: 0 Canceled Appointment: 0 Pre-Treatment Pain: 6/10 Subjective: Pt reports she doesnt know if land is where she should be but she'll try it today. She feels relief from using aquatics but feels land may be to much for her. Pt rates current pain a 6/10 in the back, 2/10 in foot and knee currently. Exercises: Exercise 1: HEP - seated plantar fascia stretch, seated self great toe stretch, standing toe DF stretch Exercise 2: Seated Rockerboard x 2 mins Exercise 3: Foot roller x2min Exercise 4: [place] pickups Exercise 5: manual stretching plantar surface of left foot Exercise 6: bike 10 mins Exercise 7: ball rollouts 3x30 Manual: Joint Mobilization: L ankle all ranges PROM, gentle tarsal/ metatarsal mobs, gentle distraction. Assessment Assessment: L ankle AROM PF: 50*, DF: lacking 5 from neutral INV:25*, Eversion 10*. Pt continues to report increased discomfort with land based therapy. Activity Tolerance Activity Tolerance: Patient tolerated treatment well,Patient limited by pain Patient Education Patient Education: Continue HEP. Pt verbalized/demonstrated good understanding: [x] Yes [] No, pt required further clarification. Post Treatment Pain: 01/05 Plan Plan Frequency: 2-3 Plan weeks: 6 Goals (Total # of Visits to Date: 14) Short Term Goals Time Frame for Short term goals: 3 weeks Short term goal 1: Pt to be instructed in home program. - met Short term goal 2: Pt to begin gentle stretching of left foot plantar surface to improve tissue quality. - met Short term goal 3: Pt to begin strengthening ex of right LE to improve functional strength. 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 halfway goal 2: Pt to score no less than 50 on LEFS indicating improved quality of life. Minutes Tracking: Time In: 0802 Time Out: 0858 Minutes: 56 Timed Code Treatment Minutes: 54 Minutes Juan Magallon PTA Date: 12/26/2021 documented in this encounter [employer] Phone: 12-21-2021 Note CONSULTATION CONSULTATION DATE: 12/21/2021 HISTORY OF PRESENT ILLNESS: This is a pleasant, 61-year-old female that is a new patient to our clinic, sent here by her PCP for chronic lower back pain. The patient has had chronic lower back pain for years following the of her second son. She recently had lumbar MRI at [facility] which shows disc degeneration and bulging L4-L5 and L5- S1. Patient has diffuse belt line lower back pain that radiates to the right lower extremity to the level above the knee. It is prominent to the lateral posterior aspect. Activities such as standing, walking, sitting, riding in the car and stairs aggravate her pain. She does use heat which decreases the pain. Current medications include meloxicam 15 mg daily, [place] 5/325 t.i.d. and gabapentin 900 mg t.i.d. per her PCP. 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 She has slight residual right sided facial droop only. Patient does ambulate with a cane for assistance. She does have right lower extremity tremors with prolonged walking. Patient's REVIEW OF SYSTEMS / PAST MEDICAL HISTORY / ALLERGIES and IMAGES have been reviewed and they are noted on the chart. PHYSICAL EXAM: VITALS: Blood pressure 128/87, heart rate is 87. Temperature is 97.8. She is 5'1 and weighs 82 kg. GENERAL APPEARANCE: Pleasant and appropriate, no acute distress. Standing in the room for comfort. FOCUSED EXAM - BACK: Range of motion is decreased in lateral rotation and flexion/extension. Patient with prominent point tenderness to facet compression along the posterior elements of L2, L3 and L4, L5 bilaterally. Paravertebral muscles are non-spasmodic. Zulema's point is non-tender with negative Josh's and compression test. MUSCULOSKELETAL: Motor is 3/5 bilaterally, left weaker than the right. Patient with a slow stepped gait. She does walk in a slight forward flexion stance. NEUROLOGICALLY: Patchy hypoesthesia noted along L4, L5, S1 to the right lower extremity. Blunted right patellar reflex, +1 to the left. IMPRESSION: Lumbar degenerative disc disease, lumbar spondylosis, lumbar radiculitis, spinal axial lower back pain and muscle atrophy. PLAN: Following discussion of the procedures done here at the Pain Clinic, patient would like to move forward with a #1 bilateral MBB at L2, L3 and L4, L5. Patient is to receive testosterone cypionate 50 mg in the OR. Education was given on vitamin importance and a list was provided. She is encouraged to do stretches as demonstrated as well as use a menthol heat rub to her back, along with a heat source. Patient is very open to procedures and would like to move forward. She will be followed up in the clinic post procedure. [facility] Signed and Approved by: GARY PERRY . 12/28/2021 16:01:00 [facility] 12-11-2021 History of Presen t illness Narrative [facility] Outpatient Physical Therapy Daily Note Patient: Tiffany Gonzalez : 1960 CSN #: [id number] Referring Physician: No ref. provider found Date: 12/11/2021 Treatment Diagnosis: left foot pain, difficulty walking, right knee pain; low back pain Onset Date: 10/26/21 Total # of Visits Approved: 18 Per Physician Order Total # of Visits to Date: 10 No Show: 0 Canceled Appointment: 0 Pre-Treatment Pain: Subjective: Pt reports / R knee and low back pain today. Pt reports having a lot of pain over the weekend, states she laid on a heating pad most of the weekend. States she has appt tomorrow with [facility] to have low back assessed. Exercises: Exercise 1: HEP - seated plantar fascia stretch, seated self great toe stretch, standing toe DF stretch Exercise 9: Pool: water walking x3 laps fwd/retro in deep Exercise 10: Pool: sink x5 ea in chest deep water- just september, HS curls today Exercise 12: pool: seated LAQ with jet massage x5 min Assessment Assessment: Pt reports pullling with exercises which she reports was painful. Cued to avoid painful ranges with better tolerance. Pt reports most relief with jet massage today. Pt reports pain worsened when exiting water. WIll continue with aquatics for increased strength/ROM in an unloaded environment. Activity Tolerance Activity Tolerance: Patient limited by pain Patient Education Ex rationale, technique, avoiding prolonged positions, increasing activity at home Pt verbalized/demonstrated good understanding: [x] Yes [] No, pt required further clarification. Post Treatment Pain: 05/07 Plan Plan Frequency: 2-3 Plan weeks: 6 Goals (Total # of Visits to Date: 10) Short Term Goals Time Frame for Short term goals: 3 weeks Short term goal 1: Pt to be instructed in home program. - met Short term goal 2: Pt to begin gentle stretching of left foot plantar surface to improve tissue quality. - met Short term goal 3: Pt to begin strengthening ex of right LE to improve functional strength. 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 halfway goal 2: Pt to score no less than 50 on LEFS indicating improved quality of life. termite exterminator helper goal 3: Pt to perform TUG in less than 11.0 seconds indicating improved gait and stability. halfway goal 4: Pt to report pain no greater than 2/10 with prolong standing. halfway goal 5: Pt to have little to no tenderness plantar surface of left foot to assist with WB activities. halfway goal 6: Pt to achive 115 degrees of left knee flexion to assist with ADL's. halfway goal 7: Pt to ascend 6 inch step with right LE with little to no UE assistance indicating good functional strength of right LE. halfway goal 8: Pt to achieve 4+/5 strength of left knee to assist with functional mobility and stairs. Minutes Tracking: Time In: 08 Time Out: 09 Minutes: 48 Shania Wyatt, 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 Date: 12/11/2021 documented in this encounter [facility] Phone: 12-08-2021 History of Presen t illness Narrative [facility] Outpatient Physical Therapy Daily Note Patient: Tiffany Gonzalez : 1960 CSN #: [id number] Referring Physician: No ref. provider found Date: 12/08/2021 Treatment Diagnosis: left foot pain, difficulty walking, right knee pain; low back pain Onset Date: 10/26/21 Total # of Visits Approved: 18 Per Physician Order Total # of Visits to Date: 9 No Show: 0 Canceled Appointment: 0 Pre-Treatment Pain: 7 /10 Subjective: Pt reports having a 15/10 on R knee today, states she just had a shot done in that knee . 7/10 in lower back and hip today. Pt states she called [facility] and they will address her lower back pain on Saturday. Pt reports being very sore after first pool session. Exercises: Exercise 1: HEP - seated plantar fascia stretch, seated self great toe stretch, standing toe DF stretch Exercise 9: Pool: water walking x3 laps fwd/lateral in deep Exercise 10: Pool: sink x5 ea in chest deep water Exercise 12: pool: seated LAQ with jet massage x5 min Exercise 13: Pool stretches at step 4x15 Assessment Assessment: Pt completed pool therapy in chest deep water, for further offloading of joints with better tolerance today. Pt reported mostly tightness with aquatic exercises today. Educated on importance of daily exercise/movement to avoid increased tightness/discomfort with verbalized understanding. WIll continue with aquatics for increased strength/ROM in an unloaded environment.. Activity Tolerance Activity Tolerance: Patient tolerated treatment well Patient Education Ex technique/progressions Pt verbalized/demonstrated good understanding: [x] Yes [] No, pt required further clarification. Post Treatment Pain: 10/10 Plan Plan Frequency: 2-3 Plan weeks: 6 Goals (Total # of Visits to Date: 9) Short Term Goals Time Frame for Short term goals: 3 weeks Short term goal 1: Pt to be instructed in home program. - met Short term goal 2: Pt to begin gentle stretching of left foot plantar surface to improve tissue quality. - met Short term goal 3: Pt to begin strengthening ex of right LE to improve functional strength. 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 halfway goal 2: Pt to score no less than 50 on LEFS indicating improved quality of life. halfway goal 3: Pt to perform TUG in less than 11.0 seconds indicating improved gait and stability. halfway goal 4: Pt to report pain no greater than 2/10 with prolong standing. 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 halfway goal 6: Pt to achive 115 degrees of left knee flexion to assist with ADL's. termite exterminator helper goal 7: Pt to ascend 6 inch step with right LE with little to no UE assistance indicating good functional strength of right LE. termite exterminator helper goal 8: Pt to achieve 4+/5 strength of left knee to assist with functional mobility and stairs. Minutes Tracking: Time In: 841 Time Out: 931 Minutes: 50 Shania Wyatt, ATA Date: 12/08/2021 documented in this encounter [employer] Phone: 12-04-2021 History of Presen t illness Narrative [facility] Outpatient Physical Therapy Daily Note Patient: Tiffany Gonzalez : 1960 CSN #: [id number] Referring Physician: No ref. provider found Date: 12/04/2021 Treatment Diagnosis: left foot pain, difficulty walking, right knee pain; low back pain Onset Date: 10/26/21 Total # of Visits Approved: 18 Per Physician Order Total # of Visits to Date: 8 No Show: 0 Canceled Appointment: 0 Pre-Treatment Pain: 8/10 Subjective: Pt reports pain in L hip today. She rates pain an 8/10. Exercises: Exercise 1: HEP - seated plantar fascia stretch, seated self great toe stretch, standing toe DF stretch Exercise 9: Pool: water walking x3 laps fwd in shallow; x2 laps in deeper Exercise 10: Pool: march, HS curl, h/t raise x8 ea Exercise 11: Pool: deep water hang (2.5# weights on to reduce LE's from floating up) - pt tolerated ~3 min but reports it was painful Exercise 12: pool: seated LAQ with jet massge x5 min Exercise 13: Pool stretches at step 3x15 Assessment Assessment: Pt was initiated with pool therapy today. Pt reports her pain decreased to 4/10 once in water, however, very guarded with entire tx and took multiple, short RBs d/t pain/fatigue. Pt states this is the most activity I've done in 6 months. Pt reports tigthness t/o LEs and lower back, had limited range with stretches and LE ex d/t this. Poor tolerance with deep water hanging d/t pain. WIll continue with aquatics for increased strength/ROM in an unloaded environment. Activity Tolerance Activity Tolerance: Patient tolerated treatment well Patient Education Ex rationale, avoiding painful ROM, DOMs Pt verbalized/demonstrated good understanding: [x] Yes [] No, pt required further clarification. Post Treatment Pain: 10+10/10 Plan Plan Frequency: 2-3 Plan weeks: 6 Goals (Total # of Visits to Date: 8) Short Term Goals Time Frame for Short term goals: 3 weeks Short term goal 1: Pt to be instructed in home program. - met Short term goal 2: Pt to begin gentle stretching of left foot plantar surface to improve tissue quality. - met Short term goal 3: Pt to begin strengthening ex of right LE to improve functional strength. - met Rail Operator Goals Time Frame for termite exterminator helper goals : 6 weeks termite exterminator helper goal 1: Pt to report independence and compliance with home program. halfway goal 2: Pt to score no less than 50 on LEFS indicating improved quality of life. termite exterminator helper goal 3: Pt to perform TUG in less than 11.0 seconds indicating improved gait and stability. termite exterminator helper goal 4: Pt to report pain no greater than 2/10 with prolong standing. halfway goal 5: Pt to have little to no tenderness plantar surface of left foot to assist with WB activities. halfway goal 6: Pt to achive 115 degrees of left knee flexion to assist with ADL's. halfway goal 7: Pt to ascend 6 inch step with right LE with little to no UE assistance indicating good functional strength of right LE. termite exterminator helper goal 8: Pt to achieve 4+/5 strength of left knee to assist with functional mobility and stairs. Minutes Tracking: Time In: 811 Time Out: 856 Minutes: 45 Shania Wyatt, 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 Date: 12/04/2021 documented in this encounter [facility] Phone: 11-23-2021 History of Presen t illness Narrative [facility] Outpatient Physical Therapy Evaluation Date: 11/23/2021 Patient: Tiffany Gonzalez : 1960 CSN #: [id number] Referring Physician: JOHN Chavez Medical Diagnosis: Patellofemoral disorder right knee, M22.2x1; Primary OA right knee, M17.11 Patellofemoral disorder right knee, M22.2x1; Primary OA right knee, M17.11 Treatment Diagnosis: difficulty walking, right knee pain Total # of Visits Approved: 18 Total # of Visits to Date: 1 No Show: 0 Canceled Appointment: 0 Subjective Subjective: Pt states right knee has been hurting for about 10 years but has gotten significantly worse over the last year. MRI shows severe OA in right knee. Has had cortisone and gel injected with min relief. Pt states she is hoping insurance with approve another gel injection. Pain will range from about 5-12/10. Using heat at home for some relief. Has 2 canes at home that she will use occasionally as needed. Observations: General Observations Description: Pt ambulates without AD and moderate antalgic gait pattern. Objective AROM General AROM LE: (Right knee: 6-100 degrees in supine) Strength General Strength Testing LE: (Right: hip 3+/5, knee 4-/5, ankle 4/5) Special Tests: Special Tests for Knee Valgus Stress Test (MCL injury): R (-) Varus Stress Test (LCL injury): R (-) Posterior Draw Test (PCL injury): R (-) Ant. Drawer (ACL injury): R (-) Rupal (Meniscus Lesion): R (-) Modalities: US x 8 mins 1.0 at 20% IFC with HP x 15 mins for pain Assessment Assessment: Pt is 61 y/o female with c/o worsening right knee pain. Pt ambulates without AD; however, moderate antalgic gait pattern noted. ROM of right knee is 6-100 degrees in supine. Strength of right knee is 4/5 due to pain. Pt complaints of pain with valgus and varus stress testing; however, ligaments are still in tact. LEFS score currently 33. TUG without AD: 13.48 seconds. Pt will benefit from PT to address deficits. Therapy Prognosis: Good,Fair Decision Making: Low Complexity Patient Education Patient Education: continue HEP left foot; right knee eval Pt verbalized/demonstrated good understanding: [X] Yes [] No, pt required further clarification. Goals Short Term Goals Time Frame for Short term goals: 3 weeks Short term goal 1: Pt to be instructed in home program. Short term goal 3: Pt to begin strengthening ex of right LE to improve functional strength. Senior Care Goals Time Frame for halfway goals : 6 weeks termite exterminator helper goal 1: Pt to report independence and compliance with home program. halfway goal 2: Pt to score no less than 50 on LEFS indicating improved quality of life. halfway goal 3: Pt to perform TUG in less than 11.0 seconds indicating improved gait and stability. termite exterminator helper goal 4: Pt to report pain no greater than 2/10 with prolong standing. termite exterminator helper goal 6: Pt to achive 115 degrees of left knee flexion to assist with ADL's. termite exterminator helper goal 7: Pt to ascend 6 inch step with right LE with little to no UE assistance indicating good functional strength of right LE. Minutes Tracking: Time In: 814 Time Out: 920 Minutes: 66 Timed Code Treatment Minutes: 60 Minutes Queenie Giron PT, DPT, CMPT 11/23/2021 documented in this encounter [employer] Phone: 11-21-2021 History of Presen t illness Narrative [facility] Outpatient Physical Therapy Daily Note Patient: Tiffany Gonzalez : 1960 CSN #: [id number] Referring Practitioner: Referring Provider (secondary): Estuardo Shaffer DPM Date: 11/21/2021 Diagnosis: Left plantar fibromatosis, M72.2 Treatment Diagnosis: left foot pain, difficulty walking Onset Date: 10/26/21 PT Insurance Information: [employer] Total # of Visits Approved: 18 Per Physician Order Total # of Visits to Date: 4 No Show: 0 Canceled Appointment: 0 Pre-Treatment Pain: 01/05 Subjective: Pt states she had MRI on right knee and is start PT. Foot overall is doing well, reports 50% improvement since starting PT. Doing stretches and massage at home. Exercises: Exercise 5: manual stretching plantar surface of left foot Manual: Soft Tissue Mobilizaton: STM manually and with heated thermoprobe Other: MFD with one cup sliding followed by static 2 cup placement and PROM Modalities: CP x 10 mins at end of treatment. Assessment Assessment: Pt able to tolerate increase pressure with thermoprobe and manual therapy this date. Improved tissue quality noted on plantar surface. Pt continues to ambulate with moderate to severe pain behaviors due to low back pain. Will eval right knee next session. Activity Tolerance Activity Tolerance: Patient tolerated treatment well Patient Education Patient Education: continue HEP and focus on increasing pressure at home with STM Pt verbalized/demonstrated good understanding: [x] Yes [] No, pt required further clarification. Post Treatment Pain: 01/05 Plan Plan Frequency: 2-3 Plan weeks: 6 Goals (Total # of Visits to Date: 4) Short Term Goals Time Frame for Short term goals: 3 weeks Short term goal 1: Pt to be instructed in home program. Short term goal 2: Pt to begin gentle stretching of left foot plantar surface to improve tissue quality. 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 termite exterminator helper goal 2: Pt to score no less than 50 on LEFS indicating improved quality of life. halfway goal 3: Pt to perform TUG in less than 11.0 seconds indicating improved gait and stability. termite exterminator helper goal 4: Pt to report pain no greater than 2/10 with prolong standing. 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 Minutes Tracking: Time In: 936 Time Out: 1021 Minutes: 44 Timed Code Treatment Minutes: 32 Minutes Queenie Giron PT , DPT, CMPT Date: 11/21/2021 [facility]: 11-17-[facility]21 History of Presen t illness Narrative [facility] Inpatient/Observation/Outpatien t Rehabilitation Date: 11/17/2021 Patient Name: Tiffany Gonzalez [] Inpatient Acute/Observation [x] Outpatient : 1960 [x] Pt no showed for scheduled appointment Queenie Giron PT , DPT, CMPT Date: 11/17/2021 [facility] this encounter [facility] [facility] Phone: 11-06-2021 History of Presen t illness Narrative [facility] Outpatient Physical Therapy Evaluation Date: 11/06/2021 Patient: Tiffany Gonzalez : 1960 CSN #: [id number] Referring Practitioner: Estuardo Shaffer DPM Referral Date : 10/26/21 Medical Diagnosis: Left plantar fibromatosis, M72.2 Treatment Diagnosis: left foot pain, difficulty walking Onset Date: 10/26/21 PT Insurance Information: [employer] Total # of Visits Approved: 18 Total # of Visits to Date: 1 No Show: 0 Canceled Appointment: 0 Subjective Subjective: Pt has 2 surgeries on the bottom of left foot for a cyst. First was July 2020 and seconds was January of 2021. Pt has continues with pain and scarring on the bottom of foot. Putting cream on and massaging 2x day since she was seen by on 10/26/21 but still feels tight. Pain will range from about 2-10/10 depending on activity. Is able to limit how much she on her feet at home. Using heating pad as needed. Additional Pertinent Hx: smoker, HTN, CVA, OA, anxiety, depression Objective Observation/Palpation Palpation: severe tenderness around incision left plantar surface Observation: mild to moderate antalgic gait pattern LLE General AROM: ankle in supine: -10 degrees DF, 38 degrees inversion, 5 degrees eversion Exercises: Exercise 1: HEP - seated plantar fascia stretch, seated self great toe stretch, standing toe DF stretch Manual: Other: Light MFD with one cup sliding followed by static 2 cup placement Modalities: Moist heat: 10mins at end of session Ultrasound: 8 mins at 1.0w/cm and 2MHz and 10% Functional Outcome Measures Any of your usual work, housework, or school activities: Moderate Difficulty Your usual hobbies, recreational, or sporting activities: Moderate Difficulty Getting into or out of the bath: Moderate Difficulty Walking between rooms: A Little Bit of Difficulty Putting on your shoes or socks: No Difficulty Squatting: Moderate Difficulty Lifting an object, like a bag of groceries from the floor: Moderate Difficulty Performing light activities around your home: Moderate Difficulty Performing heavy activities around your home: A Little Bit of Difficulty Getting into or out of a car: Moderate Difficulty Walking 2 blocks: Extreme Difficulty or Unable to Perform Activity Walking a mile: Extreme Difficulty or Unable to Perform Activity Going up or down 10 stairs (about 1 flight of stairs): Moderate Difficulty Standing for 1 hour: Extreme Difficulty or Unable to Perform Activity Sitting for 1 hour: A Little Bit of Difficulty Running on even ground : Extreme Difficulty or Unable to Perform Activity Running on uneven ground : Extreme Difficulty or Unable to Perform Activity Making sharp turns while running fast : Extreme Difficulty or Unable to Perform Activity Hopping: Extreme Difficulty or Unable to Perform Activity Rolling over in bed: No Difficulty LEFS Total Score: 33 Timed Up and Go: 13.48 Assessment Assessment: Pt is 52 y/o female with complaints of chronic left foot pain following 2 surgeries last year. Pt presents with severe tenderness around incision left plantar surface and mild to moderate antalgic gait pattern. AROM left ankle in supine: -10 degrees DF, 38 degrees inversion, 5 degrees eversion. LEFS score currently 33. TUG without AD: 13.48 seconds. Pt will benefit from PT to address deficits. Prognosis: Good Decision Making: Low Complexity Patient Education Patient Education: PT eval, POC and HEP Pt verbalized/demonstrated good understanding: [X] Yes [] No, pt required further clarification. Goals Short term goals Time Frame for Short term goals: 3 weeks Short term goal 1: Pt to be instructed in home program. Short term goal 2: Pt to begin gentle stretching of left foot plantar surface to improve tissue quality. termite exterminator helper goals Time Frame for halfway goals : 6 weeks halfway goal 1: Pt to report independence and compliance with home program. termite exterminator helper goal 2: Pt to score no less than 50 on LEFS indicating improved quality of life. halfway goal 3: Pt to perform TUG in less than 11.0 seconds indicating improved gait and stability. halfway goal 4: Pt to report pain no greater than 2/10 with prolong standing. 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 Patient goals : make the pain go away , not having another surgery on it Minutes Tracking: Time In: 1402 Time Out: 1503 Minutes: 61 Timed Code Treatment Minutes: 50 Minutes Queenie Giron PT, DPT, CMPT 11/06/2021 documented in this encounter [employer] Phone: 10-26-2021 Note PROCEDURE: XR FOOT B IL MIN 3 VIEWS HISTORY: Pain in both feet ; chronic arch pain bilaterally COMPARISON: None. 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 No fracture, dislocation, bone lesion. Mild degenerative disease hepatic spurring of the calcaneus. Mild flattening of the plantar arch bilaterally. SOFT TISSUES:No visible soft tissue swelling. EFFUSION:None visible. OTHER: Negative. IMPRESSION: 1. No acute bone abnormality or significant degenerative joint disease. 2. Mild pes planus bilaterally. 3. Short left fourth metatarsal; congenital versus remote trauma. Electronically authenticated by: MARIO OCONNOR Date: 2021-10-26 16:20 [facility] 02-02-2021 History of Presen t illness Narrative [facility] Preadmission Testing Name: Tiffany Gonzalez : 1960 Patient (home) [phone] (work) Procedure LEFT FOOT Date of Procedure: 02/09/21 Surgeon: Jeffrey Segovia DPM Ht: 5' 1 (154.9 cm) Wt: 177 lb (80.3 kg) Wt method: Actual Allergies: Allergies Allergen Reactions Ibuprofen Other (See Comments) Abdominal bleeding Morphine Peanut allergy: No Latex Allergy Screening Tool Have you ever had a reaction to or been told by a physician that you have an allergy to latex or natural rubber?: No Vitals: 02/02/21 0904 BP: 138/84 Pulse: 76 Resp: 20 Temp: 97.7 F (36.5 C) SpO2: 96% No LMP recorded. Patient has had a hysterectomy. Do you take blood thinners? [x] Yes [] No Instructed to stop blood thinners prior to procedure? [x] Yes [] No [] N/A Do you have sleep apnea? [] Yes [x] No Instructed to bring CPAP machine? [] Yes [] No [x] N/A Do you have acid reflux ? [x] Yes [] No Do you have hiatal hernia? [] Yes [x] No Do you ever experience motion sickness? [] Yes [x] No Have you had a respiratory infection or sore throat in last 4 weeks before surgery? [] Yes [x] No Do you have poorly controlled asthma or COPD? [] Yes [x] No Do you have a history of angina in the last month or symptomatic arrhythmia? [] Yes [x] No Do you have significant central nervous system disease? [x] Yes [] No Have you had an EKG, labs, or chest xray in last 12 months? If yes provide copies to anesthesia [x] Yes [] No [x] Lab [x] EKG [] CXR Have you had a stress test? [x] Yes [] No When/where:[facility] 10/11/2020 Was it normal? [x] Yes [] No Do you or your family have a history of Malignant Hyperthermia? [] Yes [x] No Patient instructed on: [x] NPO Status [x] Meds to Take Day of Surgery [x] Ride Home [x]No Jewelry/Contact Lenses/Dentures day of surgery [x] Chlorhexidene PAT Call/Visit Questions Person Interviewed: PATIENT Surgery Time Verified: Yes Surgery Location Verified: Yes Patient Language: [place] Medical History Reviewed: Yes NPO Status Reinforced: Yes Ride and Caregiver Arranged: Yes Ride Caregiver Provider: DIMPLE Pre-AdmissionTesting Checklist Patient has been to this health system before?: Yes Does patient refuse blood?: No Healthcare Directive: No, patient does not have an advance directive for healthcare treatment Lace Finisher needed: No Patient can read and write?: Yes [id number]: Does the patient want to have any new prescriptions delivered to bedside prior to discharge?: No History given by: Patient Providing self care at home?: Yes Discharge transport (for same day patients): Family Patient instructed on the pre-operative, intra-operative, and post-operative process? Yes Medication instructions reviewed with patient? Yes Pre operative instruction sheet reviewed and given to patient in [facility]? Yes Patient instructed on the pre-operative, intra-operative, and post-operative process. Patient instructed on NPO status. Medication instructions and Pre operative instruction sheet reviewed and given to patient in PAT. CHG skin prep instructions reviewed with the patient. documented in this encounter [employer] Phone: Evaluation note Diagnosis Aphasia Dizziness Dizziness and giddiness documented in this encounter [employer] Phone: evaluation note* Diagnosis Preop testing- Primary Preoperative examination, unspecified documented in this encounter [employer] Phone: evalirlssn note* Diagnosis Essential hypertension Unspecified essential hypertension documented in this encounter [employer] Phone: evaluation note* Diagnosis Aphasia Dizziness Dizziness and giddiness Drooling Disturbance of salivary secretion documented in this encounter [employer] Phone: evaluation note* Diagnosis Sprain of groin, initial encounter- Primary documented in this encounter [employer] Phone: evaluation note* Diagnosis Stuttering Childhood onset fluency disorder documented in this encounter [employer] Phone: evaluation note* Diagnosis Partial seizure (HCC)- Primary Other convulsions Convulsions, unspecified convulsion type (HCC) documented in this encounter [employer] Phone: evaluation note* Diagnosis Seizures (HCC)- Primary Other convulsions Tremor Abnormal involuntary movements Stuttering Childhood onset fluency disorder Generalized anxiety disorder documented in this encounter [employer] Phone: evaluation note* Diagnosis Anxiety and depression Dysthymic disorder Stuttering Childhood onset fluency disorder documented in this encounter [employer] Phone: evaluation note* Diagnosis Thrush- Primary Candidiasis of mouth documented in this encounter [employer] Phone: evalpdqdfk note* Diagnosis Right sided abdominal pain Abdominal pain, unspecified site documented in this encounter [facility] Discharge instructions* Instructions* Geoff Rios MD - 08/20/2019 Please take all medications as prescribed. Please follow up with your primary care physician by calling today, or as soon as possible, for thefirst available appointment. If you do not have a primary care physician, please contact a physician or clinic listed below today to establish care. Please return to the emergency department IMMEDIATELY if you develop uncontrolled fevers, uncontrolled vomiting, change in symptoms, worsening of symptoms, or ANY other concerns. * Attachments The following attachments cannot be sent through Care Everywhere. * Strain or Sprain ([place]) [facility] [place] [facility] Discharge instructions* Attachments The following attachments cannot be sent through Care Everywhere. * Candidiasis ([place]) [facility] [employer] Phone: History of Present Illness * Nicholas Bonilla, PT - 04/01/2019 2:50 PM EDT [facility] Outpatient Physical Therapy Daily Note Patient: Tiffany Gonzalez : 1960 CSN #: [id number] Referring Practitioner: Karina Phillips NP Referral Date : 03/06/19 Date: 04/01/2019 Diagnosis: Lumbar strain, S39.012A Treatment Diagnosis: Low back pain Onset Date: 02/18/19 PT Insurance Information: [facility] Total # of Visits Approved: 10 Per Physician Order Total # of Visits to Date: 2 No Show: 0 Canceled Appointment: 0 Pre-Treatment Pain: 7/10 Subjective: Pt. reports 7/10 pain in lower back this date stating it's going down slowly but was aggravated by repetitive bending at work last night. Exercises: Exercise 1: HEP: prone lying, wall sits with PPT, divers stretch in sitting Exercise 2: Scifit x10 min L1.0 Exercise 3: Seated therapy ball rollouts fwd/lateral 10x ea way Exercise 4: Blue tband rows/ext 10x ea Exercise 5: Standing against wall PPT's Exercise 6: Counter top back bends [id number] Exercise 7: Standing R Lat stretch [id number] Exercise 8: Prone lying x10 minutes Manual: Joint mobilization: Gr I-III PA mob's to thoracic spine in prone Soft Tissue Mobalization: DTM with heated thermoprobe to R thoracolumbar paraspinals and QL in prone Assessment Assessment: Pt. reports compliance with HEP. Initiated ther ex to improve core strength and trunk mobility within patient tolerance this date. Noted decreased tone in R thoracolumbar paraspinals thisdate but still TTP; DTM with heated thermoprobe in prone at end of session to decrease post exercise soreness. Will cont. to progress. Patient Education Exercise technique and progression Pt verbalized/demonstrated good understanding: [x] Yes [] No, pt required further clarification. Post Treatment Pain: 5/10 Plan Times per week: 3 Plan weeks: 3 Goals (Total # of Visits to Date: 2) Short Term Goals - Time Frame for Short term goals: 3 weeks Short term goal 1: Pt. to initiate HEP to improve core strength and B hip strength and trunk mobility-progressing []Met []Partially met []Not met Short term goal 2: Initiate modalities/manual techniques prn to decrease muscle tone and pain-progressing []Met []Partially met []Not met Short term goal 3: Pt. to test (-) for JOSH and have no innominate rotation to decrease pain and improve mobility. 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 to be independent with HEP []Met []Partially met []Not met termite exterminator helper goal 2: Pt. to have improved core and B hip strength >/= to 4/5 all planes for improved functional strength. []Met []Partially met []Not met termite exterminator helper goal 3: Pt. to report decrease in R sided thoracolumbar pain to </=2/10 for improved QOL. []Met []Partially met []Not met termite exterminator helper goal 4: Pt. to have improved trunk mobility with B SB able to reach within 2 in of lateral knee joint line []Met []Partially met []Not met []Met []Partially met []Not met Minutes Tracking: Time In: 1401 Time Out: 1445 Minutes: 44 Nicholas Bonilla PT, DPT Date: 04/01/2019 documented in this encounter* Juan Magallon 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 - 04/07/2019 11:20 AM EDT [facility] Outpatient Physical Therapy Daily Note Patient: Tiffany Gonzalez : 1960 CSN #: [id number] Referring Practitioner: Karina Phillips NP Referral Date : 03/06/19 Date: 04/07/2019 Diagnosis: Lumbar strain, S39.012A Treatment Diagnosis: Low back pain Onset Date: 02/18/19 PT Insurance Information: [facility] Total # of Visits Approved: 10 Per Physician Order Total # of Visits to Date: 4 No Show: 1 Canceled Appointment: 0 Pre-Treatment Pain: 4/10 Subjective: Pt reports she is a little sore this morning but she worked all night . Pt rates current pain a 4/10. Exercises: Exercise 1: HEP: prone lying, wall sits with PPT, divers stretch in sitting Exercise 2: Scifit x 8 min LV 2.5 Exercise 6: Counter top back bends 3x20 sec Exercise 8: Prone lying x5 min Exercise 11: PPT PPT september PPT SLR 15x ea Exercise 12: Prone pressups and knee flex 15x ea Manual: Manual traction: Man ball traction Modalities: Moist heat: MHP to decrease tightness/pain x 15 min E-stim (parameters): IFC + MHP to decrease pain/soreness x 15 min Assessment Assessment: No MET needed today d/t level pelvis. Pt reported increased back pain upon arrival withcentralized with use of prone ex then decreased with use of ball traction. Will cont to advance towards goals as Pt tolerates. Patient Education Cont current Ex at home. Pt verbalized/demonstrated good understanding: [x] Yes [] No, pt required further clarification. Post Treatment Pain: 3/10 Plan Times per week: 3 Plan weeks: 3 Goals (Total # of Visits to Date: 4) Short Term Goals - Time Frame for Short term goals: 3 weeks Short term goal 1: Pt. to initiate HEP to improve core strength and B hip strength and trunk mobility -PROGRESSING []Met [x]Partially met []Not met Short term goal 2: Initiate modalities/manual techniques prn to decrease muscle tone and pain -PROGRESSING []Met [x]Partially met []Not met Short term goal 3: Pt. to test (-) for JOSH and have no innominate rotation to decrease pain and improve mobility. []Met []Partially met [x]Not met []Met []Partially met []Not met Rail Operator Goals - Time Frame for halfway goals : 6 weeks termite exterminator helper goal 1: Pt. to be independent with HEP []Met []Partially met [x]Not met termite exterminator helper goal 2: Pt. to have improved core and B hip strength >/= to 4/5 all planes for improved functional strength. []Met []Partially met [x]Not met termite exterminator helper goal 3: Pt. to report decrease in R sided thoracolumbar pain to </=2/10 for improved QOL. []Met []Partially met [x]Not met halfway goal 4: Pt. to have improved trunk mobility with B SB able to reach within 2 in of lateral knee joint line []Met []Partially met [x]Not met []Met []Partially met []Not met Minutes Tracking: Time In: 928 Time Out: 1031 Minutes: 62 Juan Magallon, 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 Date: 04/07/2019 documented in this encounter* Nicholas Bonilla, PT - 04/09/2019 10:14 AM EDT [facility] Outpatient Physical Therapy Daily Note Patient: Tiffany Gonzalez : 1960 CSN #: [id number] Referring Practitioner: Karina Phillips NP Referral Date : 03/06/19 Date: 04/09/2019 Diagnosis: Lumbar strain, S39.012A Treatment Diagnosis: Low back pain Onset Date: 02/18/19 PT Insurance Information: [facility] Total # of Visits Approved: 10 Per Physician Order Total # of Visits to Date: 5 No Show: 1 Canceled Appointment: 0 Pre-Treatment Pain: 6/10 Subjective: Pt. reports she felt good after last session but it didn't last long since she had to go to work and they took her off light duty; pain is 6/10 right now. Pt. saw doctor this morning for physical and was told to drink more water. Exercises: Exercise 1: HEP: prone lying, wall sits with PPT, divers stretch in sitting Exercise 2: Scifit x 10 min LV 2.5 Exercise 4: Blue T-band rows/ext/palloff press 15x ea Exercise 6: Counter top back bends 3x20 sec Exercise 8: Prone lying x5 min Exercise 10: Standing physioball ab iso's 15x 2-3 sec holds Exercise 11: PPT PPT september PPT SLR 15x ea Exercise 12: Prone pressups and knee flex 15x ea Manual: Manual traction: Man ball traction Modalities: Moist heat: MHP to decrease tightness/pain x 15 min E-stim (parameters): IFC + MHP to decrease pain/soreness x 15 min Assessment Assessment: No MET needed today d/t level pelvis; patient has met short term goal for good pelvic alignment. Pt. able to tolerate core strengthening with bands this date and continues to report relief of pain with extension based exercises. Will cont. to progress as tolerated. Patient Education Exercise technique Pt verbalized/demonstrated good understanding: [x] Yes [] No, pt required further clarification. Post Treatment Pain: 4/10 Plan Times per week: 3 Plan weeks: 3 Goals (Total # of Visits to Date: 5) Short Term Goals - Time Frame for Short term goals: 3 weeks Short term goal 1: Pt. to initiate HEP to improve core strength and B hip strength and trunk mobility -PROGRESSING []Met []Partially met []Not met Short term goal 2: Initiate modalities/manual techniques prn to decrease muscle tone and pain -met []Met []Partially met []Not met Short term goal 3: Pt. to test (-) for JOSH and have no innominate rotation to decrease pain and improve mobility. 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 to be independent with HEP []Met []Partially met []Not met halfway goal 2: Pt. to have improved core and B hip strength >/= to 4/5 all planes for improved functional strength. []Met []Partially met []Not met halfway goal 3: Pt. to report decrease in R sided thoracolumbar pain to </=2/10 for improved QOL. []Met []Partially met []Not met halfway goal 4: Pt. to have improved trunk mobility with B SB able to reach within 2 in of lateral knee joint line []Met []Partially met []Not met []Met []Partially met []Not met Minutes Tracking: Time In: 927 Time Out: 1024 Minutes: 56 Nicholas Bonilla, PT, DPT Date: 04/09/2019 documented in this encounter* Alondra Gamble RN - 04/19/2020 10:21 AM EDT Discharge instructions given to patient and boyfriend, Jesus, verbalized understanding, no further questions at this time. Discharge Criteria Inpatients must meet Criteria 1 through 7. All other patients are either YES or N/A. If a NO is chosen then Anesthesia or Surgeon must be notified. 1. Minimum 30 minutes after last dose of sedative medication, minimum 120 minutes after last dose of reversal agent. Yes 2. Systolic BP stable within 20 mmHg for 30 minutes & systolic BP between 90 & 180 or within 10 mmHg of baseline. Yes 3. Pulse between 60 and 100 or within 10 bpm of baseline. Yes 4. Spontaneous respiratory rate >/= 10 per minute. Yes 5. SaO2 >/= 95 or >/= baseline. Yes 6. Able to cough and swallow or return to baseline function. Yes 7. Alert and oriented or return to baseline mental status. Yes 8. Demonstrates controlled, coordinated movements, ambulates with steady gait, or return to baseline activity function. Yes 9. Minimal or no pain or nausea, or at a level tolerable and acceptable to patient. Yes 10. Takes and retains oral fluids as allowed. Yes 11. Procedural / perioperative site stable. Minimal or no bleeding. Yes 12. If GI endoscopy procedure, minimal or no abdominal distention or passing flatus. Yes 13. Written discharge instructions and emergency telephone number provided. Yes 14. Accompanied by a responsible adult. Yes documented in this encounter* Yeimi Lopez RN - 07/20/2020 10:00 AM EST [facility] Preadmission Testing Name: Tiffany Gonzalez : 1960 Patient (home) Procedure LEFT FOOT Date of Procedure: 07/28/20 Surgeon: Jeffrey Segovia DPM Ht: 5' 1 (154.9 cm) Wt: 176 lb 11.2 oz (80.2 kg) Wt method: Actual Allergies: Allergies Allergen Reactions Ibuprofen Other (See Comments) Abdominal bleeding Morphine Peanut allergy: No Latex Allergy Screening Tool Have you ever had a reaction to or been told by a physician that you have an allergy to latex or natural rubber?: No Vitals: 07/20/20 1043 BP: (!) 136/94 Pulse: 85 Resp: 20 Temp: 97.1 F (36.2 C) SpO2: 97% No LMP recorded. Patient has had a hysterectomy. Do you take blood thinners? [x] Yes [] No Instructed to stop blood thinners prior to procedure? [x] Yes [] No [] N/A Do you have sleep apnea? [] Yes [x] No Instructed to bring CPAP machine? [] Yes [] No [x] N/A Do you have acid reflux ? [x] Yes [] No Do you have hiatal hernia? [] Yes [x] No Do you ever experience motion sickness? [x] Yes [] No Have you had a respiratory infection or sore throat in last 4 weeks before surgery? [] Yes [x] No Do you have poorly controlled asthma or COPD? [] Yes [x] No Do you have a history of angina in the last month or symptomatic arrhythmia? [] Yes [x] No Do you have significant central nervous system disease? [] Yes [x] No Have you had an EKG, labs, or chest xray in last 12 months? If yes provide copies to anesthesia [x] Yes [] No [x] Lab [] EKG [] CXR Have you had a stress test? [x] Yes [] No When/where: 2015 Was it normal? [x] Yes [] No Do you or your family have a history of Malignant Hyperthermia? [] Yes [x] No PAT Call/Visit Questions Person Interviewed: PATIENT Surgery Time Verified: Yes Surgery Location Verified: Yes Patient Language: [place] Medical History Reviewed: Yes NPO Status Reinforced: Yes Ride and Caregiver Arranged: Yes Ride Caregiver Provider: DELANEY Pre-AdmissionTesting Checklist Patient has been to this health system before?: Yes Does patient refuse blood?: No Healthcare Directive: No, patient does not have an advance directive for healthcare treatment Lace Finisher needed: No Patient can read and write?: Yes Omsx-en-Atst: Does the patient want to have any new prescriptions delivered to bedside prior to discharge?: No History given by: Patient Providing self care at home?: Yes Discharge transport (for same day patients): Family Patient instructed on the pre-operative, intra-operative, and post-operative process? Yes Medication instructions reviewed with patient? Yes Pre operative instruction sheet reviewed and given to patient in PAT? Yes * Yeimi Lopez RN - 07/20/2020 10:00 AM EST Patient instructed on the pre-operative, intra-operative, and post-operative process. Patient instructed on NPO status. Medication instructions reviewed with patient. Pre operative instruction sheet reviewed and given to patient in PAT. documented in this encounter* Ami Zamora RN - 08/19/2020 8:34 AM EST Patient verbalizes readiness for discharge. Discharge instructions given to patient and responsibleadult, answered all questions, and verbalized understanding of discharge instructions. Discharge Criteria Inpatients must meet Criteria 1 through 7. All other patients are either YES or N/A. If a NO is chosen then Anesthesia or Surgeon must be notified. 1. Minimum 30 minutes after last dose of sedative medication, minimum 120 minutes after last dose of reversal agent. Yes 2. Systolic BP stable within 20 mmHg for 30 minutes & systolic BP between 90 & 180 or within 10 mmHg of baseline. Yes 3. Pulse between 60 and 100 or within 10 bpm of baseline. Yes 4. Spontaneous respiratory rate >/= 10 per minute. Yes 5. SaO2 >/= 95 or >/= baseline. Yes 6. Able to cough and swallow or return to baseline function. Yes 7. Alert and oriented or return to baseline mental status. Yes 8. Demonstrates controlled, coordinated movements, ambulates with steady gait, or return to baseline activity function. Yes 9. Minimal or no pain or nausea, or at a level tolerable and acceptable to patient. Yes 10. Takes and retains oral fluids as allowed. Yes 11. Procedural / perioperative site stable. Minimal or no bleeding. Yes 12. If GI endoscopy procedure, minimal or no abdominal distention or passing flatus. N/A 13. Written discharge instructions and emergency telephone number provided. Yes 14. Accompanied by a responsible adult. Yes * Yeimi Lopez RN - 08/08/2020 9:04 AM EST Pt was covid positive on 07/21/20 with symptoms. Pt is no longer experiencing covid symptoms. Surgery instructions reviewed over the phone. * Yeimi Lopez RN - 08/05/2020 3:11 PM EST Attempted PAT phone call; no answer; message left to return PAT phone call. documented in this encounter* Juan Magallon PTA - 04/17/2019 9:43 AM EDT [facility] Outpatient Physical Therapy Daily Note Patient: Tiffany Gonzalez : 1960 CSN #: [id number] Referring Practitioner: Date: 04/17/2019 Diagnosis: Lumbar strain, S39.012A Treatment Diagnosis: Low back pain Onset Date: 02/18/19 PT Insurance Information: [facility] Total # of Visits Approved: 10 Per Physician Order Total # of Visits to Date: 8 No Show: 1 Canceled Appointment: 0 Pre-Treatment Pain: 1/10 Subjective: Pt reports her knee was pretty sore yesterday she feels from sit<>stands which caused her to call off work. Pt rates current pain a 1/10. Pt 15 mins late today to therapy. Exercises: Exercise 1: HEP: prone lying, wall sits with PPT, divers stretch in sitting Exercise 2: Scifit x 10 min LV 2.5 Exercise 4: Blue T-band rows/ext/palloff press 15x ea Exercise 8: Prone lying x5 min Exercise 11: PPT PPT september PPT SLR 15x ea Exercise 12: Prone pressups and knee flex 15x ea Exercise 13: JOystick 15x ea Modalities: Moist heat: MHP to decrease tightness/pain x 15 min E-stim (parameters): IFC + MHP to decrease pain/soreness x 15 min Assessment Assessment: Pt able to R and L lateral bend today each fingertips 4 inches from knee joint. Pt reports tightness in LB being limiting factor on bending. Patient Education Cont current HEP. Pt verbalized/demonstrated good understanding: [x] Yes [] No, pt required further clarification. Post Treatment Pain: 1/10 Plan Times per week: 3 Plan weeks: 3 Goals (Total # of Visits to Date: 8) Short Term Goals - Time Frame for Short term goals: 3 weeks Short term goal 1: Pt. to initiate HEP to improve core strength and B hip strength and trunk mobility -PROGRESSING []Met [x]Partially met []Not met Short term goal 2: Initiate modalities/manual techniques prn to decrease muscle tone and pain -met [x]Met []Partially met []Not met Short term goal 3: Pt. to test (-) for JOSH and have no innominate rotation to decrease pain and improve mobility. 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 to be independent with HEP []Met []Partially met [x]Not met termite exterminator helper goal 2: Pt. to have improved core and B hip strength >/= to 4/5 all planes for improved functional strength. []Met []Partially met [x]Not met halfway goal 3: Pt. to report decrease in R sided thoracolumbar pain to </=2/10 for improved QOL. []Met []Partially met [x]Not met halfway goal 4: Pt. to have improved trunk mobility with B SB able to reach within 2 in of lateral knee joint line []Met []Partially met [x]Not met []Met []Partially met []Not met Minutes Tracking: Time In: 0900 Time Out: 952 Minutes: 53 Juan Magallon, 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 Date: 04/17/2019 documented in this encounter* Andra Caballero, 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 - 04/03/2019 10:14 AM EDT [facility] Outpatient Physical Therapy Daily Note Patient: Tiffany Gonzalez : 1960 [facility] #: [id number] Referring Practitioner: Karina Phillips NP Referral Date : 03/06/19 Date: 04/03/2019 Diagnosis: Lumbar strain, S39.012A Treatment Diagnosis: Low back pain Onset Date: 02/18/19 PT Insurance Information: [facility] Total # of Visits Approved: 10 Per Physician Order Total # of Visits to Date: 3 No Show: 1 Canceled Appointment: 0 Pre-Treatment Pain: 5/10 Subjective: Pt arrived to session rating LBP at 5/10 this date. Pt reports last session went very well. Exercises: Exercise 1: HEP: prone lying, wall sits with PPT, divers stretch in sitting Exercise 2: Scifit x 8 min LV 2.5 Exercise 3: Seated therapy ball rollouts fwd/lateral 15x ea way Exercise 4: Blue T-band rows/ext/palloff press 10x ea Exercise 5: Standing against wall PPT's 10x Exercise 6: Counter top back bends 3x20 sec Exercise 7: Standing R lat stretch/posterior capsule stretch 3x20 sec Exercise 8: Prone lying x 10 min Exercise 9: Standing 3-way hip OTB 10x ea Exercise 10: Standing physioball ab iso's 10x 2-3 sec holds Modalities: Moist heat: MHP to decrease tightness/pain x 15 min E-stim (parameters): IFC + MHP to decrease pain/soreness x 15 min Assessment Assessment: Added standing physioball ab iso's as well as T-band palloff press into therex program this date to improve pt core strength per pt goals, pt having good tolerance w/ min pain/difficulty noted during. Pt requiring increased visual and v.c.'s for proper technique w/ standing PPT's at wall, good carryover noted following cueing. Resisted 3-way hip also added this date to improve bilateral hip strength, fatigue noted following. Initiated use of IFC w/ MHP at end of session to decrease overall LBP and soreness, will continue to progress as tolerated by pt. Patient Education Pt educated on exercise rationale and HEP. Pt verbalized/demonstrated good understanding: [x] Yes [] No, pt required further clarification. Post Treatment Pain: 0/10 Plan Times per week: 3 Plan weeks: 3 Goals (Total # of Visits to Date: 3) Short Term Goals - Time Frame for Short term goals: 3 weeks Short term goal 1: Pt. to initiate HEP to improve core strength and B hip strength and trunk mobility -PROGRESSING []Met [x]Partially met []Not met Short term goal 2: Initiate modalities/manual techniques prn to decrease muscle tone and pain -PROGRESSING []Met [x]Partially met []Not met Short term goal 3: Pt. to test (-) for JOSH and have no innominate rotation to decrease pain and improve mobility. 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 to be independent with HEP []Met []Partially met []Not met termite exterminator helper goal 2: Pt. to have improved core and B hip strength >/= to 4/5 all planes for improved functional strength. []Met []Partially met []Not met termite exterminator helper goal 3: Pt. to report decrease in R sided thoracolumbar pain to </=2/10 for improved QOL. []Met []Partially met []Not met termite exterminator helper goal 4: Pt. to have improved trunk mobility with B SB able to reach within 2 in of lateral knee joint line []Met []Partially met []Not met []Met []Partially met []Not met Minutes Tracking: Time In: 916 Time Out: 1016 Minutes: 59 Andra Caballero PTA Date: 04/03/2019 documented in this encounter* Waleska Jacobo - 04/02/2019 10:34 AM EDT [facility] Inpatient/Observation/Outpatient Rehabilitation Date: 04/02/2019 Patient Name: Tiffany Gonzalez [] Inpatient Acute/Observation [x] Outpatient : 1960 [x] Pt no showed for scheduled appointment--left message for appt tomorrow and to call if unable tomake that. [] Pt refused/declined therapy at this time due to: [] Pt cancelled due to: [] No Reason Given [] Sick/ill [] Other: Waleska Jacobo 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 [id number] Date: 04/02/2019 documented in this encounter* Marc Hodges - 04/16/2019 10:46 AM EDT [facility] Outpatient Physical Therapy Daily Note Patient: Tiffany Gonzalez : 1960 CSN #: [id number] Referring Practitioner: Karina Phillips NP Referral Date : 03/06/19 Date: 04/16/2019 Diagnosis: Lumbar strain, S39.012A Treatment Diagnosis: Low back pain Onset Date: 02/18/19 PT Insurance Information: [facility] Total # of Visits Approved: 10 Per Physician Order Total # of Visits to Date: 7 No Show: 1 Canceled Appointment: 0 Pre-Treatment Pain: 3/10 Subjective: States her back feels pretty good today, states she had a easy job last night. Pain 3/10 Exercises: Exercise 2: Scifit x 10 min LV 2.5 Exercise 4: Blue T-band rows/ext/palloff press 15x ea Exercise 5: Standing against wall PPT's 10x Exercise 6: Counter top back bends 3x20 sec Exercise 8: Prone lying x5 min Exercise 11: PPT PPT march PPT SLR 15x ea Exercise 12: Prone pressups and knee flex 15x ea Exercise 13: JOystick 15x ea Exercise 14: Sit<>stands 15x Modalities: Moist heat: MHP to decrease tightness/pain x 15 min E-stim (parameters): IFC + MHP to decrease pain/soreness x 15 min Assessment Assessment: Pt is doing better, alignment looks good today. Focused on LB and core strenghtening. IFC/hp at end of session. Patient Education Patient Education: Proper body mechanics at work Pt verbalized/demonstrated good understanding: [x] Yes [] No, pt required further clarification. Post Treatment Pain: 3/10 Plan Times per week: 3 Plan weeks: 3 Goals (Total # of Visits to Date: 7) Short Term Goals - Time Frame for Short term goals: 3 weeks Short term goal 1: Pt. to initiate HEP to improve core strength and B hip strength and trunk mobility -PROGRESSING []Met []Partially met []Not met Short term goal 2: Initiate modalities/manual techniques prn to decrease muscle tone and pain -met []Met []Partially met []Not met Short term goal 3: Pt. to test (-) for JOSH and have no innominate rotation to decrease pain and improve mobility. 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 to be independent with HEP []Met []Partially met []Not met halfway goal 2: Pt. to have improved core and B hip strength >/= to 4/5 all planes for improved functional strength. []Met []Partially met []Not met termite exterminator helper goal 3: Pt. to report decrease in R sided thoracolumbar pain to </=2/10 for improved QOL. []Met []Partially met []Not met halfway goal 4: Pt. 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 Advance Directives and Living Will Power of Blow Machine Tender Starch Spraying Latest Code Status on File Code Status Date Activated Date Inactivated Comments Full Code 01/11/2017 7:21 PM 01/12/2017 6:01 PM Full Code 02/27/2016 10:10 AM 02/27/2016 3:06 PM Full Code 02/27/2016 8:57 AM 02/27/2016 10:10 AM Full Code 02/01/2016 11:57 AM 02/01/2016 2:06 PM Full Code 02/01/2016 10:13 AM 02/01/2016 11:57 AM Documents on File Type Date Recorded 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 Expl 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 Advance Directives and Living Will Power of Blow Machine Tender Starch Spraying Latest Code Status on File Code Status Date Activated Date Inactivated Comments Full Code 01/11/2017 7:21 PM 01/12/2017 6:01 PM Full Code 02/27/2016 10:10 AM 02/27/2016 3:06 PM Full Code 02/27/2016 8:57 AM 02/27/2016 10:10 AM Full Code 02/01/2016 11:57 AM 02/01/2016 2:06 PM Full Code 02/01/2016 10:13 AM 02/01/2016 11:57 AM Documents on File Type Date Recorded 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 Expl anation ACP-Advance Directive ACP-Power of Blow Machine Tender Starch Spraying Documents on File Type Date Recorded 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 Expl anation ACP-Advance Directive ACP-Power of Blow Machine Tender Starch Spraying Healthcare Agents on File Name Relationship Healthcare Agent Relationshi p Communication Jesus Toner Other Primary Decision Maker 567-2 (Mobile) Healthcare Agents on File Name Relationship Healthcare Agent Relationshi p Communication Jesus Toner Other Primary Decision Maker 567-2 (Mobile) Healthcare Agents on File Name Relationship Healthcare Agent Relationshi p Communication Jesus Toner Other Primary Decision Maker 567-2 (Mobile) Healthcare Agents on File Name Relationship Healthcare Agent Relationshi p Communication Jesus Toner Other Primary Decision Maker 567-2 (Mobile) Healthcare Agents on File Name Relationship Healthcare Agent Relationshi p Communication Jesus Toner Other Primary Decision Maker 567-2 (Mobile) Healthcare Agents on File Name Relationship Healthcare Agent Relationshi p Communication Jesus Toner Other Primary Decision Maker 567-2 (Mobile) Healthcare Agents on File Name Relationship Healthcare Agent Relationshi p Communication Jesus Toner Other Primary Decision Maker 567-2 (Mobile) Healthcare Agents on File Name Relationship Healthcare Agent Relationshi p Communication Jesus Toner Other Primary Decision Maker 567-2 (Mobile) Healthcare Agents on File Name Relationship Healthcare Agent Relationshi p Communication Jessu Toner Other Primary Decision Maker 567-2 (Mobile) Healthcare Agents on File Name Relationship Healthcare Agent Relationshi p Communication Jesus Toner Other Primary Decision Maker 567-2 (Mobile) Healthcare Agents on File Name Relationship Healthcare Agent Relationshi p Communication Jesus Toner Other Primary Decision Maker 567-2 (Mobile) Healthcare Agents on File Name Relationship Healthcare Agent Relationshi p Communication Jesus Toner Other Primary Decision Maker 567-2 (Mobile) Healthcare Agents on File Name Relationship Healthcare Agent Relationshi p Communication Jesus Toner Other Primary Decision Maker 567-2 (Mobile) Healthcare Agents on File Name Relationship Healthcare Agent Relationshi p Communication Jesus Toner Other Primary Decision Maker 567-2 (Mobile) Healthcare Agents on File Name Relationship Healthcare Agent Relationshi p Communication Jesus Toner Other Primary Decision Maker 567-2 (Mobile) Healthcare Agents on File Name Relationship Healthcare Agent Relationshi p Communication Jesus Toner Other Primary Decision Maker 567-2 (Mobile) Healthcare Agents on File Name Relationship Healthcare Agent Relationshi p Communication Jesus Toner Other Primary Decision Maker 567-2 (Mobile) Healthcare Agents on File Name Relationship Healthcare Agent Relationshi p Communication Jesus Toner Other Primary Decision Maker 567-2 (Mobile) Healthcare Agents on File Name Relationship Healthcare Agent Relationshi p Communication Jesus Toner Other Primary Decision Maker Latest Code Status on File Code Status Date Activated Date Inactivated Comments Full Code 09/12/2022 4:44 AM Full Code 01/11/2017 7:21 PM 01/12/2017 6:01 PM Healthcare Agents on File Name Relationship Healthcare Agent Relationshi p Communication Jesus Toner Other Primary Decision Maker Latest Code Status on File Code Status Date Activated Date Inactivated Comments Full Code 09/12/2022 4:44 AM Full Code 01/11/2017 7:21 PM 01/12/2017 6:01 PM Healthcare Agents on File Name Relationship Healthcare Agent Relationshi p Communication Jesus Toner Other Primary Decision Maker Latest Code Status on File Code Status Date Activated Date Inactivated Comments Full Code 09/12/2022 4:44 AM 09/13/2022 1:53 AM Healthcare Agents on File Name Relationship Healthcare Agent Relationshi p Communication Jesus Toner Other Primary Decision Maker Latest Code Status on File Code Status Date Activated Date Inactivated Comments Full Code 09/12/2022 4:44 AM 09/13/2022 1:53 AM Code Status History Code Status Date Activated Date Inactivated Comments Full Code 01/11/2017 7:21 PM 01/12/2017 6:01 PM Full Code 02/27/2016 10:10 AM 02/27/2016 3:06 PM Full Code 02/27/2016 8:57 AM 02/27/2016 10:10 AM Full Code 02/01/2016 11:57 AM 02/01/2016 2:06 PM Healthcare Agents on File Name Relationship Healthcare Agent Relationshi p Communication Jesus Toner Other Primary Decision Maker Healthcare Agents on File Name Relationship Healthcare Agent Relationshi p Communication Jesus Toner Other Primary Decision Maker Healthcare Agents on File Name Relationship Healthcare Agent Relationshi p Communication Jesus Toner Other Primary Decision Maker Healthcare Agents on File Name Relationship Healthcare Agent Relationshi p Communication Jesus Toner Other Primary Decision Maker Healthcare Agents on File Name Relationship Healthcare Agent Relationshi p Communication Jesus Toner Other Primary Decision Maker Healthcare Agents on File Name Relationship Healthcare Agent Relationshi p Communication Jesus Toner Other Primary Decision Maker Latest Code Status on File Code Status Date Activated Date Inactivated Comments Full Code 09/12/2022 4:44 AM 09/13/2022 1:53 AM Code Status History Code Status Date Activated Date Inactivated Comments Full Code 01/11/2017 7:21 PM 01/12/2017 6:01 PM Full Code 02/27/2016 10:10 AM 02/27/2016 3:06 PM Full Code 02/27/2016 8:57 AM 02/27/2016 10:10 AM Full Code 02/01/2016 11:57 AM 02/01/2016 2:06 PM Healthcare Agents on File Name Relationship Healthcare Agent Relationshi p Communication Jesus Hancock Other Primary Decision Maker Healthcare Agents on File Name Relationship Healthcare Agent Relationshi p Communication Jesus Malikr Other Primary Decision Maker Assessments Diagnosis Viral gastroenteritis Intestinal infection due to other organism, not elsewhere classified Diagnosis Dyslipidemia Other and unspecified hyperlipidemia Hypersomnia Hypersomnia, unspecified Essential hypertension Unspecified essential hypertension Class 1 obesity with body mass index (BMI) of 32.0 to 32.9 in adult, unspecified obesity type, unspecified whether serious comorbidity present Diagnosis Class 1 obesity with body mass index (BMI) of 32.0 to 32.9 in adult, unspecified obesity type, unspecified whether serious comorbidity present Diagnosis Suspected COVID-19 virus infection Diagnosis Pain Generalized pain Diagnosis Preop testing Preoperative examination, unspecified Diagnosis Dysphasia Other speech disturbance History of colonic polyps Personal history of colonic polyps Diagnosis Dysphasia Other speech disturbance History of colonic polyps Personal history of colonic polyps Rectal polyp Anal and rectal polyp Diagnosis Preoperative testing Preoperative examination, unspecified Diagnosis Primary osteoarthritis of right knee- Primary Primary localized osteoarthrosis, lower leg Reason for Referral Status Reason Specialty Diagnoses / Procedures Referred By Contact Referred To Contact Pending [facility] Diagnoses Hypersomnia Procedures Baseline Diagnostic Sleep Study Berhane Braden APRN - CNP [address] [place] [address] Status Reason Specialty Diagnoses / Procedures Referre d By Contact Referred To Contact Closed Radiology Diagnoses Aphasia Dizziness Drooling Procedures MRI BRAIN W WO CONTRAST Berhane Braden APRN - CNP [address] [place] [address] [address] [place] [address] Specialty Diagnoses / Procedures Referred By Josiah márquez Referred To Contact Radiology Diagnoses Anxiety and depression Stuttering Procedures MRI BRAIN W WO CONTRAST Jazmín Castañeda, TEST BORER - PHP PROGRAMMER [address] [place] [address] Referral ID Status Reason Start Date Expiration Date Visits Re quested Visits Authorized [id number] Closed 09/10/2022 09/10/2023 1 1 Specialty Diagnoses / Procedures Referred By Josiah márquez Referred To Contact Radiology Diagnoses Right sided abdominal pain Procedures US PELVIS COMPLETE Jazmín Castañeda, TEST BORER - PHP PROGRAMMER [address] [place] [address] Referral ID Status Reason Start Date Expiration Date Visits Re quested Visits Authorized [id number] Open 04/09/2023 04/08/2024 1 1 Discharge Instructions * Instructions* Alondra Gamble RN - 04/19/2020 Follow-up with your PCP and see a repair technician as needed. Increase Prilosec to twice a day ludivina taken 30-45 minutes before breakfast and dinner. Call the GI clinic at if you have a problem or question. If a biopsy or polypectomy was done, call for results in two weeks if you have not been contacted by the GI clinic staff. COLONOSCOPY DISCHARGE INSTRUCTIONS: It's normal to have a feeling of fullness or mild cramping in your abdomen afterwards due to air that is put into your bowel during the procedure. Mild activities such as walking will help you pass the air. You may resume your regular diet. ENDOSCOPY DISCHARGE INSTRUCTIONS: You may have a mild sore throat; this should get better over the next day or two. Sipping warm liquids, a salt-water gargle or throat lozenges may be used. You may have some belching or a feeling of fullness in your abdomen. This is from air that was put into your stomach during the procedure. Thisshould pass in a few hours. May resume your regular diet. You will receive a letter or phone call with your test results in 2 weeks. If you have not receiveda letter or a phone call in 2 weeks please call the office for your results. CALL THE DOCTOR IF YOU HAVE: Chest pain or trouble breathing. A hoarse voice or trouble swallowing Bleeding, vomiting or spitting up of blood that is more than a few streaks or red or black stools A fever above 101F or if you have chills Pain that is worse or different than any pain you had before the procedure Nausea or vomiting that lasts for more than 2 hours. If symptoms are to severe call 911 or go to the nearest Emergency Room. documented in this encounter* Instructions* Ami Zamora RN - 08/19/2020 SAME DAY SURGERY DISCHARGE INSTRUCTIONS 1. Do not drive or operate hazardous machinery for 24 hours. 2. Do not make important personal or business decisions for 24 hours. 3. Do not drink alcoholic beverages for 24 hours. 4. Do not smoke tobacco products for 24 hours. 5. Eat light foods (Jell-O, soups, etc....) and drink plenty of fluids (water, Sprite, etc...) up to 8 glasses per day, as you can tolerate. 6. If your bandages become soaked with bright red blood, place another dressing pad over your bandages. (DO NOT remove original bandage.) Call your surgeon for further instructions. A small amount ofbright red blood is to be expected. 7. Limit your activities for 24 hours. Do not engage in heavy work until your surgeon gives you permission. 8. Report the following signs or any questions regarding your physical condition to your surgeon immediately: Excessive swelling of, or around the wound area. Redness. Temperature of 100 degrees (F) or above. Excessive pain. 9. Call your surgeon for any questions regarding your surgery. 10. Keep previously scheduled follow up appointment Saturday. POST-OPERATIVE INSTRUCTIONS Elevate extremity at the level of your heart or above. Ice 30 minutes on, 30 minutes off for the first 24 hours. Do not remove bandages and dressing. Do not get bandages wet. Take pain medications as directed. Resume your regular diet. Any question or concerns please call the office ([phone]). If after hours Dr. Segovia can be reached at [phone] (home) or [phone] (cell phone). documented in this encounter* Attachments The following attachments cannot be sent through Care Everywhere. * Arthritis ([place] Islander) * Knee Arthritis: Exercises ([place]) * Knee Arthritis ([place]) documented in this encounter Summary Purpose Family History No Family History Records FoundNo Family History Records FoundNo Family History Records FoundNo Family History Records Found Additional Source Comments Reason for Visit (unrecogniz ed section and content) Status Reason Specialty Diagnoses / Procedures Re ferred By Contact Referred To Contact Diagnoses Personal history of colonic polyps Dysphagia HX OF COLONIC POLYPS, DYSPHAGIA, UNSEPCIFIED TYPE, HX OF FUNDOPLICATION Procedures AZ COLORECTAL SCRN; HI RISK IND AZ ESOPHAGOGASTRODUODENOSCOPY TRANSORAL DIAGNOSTIC [place] COLONOSCOPY FLX DX W/COLLJ SPEC WHEN PFRMD COLORECTAL CANCER SCREENING, HIGH RISK EGD ESOPHAGOGASTRODUODENOSCOPY Mario Santiago MD [address] [place] [id number] [facility] Status Reason Specialty Diagnoses / Procedures Referre d By Contact Referred To Contact Diagnoses Foot mass, left SOFT TISSUE MASS LEFT FOOT Procedures [place] EXC TUMOR SOFT TISSUE FOOT/TOE SUBFASC <1.5CM FOOT LESION BIOPSY EXCISION-SOFT TISSUE MASS Jeffrey Segovia, DPM [address] [place] [address] [facility] Reason Comments Knee Pain right knee--onset la st night when dressing for work, pt states she bent her knee and it buckled. Status Reason Specialty Diagnoses / Procedures Referre d By Contact Referred To Contact Closed Radiology Diagnoses Aphasia Dizziness Drooling Procedures MRI BRAIN W WO CONTRAST Berhane Braden, TEST BORER - PHP PROGRAMMER [address] [place] [address] [facility] [facility] [address] [place] [address] Reason Comments Groin Pain left, ongoing for 3- 4 weeks intermittent, worse tonight after lifting. Specialty Diagnoses / Procedures Referred By Contac t Referred To Contact Speech Pathology / Speech Therapy Diagnoses Speech disturbance, unspecified type Dale Samayoa MD [address] [place] [address] [address] [place] [address] [facility] Speech Therapy [address] [place] [address] Referral ID Status Reason Start Date Expiration Date Visits Requested Visits Authorized [id number] Authorized/ Scheduled Specialty Services Required 08/09/2022 08/09/2023 1 1 Specialty Diagnoses / Procedures Referred By Josiah márquez Referred To Contact Radiology Diagnoses Anxiety and depression Stuttering Procedures MRI BRAIN W WO CONTRAST Jazmín Castañeda APRN - [facility] [address] [place] [address] Referral ID Status Reason Start Date Expiration Date Visits Re quested Visits Authorized [id number] Closed 09/10/2022 09/10/2023 1 1 Reason Comments Thrush C/o coated , dry, an d painful tongue and throat Specialty Diagnoses / Procedures Referred By Josiah márquez Referred To Contact Radiology Diagnoses Right sided abdominal pain Procedures US PELVIS COMPLETE Jazmín Castañeda APRN - CNP [address] [place] [address] Referral ID Status Reason Start Date Expiration Date Visits Re quested Visits Authorized [id number] Open 04/09/2023 04/08/2024 1 1 Ordered Prescriptions (unrec ognized section and content) Prescription Sig Dispensed Refills Start Date End Da te predniSONE (DELTASONE) 20 MG tablet Take 1 tablet by mouth 2 times daily for 7 days 14 tablet 0 10/19/2020 10/26/2020 Prescription Sig Dispensed Refills Start Date End Da te nystatin (MYCOSTATIN) 402550 UNIT/ML suspension Take 5 mLs by mouth 4 times daily for 10 days Retain in mouth as long as possible 200 mL 0 10/20/2022 10/30/2022 nystatin (MYCOSTATIN) [id number] UNIT/ML suspension Take 5 mLs by mouth 4 times daily for 10 days Retain in mouth as long as possible 200 mL 0 10/20/2022 10/20/2022 Care Teams (unrecognized sec tion and content) Neonatal Intensive Care Nurse Relationship Specialty Start Date End Date Jazmín Castañeda TEST BORER - [facility] [address] [place] [address] PCP - General Certified Nurse Practitioner 04/13/21 Neonatal Intensive Care Nurse Relationship Specialty Start Date End Date Jazmín Castañeda TEST BORER - PHP PROGRAMMER [address] [place] [facility] [address] PCP - General Certified Nurse Practitioner 04/13/21 Neonatal Intensive Care Nurse Relationship Specialty Start Date End Date Jazmín Castañeda TEST BORER - PHP PROGRAMMER [address] [place] [facility] [address] PCP - General Certified Nurse Practitioner 04/13/21 Neonatal Intensive Care Nurse Relationship Specialty Start Date End Date Jazmín Castañeda TEST BORER - PHP PROGRAMMER [address] [place] [facility] [address] PCP - General Certified Nurse Practitioner 04/13/21 Neonatal Intensive Care Nurse Relationship Specialty Start Date End Date Jazmín Castañeda TEST BORER - PHP PROGRAMMER [address] [place] [facility] [address] PCP - General Certified Nurse Practitioner 04/13/21 Neonatal Intensive Care Nurse Relationship Specialty Start Date End Date Jazmín Castañeda TEST BORER - PHP PROGRAMMER [address] [place] [facility] [address] PCP - General Certified Nurse Practitioner 04/13/21 Neonatal Intensive Care Nurse Relationship Specialty Start Date End Date Jazmín Castañeda APRN - PHP PROGRAMMER [address] [place] [facility] [address] PCP - General Certified Nurse Practitioner 04/13/21 Neonatal Intensive Care Nurse Relationship Specialty Start Date End Date Jazmín Castañeda TEST BORER - PHP PROGRAMMER [address] [place] [facility] [address] PCP - General Certified Nurse Practitioner 04/13/21 Neonatal Intensive Care Nurse Relationship Specialty Start Date End Date Jazmín Castañeda TEST BORER - PHP PROGRAMMER [address] [place] [facility] [address] PCP - General Certified Nurse Practitioner 04/13/21 Neonatal Intensive Care Nurse Relationship Specialty Start Date End Date Saud, Jazmín White TEST BORER - PHP PROGRAMMER [address] [place] [facility] [address] PCP - General Certified Nurse Practitioner 04/13/21 Neonatal Intensive Care Nurse Relationship Specialty Start Date End Date Saud, Jazmín Cindy TEST BORER - PHP PROGRAMMER [address] [place] [facility] [address] PCP - General Certified Nurse Practitioner 04/13/21 Neonatal Intensive Care Nurse Relationship Specialty Start Date End Date Saud, Jazmín White TEST BORER - PHP PROGRAMMER [address] [place] [facility] [address] PCP - General Certified Nurse Practitioner 04/13/21 Neonatal Intensive Care Nurse Relationship Specialty Start Date End Date Saud, Jazmín White TEST BORER - PHP PROGRAMMER [address] [place] [facility] [place] [address] PCP - General Certified Nurse Practitioner 04/13/21 Neonatal Intensive Care Nurse Relationship Specialty Start Date End Date Saud, Jazmín White TEST BORER - PHP PROGRAMMER [address] [place] [facility] [address] PCP - General Certified Nurse Practitioner 04/13/21 Neonatal Intensive Care Nurse Relationship Specialty Start Date End Date Saud, Jazmín White TEST BORER - PHP PROGRAMMER [address] [place] [facility] [address] PCP - General Certified Nurse Practitioner 04/13/21 Neonatal Intensive Care Nurse Relationship Specialty Start Date End Date Saud, Jazmín White TEST BORER - PHP PROGRAMMER [address] [place] [facility] [address] PCP - General Certified Nurse Practitioner 04/13/21 Neonatal Intensive Care Nurse Relationship Specialty Start Date End Date Saud, Jazmín White TEST BORER - PHP PROGRAMMER [address] [place] [facility] [address] PCP - General Certified Nurse Practitioner 04/13/21 Neonatal Intensive Care Nurse Relationship Specialty Start Date End Date Saud, Jazmín White TEST BORER - PHP PROGRAMMER [address] [place] [facility] [address] PCP - General Certified Nurse Practitioner 04/13/21 Neonatal Intensive Care Nurse Relationship Specialty Start Date End Date Jazmín Castañeda APRN - CNP [address] [place] [address] PCP - General Certified Nurse Practitioner 04/13/21 Neonatal Intensive Care Nurse Relationship Specialty Start Date End Date Jazmín Castañeda APRN - CNP [address] [place] [address] PCP - General Certified Nurse Practitioner 04/13/21 Neonatal Intensive Care Nurse Relationship Specialty Start Date End Date Jazmín Castañeda APRN - CNP [address] [place] [address] PCP - General Certified Nurse Practitioner 04/13/21 Neonatal Intensive Care Nurse Relationship Specialty Start Date End Date Jazmín Castañeda APRN - CNP [address] [place] [address] PCP - General Certified Nurse Practitioner 04/13/21 Neonatal Intensive Care Nurse Relationship Specialty Start Date End Date Jazmín Castañeda APRN - CNP [address] [place] [address] PCP - General Certified Nurse Practitioner 04/13/21 Neonatal Intensive Care Nurse Relationship Specialty Start Date End Date Jazmín Castañeda APRN - CNP [address] [place] [address] PCP - General Certified Nurse Practitioner 04/13/21 Neonatal Intensive Care Nurse Relationship Specialty Start Date End Date Jazmín Castañeda APRN - CNP [address] [place] [address] PCP - General Certified Nurse Practitioner 04/13/21 Scheduled Active and Recently Administ ered Medications (unrecognized section and content) Medication Order 09/10/2022 09/11/2022 09/12/2022 levETIRAcetam (KEPPRA) 1,500 mg in sodium chloride 0.9 % 100 mL IVPB (COMPLETED) 1,500 mg, IntraVENous, ONCE, 1 dose, On Sat09/11/22 at 2115 2145 (New Bag - Provider: Adriana Morgan, JOHNNA)2215 (Stopped - Provider: Angela Morgan RN) LORazepam (ATIVAN) injection 1 mg (COMPLETED) 1 mg, IntraVENous, ONCE, 1 dose, On Sat09/11/22 at 2044 2035 (Given - Provider: Gloria Bowles, JOHNNA) ondansetron (ZOFRAN) injection 4 mg (COMPLETED) 4 mg, IntraVENous, ONCE, 1 dose, On Sat09/11/22 at 2044 2034 (Given - Provider: Gloria Bowles, JOHNNA) Scheduled Medication Order 09/10/2022 09/11/2022 09/12/2022 enoxaparin (LOVENOX) injection 40 mg 40 mg, SubCUTAneous, DAILY, First dose on Sat09/12/22 at 0900, Until Discontinued, Indication of Use: Prophylaxis-DVT/PE, Administer by deep subCUTAneous injection with pt lying down. Alternate injection sites on abdominal wall. Do not rub site after injection. Check with MD prior to any invasive procedure. 0823 (Given - Provid er: Rosario Cody RN) levETIRAcetam (KEPPRA) 500 mg/100 mL IVPB 500 mg, IntraVENous, EVERY 12 HOURS, First dose on Sat09/12/22 at 0515, Until Discontinued 0603 (New Bag - Prov ider: Monica Arreguin RN)0618 (Stopped - Provider: Monica Arreguin RN)1727 (New Bag - Provider: Rosario Cody RN)1754 (Stopped - Provider: Rosario Cody RN) LORazepam (ATIVAN) injection 0.5 mg (COMPLETED) 0.5 mg, IntraVENous, ONCE, 1 dose, On Sat09/12/22 at 0500, STAT 0515 (Given - Provid er: Monica Arreguin RN) magnesium sulfate 1000 mg in dextrose 5% 100 mL IVPB (COMPLETED) 1,000 mg, IntraVENous, at 100 mL/hr, Administer over 1 Hours, ONCE, On Sat09/12/22 at 1515, For 1 dose, Recommended infusion rate not to exceed 1,000 mg (milligrams) per hour. 1745 (New Bag - Prov ider: Rosario Cody RN)1754 (Stopped - Provider: Rosario Cody RN) sodium chloride flush 0.9 % injection 5-40 mL 5-40 mL, IntraVENous, EVERY 12 HOURS SCHEDULED (2 times per day), First dose on Sat09/12/22 at 0900, Until Discontinued, For Line Patency: Peripheral IV = 5 mL; Midline or Central Line = 10 mL/lumen. If following IV push medication, administer flush at same rate as the IV push. Flush volume is determined by type of infusion therapy being given. For non-viscous solutions use: Peripheral IV = 5 mL Midline or Central Line = 10 mL/lumen For viscous solutions (i.e. blood components, parenteral nutrition, contrast media, or after obtaining blood sample) use: Peripheral IV = 10 mL Midline or Central Line = 20 mL/lumen 0823 (Given - Provid er: Rosario Cody RN)2100 (Due) tiotropium (SPIRIVA RESPIMAT) 2.5 MCG/ACT inhaler 2 puff 2 puff, Inhalation, DAILY, First dose on Sat09/12/22 at 0930, Until Discontinued 0917 (Given - Provid er: Sampson Kent RCP) PRN Medication Order 09/10/2022 09/11/2022 09/12/2022 0.9 % sodium chloride infusion IntraVENous, at 5-250 mL/hr, PRN, if patient receiving piggyback infusions and maintenance fluids are not ordered OR KVO fluids to protect IV site / prevent frequent line interruptions/ long duration, Starting on Sat09/12/22 at 0445, For piggyback infusion, administer at same rate as piggyback for a total of 25 mL. Enter 25 mL into dose field and piggyback rate into rate field of order. If piggyback is infusing at a rate less than 100 mL/hr, enter 25 mL into dose field and 100 mL/hr into rate field of order. For KVO fluids, enter rate of 20 mL/hr or less into rate field of order. 0602 (New Bag - Prov ider: Monica Arreguin RN) acetaminophen (TYLENOL) suppository 650 mg(Linked Group 1) 650 mg, Rectal, EVERY 6 HOURS PRN, Starting on Sat09/12/22 at 0445, Until Discontinued, Pain Mild (1-3), Fever, For temp greater than 100.4 F (38 C), Administer if oral route cannot be used. acetaminophen (TYLENOL) tablet 650 mg(Linked Group 1) 650 mg, Oral, EVERY 6 HOURS PRN, Starting on Sat09/12/22 at 0445, Until Discontinued, Pain Mild (1-3), Fever, For temp greater than 100.4 F (38 C), Maximum dose of acetaminophen is 4000 mg from all sources in 24 hours. albuterol sulfate HFA (PROVENTIL;VENTOLIN;PROAIR) 108 (90 Base) MCG/ACT inhaler 2 puff 2 puff, Inhalation, EVERY 4 HOURS PRN, Starting on Sat09/12/22 at 0908, Until Discontinued, Wheezing, Initiate RT Bronchodilator Protocol: Yes - Inpatient Protocol LORazepam (ATIVAN) injection 1 mg 1 mg, IntraVENous, EVERY 5 MIN PRN, Starting on Sat09/12/22 at 0445, Until Discontinued, Seizures, may repeat x 1 (1mg) dose if seizure continues in a 4 hour period, For generalized seizures. Notify physician if administered for seizure. Max dose of 2 mg in 4 hour period. 1434 (Given - Provid er: Rosario Cody RN) ondansetron (ZOFRAN) injection 4 mg(Linked Group 2) 4 mg, IntraVENous, EVERY 6 HOURS PRN, Starting on Sat09/12/22 at 0445, Until Discontinued, Nausea, Vomiting, Administer if oral route cannot be used. ondansetron (ZOFRAN-ODT) disintegrating tablet 4 mg(Linked Group 2) 4 mg, Oral, EVERY 8 HOURS PRN, Starting on Sat09/12/22 at 0445, Until Discontinued, Nausea, Vomiting polyethylene glycol (GLYCOLAX) packet 17 g 17 g, Oral, DAILY PRN, Starting on Sat09/12/22 at 0445, Until Discontinued, Constipation, First line therapy for constipation sodium chloride flush 0.9 % injection 5-40 mL 5-40 mL, IntraVENous, PRN, Starting on Sat09/12/22 at 0445, Until Discontinued, Line Care, After every IV line use, For Line Patency: Peripheral IV = 5 mL; Midline or Central Line = 10 mL/lumen. If following IV push medication, administer flush at same rate as the IV push. Flush volume is determined by type of infusion therapy being given. For non-viscous solutions use: Peripheral IV = 5 mL Midline or Central Line = 10 mL/lumen For viscous solutions (i.e. blood components, parenteral nutrition, contrast media, or after obtaining blood sample) use: Peripheral IV = 10 mL Midline or Central Line = 20 mL/lumen Linked Groups Order Group 1: acetaminophen (TYLENOL) tablet 650 mgJump to med 650 mg, Oral, EVERY 6 HOURS PRN, Starting on Sat09/12/22 at 0445, Until Discontinued, Pain Mild (1-3), Fever, For temp greater than 100.4 F (38 C)
Maximum dose of acetaminophen is 4000 mg from all sources in 24 hours.
Or acetaminophen (TYLENOL) suppository 650 mgJump to med 650 mg, Rectal, EVERY 6 HOURS PRN, Starting on Sat09/12/22 at 0445, Until Discontinued, Pain Mild (1-3), Fever, For temp greater than 100.4 F (38 C)
Administer if oral route cannot be used.
Group 2: ondansetron (ZOFRAN-ODT) disintegrating tablet 4 mgJump to med 4 mg, Oral, EVERY 8 HOURS PRN, Starting on Sat09/12/22 at 0445, Until Discontinued, Nausea, Vomiting Or ondansetron (ZOFRAN) injection 4 mgJump to med 4 mg, IntraVENous, EVERY 6 HOURS PRN, Starting on Sat09/12/22 at 0445, Until Discontinued, Nausea, Vomiting
Administer if oral route cannot be used.
INFORMATION SOURCE (unrecogn ized section and content) DATE CREATED AUTHOR 10/17/2022 [employer] DATE CREATED AUTHOR AUTHOR'S ORGANIZ ATION 01/11/2023 [facility] DATE CREATED AUTHOR AUTHOR'S ORGANIZ ATION 05/16/2023 [facility] DATE CREATED AUTHOR AUTHOR'S ORGANIZ ATION 05/27/2023 [facility] [employer] FOR RECORDS PERTAINING TO PATIENTS WHO ARE OR HAVE BEEN ENROLLED IN A CHEMICAL DEPENDENCY/SUBSTANCEABUSE PROGRAM, SOME INFORMATION MAY BE OMITTED. This clinical summary was aggregated from multiple sources. Caution should be exercised in using it in the provision of clinical care. This summary normalizes information from multiple sources, and as a consequence, information in this document may materially change the coding, format and clinical context of patient data. In addition, data may be omitted in some cases. CLINICAL DECISIONS SHOULD BE BASED ON THE PRIMARY CLINICAL RECORDS. [facility] provides no warranty or guarantee of the accuracy or completeness of information in this document.
== END 2023-07-18 09:02 | disposition home or self-care (01) ==
LOC: SURGOUT 07:44
PROVIDERS: Visit Provider Anesthesiology Pain Medicine
DX: M54.16 Radiculopathy, lumbar region (principal)
CPT/HCPCS: 62323; J1040; Q9966